=== PATIENT | male | born 1935 | race Caucasian/White ===

== ENCOUNTER → 2016-09-24 | Outpatient (CLI) | payer BC ==
[~2016-09-24] MED LIST: ALFU10TA30 PO; CALCTAB5 PO; CARBSOL4 OPB; CHOL100010 PO; CIPR1TAB10 PO; CLC100X PO; CPRDOTS OTL; DABI150C PO; DIGO0.122 PO; FINA5TAB PO; IMDSR30 PO; METO25TA3 PO; MULT-618 PO; ONDA8TAB12 PO; PANT40TA PO; POLY1POW80 PO; PROC5TAB PO; ZVRUNK PO; [UNRECOGNIZED DRUG - CODE] PO; [UNRECOGNIZED DRUG - CODE] SQ
--- NOTE | 2016-09-24 12:32 | DIAGNOSTIC IMAGING REPORT ---
CHEST 2 VIEWS ROUTINE CLINICAL HISTORY: Acute cough on chemotherapy. Multiple myeloma. COMPARISON STUDY: Chest radiograph April 13, 2015. FINDINGS: A right internal jugular Bvjaoa-h-Cbqz, dual lead left subclavian pacemaker and one level vertebral augmentation as well as lumbar spine hardware is noted. There is no pneumothorax or pleural effusion. Mild cardiomegaly is unchanged. There is no evidence of pulmonary edema. Heterogeneity of skeletal structures is again noted. IMPRESSION: 1. No areas of consolidation to suggest pneumonia. 2. Linear bibasilar opacities which favor atelectasis. 3. Stable cardiomegaly without evidence of pulmonary edema. Electronically signed by: Kody Ayala M.D. 09/24/2016 12:30 PM
== END | disposition home or self-care (01) ==
LOC: C.RAD1850 11:32
PROVIDERS: ATTEND Family Medicine
DX: J01.00 Acute maxillary sinusitis, unspecified (principal); R05 Cough; T88.7XXA Unspecified adverse effect of drug or medicament, initial encounter; I51.7 Cardiomegaly

== ENCOUNTER → 2016-12-26 | Outpatient (CLI) | payer BC ==
[~2016-12-26] MED LIST changes: +ALFU10TA2 PO; -ALFU10TA30 PO; +CYAN100020 PO; +METO100T44 PO
== END | disposition home or self-care (01) ==
LOC: C.LAB 09:53
PROVIDERS: ATTEND Internal Medicine Cardiovascular Disease
DX: I48.92 Unspecified atrial flutter (principal)

== ENCOUNTER → 2017-03-19 | Outpatient (CLI) | payer BC ==
--- NOTE | 2017-03-19 16:36 | DIAGNOSTIC IMAGING REPORT ---
LEFT HIP UNILATERAL 2 VIEWS CLINICAL HISTORY: BUTTOCK PAIN pain COMPARISON: None. DISCUSSION: Moderate generalized degenerative change. Mild peripheral osteophytic reaction. Soft tissue vascular calcifications. No evidence for acetabular protrusion. There is no evidence for soft tissue swelling. IMPRESSION: Moderate degenerative change. No acute bony antibody. Electronically signed by: Cali Cary M.D. 03/19/2017 4:35 PM Dictated Date/Time: 03/19/2017 4:34 PM
== END | disposition home or self-care (01) ==
LOC: C.RADBC 16:17
PROVIDERS: ATTEND Family Medicine
DX: M79.1 Myalgia (principal)

== ENCOUNTER → 2017-04-11 | Outpatient (CLI) | payer BC ==
[~2017-04-11] MED LIST changes: -ALFU10TA2 PO; +ALFU10TA30 PO; -CYAN100020 PO; -METO100T44 PO
--- NOTE | 2017-04-11 14:45 | DIAGNOSTIC IMAGING REPORT ---
L-SPINE MIN 4 VIEWS ROUTINE CLINICAL HISTORY: HX OF MYELOMA, W/ LOW BACK PAIN COMPARISON STUDY: 01/07/2006, skeletal survey dated 07/10/2016 FINDINGS: There is no pathologic bowel dilatation. The bones are osteopenic. There are pedicle screws present at the L4, L5, and S1 levels. The L4 pedicle screw extends into the L3-4 disc. There is a superior endplate L1 compression fracture status post vertebral plasty. There are mild superior endplate deformities at the L2, L3, and L4 levels. There is a spinal curvature convex to the left IMPRESSION: 1. Osteopenia 2. L1 compression fracture status post vertebroplasty 3. Mild superior endplate deformities at the L2, L3, and L4 levels 4. Pedicle screws at the L4, L5, and S1 levels. There is suspected loosening at the L5 level. The L4 pedicle screws extend into the L3-4 disc 5. The above-mentioned findings remain essentially unchanged from the prior study dated 07/10/2016 Electronically signed by: Real Hernández M.D. 04/11/2017 2:44 PM Dictated Date/Time: 04/11/2017 2:40 PM
== END | disposition home or self-care (01) ==
LOC: C.RAD 13:48
PROVIDERS: ATTEND Internal Medicine Hematology & Oncology
DX: C90.00 Multiple myeloma not having achieved remission (principal); M85.80 Other specified disorders of bone density and structure, unspecified site

== ENCOUNTER → 2017-05-10 | Outpatient (CLI) | payer BC ==
--- NOTE | 2017-05-10 19:14 | Myocardial Perfusion Study ---
Myocardial Perfusion Study Rpt Myocardial Perfusion Study Rpt Date of Service 05/10/17 Myocardial Perfusion Study Rpt Procedure: 1. Myocardial perfusion study performed in multiple views/images 2. Exercise treadmill stress ECG Indications: 1. Chest pain Consent: Informed written consent was obtained prior to the procedure. Ordering physician: Dr. Abreu Procedural details: For the stress portion of the study 32.7 mCi of technetium 99m Cardiolite, injected at 11:45 a.m. on 05/10/2017. 30 minutes following the injection, imaging of the heart was performed in multiple projections. For the rest portion of the study, 9.7 mCi technetium 99m Cardiolite was injected intravenously at 10:00 on 05/10/2017. 1 hour following the injection, imaging of the heart was performed in the same projections. Exercise treadmill stress ECG: Patient exercised according to a modified [employer] protocol. He exercised for 3 minutes, achieving 2.3 Mets. Exercise was terminated due to back pain. No chest pain reported. Resting ECG demonstrated: Ventricular paced at 121 bpm Maximum heart rate: 129 bpm Resting blood pressure: 116/78 mmHg Maximum blood pressure: 120/74 mmHg Maximal, age-predicted heart rate: 92 % Significant ST changes: None Arrhythmia: Brief episode of atrial fibrillation without ventricular pacing in recovery (permanent atrial fibrillation according to pacer records) Symptoms: Back pain Findings: Rotating raw imaging demonstrated no significant lung uptake. There is no significant motion artifact. Heart size appeared dilated. Myocardial perfusion demonstrated a very large area of abnormal uptake. The distal anterior wall had severely reduced uptake and was fixed in post stress and rest imaging. The apex had severely reduced uptake and was fixed in post stress and rest imaging. The base to apical septum had moderately reduced uptake and was fixed with minimal reversibility. The base to apical infero septum had severely reduced uptake and was mildly reversible and rest imaging. The base to apical inferior wall had severely reduced uptake and was fixed in post stress and rest imaging. The base to apical inferolateral wall had severely reduced uptake in was fixed with minimal reversibility. There was significant bowel uptake, and the rest imaging greater than the stress imaging. Ejection fraction: 17 % Wall motion: Akinesis involving the distal inferior septum, apex, inferior wall , base to mid inferolateral wall. Otherwise, global hypokinesis. Could not assess for transient ischemic dilation. Impression: 1. 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 2. Severely reduced LV systolic function. EF 17%. 3. Akinesis involving the distal inferior septum, apex, inferior wall, base to mid inferolateral wall. Otherwise, global hypokinesis. 4. No chest pain reported. 5. Indeterminate exercise ECG due to paced rhythm. 6. Very poor exercise tolerance. 7. Dilated left ventricle.
== END | disposition home or self-care (01) ==
LOC: C.NUCL 09:03
PROVIDERS: ATTEND Internal Medicine Cardiovascular Disease
DX: R07.89 Other chest pain (principal); R94.39 Abnormal result of other cardiovascular function study

== ENCOUNTER → 2017-08-28 | Outpatient (CLI) | payer BC ==
[~2017-08-28] MED LIST changes: +ALFU10TA2 PO; -ALFU10TA30 PO; -CIPR1TAB10 PO; -CLC100X PO; -CPRDOTS OTL; +CYAN100020 PO; +METO100T44 PO; -METO25TA3 PO; -MULT-618 PO; -POLY1POW80 PO; -PROC5TAB PO; -[UNRECOGNIZED DRUG - CODE] PO; -[UNRECOGNIZED DRUG - CODE] SQ
--- NOTE | 2017-08-28 12:12 | DIAGNOSTIC IMAGING REPORT ---
CHEST 2 VIEWS ROUTINE CLINICAL HISTORY: COUGH COMPARISON STUDY: September 24, 2016 FINDINGS: The heart is mildly enlarged. There is a left subclavian dual-chamber central venous pacemaker present. There is a right-sided A-Port catheter with its tip projected in the superior vena cava. There is mild pulmonary venous hypertension. There is no focal pulmonary consolidation. There are no selective pleural effusions.[ IMPRESSION: Cardiomegaly and suspected mild pulmonary venous hypertension. No evidence of focal pulmonary consolidation. Electronically signed by: Real Hernández M.D. 08/28/2017 12:10 PM Dictated Date/Time: 08/28/2017 12:09 PM
== END | disposition home or self-care (01) ==
LOC: C.RAD1850 12:01
PROVIDERS: ATTEND Family Medicine
DX: R05 Cough (principal); D89.9 Disorder involving the immune mechanism, unspecified; C90.00 Multiple myeloma not having achieved remission; R09.89 Other specified symptoms and signs involving the circulatory and respiratory systems; I51.7 Cardiomegaly

== ENCOUNTER 2017-10-13 08:00 | Inpatient (IN) | payer BC, OTHER ==
[~2017-10-13] VITALS: Ht 167.6 cm; Wt 67.9 kg
--- NOTE | 2017-10-13 08:23 | EMERGENCY ROOM VISIT NOTE ---
History Report prepared by Shannon: Amie Henson Under the Supervision of: Dr. Rodrigo Cano M.D. First contact with patient: 08:13 Chief Complaint: FLU LIKE SX Stated Complaint: ILLNESS History of Present Illness The patient is a 81 year old male who presents to the Emergency Room with complaints of flu-like symptoms beginning 5 days ago. Per family, the patient has had a cough, congestion, shortness of breath, and nausea. His family reports that the patient is not on Oxygen at home. The patient denies having abdominal pain. He reports that he did not get the flu shot this year. The patient states that he is on blood thinners, but that he did not take them today. Per family, the patient has multiple myeloma and had infusion immunotherapy 9 days ago. The patient also reports that he has a pacemaker. Source of History: patient, family Onset: 5 days ago Position: other (global) Quality: other (flu-like symptoms ) Associated Symptoms: + cough, + SOB, + nausea, No abdominal pain Review of Systems See HPI for pertinent positives & negatives. A total of 10 systems reviewed and were otherwise negative. Past Medical & Surgical Medical Problems: (1) Atrial fibrillation (2) Back surgery (3) Inner Ear Surgery (4) Multiple myeloma (5) Neck pain (6) Osteoporosis (7) Pancytopenia due to antineoplastic chemotherapy (8) Sinus surgery (9) Tonsillectomy Family History Omitted due to advanced age Social History Smoking Status: Never Smoker Alcohol Use: none Drug Use: none Marital Status: Housing Status: lives with significant other Occupation Status: retired Current/Historical Medications Scheduled Acyclovir (Zovirax Unkown Dose), 400 MG PO BID Alfuzosin Hcl (Uroxatral), 10 MG PO HS Calcium (Caltrate), 600 MG PO DAILY Carboxymethylcellulose Sodium (Theratears), 1 DROP OPB AMHS Cholecalciferol (Vitamin D), 5,000 INTER.UNIT PO DAILY Ciprofloxacin (Ciprofloxacin HCl), 500 MG PO BID Cyanocobalamin (Vitamin B12), 5,000 MCG PO DAILY Dabigatran Etexilate Mesylate (Pradaxa), 150 MG PO BID Digoxin (Lanoxin), 0.125 MG PO DAILY Finasteride (Proscar), 5 MG PO DAILY Isosorbide Mononitrate Ext Rel (Imdur Ext Rel), 60 MG PO DAILY Metoprolol Succinate (Metoprolol Succinate ER), 100 MG PO DAILY Pantoprazole (Protonix), 40 MG PO DAILY Scheduled PRN Ondansetron Hcl (Zofran), 8 MG PO TID PRN for Nausea or Vomiting Allergies Coded Allergies: Immune Globulin (Verified Allergy, Severe, ANAPHYLAXIS, 10/13/17) Penicillins (Verified Allergy, Mild, DIZZINESS, 10/13/17) Statins (Verified Allergy, Unknown, unknown, 10/13/17) Sulfa Antibiotics (Verified Allergy, Unknown, Unknown rxn, 10/13/17) Omeprazole (Verified Adverse Reaction, Intermediate, dizziness, 10/13/17) Physical Exam Vital Signs Date Time Temp Pulse Resp B/P (MAP) Pulse Ox O2 Delivery O2 Flow Rate FiO2 10/13/17 10:38 116 20 100/71 99 35 10/13/17 09:51 117 20 119/83 99 BiPAP 35 10/13/17 08:30 104 98 10/13/17 08:30 104 18 97 Nasal Cannula 4.0 10/13/17 08:08 37.7 95 20 181/94 83 Room Air 10/13/17 08:07 83 Room Air 10/13/17 08:07 94 Nasal Cannula 4.0 10/13/17 08:07 108 Physical Exam GENERAL: Patient is an acutely uncomfortable, well-nourished male HEAD: Normocephalic atraumatic EYES: Ocular movements intact pupils equal and react to light OROPHARYNX mucous membranes are moist no exudates present no erythema or edema present NECK: Supple no nuchal rigidity CHEST: Good equal expansion LUNGS: Wheezing throughout all lung davis CARDIAC: Normal S1 and S2 ABDOMEN: Soft nontender no guarding BACK: No CVA tenderness EXTREMITIES: No pain upon palpation normal muscle strength in all groups no clubbing cyanosis or edema NEURO: Patient is following commands and answering questions appropriately. Alert and oriented x3 Cranial Nerves 2-12 grossly intact Medical Decision & Procedures ER Provider Diagnostic Interpretation: Radiology results as stated below per my review and radiologist interpretation: CHEST ONE VIEW PORTABLE HISTORY: 81 years-old Male Pt c/o SOB acute shortness of breath COMPARISON: Chest radiographs 08/28/2017 TECHNIQUE: Portable AP view of the chest FINDINGS: Cardiac silhouette is moderately enlarged. Atherosclerosis of the aorta. Right pectoral Mwiqfu-j-Sgtm catheter is unchanged as is the left subclavian pacer with leads overlying the right atrium and right ventricle. No pneumothorax. Small left pleural effusion is noted in conjunction with patchy left greater then right bibasilar and left lateral midlung opacities. Mild ethmoid vascular congestion without overt pulmonary edema. Bones of the chest appear grossly intact. Chondrocalcinosis about the shoulders with degenerative shoulder and spine changes seen. Kyphoplasty of the upper lumbar region. IMPRESSION: 1. Cardiomegaly and mild pulmonary vascular congestion without overt pulmonary edema. 2. Small left pleural effusion with patchy left greater than right bibasilar and lateral left midlung opacities suspicious for multifocal pneumonia. Follow-up recommended. The above report was generated using voice recognition software. It may contain grammatical, syntax or spelling errors. Electronically signed by: Catrachito Dhaliwal M.D. 10/13/2017 8:44 AM Dictated Date/Time: 10/13/2017 8:41 AM (CHEST FOR PE) ANGIO WITH CT DOSE: 470.73 mGy.cm HISTORY: 81 years-old Male presents with acute shortness of breath TECHNIQUE: Multiple CTA images of the chest were obtained after the intravenous administration of 94 ml Optiray 320. Coronal and sagittal MIPS were obtained from the axial data set and were submitted for review. A dose lowering technique was utilized adhering to the principles of ALARA. COMPARISON: Chest radiograph 10/13/2017, CTA chest 08/13/2013. FINDINGS: CTA: Moderate multichamber cardiac enlargement. Left subclavian pacer is noted with leads overlying the right atrium and right ventricle. Coronary arterial disease. The thoracic aorta is normal in both course and caliber without aneurysm or dissection. The imaged great vessels appear to be patent. The pulmonary arterial tree is opacified to level of the proximal lobar branches. The segmental and subsegmental branches are not well-seen secondary to respiratory motion. No focal filling defects identified to suggest pulmonary thromboembolic disease. The main pulmonary artery is dilated measuring 3.2 cm suggesting pulmonary arterial hypertension. CT CHEST: No focal thyroid nodule identified. Calcified mediastinal and hilar lymph nodes are compatible with prior granulomatous disease. Small bilateral pleural effusions. No pneumothorax. Patchy multifocal consolidative and nodular opacities are present within the left upper lobe, lingula, right upper lobe and bilateral lower lobes, left greater than right predominantly within a bronchovascular distribution with areas of mild bronchial wall thickening. The central airways appear to be patent. No acute abnormality identified within the imaged upper abdomen. Calcified granulomas of the spleen are noted. There is suggestion of trace perihepatic fluid. Chondrocalcinosis with severe degenerative changes of the shoulders. The bones appear at least mildly demineralized. Prior kyphoplasty with remote compression deformity at the upper lumbar spine. IMPRESSION: 1. Limited evaluation of the pulmonary arterial tree secondary to patient motion and contrast bolus timing. No central pulmonary embolus identified. No acute aortic pathology. 2. Multifocal consolidative, groundglass and nodular opacities are seen within a multilobar distribution bilaterally, greatest within the lingula and lower lobes. These findings suggest multifocal pneumonia. Follow-up imaging to document resolution is recommended. 3. Cardiomegaly. 4. Small bilateral pleural effusions. 5. Prior granulomatous disease. The above report was generated using voice recognition software. It may contain grammatical, syntax or spelling errors. Electronically signed by: Catrachito Dhaliwal M.D. 10/13/2017 10:05 AM Dictated Date/Time: 10/13/2017 9:56 AM Laboratory Results Test 10/13/17 08:12 10/13/17 08:50 10/13/17 08:51 10/13/17 08:57 Influenza Type A Antigen Neg for Influ A (NEG) Influenza Type B Antigen Neg for Influ B (NEG) Immature Granulocyte % (Auto) 0.7 % White Blood Count 3.04 K/uL (4.8-10.8) Red Blood Count 3.40 M/uL (4.7-6.1) Hemoglobin 10.3 g/dL (14.0-18.0) Hematocrit 30.1 % (42-52) Mean Corpuscular Volume 88.5 fL (80-100) Mean Corpuscular Hemoglobin 30.3 pg (25-34) Mean Corpuscular Hemoglobin Concent 34.2 g/dl (32-36) Platelet Count 57 K/uL (130-400) Neutrophils (%) (Auto) 79.5 % Lymphocytes (%) (Auto) 12.2 % Monocytes (%) (Auto) 7.6 % Eosinophils (%) (Auto) 0.0 % Basophils (%) (Auto) 0.0 % Neutrophils # (Auto) 2.42 K/uL (1.4-6.5) Lymphocytes # (Auto) 0.37 K/uL (1.2-3.4) Monocytes # (Auto) 0.23 K/uL (0.11-0.59) Eosinophils # (Auto) 0.00 K/uL (0-0.5) Basophils # (Auto) 0.00 K/uL (0-0.2) Immature Granulocyte # (Auto) 0.02 K/uL (0.00-0.02) Poikilocytosis PRESENT Anisocytosis PRESENT Prothrombin Time 12.7 SECONDS (9.0-12.0) Prothromb Time International Ratio 1.2 (0.9-1.1) Activated Partial Thromboplast Time 38.5 SECONDS (21.0-31.0) Partial Thromboplastin Ratio 1.5 Total Bilirubin 0.7 mg/dl (0.2-1) Aspartate Amino Transf (AST/SGOT) 18 U/L (15-37) Alanine Aminotransferase (ALT/SGPT) 28 U/L (12-78) Alkaline Phosphatase 82 U/L (45-117) Total Protein 6.8 gm/dl (6.4-8.2) Albumin 3.1 gm/dl (3.4-5.0) Globulin 3.7 gm/dl (2.5-4.0) Albumin/Globulin Ratio 0.8 (0.9-2) Arterial Blood pH 7.44 (7.35-7.45) Arterial Blood Partial Pressure CO2 33 mmHg (35-46) Arterial Blood Partial Pressure O2 184 mm/Hg (80-95) Arterial Blood HCO3 22 mmol/L (19-24) Arterial Blood Oxygen Saturation 99.0 % (90-95) Arterial Blood Base Excess -1.9 mEq/L (-9-1.8) Arterial Blood Gas Delivery 4L Keo Test POS (POS) Bedside Lactic Acid Venous 0.82 mmol/L (0.90-1.70) Test 10/13/17 09:00 10/13/17 09:55 Bedside Hemoglobin 10.2 g/dl (14.0-18.0) Bedside Hematocrit 30 % (42-52) Bedside Sodium 128 mEq/L (135-144) Bedside Potassium 4.1 mEq/L (3.3-5.0) Bedside Chloride 95 mEq/L (101-112) Bedside Total CO2 23 mEq/l (24-31) Bedside Blood Urea Nitrogen 18 mg/dl (7-18) Bedside Creatinine 0.8 mg/dl (0.6-1.3) Bedside Glucose (other) 135 mg/dl (70-99) Bedside Ionized Calcium (Jennifer) 1.29 mmol/l (1.12-1.32) Urine Color YELLOW Urine Appearance CLEAR (CLEAR) Urine pH 6.5 (4.5-7.5) Urine Specific [place] 1.017 (1.000-1.030) Urine Protein NEG (NEG) Urine Glucose (UA) NEG (NEG) Urine Ketones NEG (NEG) Urine Occult Blood NEG (NEG) Urine Nitrite NEG (NEG) Urine Bilirubin NEG (NEG) Urine Urobilinogen NEG (NEG) Urine Leukocyte Esterase NEG (NEG) Urine WBC (Auto) 0 /hpf (0-5) Urine RBC (Auto) 0-4 /hpf (0-4) Urine Hyaline Casts (Auto) 0 /lpf (0-5) Urine Epithelial Cells (Auto) 0-5 /lpf (0-5) Urine Bacteria (Auto) NEG (NEG) Labs reviewed by ED physician. Medications Administered Medications (Trade) Dose Ordered Sig/Fred Route Start Time Stop Time Status Last Admin Dose Admin Albuterol/ Ipratropium (Duoneb) 12 ml ONE ONCE INH 10/13/17 08:30 10/13/17 08:31 DC 10/13/17 08:30 12 ML Furosemide (Lasix Inj) 40 mg NOW STAT IV 10/13/17 08:24 10/13/17 08:25 DC 10/13/17 09:10 40 MG Ondansetron HCl (Zofran Inj) 4 mg NOW STAT IV 10/13/17 08:24 10/13/17 08:25 DC 10/13/17 09:10 4 MG Dabigatran (Pradaxa Cap) 150 mg NOW STAT PO 10/13/17 08:27 10/13/17 08:28 DC 10/13/17 09:10 150 MG Cefepime HCl 2000 mg/Dextrose 122 ml @ 200 mls/hr NOW STAT IV 10/13/17 08:28 10/13/17 09:04 DC 10/13/17 09:11 200 MLS/HR Levofloxacin (Levaquin / D5W) 750 mg NOW STAT IV 10/13/17 08:28 10/13/17 08:30 DC 10/13/17 09:10 750 MG Vancomycin HCl (Vancomycin 1gm/ 270ml Nss) 1 gm NOW STAT IV 10/13/17 08:51 10/13/17 08:52 DC 10/13/17 09:11 1 GM Sodium Chloride 1,000 ml @ 999 mls/hr Q1H1M STAT IV 10/13/17 09:47 10/13/17 10:47 DC 10/13/17 10:36 999 MLS/HR ECG Indication: SOB/dyspnea Rate (beats per minute): 95 Rhythm: atrial fibrillation Findings: PVC, no acute ischemic change, other (old anterior infarct ) Change: no significant change Change: Patient's Electrocardiogram interpreted by me. ED Course 0815: Past medical records reviewed. The patient was evaluated in room B7. A complete history and physical examination was performed. 0824: Ordered Zofran Inj 4 mg IV, Lasix Inj 40 mg IV. 0827: Ordered Dabigatran 150 mg PO. 0828: Ordered Levofloxacin 750 mg IV, Cefepime HCl 122 ml @ 200 mls/hr IV. 0830: Ordered Duoneb 12 ml INH. 0845: The patient is feeling better with a breathing treatment. 0851: Ordered Vancomycin HCl 1 mg IV. 0947: Ordered Sodium Chloride 1,000 ml @ 999 mls/hr IV. 0949: Upon reexamination the patient is resting. I discussed results and treatment plan with the patient. He verbalizes agreement and understanding. I spoke with Dr. Mcclure from the [facility] Hospitalist Service. The patient will be evaluated for further management. 0950: Ordered Sodium Chloride 1,000 ml @ 999 mls/hr IV. 0951: Ordered Sodium Chloride 1,000 ml @ 999 mls/hr IV. Medical Decision Differential diagnosis: Etiologies such as infections, reactive airway disease, pneumonia, pneumothorax , COPD, CHF, cardiac ischemia, pulmonary embolism, musculoskeletal, gastrointestinal, as well as others were entertained. This is an 81-year-old male who presents emergency department complaining of hypoxia. The patient was given multiple breathing treatments in the emergency department. In addition the patient was also pancultured up and started on antibiotics. I did discuss the case with the hospitalist service who agreed to see the patient. The patient was placed on BiPAP and improved. He was started on antibiotics. Medication Reconcilliation Current Medication List: was personally reviewed by me Blood Pressure Screening Patient's blood pressure: Elevated blood pressure will be monitored by the hospitalist Consults Time Called: 0850 Consulting Physician: Dr. Mcclure- CaRobert Wausa Returned Call: [phone] I discussed the patient's case with Dr. Mcclure, She has agreed to evaluate the patient for further management and care. Impression Primary Impression: Hypoxia Additional Impression: Pneumonia Critical Care I have personally spent greater than 30 minutes of critical care time in the direct management of this patient. This includes bedside care, interpretation of diagnostic studies, and testing, discussion with consultants, patient, and family members, and other required patient management activities. This 30 minutes is in excess of all separately billable procedures. Scribe Attestation The scribe's documentation has been prepared under my direction and personally reviewed by me in its entirety. I confirm that the note above accurately reflects all work, treatment, procedures, and medical decision making performed by me. Departure Information Dispostion Being Evaluated By Hospitalist Referrals Aldo Javed D.ORobert (PCP) Patient Instructions My [facility] Health Problem Qualifiers Additional Impression: Pneumonia Pneumonia type: due to unspecified organism Laterality: unspecified laterality Lung location: unspecified part of lung Qualified Codes: J18.9 - Pneumonia, unspecified organism
[2017-10-13] MEDS ORDERED: FUROSEMIDE 40 MG/4 ML VIAL IV STA (08:24)
[2017-10-13] MEDS ORDERED: ONDANSETRON INJ 2 MG/ML 2 ML VIAL IV STA (08:24)
[2017-10-13] MEDS ORDERED: ISOS60TA25 PO (08:25)
[2017-10-13] MEDS ORDERED: CPR/500 PO (08:25)
[2017-10-13] MEDS ORDERED: TPRSR/25 PO (08:25)
[2017-10-13] MEDS ORDERED: DABIGATRAN ELEXILATE 75 MG CAP PO STA (08:27)
[2017-10-13] MEDS ORDERED: CEFEPIME IV 2,000 MG in DEXTROSE 5% 100ML 100 ML IV STA (08:28)
[2017-10-13] MEDS ORDERED: LEVAQUIN 750MG / 150ML D5W IV STA (08:28)
[2017-10-13 08:30] VITALS: PULSE 104; O2SAT 97; O2SAT 98
[2017-10-13] MEDS ORDERED: ALBUT/IPRATROP 3MG/0.5MG NEB 3 ML VIAL INH ONE (08:30)
--- NOTE | 2017-10-13 08:45 | DIAGNOSTIC IMAGING REPORT ---
CHEST ONE VIEW PORTABLE HISTORY: 81 years-old Male Pt c/o SOB acute shortness of breath COMPARISON: Chest radiographs 08/28/2017 TECHNIQUE: Portable AP view of the chest FINDINGS: Cardiac silhouette is moderately enlarged. Atherosclerosis of the aorta. Right pectoral Hqmjpm-g-Yowx catheter is unchanged as is the left subclavian pacer with leads overlying the right atrium and right ventricle. No pneumothorax. Small left pleural effusion is noted in conjunction with patchy left greater then right bibasilar and left lateral midlung opacities. Mild ethmoid vascular congestion without overt pulmonary edema. Bones of the chest appear grossly intact. Chondrocalcinosis about the shoulders with degenerative shoulder and spine changes seen. Kyphoplasty of the upper lumbar region. IMPRESSION: 1. Cardiomegaly and mild pulmonary vascular congestion without overt pulmonary edema. 2. Small left pleural effusion with patchy left greater than right bibasilar and lateral left midlung opacities suspicious for multifocal pneumonia. Follow-up recommended. The above report was generated using voice recognition software. It may contain grammatical, syntax or spelling errors. Electronically signed by: Catrachito Dhaliwal M.D. 10/13/2017 8:44 AM Dictated Date/Time: 10/13/2017 8:41 AM
[2017-10-13] MEDS ORDERED: VANCOMYCIN 1GM/270ML NSS IV STA (08:51)
[2017-10-13 08:53] LABS: INFLUENZA B ANTIGEN Neg for Influ B (NEG)
[2017-10-13 09:10] LABS: MEAN CORPUSCULAR HGB CONC 34.2 g/dl (32-36)
[2017-10-13 09:14] LABS: ISTAT CREATININE 0.8 mg/dl (0.6-1.3); ISTAT IONIZED CALCIUM 1.29 mmol/l (1.12-1.32); ISTAT POTASSIUM 4.1 mEq/L (3.3-5.0)
[2017-10-13] MEDS ORDERED: OPTIRAY 320 IV PRN (09:15)
[2017-10-13 09:16] LABS: HEMATOCRIT 30.1 % (42-52); HEMOGLOBIN 10.3 g/dL (14.0-18.0); MEAN CELL VOLUME 88.5 fL (80-100); MEAN CORPUSCULAR HEMOGLOBIN 30.3 pg (25-34); RED CELL DISTRIBUTION WIDTH CV 19.9 % (11.5-14.5); RED CELL DISTRIBUTION WIDTH SD 65.1 fL (36.4-46.3); WHITE BLOOD COUNT 3.04 K/uL (4.8-10.8)
[2017-10-13 09:22] LABS: INR 1.2 (0.9-1.1); PTT PATIENT 38.5 SECONDS (21.0-31.0)
[2017-10-13 09:26] LABS: ALBUMIN 3.1 gm/dl (3.4-5.0); CALCIUM 9.4 mg/dl (8.5-10.1); CREATININE 0.73 mg/dl (0.60-1.40); POTASSIUM 3.9 mmol/L (3.5-5.1)
[2017-10-13 09:33] LABS: IG# 0.02 K/uL (0.00-0.02); LYMPH % 12.2 %; LYMPH ABS # 0.37 K/uL (1.2-3.4); MONO % 7.6 %; MONO ABS # 0.23 K/uL (0.11-0.59); NEUT % 79.5 %; NEUT ABS # 2.42 K/uL (1.4-6.5); PLATELET COUNT 57 K/uL (130-400)
[2017-10-13 09:39] LABS: CKMB 0.9 ng/ml (0.5-3.6); TOTAL PROTEIN 6.8 gm/dl (6.4-8.2)
[2017-10-13] MEDS ORDERED: SODIUM CHLORIDE 0.9% 1000ML 1,000 ML IV STA ×3 (09:47→09:51)
--- NOTE | 2017-10-13 10:06 | DIAGNOSTIC IMAGING REPORT ---
(CHEST FOR PE) ANGIO WITH CT DOSE: 470.73 mGy.cm HISTORY: 81 years-old Male presents with acute shortness of breath TECHNIQUE: Multiple CTA images of the chest were obtained after the intravenous administration of 94 ml Optiray 320. Coronal and sagittal MIPS were obtained from the axial data set and were submitted for review. A dose lowering technique was utilized adhering to the principles of ALARA. COMPARISON: Chest radiograph 10/13/2017, CTA chest 08/13/2013. FINDINGS: CTA: Moderate multichamber cardiac enlargement. Left subclavian pacer is noted with leads overlying the right atrium and right ventricle. Coronary arterial disease. The thoracic aorta is normal in both course and caliber without aneurysm or dissection. The imaged great vessels appear to be patent. The pulmonary arterial tree is opacified to level of the proximal lobar branches. The segmental and subsegmental branches are not well-seen secondary to respiratory motion. No focal filling defects identified to suggest pulmonary thromboembolic disease. The main pulmonary artery is dilated measuring 3.2 cm suggesting pulmonary arterial hypertension. CT CHEST: No focal thyroid nodule identified. Calcified mediastinal and hilar lymph nodes are compatible with prior granulomatous disease. Small bilateral pleural effusions. No pneumothorax. Patchy multifocal consolidative and nodular opacities are present within the left upper lobe, lingula, right upper lobe and bilateral lower lobes, left greater than right predominantly within a bronchovascular distribution with areas of mild bronchial wall thickening. The central airways appear to be patent. No acute abnormality identified within the imaged upper abdomen. Calcified granulomas of the spleen are noted. There is suggestion of trace perihepatic fluid. Chondrocalcinosis with severe degenerative changes of the shoulders. The bones appear at least mildly demineralized. Prior kyphoplasty with remote compression deformity at the upper lumbar spine. IMPRESSION: 1. Limited evaluation of the pulmonary arterial tree secondary to patient motion and contrast bolus timing. No central pulmonary embolus identified. No acute aortic pathology. 2. Multifocal consolidative, groundglass and nodular opacities are seen within a multilobar distribution bilaterally, greatest within the lingula and lower lobes. These findings suggest multifocal pneumonia. Follow-up imaging to document resolution is recommended. 3. Cardiomegaly. 4. Small bilateral pleural effusions. 5. Prior granulomatous disease. The above report was generated using voice recognition software. It may contain grammatical, syntax or spelling errors. Electronically signed by: Catrachito Dhaliwal M.D. 10/13/2017 10:05 AM Dictated Date/Time: 10/13/2017 9:56 AM
[2017-10-13] MEDS ORDERED: CEFEPIME IV 2,000 MG in DEXTROSE 5% 100ML 100 ML IV SCH (11:15)
[2017-10-13] MEDS ORDERED: MAGNESIUM HYDROXIDE SUSP 30 ML UDC PO PRN (11:15)
[2017-10-13] MEDS ORDERED: POLYETHYLENE (MIRALAX) 17 GM PACK PO PRN (11:15)
[2017-10-13] MEDS ORDERED: VANCOMYCIN CONSULT ACTIVE PRN (11:15)
[2017-10-13] MEDS ORDERED: ONDANSETRON INJ 2 MG/ML 2 ML VIAL IV PRN (11:15)
[2017-10-13] MEDS ORDERED: ALUMINUM/MAGNESIUM/SIMETH (MAALOX MAX) 30 ML UDC PO PRN (11:15)
[2017-10-13] MEDS ORDERED: ACETAMINOPHEN 325 MG TAB PO PRN (11:15)
[2017-10-13] MEDS ORDERED: TPRSR/100 PO (11:26)
--- NOTE | 2017-10-13 11:49 | History and Physical ---
History & Physical Date & Time of Service: Oct 13, 2017 at 11:28 Chief Complaint: Illness Primary Care Physician: Aldo Javed D.O. History of Present Illness Source: patient, family ( and daughters at bedside), clinic records, hospital records This is a 81 y/o male with a history of a-fib on chronic anticoagulation, cardiomyopathy, CAD, s/p pacemaker, TIA, anemia, BPH, and multiple myeloma who presented to the ED on 10/13 with shortness of breath, productive cough and wheezing. The patient states that he first started developing symptoms a few days ago. He was placed on Cipro by his PCP as an outpatient without any relief. He states his shortness of breath became much worse this morning, prompting him to come to the ED. He complains of a productive cough with yellow sputum and wheezing. He denies any fevers. He does complain of a 3/10 central chest pressure that is worse with deep breaths and coughing. He also complains of nausea and decreased appetite but denies abdominal pain or vomiting. The patient denies fevers, chills, sweats, palpitations, claudication , vomiting, abdominal pain, dysuria, hematuria, urinary retention, paralysis, weakness, numbness and tingling. Past Medical/Surgical History Medical Problems: (1) Atrial fibrillation Status: Chronic (2) Back surgery Status: Resolved (3) Inner Ear Surgery Status: Resolved (4) Multiple myeloma Status: Chronic (5) Neck pain Status: Chronic (6) Osteoporosis Status: Chronic (7) Pancytopenia due to antineoplastic chemotherapy Status: Chronic (8) Sinus surgery Status: Resolved (9) Tonsillectomy Status: Resolved Cardiomyopathy CAD TIA Anemia BPH Family History Cancer (esophagus, lung, bladder, prostate, testicular) Myocardial infarction Stroke Social History Smoking Status: Never Smoker Smokeless Tobacco Use: No Alcohol Use: none Drug Use: none Marital Status: Housing status: lives with significant other Occupational Status: retired Immunizations History of Influenza Vaccine: No History of Tetanus Vaccine?: Unknown History of Pneumococcal: No History of Hepatitis B Vaccine: No Multi-Drug Resistant Organisms History of MDRO: No Allergies Coded Allergies: Immune Globulin (Verified Allergy, Severe, ANAPHYLAXIS, 10/13/17) Penicillins (Verified Allergy, Mild, DIZZINESS, 10/13/17) Statins (Verified Allergy, Unknown, unknown, 10/13/17) Sulfa Antibiotics (Verified Allergy, Unknown, Unknown rxn, 10/13/17) Omeprazole (Verified Adverse Reaction, Intermediate, dizziness, 10/13/17) Home Medications Scheduled Acyclovir (Zovirax Unkown Dose), 400 MG PO BID Alfuzosin Hcl (Uroxatral), 10 MG PO HS Calcium (Caltrate), 600 MG PO DAILY Carboxymethylcellulose Sodium (Theratears), 1 DROP OPB AMHS Cholecalciferol (Vitamin D), 5,000 INTER.UNIT PO DAILY Ciprofloxacin (Ciprofloxacin HCl), 500 MG PO BID Cyanocobalamin (Vitamin B12), 5,000 MCG PO DAILY Dabigatran Etexilate Mesylate (Pradaxa), 150 MG PO BID Digoxin (Lanoxin), 0.125 MG PO DAILY Finasteride (Proscar), 5 MG PO DAILY Isosorbide Mononitrate Ext Rel (Imdur Ext Rel), 60 MG PO DAILY Metoprolol Succinate (Metoprolol Succinate ER), 100 MG PO DAILY Pantoprazole (Protonix), 40 MG PO DAILY Scheduled PRN Ondansetron Hcl (Zofran), 8 MG PO TID PRN for Nausea or Vomiting Review of Systems Constitutional: No fever, No chills, No sweats Eyes: No worsening of vision, No eye pain, No diplopia ENT: No hearing loss, No nasal symptoms, No trouble swallowing Respiratory: +Cough, wheezing, SOB, OH. Cardiovascular: +Chest pressure. No claudication, No palpitations Abdomen: +Nausea. No pain, No vomiting Musculoskeletal: No joint pain, No muscle pain, No swelling Genitourinary - Male: +Urinary incontinence. No dysuria, No urinary retention , No hematuria Neurologic: No paralysis, No weakness, No numbness/tingling Integumentary: No rash, No itch, No color change Physical Exam Vital Signs Date Time Temp Pulse Resp B/P (MAP) Pulse Ox O2 Delivery O2 Flow Rate FiO2 10/13/17 10:38 116 20 100/71 99 35 10/13/17 09:51 117 20 119/83 99 BiPAP 35 10/13/17 08:30 104 98 10/13/17 08:30 104 18 97 Nasal Cannula 4.0 10/13/17 08:08 37.7 95 20 181/94 83 Room Air 10/13/17 08:07 83 Room Air 10/13/17 08:07 94 Nasal Cannula 4.0 10/13/17 08:07 108 General appearance: Well-developed, well-nourished, no apparent distress Head: Normocephalic, atraumatic Eyes: Normal inspection, PERRL, EOMI ENT: Normal ENT inspection, hearing grossly normal, pharynx normal Neck: Supple, no JVD, trachea midline Respiratory/Chest: +On BiPAP. Decreased breath sounds throughout. Wheezing heard anteriorly. No respiratory distress Cardiovascular: +Tachycardic. Irregularly irregular. No gallop, no murmur Abdomen/GI: Normal bowel sounds, non-tender, soft Extremities/Musculoskeletal: Normal inspection, no calf tenderness, no pedal edema Neurological/Psych: Alert, normal mood/affect, oriented x 3 Skin: Normal color, warm/dry, no rash Diagnostics Laboratory Results Results Past 24 Hours Test 10/13/17 08:12 10/13/17 08:50 10/13/17 08:51 10/13/17 08:57 Range/Units Influenza Type A Antigen Neg for Influ A NEG Influenza Type B Antigen Neg for Influ B NEG White Blood Count 3.04 4.8-10.8 K/uL Red Blood Count 3.40 4.7-6.1 M/uL Hemoglobin 10.3 14.0-18.0 g/dL Hematocrit 30.1 42-52 % Mean Corpuscular Volume 88.5 80-100 fL Mean Corpuscular Hemoglobin 30.3 25-34 pg Mean Corpuscular Hemoglobin Concent 34.2 32-36 g/dl Platelet Count 57 130-400 K/uL Neutrophils (%) (Auto) 79.5 % Lymphocytes (%) (Auto) 12.2 % Monocytes (%) (Auto) 7.6 % Eosinophils (%) (Auto) 0.0 % Basophils (%) (Auto) 0.0 % Neutrophils # (Auto) 2.42 1.4-6.5 K/uL Lymphocytes # (Auto) 0.37 1.2-3.4 K/uL Monocytes # (Auto) 0.23 0.11-0.59 K/uL Eosinophils # (Auto) 0.00 0-0.5 K/uL Basophils # (Auto) 0.00 0-0.2 K/uL RDW Standard Deviation 65.1 36.4-46.3 fL RDW Coefficient of Variation 19.9 11.5-14.5 % Immature Granulocyte % (Auto) 0.7 % Immature Granulocyte # (Auto) 0.02 0.00-0.02 K/uL Platelet Estimate DECREASED Poikilocytosis PRESENT Anisocytosis PRESENT Prothrombin Time 12.7 9.0-12.0 SECONDS Prothromb Time International Ratio 1.2 0.9-1.1 Activated Partial Thromboplast Time 38.5 21.0-31.0 SECONDS Partial Thromboplastin Ratio 1.5 Sodium Level 128 136-145 mmol/L Potassium Level 3.9 3.5-5.1 mmol/L Chloride Level 96 98-107 mmol/L Carbon Dioxide Level 21 21-32 mmol/L Anion Gap 11.0 3-11 mmol/L Blood Urea Nitrogen 17 7-18 mg/dl Creatinine 0.73 0.60-1.40 mg/dl Est Creatinine Clear Calc Drug Dose 72.8 ml/min Estimated GFR () 101.5 Estimated GFR (Non- 87.6 BUN/Creatinine Ratio 23.2 10-20 Random Glucose 131 70-99 mg/dl Calcium Level 9.4 8.5-10.1 mg/dl Total Bilirubin 0.7 0.2-1 mg/dl Aspartate Amino Transf (AST/SGOT) 18 15-37 U/L Alanine Aminotransferase (ALT/SGPT) 28 12-78 U/L Alkaline Phosphatase 82 45-117 U/L Total Creatine Kinase 44 39-308 U/L Creatine Kinase MB 0.9 0.5-3.6 ng/ml Creatine Kinase MB Ratio 2.0 0-3.0 Troponin I 0.070 0-0.045 ng/ml Total Protein 6.8 6.4-8.2 gm/dl Albumin 3.1 3.4-5.0 gm/dl Globulin 3.7 2.5-4.0 gm/dl Albumin/Globulin Ratio 0.8 0.9-2 Arterial Blood pH 7.44 7.35-7.45 Arterial Blood Partial Pressure CO2 33 35-46 mmHg Arterial Blood Partial Pressure O2 184 80-95 mm/Hg Arterial Blood HCO3 22 19-24 mmol/L Arterial Blood Oxygen Saturation 99.0 90-95 % Arterial Blood Base Excess -1.9 -9-1.8 mEq/L Arterial Blood Gas Delivery 4L Keo Test POS POS Bedside Lactic Acid Venous 0.82 0.90-1.70 mmol/L Test 10/13/17 09:00 10/13/17 09:55 Range/Units Bedside Hemoglobin 10.2 14.0-18.0 g/dl Bedside Hematocrit 30 42-52 % Bedside Sodium 128 135-144 mEq/L Bedside Potassium 4.1 3.3-5.0 mEq/L Bedside Chloride 95 101-112 mEq/L Bedside Total CO2 23 24-31 mEq/l Anion Gap 16.0 16-25 mmol/L Bedside Blood Urea Nitrogen 18 7-18 mg/dl Bedside Creatinine 0.8 0.6-1.3 mg/dl Bedside Glucose (other) 135 70-99 mg/dl Bedside Ionized Calcium (Jennifer) 1.29 1.12-1.32 mmol/l Urine Color YELLOW Urine Appearance CLEAR CLEAR Urine pH 6.5 4.5-7.5 Urine Specific [place] 1.017 1.000-1.030 Urine Protein NEG NEG Urine Glucose (UA) NEG NEG Urine Ketones NEG NEG Urine Occult Blood NEG NEG Urine Nitrite NEG NEG Urine Bilirubin NEG NEG Urine Urobilinogen NEG NEG Urine Leukocyte Esterase NEG NEG Urine WBC (Auto) 0 0-5 /hpf Urine RBC (Auto) 0-4 0-4 /hpf Urine Hyaline Casts (Auto) 0 0-5 /lpf Urine Epithelial Cells (Auto) 0-5 0-5 /lpf Urine Bacteria (Auto) NEG NEG Microbiology Results 10/13/17 Blood Culture, Received Pending 10/13/17 Blood Culture, Received Pending Diagnostic Radiology Reviewed the following studies and agree with interpretation as follows: CHEST ONE VIEW PORTABLE HISTORY: 81 years-old Male Pt c/o SOB acute shortness of breath COMPARISON: Chest radiographs 08/28/2017 TECHNIQUE: Portable AP view of the chest FINDINGS: Cardiac silhouette is moderately enlarged. Atherosclerosis of the aorta. Right pectoral [id number] catheter is unchanged as is the left subclavian pacer with leads overlying the right atrium and right ventricle. No pneumothorax. Small left pleural effusion is noted in conjunction with patchy left greater then right bibasilar and left lateral midlung opacities. Mild ethmoid vascular congestion without overt pulmonary edema. Bones of the chest appear grossly intact. Chondrocalcinosis about the shoulders with degenerative shoulder and spine changes seen. Kyphoplasty of the upper lumbar region. IMPRESSION: 1. Cardiomegaly and mild pulmonary vascular congestion without overt pulmonary edema. 2. Small left pleural effusion with patchy left greater than right bibasilar and lateral left midlung opacities suspicious for multifocal pneumonia. Follow-up recommended. (CHEST FOR PE) ANGIO WITH CT DOSE: 470.73 mGy.cm HISTORY: 81 years-old Male presents with acute shortness of breath TECHNIQUE: Multiple CTA images of the chest were obtained after the intravenous administration of 94 ml Optiray 320. Coronal and sagittal MIPS were obtained from the axial data set and were submitted for review. A dose lowering technique was utilized adhering to the principles of ALARA. COMPARISON: Chest radiograph 10/13/2017, CTA chest 08/13/2013. FINDINGS: CTA: Moderate multichamber cardiac enlargement. Left subclavian pacer is noted with leads overlying the right atrium and right ventricle. Coronary arterial disease. The thoracic aorta is normal in both course and caliber without aneurysm or dissection. The imaged great vessels appear to be patent. The pulmonary arterial tree is opacified to level of the proximal lobar branches. The segmental and subsegmental branches are not well-seen secondary to respiratory motion. No focal filling defects identified to suggest pulmonary thromboembolic disease. The main pulmonary artery is dilated measuring 3.2 cm suggesting pulmonary arterial hypertension. CT CHEST: No focal thyroid nodule identified. Calcified mediastinal and hilar lymph nodes are compatible with prior granulomatous disease. Small bilateral pleural effusions. No pneumothorax. Patchy multifocal consolidative and nodular opacities are present within the left upper lobe, lingula, right upper lobe and bilateral lower lobes, left greater than right predominantly within a bronchovascular distribution with areas of mild bronchial wall thickening. The central airways appear to be patent. No acute abnormality identified within the imaged upper abdomen. Calcified granulomas of the spleen are noted. There is suggestion of trace perihepatic fluid. Chondrocalcinosis with severe degenerative changes of the shoulders. The bones appear at least mildly demineralized. Prior kyphoplasty with remote compression deformity at the upper lumbar spine. IMPRESSION: 1. Limited evaluation of the pulmonary arterial tree secondary to patient motion and contrast bolus timing. No central pulmonary embolus identified. No acute aortic pathology. 2. Multifocal consolidative, groundglass and nodular opacities are seen within a multilobar distribution bilaterally, greatest within the lingula and lower lobes. These findings suggest multifocal pneumonia. Follow-up imaging to document resolution is recommended. 3. Cardiomegaly. 4. Small bilateral pleural effusions. 5. Prior granulomatous disease. EKG Reviewed EKG and agree with interpretation as follows: 95 bpm, a-fib with ventricular paced complexes Impression Assessment and Plan 81 y/o male with a history of a-fib on chronic anticoagulation, cardiomyopathy, CAD, s/p pacemaker, TIA, anemia, BPH, and multiple myeloma who presented to the ED on 10/13 with shortness of breath, productive cough and wheezing. Pt with low grade fever, Tmax 37.7. Tachycardic, BP stable. 83% on room air, now breathing comfortably on BiPAP. CXR shows multifocal pneumonia. CTA chest negative for PE and confirms multifocal PNA. EKG no ischemic changes. WBC around baseline at 3.04 given immunotherapy. Sodium 128. Troponin elevated at 0.07. Multifocal pneumonia -Admit to telemetry -Continue BiPAP for now -Continue IV vancomycin, Levaquin 750 mg IV qd, and cefepime 2 gm IV q8h given immunosuppression -Blood cultures pending -Sputum culture if able to obtain -Xopenex/Atrovent nebs QIDR and q2h prn SOB/wheezing -NSS at 100 cc/hr Chest pain, elevated troponin--likely secondary to demand ischemia rather than ACS -Trend cardiac enzymes q8h x 3. First trop 0.07, last troponin in 2014 also mildly elevated -EKG q am and prn chest pain A-fib on anticoagulation, cardiomyopathy, s/p pacemaker, CAD, h/o TIA--stable, slightly tachycardic -Continue digoxin 125 mcg PO qd, Toprol XL 100 mg PO qd, Imdur 60 mg PO qd, and Pradaxa 150 mg PO BID Anemia, multiple myeloma--anemia likely secondary to IV immunotherapy. Stable -Weekly infusions but missed last week due to illness -Continue acyclovir 400 mg PO BID for suppressive therapy BPH -Continue alfuzosin 10 mg PO hs and Proscar 5 mg PO qd DVT prophylaxis -Pradaxa -SARINA evans and GEOVANNIs Code Status -Level I, FULL RESUSCITATION STATUS Level of Care Telemetry Resuscitation Status FULL RESUSCITATION VTE Prophylaxis VTE Risk Assessment Done? Y/N: Yes Risk Level: Moderate Given or contraindicated: Other Anticoagulation (Pradaxa), T.E.D. Stockings, SCD's
[2017-10-13 12:48] VITALS: BP 117/79; PULSE 98; TEMP 36.7; O2SAT 97; BMI 24.7
[2017-10-13] MEDS: SODIUM CHLORIDE 0.9% 1000ML 1,000 ML IV SCH ×2 (12:57→23:06)
--- NOTE | 2017-10-13 13:43 | Pharmacy Progress Note ---
Pharmacy Antibiotic Consult Date of Service: Oct 13, 2017. Pharmacy Dosing Scope Pharmacy is consulted to initiate VANCO IV dosing therapy, order appropriate labs and adjust drug dose/frequency. Subjective The patient is a 81 year old male admitted on Oct 13, 2017 at 11:24. Objective Height (Feet): 5 Height (Inches): 6.00 Weight (Kilograms): 69.500 Lab Results (24hrs): Test 10/13/17 08:12 10/13/17 08:50 10/13/17 08:51 10/13/17 08:57 Influenza Type A Antigen Neg for Influ A (NEG) Influenza Type B Antigen Neg for Influ B (NEG) White Blood Count 3.04 K/uL (4.8-10.8) Red Blood Count 3.40 M/uL (4.7-6.1) Hemoglobin 10.3 g/dL (14.0-18.0) Hematocrit 30.1 % (42-52) Mean Corpuscular Volume 88.5 fL (80-100) Mean Corpuscular Hemoglobin 30.3 pg (25-34) Mean Corpuscular Hemoglobin Concent 34.2 g/dl (32-36) Platelet Count 57 K/uL (130-400) Neutrophils (%) (Auto) 79.5 % Lymphocytes (%) (Auto) 12.2 % Monocytes (%) (Auto) 7.6 % Eosinophils (%) (Auto) 0.0 % Basophils (%) (Auto) 0.0 % Neutrophils # (Auto) 2.42 K/uL (1.4-6.5) Lymphocytes # (Auto) 0.37 K/uL (1.2-3.4) Monocytes # (Auto) 0.23 K/uL (0.11-0.59) Eosinophils # (Auto) 0.00 K/uL (0-0.5) Basophils # (Auto) 0.00 K/uL (0-0.2) RDW Standard Deviation 65.1 fL (36.4-46.3) RDW Coefficient of Variation 19.9 % (11.5-14.5) Immature Granulocyte % (Auto) 0.7 % Immature Granulocyte # (Auto) 0.02 K/uL (0.00-0.02) Platelet Estimate DECREASED Poikilocytosis PRESENT Anisocytosis PRESENT Prothrombin Time 12.7 SECONDS (9.0-12.0) Prothromb Time International Ratio 1.2 (0.9-1.1) Activated Partial Thromboplast Time 38.5 SECONDS (21.0-31.0) Partial Thromboplastin Ratio 1.5 Sodium Level 128 mmol/L (136-145) Potassium Level 3.9 mmol/L (3.5-5.1) Chloride Level 96 mmol/L (98-107) Carbon Dioxide Level 21 mmol/L (21-32) Anion Gap 11.0 mmol/L (3-11) Blood Urea Nitrogen 17 mg/dl (7-18) Creatinine 0.73 mg/dl (0.60-1.40) Est Creatinine Clear Calc Drug Dose 72.8 ml/min Estimated GFR () 101.5 Estimated GFR (Non- 87.6 BUN/Creatinine Ratio 23.2 (10-20) Random Glucose 131 mg/dl (70-99) Calcium Level 9.4 mg/dl (8.5-10.1) Total Bilirubin 0.7 mg/dl (0.2-1) Aspartate Amino Transf (AST/SGOT) 18 U/L (15-37) Alanine Aminotransferase (ALT/SGPT) 28 U/L (12-78) Alkaline Phosphatase 82 U/L (45-117) Total Creatine Kinase 44 U/L (39-308) Creatine Kinase MB 0.9 ng/ml (0.5-3.6) Creatine Kinase MB Ratio 2.0 (0-3.0) Troponin I 0.070 ng/ml (0-0.045) Total Protein 6.8 gm/dl (6.4-8.2) Albumin 3.1 gm/dl (3.4-5.0) Globulin 3.7 gm/dl (2.5-4.0) Albumin/Globulin Ratio 0.8 (0.9-2) Arterial Blood pH 7.44 (7.35-7.45) Arterial Blood Partial Pressure CO2 33 mmHg (35-46) Arterial Blood Partial Pressure O2 184 mm/Hg (80-95) Arterial Blood HCO3 22 mmol/L (19-24) Arterial Blood Oxygen Saturation 99.0 % (90-95) Arterial Blood Base Excess -1.9 mEq/L (-9-1.8) Arterial Blood Gas Delivery 4L Keo Test POS (POS) Bedside Lactic Acid Venous 0.82 mmol/L (0.90-1.70) Test 10/13/17 09:00 10/13/17 09:55 Bedside Hemoglobin 10.2 g/dl (14.0-18.0) Bedside Hematocrit 30 % (42-52) Bedside Sodium 128 mEq/L (135-144) Bedside Potassium 4.1 mEq/L (3.3-5.0) Bedside Chloride 95 mEq/L (101-112) Bedside Total CO2 23 mEq/l (24-31) Anion Gap 16.0 mmol/L (16-25) Bedside Blood Urea Nitrogen 18 mg/dl (7-18) Bedside Creatinine 0.8 mg/dl (0.6-1.3) Bedside Glucose (other) 135 mg/dl (70-99) Bedside Ionized Calcium (Jennifer) 1.29 mmol/l (1.12-1.32) Urine Color YELLOW Urine Appearance CLEAR (CLEAR) Urine pH 6.5 (4.5-7.5) Urine Specific [place] 1.017 (1.000-1.030) Urine Protein NEG (NEG) Urine Glucose (UA) NEG (NEG) Urine Ketones NEG (NEG) Urine Occult Blood NEG (NEG) Urine Nitrite NEG (NEG) Urine Bilirubin NEG (NEG) Urine Urobilinogen NEG (NEG) Urine Leukocyte Esterase NEG (NEG) Urine WBC (Auto) 0 /hpf (0-5) Urine RBC (Auto) 0-4 /hpf (0-4) Urine Hyaline Casts (Auto) 0 /lpf (0-5) Urine Epithelial Cells (Auto) 0-5 /lpf (0-5) Urine Bacteria (Auto) NEG (NEG) Recent Pertinent Medications also on cefepime and levofloxacin Assessment & Plan Loading dose: 1000 mg IV X 1 dose in ED then: 1000 mg IV every 14 hours (will start early to make up for lack of load) Goal trough level estimate: between 15 - 20 mcg/mL. Peak and trough or random level has been ordered for: as clinically indicated Pharmacy will continue to follow and will adjust dose/frequency as necessary. Thank you
[2017-10-13 14:53] VITALS: PULSE 93; O2SAT 96
[2017-10-13] MEDS: IPRATROPIUM BROMIDE NEB SOLN 0.02% 2.5 ML VIAL INH SCH ×2 (14:53→18:57)
[2017-10-13] MEDS: LEVALBUTEROL 1.25MG/0.5ML NEB INH SCH ×2 (14:53→18:57)
[2017-10-13] MEDS ORDERED: LEVALBUTEROL/IPRATROPIUM NEB INH SCH (15:00)
[2017-10-13 15:18] VITALS: BP 115/71; PULSE 92; TEMP 37.4; O2SAT 95
[2017-10-13] MEDS: DIGOXIN 0.125 MG TAB PO SCH (15:44)
[2017-10-13] MEDS: CEFEPIME IV 2,000 MG in SYRINGE 7.5 ML IV SCH (17:36)
[2017-10-13 17:42] LABS: CKMB 3.2 ng/ml (0.5-3.6)
--- NOTE | 2017-10-13 18:37 | Oncology Consultation ---
Oncology/Heme Consultation Date of Consultation: Oct 13, 2017. Attending Physician: Daniel Sanchez MD, PhD Reason for Consultation: Patient with a history of IgA kappa multiple myeloma History of Present Illness Dr. Norris has IgA kappa multiple myeloma. This therapy dates back to 2010. Most recently he has been on daratumumab with his last dose being approximately 2 weeks ago. He states that his confirms that he became extremely fatigued the past day or 2. He states that he has been coughing up purulent- looking sputum. He had a low-grade temperature earlier today. The type of chest pain that he describes is not pleuritic but is more retrosternal. He does have a significant background of coronary artery disease with a very low recorded LVEF. Chest x-ray done today shows changes consistent with pneumonia confirmed by CT scan. Currently is hospitalized then for antibiotics. Past Medical/Surgical History Medical Problems: (1) Hypoxia Status: Acute (2) Pneumonia Status: Acute Family History Cancer (esophagus, lung, bladder, prostate, testicular) Myocardial infarction Stroke Social History Smoking Status: Never Smoker Smokeless Tobacco Use: No Alcohol Use: none Drug Use: none Marital Status: Housing Status: lives with significant other Occupation Status: retired Allergies Coded Allergies: Immune Globulin (Verified Allergy, Severe, ANAPHYLAXIS, 10/13/17) Penicillins (Verified Allergy, Mild, DIZZINESS, 10/13/17) Statins (Verified Allergy, Unknown, unknown, 10/13/17) Sulfa Antibiotics (Verified Allergy, Unknown, Unknown rxn, 10/13/17) Omeprazole (Verified Adverse Reaction, Intermediate, dizziness, 10/13/17) Home Medications Scheduled Acyclovir (Zovirax Unkown Dose), 400 MG PO BID Alfuzosin Hcl (Uroxatral), 10 MG PO HS Calcium (Caltrate), 600 MG PO DAILY Carboxymethylcellulose Sodium (Theratears), 1 DROP OPB AMHS Cholecalciferol (Vitamin D), 5,000 INTER.UNIT PO DAILY Ciprofloxacin (Ciprofloxacin HCl), 500 MG PO BID Cyanocobalamin (Vitamin B12), 5,000 MCG PO DAILY Dabigatran Etexilate Mesylate (Pradaxa), 150 MG PO BID Digoxin (Lanoxin), 0.125 MG PO DAILY Finasteride (Proscar), 5 MG PO DAILY Isosorbide Mononitrate Ext Rel (Imdur Ext Rel), 60 MG PO DAILY Metoprolol Succinate (Metoprolol Succinate ER), 100 MG PO DAILY Pantoprazole (Protonix), 40 MG PO DAILY Scheduled PRN Ondansetron Hcl (Zofran), 8 MG PO TID PRN for Nausea or Vomiting Current Inpatient Medications Current Inpatient Medications Medications (Trade) Dose Ordered Sig/Fred Route Start Time Stop Time Status Last Admin Dose Admin Ioversol (Optiray 320) 100 ml UD PRN IV 10/13/17 09:15 10/17/17 09:14 Sodium Chloride 1,000 ml @ 100 mls/hr Q10H IV 10/13/17 13:00 11/12/17 12:59 10/13/17 12:57 100 MLS/HR Acetaminophen (Tylenol Tab) 650 mg Q4H PRN PO 10/13/17 11:15 11/12/17 11:14 Al Hydrox/Mg Hydrox/Simethicone (Maalox Max Susp) 15 ml Q4H PRN PO 10/13/17 11:15 11/12/17 11:14 Magnesium Hydroxide (Milk Of Magnesia Susp) 30 ml Q12H PRN PO 10/13/17 11:15 11/12/17 11:14 Ondansetron HCl (Zofran Inj) 4 mg Q6H PRN IV 10/13/17 11:15 11/12/17 11:14 Polyethylene (Miralax Powder Packet) 17 gm DAILY PRN PO 10/13/17 11:15 11/12/17 11:14 Miscellaneous Information (Consult) 1 ea UD PRN N/A 10/13/17 11:15 11/12/17 11:14 Levofloxacin 750 mg/Prmx 150 ml @ 100 mls/hr DAILY@1000 IV 10/14/17 10:00 10/20/17 09:59 Acyclovir (Zovirax Tab) 400 mg BID PO 10/13/17 21:00 11/12/17 20:59 Alfuzosin HCl (Uroxatral Tab) 10 mg HS PO 10/13/17 21:00 11/12/17 20:59 Cholecalciferol (Vitamin D Tab) 5,000 inter.unit DAILY PO 10/14/17 09:00 11/13/17 08:59 Dabigatran (Pradaxa Cap) 150 mg BID PO 10/13/17 21:00 11/12/17 20:59 Digoxin (Lanoxin Tab) 0.125 mg DAILY@1600 PO 10/13/17 16:00 11/12/17 15:59 10/13/17 15:44 0.125 MG Finasteride (Proscar Tab) 5 mg DAILY PO 10/14/17 09:00 11/13/17 08:59 Isosorbide Mononitrate (Imdur Ext Rel Tab) 60 mg DAILY PO 10/14/17 09:00 11/13/17 08:59 Pantoprazole Sodium (Protonix Tab) 40 mg DAILY PO 10/14/17 09:00 11/13/17 08:59 Metoprolol Succinate (Toprol Xl Tab) 100 mg QAM PO 10/14/17 09:00 11/13/17 08:59 Ipratropium [place] (Atrovent 0.02% 0.5MG/2.5ML Neb) 0.5 mg Q6R INH 10/13/17 15:00 11/12/17 14:59 10/13/17 14:53 0.5 MG Levalbuterol (Xopenex 1.25MG/ 0.5ML Neb) 1.25 mg Q6R INH 10/13/17 15:00 11/12/17 14:59 10/13/17 14:53 1.25 MG Cefepime HCl 2000 mg/Syringe 20 ml @ 5 mls/min Q8H IV 10/13/17 18:00 10/20/17 17:59 10/13/17 17:36 5 MLS/MIN Vancomycin HCl 1000 mg/Sodium Chloride 270 ml @ 125 mls/hr Q14H IV 10/13/17 20:00 10/20/17 19:59 Review of Systems Constitutional: Positive for about 10 pound weight loss over the past 1-2 months. Eyes: Negative for event change of vision ENT: Negative for epistaxis, nasal discharge, sore throat, or deafness Cardiovascular: Positive for retrosternal chest pain. Respiratory: Positive for cough producing purulent sputum Gastrointestinal: Negative for diarrhea, hematemesis, melena, nausea, vomiting , or dyspepsia Integumentary (skin): Negative for rash or jaundice discoloration Genitourinary: Negative for urinary frequency, hematuria, or dysuria Neurological: Negative for weakness, seizure activity, headache, or dizziness Lymphatic/Hematologic: Negative for petechiae, bleeding or new adenopathy Musculoskeletal: Negative for new joint or back pain Allergic/Immunologic: Negative for unusual rash or pruritis. Physical Exam Date Time Temp Pulse Resp B/P (MAP) Pulse Ox O2 Delivery O2 Flow Rate FiO2 10/13/17 16:00 Nasal Cannula 3.0 10/13/17 15:44 92 10/13/17 15:18 37.4 92 22 115/71 (86) 95 Nasal Cannula 4.0 10/13/17 14:53 93 18 96 Nasal Cannula 3.0 10/13/17 12:48 36.7 98 21 117/79 97 Nasal Cannula 4.0 10/13/17 12:30 102 18 113/74 99 Room Air 10/13/17 10:38 116 20 100/71 99 35 10/13/17 09:51 117 20 119/83 99 BiPAP 35 10/13/17 08:30 104 98 10/13/17 08:30 104 18 97 Nasal Cannula 4.0 10/13/17 08:08 37.7 95 20 181/94 83 Room Air 10/13/17 08:07 83 Room Air 10/13/17 08:07 94 Nasal Cannula 4.0 10/13/17 08:07 108 Constitutional: vitals are stable. Eyes: Eyes are RIKY EOMI without conjuctival erythema or icterus. ENT: External examination was negative for masses. Neck: Negative for masses or palpable thyromegaly Respiratory: Lung sounds were generally clear but decreased bilaterally Cardiovascular: Heart was IRRR with a soft systolic ejection murmur Gastrointestinal: No palpable hepatic or splenomegaly. The abdomen was soft with normal bowel sounds. Lymphatic system: there was no palpable peripheral lymphadenopathy Musculoskeletal System: The musculoskeletal system seemed concordant with age. Skin: The skin was negative for jaundice. Neurologic exam: The exam was negative for any focal findings. Deep tendon reflexes were equal and symmetrical. Psychiatric exam: Was essentially negative with normal mood and effect. Laboratory Results Last 24 Hours Test 10/13/17 08:12 10/13/17 08:50 10/13/17 08:51 10/13/17 08:57 Influenza Type A Antigen Neg for Influ A Influenza Type B Antigen Neg for Influ B White Blood Count 3.04 K/uL Red Blood Count 3.40 M/uL Hemoglobin 10.3 g/dL Hematocrit 30.1 % Mean Corpuscular Volume 88.5 fL Mean Corpuscular Hemoglobin 30.3 pg Mean Corpuscular Hemoglobin Concent 34.2 g/dl Platelet Count 57 K/uL Neutrophils (%) (Auto) 79.5 % Lymphocytes (%) (Auto) 12.2 % Monocytes (%) (Auto) 7.6 % Eosinophils (%) (Auto) 0.0 % Basophils (%) (Auto) 0.0 % Neutrophils # (Auto) 2.42 K/uL Lymphocytes # (Auto) 0.37 K/uL Monocytes # (Auto) 0.23 K/uL Eosinophils # (Auto) 0.00 K/uL Basophils # (Auto) 0.00 K/uL RDW Standard Deviation 65.1 fL RDW Coefficient of Variation 19.9 % Immature Granulocyte % (Auto) 0.7 % Immature Granulocyte # (Auto) 0.02 K/uL Platelet Estimate DECREASED Poikilocytosis PRESENT Anisocytosis PRESENT Prothrombin Time 12.7 SECONDS Prothromb Time International Ratio 1.2 Activated Partial Thromboplast Time 38.5 SECONDS Partial Thromboplastin Ratio 1.5 Sodium Level 128 mmol/L Potassium Level 3.9 mmol/L Chloride Level 96 mmol/L Carbon Dioxide Level 21 mmol/L Anion Gap 11.0 mmol/L Blood Urea Nitrogen 17 mg/dl Creatinine 0.73 mg/dl Est Creatinine Clear Calc Drug Dose 72.8 ml/min Estimated GFR () 101.5 Estimated GFR (Non- 87.6 BUN/Creatinine Ratio 23.2 Random Glucose 131 mg/dl Calcium Level 9.4 mg/dl Total Bilirubin 0.7 mg/dl Aspartate Amino Transf (AST/SGOT) 18 U/L Alanine Aminotransferase (ALT/SGPT) 28 U/L Alkaline Phosphatase 82 U/L Total Creatine Kinase 44 U/L Creatine Kinase MB 0.9 ng/ml Creatine Kinase MB Ratio 2.0 Troponin I 0.070 ng/ml Total Protein 6.8 gm/dl Albumin 3.1 gm/dl Globulin 3.7 gm/dl Albumin/Globulin Ratio 0.8 Arterial Blood pH 7.44 Arterial Blood Partial Pressure CO2 33 mmHg Arterial Blood Partial Pressure O2 184 mm/Hg Arterial Blood HCO3 22 mmol/L Arterial Blood Oxygen Saturation 99.0 % Arterial Blood Base Excess -1.9 mEq/L Arterial Blood Gas Delivery 4L Keo Test POS Bedside Lactic Acid Venous 0.82 mmol/L Test 10/13/17 09:00 10/13/17 09:55 10/13/17 16:59 Bedside Hemoglobin 10.2 g/dl Bedside Hematocrit 30 % Bedside Sodium 128 mEq/L Bedside Potassium 4.1 mEq/L Bedside Chloride 95 mEq/L Bedside Total CO2 23 mEq/l Anion Gap 16.0 mmol/L Bedside Blood Urea Nitrogen 18 mg/dl Bedside Creatinine 0.8 mg/dl Bedside Glucose (other) 135 mg/dl Bedside Ionized Calcium (Jennifer) 1.29 mmol/l Urine Color YELLOW Urine Appearance CLEAR Urine pH 6.5 Urine Specific [place] 1.017 Urine Protein NEG Urine Glucose (UA) NEG Urine Ketones NEG Urine Occult Blood NEG Urine Nitrite NEG Urine Bilirubin NEG Urine Urobilinogen NEG Urine Leukocyte Esterase NEG Urine WBC (Auto) 0 /hpf Urine RBC (Auto) 0-4 /hpf Urine Hyaline Casts (Auto) 0 /lpf Urine Epithelial Cells (Auto) 0-5 /lpf Urine Bacteria (Auto) NEG Total Creatine Kinase 55 U/L Creatine Kinase MB 3.2 ng/ml Creatine Kinase MB Ratio 5.8 Troponin I 1.920 ng/ml Assessment & Plan IgA kappa multiple myeloma that recently worsened and has been placed on salvage therapy with dardtumumab. He also has significant comorbid issues that are cardiac oriented. He is admitted now with signs and symptoms of a pneumonia. He had been treated recently with ciprofloxacin when he first notified our clinic of the purulent sputum. He was given ciprofloxacin but his condition continued to deteriorate. The Thrombocytopenia tends to be his usual. We will update protein studies. His therapy this week will need to be delayed of course and will be held until he makes progress recovering from this pneumonia.
[2017-10-13 18:57] VITALS: PULSE 91; O2SAT 98
[2017-10-13 19:40] VITALS: BP 120/70; PULSE 94; TEMP 36.7; O2SAT 96
[2017-10-13] MEDS: VANCOMYCIN INJ 1,000 MG in SODIUM CHLORIDE 0.9% 250ML 250 ML IV SCH (20:20)
[2017-10-13] MEDS: ALFUZosin TAB 10 MG TAB PO SCH (20:26)
[2017-10-13] MEDS: ACYCLOVIR 400 MG TAB PO SCH (20:26)
[2017-10-13] MEDS: DABIGATRAN ELEXILATE 75 MG CAP PO SCH (20:27)
[2017-10-13] MEDS ORDERED: VANCOMYCIN INJ 1,000 MG in SODIUM CHLORIDE 0.9% 250ML 250 ML IV SCH (21:00)
[2017-10-14] VITALS (10 sets, daily range): BP systolic 90–141; BP diastolic 57–84; PULSE 79–94; TEMP 36.7–37.5; O2SAT 94–98; Ht 167.6 cm; Wt 67.9 kg
[2017-10-14 01:10] LABS: CKMB 1.9 ng/ml (0.5-3.6)
[2017-10-14] MEDS: CEFEPIME IV 2,000 MG in SYRINGE 7.5 ML IV SCH ×3 (01:40→17:54)
[2017-10-14] MEDS: IPRATROPIUM BROMIDE NEB SOLN 0.02% 2.5 ML VIAL INH SCH ×4 (01:55→19:16)
[2017-10-14] MEDS: LEVALBUTEROL 1.25MG/0.5ML NEB INH SCH ×4 (01:55→19:16)
[2017-10-14 06:12] LABS: MEAN CORPUSCULAR HGB CONC 33.7 g/dl (32-36)
[2017-10-14 06:35] LABS: HEMOGLOBIN 9.1 g/dL (14.0-18.0); MEAN CELL VOLUME 89.4 fL (80-100); MEAN CORPUSCULAR HEMOGLOBIN 30.1 pg (25-34); RED CELL DISTRIBUTION WIDTH CV 20.2 % (11.5-14.5); WHITE BLOOD COUNT 2.27 K/uL (4.8-10.8)
[2017-10-14 06:38] LABS: PLATELET COUNT 54 K/uL (130-400)
[2017-10-14 06:55] LABS: CALCIUM 8.8 mg/dl (8.5-10.1); CREATININE 0.76 mg/dl (0.60-1.40); POTASSIUM 3.3 mmol/L (3.5-5.1)
[2017-10-14] MEDS: DABIGATRAN ELEXILATE 75 MG CAP PO SCH ×2 (08:36→21:08)
[2017-10-14] MEDS: PANTOprazole SOD 40 MG TAB PO SCH (08:36)
[2017-10-14] MEDS: ISOSORBIDE MONONITRATE 60 MG TABCR PO SCH (08:36)
[2017-10-14] MEDS: CHOLECALCIFEROL 1000 INTER.UNIT TAB PO SCH (08:36)
[2017-10-14] MEDS: METOPROLOL SUCC 50MG EXT REL TAB PO SCH (08:37)
[2017-10-14] MEDS: FINASTERIDE 5 MG TAB PO SCH (08:37)
[2017-10-14] MEDS: ACYCLOVIR 400 MG TAB PO SCH ×2 (08:37→21:07)
--- NOTE | 2017-10-14 10:05 | Hematology/Oncology Prog Note ---
Hematology/Onc Progress Note Date of Service Oct 14, 2017. Diagnoses Multiple myeloma Pneumonia Coronary artery disease Medications Medications Administered Medications (Trade) Dose Ordered Sig/Fred Route Start Time Stop Time Status Last Admin Dose Admin Albuterol/ Ipratropium (Duoneb) 12 ml ONE ONCE INH 10/13/17 08:30 10/13/17 08:31 DC 10/13/17 08:30 12 ML Furosemide (Lasix Inj) 40 mg NOW STAT IV 10/13/17 08:24 10/13/17 08:25 DC 10/13/17 09:10 40 MG Ondansetron HCl (Zofran Inj) 4 mg NOW STAT IV 10/13/17 08:24 10/13/17 08:25 DC 10/13/17 09:10 4 MG Dabigatran (Pradaxa Cap) 150 mg NOW STAT PO 10/13/17 08:27 10/13/17 08:28 DC 10/13/17 09:10 150 MG Cefepime HCl 2000 mg/Dextrose 122 ml @ 200 mls/hr NOW STAT IV 10/13/17 08:28 10/13/17 09:04 DC 10/13/17 09:11 200 MLS/HR Levofloxacin (Levaquin / D5W) 750 mg NOW STAT IV 10/13/17 08:28 10/13/17 08:30 DC 10/13/17 09:10 750 MG Vancomycin HCl (Vancomycin 1gm/ 270ml Nss) 1 gm NOW STAT IV 10/13/17 08:51 10/13/17 08:52 DC 10/13/17 09:11 1 GM Sodium Chloride 1,000 ml @ 999 mls/hr Q1H1M STAT IV 10/13/17 09:47 10/13/17 10:47 DC 10/13/17 10:36 999 MLS/HR Sodium Chloride 1,000 ml @ 100 mls/hr Q10H IV 10/13/17 13:00 11/12/17 12:59 10/13/17 23:06 100 MLS/HR Acyclovir (Zovirax Tab) 400 mg BID PO 10/13/17 21:00 11/12/17 20:59 10/14/17 08:37 400 MG Alfuzosin HCl (Uroxatral Tab) 10 mg HS PO 10/13/17 21:00 2/20/18 20:59 10/13/17 20:26 10 MG Cholecalciferol (Vitamin D Tab) 5,000 inter.unit DAILY PO 10/14/17 09:00 11/13/17 08:59 10/14/17 08:36 5,000 INTER.UNIT Dabigatran (Pradaxa Cap) 150 mg BID PO 10/13/17 21:00 11/12/17 20:59 10/14/17 08:36 150 MG Digoxin (Lanoxin Tab) 0.125 mg DAILY@1600 PO 10/13/17 16:00 11/12/17 15:59 10/13/17 15:44 0.125 MG Finasteride (Proscar Tab) 5 mg DAILY PO 10/14/17 09:00 11/13/17 08:59 10/14/17 08:37 5 MG Isosorbide Mononitrate (Imdur Ext Rel Tab) 60 mg DAILY PO 10/14/17 09:00 11/13/17 08:59 10/14/17 08:36 60 MG Pantoprazole Sodium (Protonix Tab) 40 mg DAILY PO 10/14/17 09:00 11/13/17 08:59 10/14/17 08:36 40 MG Metoprolol Succinate (Toprol Xl Tab) 100 mg QAM PO 10/14/17 09:00 11/13/17 08:59 10/14/17 08:37 100 MG Ipratropium [place] (Atrovent 0.02% 0.5MG/2.5ML Neb) 0.5 mg Q6R INH 10/13/17 15:00 11/12/17 14:59 10/14/17 07:13 0.5 MG Levalbuterol (Xopenex 1.25MG/ 0.5ML Neb) 1.25 mg Q6R INH 10/13/17 15:00 11/12/17 14:59 10/14/17 07:13 1.25 MG Cefepime HCl 2000 mg/Syringe 20 ml @ 5 mls/min Q8H IV 10/13/17 18:00 10/20/17 17:59 10/14/17 01:40 5 MLS/MIN Vancomycin HCl 1000 mg/Sodium Chloride 270 ml @ 125 mls/hr Q14H IV 10/13/17 20:00 10/20/17 19:59 10/13/17 20:20 125 MLS/HR Subjective Afebrile. He denies new shortness of breath. Continues to have a cough. He also continues to have intermittent retrosternal chest pain (nonpluritic) Review of Systems: Constitutional: Negative for night sweats, or fever Eyes: Negative for event change of vision ENT: Negative for epistaxis, nasal discharge, sore throat, or deafness Cardiovascular: Positive for retrosternal chest pain. He denies palpitations diaphoresis or dizziness Respiratory: Negative for new shortness of breath,hemoptysis, continues to have a cough occasionally productive of purulent appearing sputum Gastrointestinal: Negative for diarrhea, hematemesis, melena, nausea, vomiting , or dyspepsia Integumentary (skin): Negative for rash or jaundice discoloration Neurological: Negative for weakness, seizure activity, headache, or dizziness Lymphatic/Hematologic: Negative for petechiae, bleeding or new adenopathy Musculoskeletal: Negative for new joint or back pain Allergic/Immunologic: Negative for unusual rash or pruritis. Vital Signs Vital Signs Past 12 Hours Date Time Temp Pulse Resp B/P (MAP) Pulse Ox O2 Delivery O2 Flow Rate FiO2 10/14/17 08:30 37.5 93 16 141/84 (103) 94 Room Air 10/14/17 07:14 91 16 98 Nasal Cannula 4.0 10/14/17 04:00 Nasal Cannula 4.0 10/14/17 01:55 94 16 97 Nasal Cannula 4.0 10/14/17 00:06 36.8 82 17 116/73 (87) 97 Nasal Cannula 4.0 10/14/17 00:00 Nasal Cannula 4.0 Physical Exam Constitutional: vitals are stable. Eyes: Eyes are RIKY EOMI without conjuctival erythema or icterus. ENT: External examination was negative for masses. Neck: Negative for masses or palpable thyromegaly Respiratory: Lung sounds were generally clear bilaterally Cardiovascular: Heart was IRRR without gallops or rubs Gastrointestinal: No palpable hepatic or splenomegaly. The abdomen was soft with normal bowel sounds. Lymphatic system: there was no palpable peripheral lymphadenopathy Musculoskeletal System: The musculoskeletal system seemed concordant with age. Skin: The skin was negative for jaundice. Neurologic exam: The exam was negative for any focal findings. Deep tendon reflexes were equal and symmetrical. Psychiatric exam: Was essentially negative with normal mood and effect. Extremities: Negative for edema Laboratory Last 24 Hours Test 10/13/17 16:59 10/13/17 19:00 10/14/17 00:26 10/14/17 05:59 Total Creatine Kinase 55 U/L 47 U/L Creatine Kinase MB 3.2 ng/ml 1.9 ng/ml Creatine Kinase MB Ratio 5.8 4.0 Troponin I 1.920 ng/ml 1.170 ng/ml Lactate Dehydrogenase 197 U/L Immunoglobulin G 180.0 mg/dL Immunoglobulin A 764.0 mg/dL Immunoglobulin M < 5.3 mg/dL White Blood Count 2.27 K/uL Red Blood Count 3.02 M/uL Hemoglobin 9.1 g/dL Hematocrit 27.0 % Mean Corpuscular Volume 89.4 fL Mean Corpuscular Hemoglobin 30.1 pg Mean Corpuscular Hemoglobin Concent 33.7 g/dl RDW Standard Deviation 66.0 fL RDW Coefficient of Variation 20.2 % Platelet Count 54 K/uL Platelet Estimate DECREASED Sodium Level 135 mmol/L Potassium Level 3.3 mmol/L Chloride Level 102 mmol/L Carbon Dioxide Level 24 mmol/L Anion Gap 9.0 mmol/L Blood Urea Nitrogen 11 mg/dl Creatinine 0.76 mg/dl Est Creatinine Clear Calc Drug Dose 69.9 ml/min Estimated GFR () 99.9 Estimated GFR (Non- 86.2 BUN/Creatinine Ratio 14.0 Random Glucose 94 mg/dl Calcium Level 8.8 mg/dl Assessment & Plan IgA kappa multiple myeloma. The thrombocytopenia remains about the same at 54, 000. His immunoglobulin levels continue to show a decrease in the IgA. IgG is very low. I did bring up the possibility of giving immunoglobulin to Dr. martins today. 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 With that then no immunoglobulin will be planned. Hopefully the antibiotics and time will address the pneumonia. His troponin levels remain elevated. He continues to have retrosternal type chest pain. I would suspect with his extensive cardiac history that a cardiology consult would be warranted if not already planned.
[2017-10-14] MEDS: LEVOFLOXACIN / D5W 750 MG in PREMIXED IN D5W 150 ML IV SCH (10:35)
[2017-10-14] MEDS: VANCOMYCIN INJ 1,000 MG in SODIUM CHLORIDE 0.9% 250ML 250 ML IV SCH (12:42)
[2017-10-14] MEDS: SODIUM CHLORIDE 0.9% 1000ML 1,000 ML IV SCH (12:48)
--- NOTE | 2017-10-14 13:22 | Clinical Documentation Query ---
CLINICAL DOCUMENTATION QUERY An 81 y/o male with a history of a-fib on chronic anticoagulation, cardiomyopathy, CAD, s/p pacemaker, TIA, anemia, BPH, and multiple myeloma who presented to the ED on 10/13 with shortness of breath, productive cough and wheezing. In your clinical opinion is this patient being managed for: (x ) Type 2 WA due to demand ischemia ( ) Not Agree ( ) Other explanation of clinical findings (Please Explain) ( ) Unable to determine (Please Define) ( ) Need to Discuss The medical record reflects the following clinical findings, treatment, and risk factors. Clinical Indicators: Hypoxia (83%), troponins 0.070 trending up to 1.920, EKG = Afib with possible inferior infarct/ST & T wave abnormality/consider anterolateral ischemia Treatment: O2, telemetry, serial troponins, cardiology consult, serial EKG Risk Factors: Age, cardiomyopathy, CAD, afib, HTN Please clarify and document your clinical opinion in the progress notes and discharge summary. Terms such as "probable", "suspected", "likely", "questionable", "possible", or "still to be ruled out" are acceptable. IF IN AGREEMENT, YOU MUST DOCUMENT ABOVE DIAGNOSTIC STATEMENT IN DAILY PROGRESS NOTES AND DISCHARGE SUMMARY. This document is not part of the patient's record. Thank You, Shakira Chopra RN [phone]
[2017-10-14] MEDS ORDERED: POTASSIUM CHLORIDE 20 MEQ TABCR PO ONE (14:00)
[2017-10-14] MEDS: DIGOXIN 0.125 MG TAB PO SCH (15:16)
--- NOTE | 2017-10-14 17:50 | Progress Note ---
Subjective Date of Service: Oct 14, 2017. Subjective Pt evaluation today including: conversation w/ patient, conversation w/ family , physical exam, lab review, review of inpatient medication list Pain: occasional epigastric pain PO Intake: improving appetite Voiding: no voiding problems patient feeling better in the past 24 hours with fluids and antibiotics no further chest pain, admits to some chest pain/pressure prior to admission reviewed labs, troponin peaked at 1.9, trending back down leukopenia at 2 but stable, Cr stable at 0.7 Problem List Medical Problems: (1) Hypoxia Status: Acute (2) Pneumonia Status: Acute Review of Systems Constitutional: + weakness, + fatigue Respiratory: + cough, + shortness of breath, + dyspnea on exertion Cardiac: + chest pain (prior to admission) Neurologic: + weakness All Other Systems: Reviewed and Negative Medications Current Inpatient Medications Medications (Trade) Dose Ordered Sig/Fred Route Start Time Stop Time Status Last Admin Dose Admin Ioversol (Optiray 320) 100 ml UD PRN IV 10/13/17 09:15 10/17/17 09:14 Sodium Chloride 1,000 ml @ 100 mls/hr Q10H IV 10/13/17 13:00 11/12/17 12:59 10/14/17 12:48 100 MLS/HR Acetaminophen (Tylenol Tab) 650 mg Q4H PRN PO 10/13/17 11:15 11/12/17 11:14 Al Hydrox/Mg Hydrox/Simethicone (Maalox Max Susp) 15 ml Q4H PRN PO 10/13/17 11:15 11/12/17 11:14 Magnesium Hydroxide (Milk Of Magnesia Susp) 30 ml Q12H PRN PO 10/13/17 11:15 11/12/17 11:14 Ondansetron HCl (Zofran Inj) 4 mg Q6H PRN IV 10/13/17 11:15 11/12/17 11:14 Polyethylene (Miralax Powder Packet) 17 gm DAILY PRN PO 10/13/17 11:15 11/12/17 11:14 Miscellaneous Information (Consult) 1 ea UD PRN N/A 10/13/17 11:15 11/12/17 11:14 Levofloxacin 750 mg/Prmx 150 ml @ 100 mls/hr DAILY@1000 IV 10/14/17 10:00 10/20/17 09:59 10/14/17 10:35 100 MLS/HR Acyclovir (Zovirax Tab) 400 mg BID PO 10/13/17 21:00 11/12/17 20:59 10/14/17 08:37 400 MG Alfuzosin HCl (Uroxatral Tab) 10 mg HS PO 10/13/17 21:00 11/12/17 20:59 10/13/17 20:26 10 MG Cholecalciferol (Vitamin D Tab) 5,000 inter.unit DAILY PO 10/14/17 09:00 11/13/17 08:59 10/14/17 08:36 5,000 INTER.UNIT Dabigatran (Pradaxa Cap) 150 mg BID PO 10/13/17 21:00 11/12/17 20:59 10/14/17 08:36 150 MG Digoxin (Lanoxin Tab) 0.125 mg DAILY@1600 PO 10/13/17 16:00 11/12/17 15:59 10/14/17 15:16 0.125 MG Finasteride (Proscar Tab) 5 mg DAILY PO 10/14/17 09:00 11/13/17 08:59 10/14/17 08:37 5 MG Isosorbide Mononitrate (Imdur Ext Rel Tab) 60 mg DAILY PO 10/14/17 09:00 11/13/17 08:59 10/14/17 08:36 60 MG Pantoprazole Sodium (Protonix Tab) 40 mg DAILY PO 10/14/17 09:00 11/13/17 08:59 10/14/17 08:36 40 MG Metoprolol Succinate (Toprol Xl Tab) 100 mg QAM PO 10/14/17 09:00 11/13/17 08:59 10/14/17 08:37 100 MG Ipratropium [place] (Atrovent 0.02% 0.5MG/2.5ML Neb) 0.5 mg Q6R INH 10/13/17 15:00 11/12/17 14:59 10/14/17 14:15 0.5 MG Levalbuterol (Xopenex 1.25MG/ 0.5ML Neb) 1.25 mg Q6R INH 10/13/17 15:00 11/12/17 14:59 10/14/17 14:15 1.25 MG Cefepime HCl 2000 mg/Syringe 20 ml @ 5 mls/min Q8H IV 10/13/17 18:00 10/20/17 17:59 10/14/17 12:42 5 MLS/MIN Vancomycin HCl 1000 mg/Sodium Chloride 270 ml @ 125 mls/hr Q14H IV 10/13/17 20:00 10/20/17 19:59 10/14/17 12:42 125 MLS/HR Heparin Sodium (Porcine) (Heparin 100 Unit/ml 5ml Flush) 5 ml PRN PRN IV 10/14/17 02:30 11/13/17 02:29 Potassium Chloride (Klor-Con Tab) 20 meq QAM PO 10/15/17 09:00 11/14/17 08:59 Objective Vital Signs Date Time Temp Pulse Resp B/P (MAP) Pulse Ox O2 Delivery O2 Flow Rate FiO2 10/14/17 16:05 36.9 84 18 120/72 (88) 96 Nasal Cannula 2.0 10/14/17 16:00 Nasal Cannula 4.0 10/14/17 15:16 86 10/14/17 14:15 86 16 96 Nasal Cannula 2.0 10/14/17 12:18 37.1 79 16 90/57 (68) 96 Nasal Cannula 2.0 10/14/17 12:00 Nasal Cannula 4.0 10/14/17 08:30 37.5 93 16 141/84 (103) 94 Room Air 10/14/17 08:00 Nasal Cannula 4.0 10/14/17 07:14 91 16 98 Nasal Cannula 4.0 10/14/17 04:00 Nasal Cannula 4.0 10/14/17 01:55 94 16 97 Nasal Cannula 4.0 10/14/17 00:06 36.8 82 17 116/73 (87) 97 Nasal Cannula 4.0 10/14/17 00:00 Nasal Cannula 4.0 10/13/17 20:00 Nasal Cannula 4.0 10/13/17 19:40 36.7 94 17 120/70 (87) 96 Nasal Cannula 4.0 10/13/17 18:57 91 16 98 Nasal Cannula 4.0 Physical Exam General Appearance: WD/WN, no apparent distress ENT: normal ENT inspection, hearing grossly normal, pharynx normal Neck: supple, no adenopathy, no JVD, trachea midline Respiratory/Chest: chest non-tender, no respiratory distress, no accessory muscle use, + decreased breath sounds, + rhonchi (bilaterally) Cardiovascular: regular rate, rhythm, no edema, no gallop, no JVD, no murmur Abdomen: normal bowel sounds, non tender, soft, no organomegaly Extremities: normal range of motion, non-tender, normal inspection, no pedal edema, no calf tenderness, pelvis stable Neurologic/Psychiatric: care worker II-XII nml as tested, no motor/sensory deficits, alert, normal mood/affect, oriented x 3 Skin: normal color, warm/dry, no rash Laboratory Results Last 24 Hours Test 10/13/17 19:00 10/14/17 00:26 10/14/17 05:59 Lactate Dehydrogenase 197 U/L Immunoglobulin G 180.0 mg/dL Immunoglobulin A 764.0 mg/dL Immunoglobulin M < 5.3 mg/dL Total Creatine Kinase 47 U/L Creatine Kinase MB 1.9 ng/ml Creatine Kinase MB Ratio 4.0 Troponin I 1.170 ng/ml White Blood Count 2.27 K/uL Red Blood Count 3.02 M/uL Hemoglobin 9.1 g/dL Hematocrit 27.0 % Mean Corpuscular Volume 89.4 fL Mean Corpuscular Hemoglobin 30.1 pg Mean Corpuscular Hemoglobin Concent 33.7 g/dl RDW Standard Deviation 66.0 fL RDW Coefficient of Variation 20.2 % Platelet Count 54 K/uL Platelet Estimate DECREASED Sodium Level 135 mmol/L Potassium Level 3.3 mmol/L Chloride Level 102 mmol/L Carbon Dioxide Level 24 mmol/L Anion Gap 9.0 mmol/L Blood Urea Nitrogen 11 mg/dl Creatinine 0.76 mg/dl Est Creatinine Clear Calc Drug Dose 69.9 ml/min Estimated GFR () 99.9 Estimated GFR (Non- 86.2 BUN/Creatinine Ratio 14.0 Random Glucose 94 mg/dl Calcium Level 8.8 mg/dl Assessment and Plan 81 y/o male with a history of a-fib on chronic anticoagulation, cardiomyopathy, CAD, s/p pacemaker, TIA, anemia, BPH, and multiple myeloma who presented to the ED on 10/13 with shortness of breath, productive cough and wheezing. Pt with low grade fever, Tmax 37.7. Tachycardic, BP stable. 83% on room air, now breathing comfortably on BiPAP. CXR shows multifocal pneumonia. CTA chest negative for PE and confirms multifocal PNA. EKG no ischemic changes. WBC around baseline at 3.04 given immunotherapy. Sodium 128. Troponin elevated at 0.07. Multifocal pneumonia with acute hypoxic respiratory failure afebrile, vitals stable, mild leukopenia from MM but stable titrated off of BiPAP, breathing well on NC Continue IV vancomycin, Levaquin 750 mg IV qd, and cefepime 2 gm IV q8h for now, possible de-escalation tomorrow Blood cultures and sputum culture negative Xopenex/Atrovent nebs QIDR and q2h prn SOB/wheezing continue NSS at 100 cc/hr today, stop tomorrow Chest pain prior to admission, elevated troponin--likely secondary to demand ischemia rather than ACS troponin up to 1.9, then down to 1.7 no further chest pain or pressure continue Toprol consult cardiology Hypokalemia: PO replacement, recheck tomorrow A-fib on anticoagulation, cardiomyopathy, s/p pacemaker, CAD, h/o TIA--stable -Continue digoxin 125 mcg PO qd, Toprol XL 100 mg PO qd, Imdur 60 mg PO qd, and Pradaxa 150 mg PO BID Anemia, multiple myeloma--anemia likely secondary to IV immunotherapy. Stable -Weekly infusions but missed last week due to illness -Continue acyclovir 400 mg PO BID for suppressive therapy - appreciate hematology consultation BPH -Continue alfuzosin 10 mg PO hs and Proscar 5 mg PO qd DVT prophylaxis -Pradaxa -SARINA evans and SCDs Code Status -Level I, FULL RESUSCITATION STATUS
--- NOTE | 2017-10-14 18:16 | CARDIOLOGY CONSULTATION ---
DATE OF CONSULTATION: 10/14/2017 TIME: 17:24 p.m. CONSULTING PHYSICIAN: Dr. Christiansen. REASON FOR CONSULTATION: Elevated troponin and chest pain. HISTORY OF PRESENT ILLNESS: Mr. Blanchard is a very pleasant 81-year-old gentleman with a history significant for multiple myeloma, presumed ischemic cardiomyopathy, prior angina, atrial fibrillation/flutter, TIA, vasovagal syncope status post pacemaker placement. He was admitted to [facility] on 10/13/2017 with bilateral pneumonia. He states for the past 1.5 to 2 weeks, he has been experiencing increasing shortness of breath especially over the last few days, but overall having no energy to the point where he was unable to get out of bed, prompting him asking his to call 911. He states that his symptoms were preceded by his having an upper respiratory infection. He then developed cough with yellow and green sputum. He had mildly elevated temperatures yesterday, but no actual fever at home. He states that his temperature was just below 100 degrees Fahrenheit. He has not been eating well and states that he has lost 13 pounds over the past 4 weeks. He feels as though his food is "getting stuck" when swallowing. He has been experiencing some epigastric discomfort as well. He had been experiencing angina as an outpatient in the latter part of 2016 and he underwent a myocardial perfusion study which was abnormal suggesting both infarct and ischemia. His LV systolic function has declined overtime with his most recent EF on echo being 40-45% in April of 2017. He then started noticing dyspnea with exertion and angina. He declined invasive measures such as cardiac catheterization and preferred medical therapy. For this, metoprolol succinate had been increased over time as was isosorbide mononitrate. His symptoms improved significantly. He states that he has not had any angina since his last titration of medications. He denies any recent chest discomfort, stating only the epigastric discomfort. Despite his lack of angina, troponin levels were elevated during this hospitalization. It peaked at 1.92 and have since trended downward. He states that his shortness of breath has been present at all times but better lying down. He denies actual orthopnea. He denies syncope, near syncope, vomiting, melena, hematochezia, hematuria, or edema. He has had some nausea. Although, he denied chest discomfort to me, admitting records do note that he complained of chest discomfort in the central chest that was pleuritic in nature and worse with coughing. REVIEW OF SYSTEMS: As above and review of systems otherwise negative/unremarkable. PAST MEDICAL HISTORY: 1. Cardiomyopathy, presumed ischemic in nature. 2. Presumed CAD based on cardiomyopathy and abnormal myocardial perfusion study. 3. Angina - controlled on medications. 4. Atrial fibrillation/flutter. Atrial fibrillation thought to be permanent on pacemaker interrogation. 5. Vasovagal syncope status post pacemaker, followed by electrophysiology. 6. Multiple myeloma. 7. Pancytopenia. 8. TIA. 9. BPH. 10. Status post back surgery. HOME MEDICATIONS: Include digoxin 125 mcg daily, Lasix 20 mg as needed, isosorbide mononitrate 60 mg daily, metoprolol succinate 125 mg daily, Protonix 40 mg daily, and Pradaxa 150 mg twice daily. INPATIENT MEDICATIONS: Include cefepime 2 grams IV q. 8 hours, Pradaxa 150 mg p.o. b.i.d., digoxin 125 mcg daily, isosorbide mononitrate 60 mg daily, Levofloxacin 750 mg IV daily, metoprolol succinate 100 mg daily, Protonix 40 mg daily, potassium chloride 20 mEq daily, normal saline 100 mL per hour, and vancomycin 1 gram IV q. 14 hours. ALLERGIES: INCLUDE IMMUNOGLOBULINS, OMEPRAZOLE, PENICILLIN, STATINS AND SULFA DRUGS. SOCIAL HISTORY: Denies tobacco, alcohol or drug abuse. and lives at home with his . 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 He has been an avid fisherman. He has children and grandchildren. FAMILY HISTORY: Mother of [place] in her 50s. PHYSICAL EXAMINATION: VITAL SIGNS: Temperature 36.9 degrees, heart rate 84 beats per minute, respiration rate 18, blood pressure 120/72 mmHg, oxygen saturation 96% on 2 liters per nasal cannula. I's and O's negative 1.6 liters yesterday and weight 66.3 kg. GENERAL: In no acute distress. He is alert and oriented. HEENT: Anicteric sclerae. NECK: No appreciable JVD. No bruits. Normal carotid upstrokes bilaterally. CARDIAC: PMI was nonpalpable. There was no ventricular heave, irregularly irregular, normal S1, S2. There were no audible murmurs, rubs or gallops. LUNGS: Rhonchi throughout bilateral lung davis. ABDOMEN: Soft, nontender, nondistended, normoactive bowel sounds, no bruits noted. EXTREMITIES: No cyanosis or edema. No palpable cords. 2+ radial pulses bilaterally. 2+ dorsalis pedis pulses bilaterally. PSYCHIATRIC: Affect appears appropriate. IMAGING AND LABORATORY DATA: ECG personally reviewed. ECG 10/13/2017 ____ a.m. atrial fibrillation at 95 beats per minute with occasional ventricular paced complex, anterolateral ST-T wave abnormality. Repeat ECG 10/14/2017 at 7:18 a.m. - atrial fibrillation with occasional ventricular paced complexes and anterolateral ST/T wave abnormality. LABORATORY DATA: Sodium 135, potassium 3.3, BUN 11, and creatinine 0.76. Peak troponin 1.92. Albumin 3.1, AST 18, ALT 28. WBC 2.27, hemoglobin 9.1, platelets 54. INR is 1.2. Influenza A and B are negative. CT scan of the chest 10/13/2017 reported no central pulmonary embolus identified. No acute aortic pathology. Multifocal consolidative ground glass and nodular opacities seen within multilobar distribution bilaterally, greatest within the lingula and lower lobes suggesting multifocal pneumonia per radiology. Small bilateral pleural effusions. Most recent echo - 04/30/2017: Normal LV size with mildly to moderately reduced systolic function. EF 40-45%. Akinesis of the inferior base, inferolateral wall, distal inferior, distal septal and distal lateral wall segments including the apex. Hypokinesis of the base to mid septum, mid inferior wall, distal anterior and mid lateral wall segments. Mild RV dilation with normal systolic function. Moderate biatrial dilation. Mild AI. Mild MR. RVSP 34. Nuclear stress 05/10/2017: Suggested multivessel infarct of the LAD, RCA and possibly circumflex territories with salbador-infarct ischemia of the septum, inferolateral wall, and mild ischemia of the ____ EF 17%. Exercised 2.3 mets. ASSESSMENT AND PLAN: 1. Non-ST elevation myocardial infarction: He denies angina but has had angina in the past. Although he denied chest pain during my visit, he did reportedly mentioned chest pain upon presentation that was pleuritic in nature and with coughing. He is certain that he has not had any recurrent angina. It would not be surprising; however, if he did have angina as he does have presumed underlying coronary disease and is currently experiencing bilateral multifocal pneumonia. Myocardial infarction likely secondary to demand ischemia. This was discussed with him. Consider aspirin 81 mg daily if safe from a hematologic standpoint. He does have thrombocytopenia and is already on anticoagulation therapy. He has declined cardiac catheterization in the past. Will treat medically. Continue beta luther. He is intolerant to statins. Echocardiogram will be ordered to evaluate for any change in left ventricular systolic function or wall motion. 2. Coronary artery disease: He has presumed coronary artery disease based on myocardial perfusion study, echocardiograms, and the fact that he has experienced angina in the past that has responded to typical antianginal such as beta luther and nitrates. He has declined invasive measures and has wished for medical therapy only. Continue medical therapy. Consider aspirin if safe; however, there is concern with his thrombocytopenia, and he is already on Pradaxa. 3. Ischemic cardiomyopathy: He likely has ischemic cardiomyopathy given a high likelihood of underlying coronary artery disease. Continue beta luther. He has had issues in the past with syncope, near syncope and therefore, YENNI inhibitor has not been initiated. He appears euvolemic. 4. Atrial fibrillation: He has thought to have permanent atrial fibrillation on pacemaker interrogations. Continue anticoagulation for stroke risk reduction if no contraindication. 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 5. Disposition: Cardiology will continue to follow. Pneumonia treatment as per primary service. He is on broad spectrum antibiotics. ____ complex medical issues. Thank you for allowing me to participate in care of Mr. Blanchard.
[2017-10-14] MEDS: ALFUZosin TAB 10 MG TAB PO SCH (21:08)
[2017-10-15] VITALS (12 sets, daily range): BP systolic 104–132; BP diastolic 65–79; PULSE 79–94; TEMP 36.5–37.4; O2SAT 93–99
[2017-10-15] MEDS: SODIUM CHLORIDE 0.9% 1000ML 1,000 ML IV SCH ×2 (00:24→08:26)
[2017-10-15] MEDS: LEVALBUTEROL 1.25MG/0.5ML NEB INH SCH ×4 (02:10→19:42)
[2017-10-15] MEDS: IPRATROPIUM BROMIDE NEB SOLN 0.02% 2.5 ML VIAL INH SCH ×4 (02:10→19:42)
[2017-10-15] MEDS: VANCOMYCIN INJ 1,000 MG in SODIUM CHLORIDE 0.9% 250ML 250 ML IV SCH (02:40)
[2017-10-15] MEDS: CEFEPIME IV 2,000 MG in SYRINGE 7.5 ML IV SCH ×3 (02:40→22:50)
[2017-10-15 05:58] LABS: MEAN CORPUSCULAR HGB CONC 32.9 g/dl (32-36); NUCLEATED RED BLOOD CELL ABS 0.02 K/uL (0-0)
[2017-10-15 06:02] LABS: HEMATOCRIT 25.5 % (42-52); HEMOGLOBIN 8.4 g/dL (14.0-18.0); MEAN CELL VOLUME 88.5 fL (80-100); MEAN CORPUSCULAR HEMOGLOBIN 29.2 pg (25-34); RED CELL DISTRIBUTION WIDTH CV 19.9 % (11.5-14.5); RED CELL DISTRIBUTION WIDTH SD 64.6 fL (36.4-46.3); WHITE BLOOD COUNT 2.41 K/uL (4.8-10.8)
[2017-10-15 06:37] LABS: CALCIUM 8.4 mg/dl (8.5-10.1); CREATININE 0.73 mg/dl (0.60-1.40); POTASSIUM 3.5 mmol/L (3.5-5.1)
[2017-10-15 06:42] LABS: PLATELET COUNT 47 K/uL (130-400)
[2017-10-15] MEDS: FINASTERIDE 5 MG TAB PO SCH (08:23)
[2017-10-15] MEDS: DABIGATRAN ELEXILATE 75 MG CAP PO SCH ×2 (08:23→20:21)
[2017-10-15] MEDS: ACYCLOVIR 400 MG TAB PO SCH ×2 (08:24→20:21)
[2017-10-15] MEDS: POTASSIUM CHLORIDE 20 MEQ TABCR PO SCH (08:24)
[2017-10-15] MEDS: CHOLECALCIFEROL 1000 INTER.UNIT TAB PO SCH (08:25)
[2017-10-15] MEDS: LEVOFLOXACIN / D5W 750 MG in PREMIXED IN D5W 150 ML IV SCH (08:26)
[2017-10-15] MEDS: PANTOprazole SOD 40 MG TAB PO SCH (08:26)
[2017-10-15] MEDS: ISOSORBIDE MONONITRATE 60 MG TABCR PO SCH (08:26)
[2017-10-15] MEDS: METOPROLOL SUCC 50MG EXT REL TAB PO SCH (08:26)
[2017-10-15] MEDS ORDERED: VANCOMYCIN TROUGH ONE (15:30)
[2017-10-15] MEDS: DIGOXIN 0.125 MG TAB PO SCH (15:48)
--- NOTE | 2017-10-15 15:57 | Progress Note ---
Subjective Date of Service: Oct 15, 2017. Subjective Pt evaluation today including: conversation w/ patient, conversation w/ family , physical exam, lab review, conversation w/ analytics consultant, review of inpatient medication list Pain: no pain PO Intake: adequate Voiding: wilks catheter in place patient doing much better, breathing well, minimal cough, off oxygen discussed pulling wilks, he agreed answered questions from patient and at the bedside reviewed labs, Cr stable, WBC low but stable Problem List Medical Problems: (1) Hypoxia Status: Acute (2) Pneumonia Status: Acute Review of Systems Constitutional: + weakness, + fatigue Respiratory: + cough, + sputum, + dyspnea on exertion All Other Systems: Reviewed and Negative Medications Current Inpatient Medications Medications (Trade) Dose Ordered Sig/Fred Route Start Time Stop Time Status Last Admin Dose Admin Ioversol (Optiray 320) 100 ml UD PRN IV 10/13/17 09:15 10/17/17 09:14 Acetaminophen (Tylenol Tab) 650 mg Q4H PRN PO 10/13/17 11:15 11/12/17 11:14 Al Hydrox/Mg Hydrox/Simethicone (Maalox Max Susp) 15 ml Q4H PRN PO 10/13/17 11:15 11/12/17 11:14 Magnesium Hydroxide (Milk Of Magnesia Susp) 30 ml Q12H PRN PO 10/13/17 11:15 11/12/17 11:14 Ondansetron HCl (Zofran Inj) 4 mg Q6H PRN IV 10/13/17 11:15 11/12/17 11:14 Polyethylene (Miralax Powder Packet) 17 gm DAILY PRN PO 10/13/17 11:15 11/12/17 11:14 Levofloxacin 750 mg/Prmx 150 ml @ 100 mls/hr DAILY@1000 IV 10/14/17 10:00 10/20/17 09:59 10/15/17 08:26 100 MLS/HR Acyclovir (Zovirax Tab) 400 mg BID PO 10/13/17 21:00 11/12/17 20:59 10/15/17 08:24 400 MG Alfuzosin HCl (Uroxatral Tab) 10 mg HS PO 10/13/17 21:00 11/12/17 20:59 10/14/17 21:08 10 MG Cholecalciferol (Vitamin D Tab) 5,000 inter.unit DAILY PO 10/14/17 09:00 11/13/17 08:59 10/15/17 08:25 5,000 INTER.UNIT Dabigatran (Pradaxa Cap) 150 mg BID PO 10/13/17 21:00 11/12/17 20:59 10/15/17 08:23 150 MG Digoxin (Lanoxin Tab) 0.125 mg DAILY@1600 PO 10/13/17 16:00 11/12/17 15:59 10/15/17 15:48 0.125 MG Finasteride (Proscar Tab) 5 mg DAILY PO 10/14/17 09:00 11/13/17 08:59 10/15/17 08:23 5 MG Isosorbide Mononitrate (Imdur Ext Rel Tab) 60 mg DAILY PO 10/14/17 09:00 11/13/17 08:59 10/15/17 08:26 60 MG Pantoprazole Sodium (Protonix Tab) 40 mg DAILY PO 10/14/17 09:00 11/13/17 08:59 10/15/17 08:26 40 MG Metoprolol Succinate (Toprol Xl Tab) 100 mg QAM PO 10/14/17 09:00 11/13/17 08:59 10/15/17 08:26 100 MG Ipratropium [place] (Atrovent 0.02% 0.5MG/2.5ML Neb) 0.5 mg Q6R INH 10/13/17 15:00 11/12/17 14:59 10/15/17 14:27 0.5 MG Levalbuterol (Xopenex 1.25MG/ 0.5ML Neb) 1.25 mg Q6R INH 10/13/17 15:00 11/12/17 14:59 10/15/17 14:27 1.25 MG Cefepime HCl 2000 mg/Syringe 20 ml @ 5 mls/min Q8H IV 10/13/17 18:00 10/20/17 17:59 10/15/17 10:36 5 MLS/MIN Heparin Sodium (Porcine) (Heparin 100 Unit/ml 5ml Flush) 5 ml PRN PRN IV 10/14/17 02:30 11/13/17 02:29 Potassium Chloride (Klor-Con Tab) 20 meq QAM PO 10/15/17 09:00 11/14/17 08:59 10/15/17 08:24 20 MEQ Objective Vital Signs Date Time Temp Pulse Resp B/P (MAP) Pulse Ox O2 Delivery O2 Flow Rate FiO2 10/15/17 15:48 80 10/15/17 14:27 79 16 96 Room Air 10/15/17 13:25 Room Air 10/15/17 12:26 37.3 80 18 104/65 (78) 98 10/15/17 12:00 Room Air 10/15/17 08:00 Room Air 10/15/17 07:36 37.0 87 20 118/71 (87) 99 10/15/17 07:15 87 16 96 Room Air 10/15/17 04:00 Nasal Cannula 4.0 10/15/17 03:59 37.0 85 19 131/79 (96) 97 Nasal Cannula 4.0 10/15/17 02:24 86 16 95 Room Air 10/14/17 23:59 Nasal Cannula 4.0 10/14/17 23:42 37.0 86 19 136/83 (100) 98 Nasal Cannula 4.0 10/14/17 20:00 Nasal Cannula 4.0 10/14/17 19:36 36.7 84 23 119/73 (88) 97 Nasal Cannula 2.0 10/14/17 19:17 88 16 94 Room Air 10/14/17 16:05 36.9 84 18 120/72 (88) 96 Nasal Cannula 2.0 10/14/17 16:00 Nasal Cannula 4.0 Physical Exam General Appearance: WD/WN, no apparent distress Eyes: normal inspection, EOMI, sclerae normal Neck: supple, no adenopathy, no JVD, trachea midline Respiratory/Chest: chest non-tender, no respiratory distress, no accessory muscle use, + decreased breath sounds, + rhonchi Cardiovascular: regular rate, rhythm, no edema, no gallop, no JVD, no murmur Abdomen: normal bowel sounds, non tender, soft, no organomegaly Extremities: normal range of motion, non-tender, normal inspection, no pedal edema, no calf tenderness, pelvis stable Neurologic/Psychiatric: gambling monitor II-XII nml as tested, no motor/sensory deficits, alert, normal mood/affect, oriented x 3 Skin: normal color, warm/dry, no rash Laboratory Results Last 24 Hours Test 1/23/18 05:39 White Blood Count 2.41 K/uL Red Blood Count 2.88 M/uL Hemoglobin 8.4 g/dL Hematocrit 25.5 % Mean Corpuscular Volume 88.5 fL Mean Corpuscular Hemoglobin 29.2 pg Mean Corpuscular Hemoglobin Concent 32.9 g/dl RDW Standard Deviation 64.6 fL RDW Coefficient of Variation 19.9 % Platelet Count 47 K/uL Nucleated RBC Absolute Count (auto) 0.02 K/uL Nucleated Red Blood Cells % 0.7 % Platelet Estimate DECREASED Sodium Level 135 mmol/L Potassium Level 3.5 mmol/L Chloride Level 105 mmol/L Carbon Dioxide Level 22 mmol/L Anion Gap 8.0 mmol/L Blood Urea Nitrogen 12 mg/dl Creatinine 0.73 mg/dl Est Creatinine Clear Calc Drug Dose 72.8 ml/min Estimated GFR () 101.5 Estimated GFR (Non- 87.6 BUN/Creatinine Ratio 16.7 Random Glucose 87 mg/dl Calcium Level 8.4 mg/dl Troponin I 0.366 ng/ml Assessment and Plan 81 y/o male with a history of a-fib on chronic anticoagulation, cardiomyopathy, CAD, s/p pacemaker, TIA, anemia, BPH, and multiple myeloma who presented to the ED on 10/13 with shortness of breath, productive cough and wheezing. Pt with low grade fever, Tmax 37.7. Tachycardic, BP stable. 83% on room air, now breathing comfortably on BiPAP. CXR shows multifocal pneumonia. CTA chest negative for PE and confirms multifocal PNA. EKG no ischemic changes. WBC around baseline at 3.04 given immunotherapy. Sodium 128. Troponin elevated at 0.07. Multifocal pneumonia with acute hypoxic respiratory failure hypoxia resolved today, titrated to room air, no distress afebrile, vitals stable, mild leukopenia from MM but stable discontinue vancomycin, continue Levaquin 750 mg IV qd, and cefepime 2 gm IV q8h for now, taper to just Levaquin tomorrow Blood cultures and sputum culture negative Xopenex/Atrovent nebs QIDR and q2h prn SOB/wheezing stop fluids Chest pain prior to admission, elevated troponin--NSTEMI troponin up to 1.9, then down to 1.1, this AM down to 0.399 no further chest pain or pressure continue Toprol appreciate cardiology recommendations for aspirin but caution with thrombocytopenia patient on Pradaxa already so no role for heparin Hypokalemia: PO replacement, resolved today A-fib on anticoagulation, cardiomyopathy, s/p pacemaker, CAD, h/o TIA--stable -Continue digoxin 125 mcg PO qd, Toprol XL 100 mg PO qd, Imdur 60 mg PO qd, and Pradaxa 150 mg PO BID Anemia, multiple myeloma--anemia likely secondary to IV immunotherapy. Stable -Weekly infusions but missed last week due to illness -Continue acyclovir 400 mg PO BID for suppressive therapy - appreciate hematology consultation - Hb is 8.4 today, follow tomorrow BPH -Continue alfuzosin 10 mg PO hs and Proscar 5 mg PO qd DVT prophylaxis -Pradaxa -SARINA evans and GEOVANNIs Code Status -Level I, FULL RESUSCITATION STATUS d/c lashaun today, PT/OT consults keep on tele today, likely to medical floor tomorrow
--- NOTE | 2017-10-15 17:21 | ECHOCARDIOGRAM REPORT ---
*NOTICE TO RECEIVING REPUBLICAN AGENCY This information is strictly Confidential and protected under [place] law. [place] law prohibits you from making any further disclosure of this information unless further disclosure is expressly permitted by the written consent of the person to whom it pertains or is authorized by law. A general authorization for the release of medical or other information is not sufficient for this purpose. Hospital accepts no responsibility if the information is made available to any other person, INCLUDING THE PATIENT. Interpretation Summary * Name: ESDRAS PORRAS Study Date: 10/15/2017 12:27 PM BP: 104/65 mmHg * Patient Location: C.2E\S\E206\S\1 HR: 81 * : 1935 (M/d/yyyy) Gender: Male Height: 65 in * Age: 81 yrs Ethnicity: CA Weight: 145 lb * Ordering Physician: Lalo Christiansen * Referring Physician: Self, Referred * Performed By: Lesli Kiran RDCS * * Reason For Study: Acute Myocardial Infarction * BSA: 1.7 m2 * -- Conclusions -- * Left ventricular systolic function is mildly reduced. * There are regional wall motion abnormalities as specified. * Mild aortic regurgitation. * There is mild to moderate mitral regurgitation. * Right ventricular systolic pressure is normal. * Compared to study from 04/14/2015, there may be a slight reduction in overall LV function. Procedure Details * A complete two-dimensional transthoracic echocardiogram was performed (2D, M-mode, Doppler and color flow Doppler). Left Ventricle * The left ventricle is normal in size. * There is normal left ventricular wall thickness. * The basal septum is thickened and angulated consistent with sigmoid septum. * Ejection Fraction = 45-50%. * Left ventricular systolic function is mildly reduced. * There are regional wall motion abnormalities as specified. * There is apical inferior akinesis. Lateral wall appears mildly hypokinetic. Right Ventricle * The right ventricle is normal in size and function. * The right ventricular systolic function is normal as assessed by tricuspid annular plane systolic excursion (TAPSE) (normal >1.5 cm). Atria * The left atrium is mildly dilated. * Borderline right atrial enlargement. Mitral Valve * The mitral valve anatomy is normal. * There is mild to moderate mitral regurgitation. Tricuspid Valve * The tricuspid valve is not well visualized, but is grossly normal. * There is mild tricuspid regurgitation. * Right ventricular systolic pressure is normal. Aortic Valve * The aortic valve is not well visualized. * Aortic stenosis is absent. * Mild aortic regurgitation. Great Vessels * The aortic root is normal size. Pericardium/Pleural * There is no pericardial effusion. Great Vessels * Normal inferior vena cava diameter and respiratory variation suggests normal central venous pressure. MMode 2D Measurements and Calculations IVSd 1.1 cm IVSs 1.3 cm LVIDd 4.7 cm LVIDs 3.5 cm LVPWd 1.1 cm LVPWs 1.4 cm IVS/LVPW 0.94 FS 26.1 % EDV(Teich) 104.0 ml ESV(Teich) 50.7 ml EF(Teich) 51.2 % EDV(cubed) 106.0 ml ESV(cubed) 42.7 ml EF(cubed) 59.7 % % IVS thick 24.3 % % LVPW thick 20.2 % LV mass(C)d 190.0 grams LV mass(C)dI 110.1 grams/m\S\2 LV mass(C)s 162.2 grams LV mass(C)sI 94.0 grams/m\S\2 SV(Teich) 53.3 ml SI(Teich) 30.9 ml/m\S\2 SV(cubed) 63.3 ml SI(cubed) 36.7 ml/m\S\2 Ao root diam 3.1 cm Ao root area 7.5 cm\S\2 ACS 2.0 cm LA dimension 4.4 cm LA/Ao 1.4 LVAd ap4 34.5 cm\S\2 LVLd ap4 9.4 cm EDV(MOD-sp4) 102.3 ml EDV(sp4-el) 107.7 ml LVAs ap4 22.5 cm\S\2 LVLs ap4 8.8 cm ESV(MOD-sp4) 51.4 ml ESV(sp4-el) 48.6 ml EF(MOD-sp4) 49.8 % EF(sp4-el) 54.9 % LVAd ap2 32.6 cm\S\2 LVLd ap2 9.7 cm EDV(MOD-sp2) 95.6 ml EDV(sp2-el) 92.5 ml LVAs ap2 21.3 cm\S\2 LVLs ap2 8.8 cm ESV(MOD-sp2) 45.1 ml ESV(sp2-el) 43.4 ml EF(MOD-sp2) 52.8 % EF(sp2-el) 53.1 % LVLd %diff 3.8 % EDV(MOD-bp) 97.5 ml LVLs %diff 0.30 % ESV(MOD-bp) 48.1 ml EF(MOD-bp) 50.7 % SV(MOD-sp4) 50.9 ml SI(MOD-sp4) 29.5 ml/m\S\2 SV(MOD-sp2) 50.5 ml SI(MOD-sp2) 29.3 ml/m\S\2 SV(MOD-bp) 49.5 ml SI(MOD-bp) 28.7 ml/m\S\2 SV(sp4-el) 59.1 ml SI(sp4-el) 34.2 ml/m\S\2 SV(sp2-el) 49.1 ml SI(sp2-el) 28.5 ml/m\S\2 Doppler Measurements and Calculations MV E max chilo 95.4 cm/sec MV A max chilo 30.2 cm/sec MV E/A 3.2 MV dec time 0.21 sec Ao V2 max 134.8 cm/sec Ao max PG 7.3 mmHg Ao max PG (full) 1.4 mmHg AI max chilo 347.1 cm/sec AI max PG 48.2 mmHg AI dec slope 268.5 cm/sec\S\2 AI P1/2t 378.6 msec LV V1 max PG 5.8 mmHg LV V1 max 120.7 cm/sec PA V2 max 113.9 cm/sec PA max PG 5.2 mmHg TR max chilo 249.3 cm/sec
--- NOTE | 2017-10-15 17:27 | CARDIOLOGY PROGRESS NOTE ---
DATE: 10/15/2017 TIME: 1642 p.m. SUBJECTIVE: He feels better today but not yet back to baseline. He denies shortness of breath, chest pain, syncope, near syncope. He denies angina. He is currently sitting out of bed in a chair. OBJECTIVE: VITAL SIGNS: Temperature 37.2 degrees, heart rate 83 beats per minute, respiration rate 20, blood pressure 125/79 mmHg, oxygen saturation 96% on room air. I's and O's - positive 1.6 liters yesterday, weight is 66 kilograms. GENERAL: No acute distress, alert and oriented. NECK: No JVD. CARDIAC EXAM: No ventricular heave, irregularly irregular, normal S1, S2. There were no audible murmurs, rubs or gallops. LUNGS: Occasional rhonchi in bilateral lung davis, but improved from yesterday. ABDOMEN: Soft, nontender, nondistended. Normoactive bowel sounds. EXTREMITIES: No cyanosis or edema. PSYCHIATRIC: Affect appears appropriate. MEDICATIONS: Include cefepime 2 grams IV q. 8 hours, digoxin 0.125 mg daily, Pradaxa 150 mg p.o. b.i.d., isosorbide mononitrate 60 mg daily, Levofloxacin 750 mg IV daily, metoprolol succinate 100 mg daily, Protonix 40 mg daily, potassium chloride 20 mEq daily. IMAGING DATA: Telemetry personally reviewed. Atrial fibrillation occasionally with rapid ventricular response but overall relatively controlled. LABORATORY DATA: White blood cell count is 2.41, hemoglobin 8.4, platelets 47. Sodium 135, potassium 3.5, BUN 12, and creatinine 0.73. ECG personally reviewed. Probable atrial fibrillation with occasional ventricularly paced complexes. ASSESSMENT AND PLAN: 1. Non-ST elevation myocardial infarction: No angina. Likely secondary to his multifocal pneumonia. Continue medical therapy. He has declined coronary angiography in the past and prefers medical therapy. Echocardiogram pending. 2. Coronary artery disease: He is not on antiplatelet therapy secondary to thrombocytopenia and the fact that he is on Pradaxa for stroke risk reduction. No angina. Continue medical therapy. 3. Ischemic cardiomyopathy: Continue beta-luther. He has had issues with syncope, near syncope in the past. Therefore, YENNI inhibitor has not been initiated. He appears euvolemic. Continue beta luther at current dose for now. If he becomes more tachycardic, could consider increasing. 4. Atrial fibrillation: Continue beta-luther for rate control. Continue anticoagulation for stroke risk reduction if no contraindications. Monitor platelet level closely. 5. Disposition: Cardiology will continue to follow.
[2017-10-15] MEDS: ALFUZosin TAB 10 MG TAB PO SCH (20:21)
[2017-10-16] MEDS: LEVALBUTEROL 1.25MG/0.5ML NEB INH SCH ×2 (01:45→07:05)
[2017-10-16] MEDS: IPRATROPIUM BROMIDE NEB SOLN 0.02% 2.5 ML VIAL INH SCH ×2 (01:45→07:05)
[2017-10-16] MEDS: CEFEPIME IV 2,000 MG in SYRINGE 7.5 ML IV SCH ×2 (02:55→10:08)
[2017-10-16 03:27] VITALS: BP 133/87; PULSE 86; TEMP 36.8; O2SAT 95
[2017-10-16 06:39] LABS: CALCIUM 9.4 mg/dl (8.5-10.1); CREATININE 0.76 mg/dl (0.60-1.40); POTASSIUM 3.7 mmol/L (3.5-5.1)
[2017-10-16 06:50] LABS: HEMATOCRIT 27.2 % (42-52); HEMOGLOBIN 9.3 g/dL (14.0-18.0); MEAN CORPUSCULAR HEMOGLOBIN 30.1 pg (25-34); MEAN CORPUSCULAR HGB CONC 34.2 g/dl (32-36); PLATELET COUNT 64 K/uL (130-400); RED CELL DISTRIBUTION WIDTH CV 19.8 % (11.5-14.5); RED CELL DISTRIBUTION WIDTH SD 63.9 fL (36.4-46.3); WHITE BLOOD COUNT 2.29 K/uL (4.8-10.8)
[2017-10-16 07:05] VITALS: PULSE 81; O2SAT 92
[2017-10-16 07:53] VITALS: BP 148/80; PULSE 85; TEMP 36.8; O2SAT 95
[2017-10-16] MEDS: ACYCLOVIR 400 MG TAB PO SCH (08:10)
[2017-10-16] MEDS: CHOLECALCIFEROL 1000 INTER.UNIT TAB PO SCH (08:10)
[2017-10-16] MEDS: PANTOprazole SOD 40 MG TAB PO SCH (08:11)
[2017-10-16] MEDS: POTASSIUM CHLORIDE 20 MEQ TABCR PO SCH (08:11)
[2017-10-16] MEDS: ISOSORBIDE MONONITRATE 60 MG TABCR PO SCH (08:11)
[2017-10-16] MEDS: DABIGATRAN ELEXILATE 75 MG CAP PO SCH (08:12)
[2017-10-16] MEDS: FINASTERIDE 5 MG TAB PO SCH (08:12)
[2017-10-16] MEDS: METOPROLOL SUCC 50MG EXT REL TAB PO SCH (08:12)
--- NOTE | 2017-10-16 09:56 | CARDIOLOGY PROGRESS NOTE ---
DATE: 10/16/2017 TIME: 9:36 a.m. SUBJECTIVE: He feels much better compared to even yesterday. He denies shortness of breath, chest pain, syncope, near syncope, palpitations or edema. His abdomen feels better. He is hoping to go home soon. OBJECTIVE: VITAL SIGNS: Temperature 36.8 degrees, heart rate 85 beats per minute, respiration rate 17, blood pressure 148/80 mmHg. His blood pressure has mostly been normotensive. Oxygen saturation is 95% on room air. I's and O's positive 847 mL. Weight is 67.9 kg. GENERAL: No acute distress. He is alert. NECK: No JVD. CARDIAC EXAM: No ventricular heave, irregularly irregular, normal S1, S2. There were no audible murmurs, rubs or gallops. LUNGS: Improved rhonchi. ABDOMEN: Soft, nontender, nondistended. Normoactive bowel sounds. EXTREMITIES: No cyanosis or edema. PSYCHIATRIC: Affect appears appropriate. MEDICATIONS: Include acyclovir 400 mg p.o. b.i.d., cefepime 2 grams IV q. 8 hours, Pradaxa 150 mg p.o. b.i.d., digoxin 0.125 mg daily, isosorbide mononitrate 60 mg daily, levofloxacin 750 mg IV daily, metoprolol succinate 100 mg daily, Protonix 40 mg daily, potassium chloride 20 mEq daily. Telemetry personally reviewed. Atrial fibrillation with occasional ventricularly paced complexes. LABORATORY DATA: White blood cell count is 2.29, hemoglobin 9.3, platelets 64. Sodium 135, potassium 3.7, BUN 12, creatinine 0.76. Echocardiogram report reviewed from 10/15/2017: Mildly reduced LV systolic function. EF 45-50%. Apical inferior akinesis. Lateral wall appears mildly hypokinetic. Mild AI. Mild to moderate MR. Normal RVSP. ASSESSMENT AND PLAN: 1. Non-ST elevation myocardial infarction: He did not present with acute coronary syndrome but his myocardial infarction is likely secondary to demand ischemia with his multifocal pneumonia. He likely has underlying coronary artery disease. He has declined invasive measures in the past and has preferred medical therapy. Continue current medications. 2. Ischemic cardiomyopathy: He continues to have only mildly reduced LV systolic function. Continue metoprolol succinate at current dose. YENNI inhibitor has not been initiated in the past secondary to history of syncope and near syncope that was related to vasovagal issues which have been common with him as they were triggered by nausea and vomiting with his chemotherapy. Continue current regimen. 3. Coronary artery disease: He is not on antiplatelet therapy secondary to thrombocytopenia and the fact that he is on Pradaxa for stroke risk reduction. Continue other medical therapy. No angina. He appears euvolemic. He is intolerant to statin therapy. 4. Atrial fibrillation: He is reasonably rate controlled. Continue beta luther at current dose. He is on anticoagulation for stroke risk reduction. 5. Pneumonia: As per primary service. 6. Disposition: Please call for any other questions or concerns. Cardiology will sign off at this time.
[2017-10-16] MEDS: LEVOFLOXACIN / D5W 750 MG in PREMIXED IN D5W 150 ML IV SCH (10:07)
[2017-10-16 11:57] VITALS: BP 127/60; PULSE 62; TEMP 37.2; O2SAT 92
[2017-10-16] MEDS ORDERED: LEVO1TAB35 PO (13:30)
--- NOTE | 2017-10-16 13:35 | Discharge Instructions ---
Discharge Instructions Date of Service Oct 16, 2017. Admission Reason for Admission: Hypoxia, Pneumonia Discharge Discharge Diagnosis / Problem: Community acquired pneumonia, demand ischemia Discharge Goals Goal(s): Improve function, Increase independence, Improve disease control Activity Recommendations Activity Limitations: resume your previous activity . Instructions / Follow-Up Instructions / Follow-Up Medications: - LEVAQUIN: take once a day starting tomorrow, complete 3 more days total Pneumonia: responding well to antibiotics, no fever, breathing well received 4 days of broad spectrum antibiotics, will d/c on Levaquin please stay well hydrated, get plenty of rest next few days follow up with Dr. Javed in one week, call for appointment Multiple myeloma: blood counts all low but stable call for follow up with Dr. Velasquez Demand ischemia: mild elevation in heart enzymes and some chest pain on admission evaluated by Dr. La, echocardiogram normal no further work up Current Hospital Diet Patient's current hospital diet: AHA Diet (Heart Healthy), Gluten Free Diet Discharge Diet Recommended Diet: AHA Diet (Heart Healthy), Gluten Free Diet Pending Studies Studies pending at discharge: no Medical Emergencies . Who to Call and When: Medical Emergencies: If at any time you feel your situation is an emergency, please call 911 immediately. . Non-Emergent Contact Non-Emergency issues call your: Primary Care Provider Call Non-Emergent contact if: you have a fever, you have any medication questions . . "Provider Documentation" section prepared by Lalo Christiansen. . VTE Core Measure Inpt VTE Proph given/why not?: Other Anticoagulation (Pradaxa), [place], SCD's [place] Drug Monitoring Program Search Results: no issues identified
[2017-10-16 13:46] VITALS: BP 148/80; PULSE 85; TEMP 36.8; O2SAT 95
--- NOTE | 2017-10-16 16:32 | Medical Student: [facility] ---
Med Student Progress Note Date of Service Oct 16, 2017. Subjective Pain: None PO Intake: Improved, adequate Voiding: no voiding problems Mr. Blanchard is a 81-year-old man with a history of multiple myeloma, AF, CAD, cardiomyopathy, and TIA who is admitted for pneumonia. Upon admission he says he was in "bad shape" but feels great today. He would like to go home and be permitted to ambulate more frequently. He still has some productive cough that is "white and mucous-y" in appearance and post nasal drip. He denies chest pain , pleurisy, dysuria, SOB, palpitations, calf pain. He reports that his stomach "feels off" but is eating well. He also mentions he has chronic dysphagia for tough foods like meat - "feels like they get stuck before my stomach." Review of Systems Notes: see hpi Objective Vital Signs Date Time Temp Pulse Resp B/P (MAP) Pulse Ox O2 Delivery O2 Flow Rate FiO2 10/16/17 13:46 36.8 85 17 95 Room Air Nasal Cannula 10/16/17 12:00 Room Air 10/16/17 09:52 Room Air 10/16/17 08:00 Room Air 10/16/17 07:53 36.8 85 17 148/80 (102) 95 Room Air 10/16/17 07:05 81 18 92 Room Air 10/16/17 04:00 Room Air 10/16/17 03:27 36.8 86 18 133/87 (102) 95 Room Air 10/16/17 00:01 Room Air 10/15/17 23:46 37.4 84 19 132/74 (93) 93 Room Air 10/15/17 20:00 Room Air 10/15/17 19:42 94 16 98 Room Air 10/15/17 18:55 36.8 88 18 124/77 (93) 96 Room Air 10/15/17 16:27 96 Room Air Physical Exam General Appearance: WD/WN, no apparent distress ENT: hearing grossly normal, TMs normal Respiratory/Chest: normal breath sounds, no respiratory distress, + crackles ( mild crackles bilaterally) Cardiovascular: regular rate, rhythm, no edema Laboratory Results Last 24 Hours Test 10/16/17 05:44 White Blood Count 2.29 K/uL Red Blood Count 3.09 M/uL Hemoglobin 9.3 g/dL Hematocrit 27.2 % Mean Corpuscular Volume 88.0 fL Mean Corpuscular Hemoglobin 30.1 pg Mean Corpuscular Hemoglobin Concent 34.2 g/dl RDW Standard Deviation 63.9 fL RDW Coefficient of Variation 19.8 % Platelet Count 64 K/uL Platelet Estimate DECREASED Sodium Level 135 mmol/L Potassium Level 3.7 mmol/L Chloride Level 102 mmol/L Carbon Dioxide Level 24 mmol/L Anion Gap 9.0 mmol/L Blood Urea Nitrogen 12 mg/dl Creatinine 0.76 mg/dl Est Creatinine Clear Calc Drug Dose 69.9 ml/min Estimated GFR () 99.9 Estimated GFR (Non- 86.2 BUN/Creatinine Ratio 15.6 Random Glucose 98 mg/dl Calcium Level 9.4 mg/dl Assessment and Plan Assessment and Plan: Mr. Blanchard is a 81-year-old man with a history of multiple myeloma, AF, CAD, cardiomyopathy, and TIA who is admitted for pneumonia. PNEUMONIA Clinically improved and would like to go home. Continue levaquin for 3 more days. CHEST PAIN No pain today. Pain on admission likely demand ischemia. AFIB / CAD / CARDIOMYOPATHY / TIA Continue digoxin, metoprolol, nitrate, and dabigatran. Denies palpitations. MULTIPLE MYELOMA Follow up with heme/onc as outpatient. BPH Continue afluzosin and finasteride. GERD Continue pantoprazole DYSPHAGIA In setting of chronic GERD, would recommend following up with primary care to evaluate for stricture or neoplasia in esophagus. DVT PPX Denies calf pain. Continue to ambulate as tolerated.
--- NOTE | 2017-10-17 08:45 | Discharge Summary ---
Discharge Summary Date of Service Oct 16, 2017. Discharge Summary Admission Date: Oct 13, 2017 at 11:24 Discharge Date: Oct 16, 2017 Discharge Disposition: Home Principal Diagnosis: Multifocal pneumonia, community acquired Problems/Secondary Diagnoses: NSTEMI Multiple myeloma with pancytopenia Immunizations: Have You Had Influenza Vaccine: No History of Tetanus Vaccine?: Unknown History of Pneumococcal: No History of Hepatitis B Vaccine: No Procedures: none Consultations: Cardiology Medication Reconciliation New Medications: Levofloxacin (Levaquin) 750 Mg Tab 750 MG PO DAILY for 3 Days, #3 TAB Continued Medications: Acyclovir (Zovirax Unkown Dose) Cap 400 MG PO BID Alfuzosin Hcl (Uroxatral) 10 Mg Tab 10 MG PO HS, 0 Refills Calcium (Caltrate) 600 Mg Tab 600 MG PO DAILY, TAB Carboxymethylcellulose Sodium (Theratears) 0.25 % Marcie 1 DROP OPB AMHS Cholecalciferol (Vitamin D) 1,000 Inter.unit Tab 5000 INTER.UNIT PO DAILY, TAB Cyanocobalamin (Vitamin B12) 1,000 Mcg Tab 5000 MCG PO DAILY Dabigatran Etexilate Mesylate (Pradaxa) 150 Mg Cap 150 MG PO BID, CAP Digoxin (Lanoxin) 0.125 Mg Tab 0.125 MG PO DAILY, 0 Refills Finasteride (Proscar) 5 Mg Tab 5 MG PO DAILY, 0 Refills Isosorbide Mononitrate Ext Rel (Imdur Ext Rel) 60 Mg Ertab 60 MG PO DAILY Metoprolol Succinate (Metoprolol Succinate ER) 100 Mg Tabcr 100 MG PO DAILY Ondansetron Hcl (Zofran) 8 Mg Tab 8 MG PO TID PRN for Nausea or Vomiting, TAB Pantoprazole (Protonix) 40 Mg Tab 40 MG PO DAILY, 0 Refills Discontinued Medications: Ciprofloxacin (Ciprofloxacin HCl) 500 Mg Tab 500 MG PO BID Discharge Exam Patient doing really well, ambulating around the RN unit, displays independence with transfers and ambulation. Breathing well, minimal cough. Vitals stable, no fever. No chest pain. Eating well. Discussed plan for discharge with patient and his , all questions answered. Review of Systems: Constitutional: No fever, No chills, No sweats, No weight loss, No weakness , No fatigue, No problem reported Eyes: No worsening of vision, No eye pain, No redness, No discharge, No diplopia, No problem reported ENT: No hearing loss, No unusual epistaxis, No nasal symptoms, No sore throat, No tinnitus, No dental problems, No trouble swallowing, No problem reported Respiratory: No cough, No sputum, No wheezing, No shortness of breath, No dyspnea on exertion, No dyspnea at rest, No hemoptysis, No problem reported Cardiovascular: No chest pain, No orthopnea, No PND, No edema, No claudication, No palpitations, No problem reported Abdomen: No pain, No nausea, No vomiting, No diarrhea, No constipation, No GI bleeding, No problem reported Musculoskeletal: No joint pain, No muscle pain, No swelling, No calf pain, No problem reported Genitourinary - Male: No hematuria, No dysuria, No urinary frequency, No urinary urgency Neurologic: No memory loss, No paralysis, No weakness, No numbness/tingling , No vertigo, No balance problems, No problem reported Psychiatric: No depression symptoms, No anhedonism, No anxiety, No insomnia , No substance abuse, No problem reported Endocrine: No fatigue, No excessive thirst, No excessive urination, No problem reported Hematologic / Lymphatic: No abnormal bleeding/bruising, No clotting problems , No swollen lymph nodes, No night sweats, No problem reported Integumentary: No rash, No itch, No new/changing skin lesions, No color change, No bleeding, No problem reported Physical Exam: General Appearance: WD/WN, no apparent distress Eyes: normal inspection, EOMI, sclerae normal ENT: normal ENT inspection, hearing grossly normal, pharynx normal Neck: supple, no adenopathy, no JVD, trachea midline Respiratory/Chest: chest non-tender, lungs clear, normal breath sounds, no respiratory distress, no accessory muscle use Cardiovascular: regular rate, rhythm, no edema, no gallop, no JVD, no murmur , normal peripheral pulses Abdomen / GI: normal bowel sounds, non tender, soft, no organomegaly Extremities: normal inspection, no calf tenderness, normal capillary refill , no pedal edema, normal range of motion, pelvis stable Neurologic/Psychiatric: security professionals II-XII nml as tested, no motor/sensory deficits , alert, normal mood/affect, normal reflexes, oriented x 3 Skin: normal color, warm/dry, no rash Lymphatic: no adenopathy Hospital Course 81 y/o male with a history of a-fib on chronic anticoagulation, cardiomyopathy, CAD, s/p pacemaker, TIA, anemia, BPH, and multiple myeloma who presented to the ED on 10/13 with shortness of breath, productive cough and wheezing. Pt with low grade fever, Tmax 37.7. Tachycardic, BP stable. 83% on room air, now breathing comfortably on BiPAP. CXR shows multifocal pneumonia. CTA chest negative for PE and confirms multifocal PNA. EKG no ischemic changes. WBC around baseline at 3.04 given immunotherapy. Sodium 128. Troponin elevated at 0.07. Multifocal pneumonia with acute hypoxic respiratory failure hypoxia resolved quickly, titrated to room air, no distress afebrile, vitals stable, mild leukopenia from MM but stable discontinued vancomycin on 10/15, continued Levaquin 750 mg IV qd, and cefepime 2 gm IV q8h for additional 24 hours will d/c on 3 more days of Levaquin 750mg PO daily to complete 7 days total Blood cultures and sputum culture negative Xopenex/Atrovent nebs QIDR and q2h prn SOB/wheezing stop fluids Chest pain prior to admission, elevated troponin--NSTEMI troponin up to 1.9, then down to 1.1 and then 0.399 no further chest pain or pressure continue Toprol appreciate cardiology recommendations for aspirin but caution with thrombocytopenia patient on Pradaxa already so no role for heparin Hypokalemia: PO replacement, resolved 10/15 A-fib on anticoagulation, cardiomyopathy, s/p pacemaker, CAD, h/o TIA--stable -Continue digoxin 125 mcg PO qd, Toprol XL 100 mg PO qd, Imdur 60 mg PO qd, and Pradaxa 150 mg PO BID Anemia, multiple myeloma--anemia likely secondary to IV immunotherapy. Stable -Weekly infusions but missed last week due to illness -Continue acyclovir 400 mg PO BID for suppressive therapy - appreciate hematology consultation - Hb is 9.3 on the day of discharge BPH -Continue alfuzosin 10 mg PO hs and Proscar 5 mg PO qd - urinating without difficulty after wilks d/c on 10/15 DVT prophylaxis -Pradaxa -SARINA evans and SCDs Code Status -Level I, FULL RESUSCITATION STATUS d/c to home after he was cleared by therapy, follow up with PCP Total Time Spent: Greater than 30 minutes This includes examination of the patient, discharge planning, medication reconciliation, and communication with other providers. Discharge Instructions Please refer to the electronic Patient Visit Report (Discharge Instructions) for additional information. Follow-Up Dr. Javed in one week Dr. Velasquez in 2 weeks Additional Copies To Bhavin Velasquez D.O.; Aldo Javed D.O.
== END 2017-10-16 14:43 | disposition home or self-care (01) | DRG 193 ==
LOC: EDBD 08:00 → C.EDB 08:02 → C.2E 11:24 → EDBEDREQ 11:32 → ENRESERV 11:41
PROVIDERS: ADMIT Hospitalist; ATTEND Internal Medicine
DX: J18.9 Pneumonia, unspecified organism (principal); J96.01 Acute respiratory failure with hypoxia; I21.A1 Myocardial infarction type 2; C90.00 Multiple myeloma not having achieved remission; I48.2 Chronic atrial fibrillation; I25.5 Ischemic cardiomyopathy; I25.10 Atherosclerotic heart disease of native coronary artery without angina pectoris; D64.81 Anemia due to antineoplastic chemotherapy; N40.0 Benign prostatic hyperplasia without lower urinary tract symptoms; Z95.0 Presence of cardiac pacemaker; Z86.73 Personal history of transient ischemic attack (TIA), and cerebral infarction without residual deficits; Z79.01 Long term (current) use of anticoagulants; Z79.899 Other long term (current) drug therapy; Z88.8 Allergy status to other drugs, medicaments and biological substances; Z82.49 Family history of ischemic heart disease and other diseases of the circulatory system; Z82.3 Family history of stroke; Z80.0 Family history of malignant neoplasm of digestive organs; Z80.1 Family history of malignant neoplasm of trachea, bronchus and lung; Z80.42 Family history of malignant neoplasm of prostate; Z80.43 Family history of malignant neoplasm of testis; Z80.52 Family history of malignant neoplasm of bladder

== ENCOUNTER → 2018-01-07 | Outpatient (CLI) | payer BC ==
[~2018-01-07] MED LIST changes: -IMDSR30 PO; +ISOS60TA25 PO; -METO100T44 PO; +TPRSR/100 PO
--- NOTE | 2018-01-07 11:41 | DIAGNOSTIC IMAGING REPORT ---
CHEST 2 VIEWS ROUTINE CLINICAL HISTORY: R05 cough COMPARISON STUDY: 10/13/2017 FINDINGS: Mild stable cardia megaly. Lungs are considered clear. Mild emphysematous change. Slight chronic blunting of the lateral costophrenic angles bilaterally. IMPRESSION: Mild emphysematous change. Mild stable cardia megaly. No acute infiltrate. The above report was generated using voice recognition software. It may contain grammatical, syntax or spelling errors. Electronically signed by: Cali Cary M.D. 01/07/2018 11:40 AM Dictated Date/Time: 01/07/2018 11:38 AM
== END | disposition home or self-care (01) ==
LOC: C.RAD1850 11:30
PROVIDERS: ATTEND Family Medicine
DX: R05 Cough (principal)

== ENCOUNTER → 2018-01-22 | Outpatient (CLI) | payer BC ==
[~2018-01-22] MED LIST changes: +CEFD1CAP14 PO; +CIPRO EAR DROPS OTL; +FLONASE NASAL SPRAY NAE
--- NOTE | 2018-01-22 13:06 | DIAGNOSTIC IMAGING REPORT ---
RIBS BILATERAL WITH PA CHEST HISTORY: 82 years-old Male BILATERAL RIB PAIN WITH MYELOMA acute bilateral rib pain with history of multiple myeloma COMPARISON: Chest radiograph 01/07/2018, chest CTA 10/13/2017 TECHNIQUE: PA view of the chest with views of the bilateral ribs for a total of 9 images FINDINGS: Cardiac silhouette is again mildly enlarged. Atherosclerosis of the aorta. Right internal jugular [id number]-u-[id number] catheter appears unchanged. Left subclavian pacer appears stable. No pneumothorax, large pleural effusion, or airspace consolidation or overt pulmonary edema. Chronic blunting of the left costophrenic angle. Subsegmental bibasilar opacities favor atelectasis. The bones appear mildly demineralized. Degenerative changes are seen within the shoulders and spine. There is levoscoliosis of the lumbar spine with vertebroplasty changes again noted at L1. Pedicle screws the lower lumbar spine are noted at L4-L5. No acute displaced rib fracture identified. IMPRESSION: 1. Cardiomegaly without acute process. 2. Demineralized appearance of the bones with degenerative changes of the shoulders and spine. No acute displaced rib fracture identified. The above report was generated using voice recognition software. It may contain grammatical, syntax or spelling errors. Electronically signed by: Catrachito Dhaliwal M.D. 01/22/2018 1:05 PM Dictated Date/Time: 01/22/2018 1:01 PM
== END | disposition home or self-care (01) ==
LOC: C.RAD1850 12:36
PROVIDERS: ATTEND Family Medicine
DX: R07.81 Pleurodynia (principal)

== ENCOUNTER → 2018-02-05 | Outpatient (CLI) | payer BC ==
[2018-02-05 11:12] LABS: MEAN CORPUSCULAR HGB CONC 33.6 g/dl (32-36)
[2018-02-05 11:23] LABS: HEMATOCRIT 32.7 % (42-52); MEAN CELL VOLUME 94.2 fL (80-100); MEAN CORPUSCULAR HEMOGLOBIN 31.7 pg (25-34); RED CELL DISTRIBUTION WIDTH CV 18.6 % (11.5-14.5); RED CELL DISTRIBUTION WIDTH SD 63.5 fL (36.4-46.3); WHITE BLOOD COUNT 3.19 K/uL (4.8-10.8)
[2018-02-05 11:34] LABS: ALBUMIN 3.7 gm/dl (3.4-5.0); ALT/SGPT 47 U/L (12-78); AST/SGOT 20 U/L (15-37); BLOOD UREA NITROGEN 23 mg/dl (7-18); CALCIUM 10.7 mg/dl (8.5-10.1); CARBON DIOXIDE 24 mmol/L (21-32); CREATININE 1.11 mg/dl (0.60-1.40); GLUCOSE 86 mg/dl (70-99); POTASSIUM 4.4 mmol/L (3.5-5.1); SODIUM 138 mmol/L (136-145)
[2018-02-05 11:35] LABS: PLATELET COUNT 57 K/uL (130-400)
[2018-02-05 11:36] LABS: BASO % 0.3 %; BASO ABS # 0.01 K/uL (0-0.2); EOS % 0.6 %; EOS ABS # 0.02 K/uL (0-0.5); IG# 0.01 K/uL (0.00-0.02); LYMPH % 45.8 %; LYMPH ABS # 1.46 K/uL (1.2-3.4); MONO % 10.7 %; MONO ABS # 0.34 K/uL (0.11-0.59); NEUT % 42.3 %; NEUT ABS # 1.35 K/uL (1.4-6.5)
[2018-02-05 12:39] LABS: ALKALINE PHOSPHATASE 113 U/L (45-117)
== END | disposition home or self-care (01) ==
LOC: C.LABCP 10:26
PROVIDERS: ATTEND Nurse Practitioner Family
DX: C90.02 Multiple myeloma in relapse (principal)

== ENCOUNTER 2018-10-30 10:17 | Inpatient (IN) ==
[2018-10-30] MEDS ORDERED: ACETAMINOPHEN 500 MG TAB PO STA (11:01)
[2018-10-30] MEDS ORDERED: cefTRIAXone SODIUM 1,000 MG/50 ML BAG IV STA (11:22)
[2018-10-30] MEDS ORDERED: metroNIDAZOLE 500 MG/100 ML BAG IV STA (11:22)
--- NOTE | 2018-10-30 11:27 | XRay Report ---
XR chest 1V portable CLINICAL HISTORY: 82 years-old Male presenting with cough, fever. TECHNIQUE: Portable upright AP view of the chest was obtained. COMPARISON: 04/02/2018. FINDINGS: Right sided Mediport terminates in the mid SVC. This may either be subclavian or internal jugular in origin. Left subclavian pacer with leads to the right atrium and right ventricular apex. Several exte rnal leads noted. Atherosclerosis of the aortic arch. Cardiac silhouette moderately enlarged. Pulmona ry vascular prominence. Overall heterogeneity of lung markings with relative hyperinflation. Interval development of a right perihilar opacity. Lesser degree of patchy nodular opacities in the lung base s. No large effusion or pneumothorax. Osteopenia suspected. Multilevel degenerative changes of the sp ine with post procedural changes of kyphoplasty at the thoracolumbar junction. IMPRESSION: 1. Right perihilar infiltrate consistent with pneumonia. 2. Cardiomegaly with volume overload/congestive change. Developing superimposed ulnar edema is diffi cult to exclude. Continued radiographic follow-up recommended. Electronically signed by: Sathish Barber M.D. 10/30/2018 11:25 AM
[2018-10-30 11:59] LABS: Mean Corpuscular Hgb Conc 32.9 g/dL (32-36); Nucleated RBC # (auto) 0.05 K/uL (0-0); Nucleated RBC % (auto) 1.7 %
[2018-10-30] MEDS ORDERED: ONDANSETRON INJ 2 MG/ML 2 ML VIAL IV STA (12:02)
[2018-10-30 12:08] LABS: Albumin Level 3.7 gm/dl (3.4-5.0); BUN Creatinine Ratio 26.8 (10-20); Calcium 9.2 mg/dl (8.5-10.1); Creatinine Clr Calc Pharmacy 70.3 ml/min; Est GFR (African American) 95.2; Est GFR (Non-African American) 82.1; Potassium 3.6 mmol/L (3.5-5.1)
[2018-10-30 12:14] LABS: Albumin Globulin Ratio 1.2 (0.9-2); Bilirubin,Total 0.7 mg/dl (0.2-1); Globulin 3.2 gm/dl (2.5-4.0); Total Protein 6.9 gm/dl (6.4-8.2); Troponin I 0.047 ng/ml (0-0.045)
[2018-10-30 12:15] LABS: Hematocrit (blood only) 24.3 % (42-52); Hemoglobin 7.8 g/dL (14.0-18.0); RDW Coefficient of Variation 19.6 % (11.5-14.5); RDW Standard Deviation 70.3 fL (36.4-46.3); Red Blood Count 2.48 M/uL (4.7-6.1); White Blood Count 2.92 K/uL (4.8-10.8)
[2018-10-30 12:23] LABS: Appearance Urine Clear (Clear); Bacteria Urine Automated Negative (Negative); Bilirubin Urine Negative (Negative); Blood Urine Trace (Negative); Color Urine Yellow; Epithelial Cell Urine Auto 20-30 /lpf (0-5); Glucose Urine UA 1+ (Negative); Ketones Urine Negative (Negative); Leukocyte Esterase Urine Negative (Negative); Nitrite Urine Negative (Negative); Protein Urine 1+ (Negative); RBC Urine Automated 0-4 /hpf (0-4); Specific Gravity Urine 1.026 (1.000-1.030); Urobilinogen Urine Negative (Negative); WBC Urine Automated 0 /hpf (0-5); pH Urine 6.5 (4.5-7.5)
[2018-10-30] MEDS ORDERED: OSELTAMIVIR PHOSPHATE 75 MG CAP PO STA (12:43)
[2018-10-30 12:56] LABS: Basophils # (auto) 0.01 K/uL (0-0.2); Basophils % (auto) 0.3 %; Immature Granulocytes # (auto) 0.01 K/uL (0.00-0.02); Immature Granulocytes % (auto) 0.3 %; Lymphocytes # (auto) 0.52 K/uL (1.2-3.4); Lymphocytes % (auto) 17.8 %; Monocytes # (auto) 0.25 K/uL (0.11-0.59); Monocytes % (auto) 8.6 %; Neutrophils # (auto) 2.13 K/uL (1.4-6.5); Ovalocytes 1+; Platelet Count 44 K/uL (130-400); Platelet Estimate Decreased (Normal); Schistocytes 1+; Tear Drop Cells 1+
[2018-10-30] MEDS ORDERED: SODIUM CHLORIDE 0.9% 250 ML IV PRN (13:08)
[2018-10-30] MEDS ORDERED: FUROSEMIDE 40 MG/4 ML VIAL IV STA (13:10)
--- NOTE | 2018-10-30 13:40 | History & Physical Report ---
Date of Service October 30, 2018 Assessment & Plan (1) Anemia: Hb 9.2 recently, now 7.8 Hemoccult pending Holding praxada Repeat tonight (2) Elevated troponin: Elevated to 0.05 in ED Serials pending EKG neg for new events States hx of ?? "small" AL Tele monitor ECHO pending Likely demand mismatch given other acute health issues (3) Flu: Flu A + Tamiflu given sx onset inside of 48hr window (4) CHF (congestive heart failure): Family states hx of similar issue last fall No current diuretic use ECHO pending Lasix 40mg IV in the ED, monitor and reassess for further need in AM (5) PNA (pneumonia): Noted on CXR Ceftriaxone/flagyl in the ED, will continue with flagyl Upper lobe infiltrate is less suspicious for aspiration PNA Gentle IVF given decreased PO intake, caution in setting of CHF however pt is clinically quite dry (6) Swallowing difficulty: Speech eval pending (7) History of multiple myeloma: Ongoing immunotherapy 1 tx/mo Takes prednisone on Saturday only and pre-tx Proph acyclovir (8) BPH (benign prostatic hyperplasia): continue home meds BP is stable (9) Atrial fibrillation: continue home meds with the exception of pradaxa given Hb (10) 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 Pt has been very tired for quite some time now. He and his relate this to ongoing tx for multiple myeloma. Pt had been feeling fine over the weekend. With the warmer temps, he and his had gone outside for several short walks even. Starting yesterday, pt began to feel unwell with increased fatigue and SOB. states that last night she noted pt had raspy breathing and chest rattling. Pt was able to eat dinner without issue. This AM, pt had a fever of 100.3. He was nauseated but no emesis. He has had mild diarrhea. Pt denies chest pain, LE pain or swelling. Pt states he feels tired at present. Family states that pt had some sort of CHF issue in the fall, but no swelling since and no ongoing diuretic use. Pt has issues with feelings of something stuck in his throat. No overt choking but coughs with this. Allergies Allergy/AdvReac Type Severity Reaction Status Date / Time immune globulin,gamma (IgG) Allergy Severe ANAPHYLAXIS Verified 04/28/18 11:11 human Penicillins Allergy Severe Unknown Verified 10/30/18 11:04 Vpgmbxj-Tar-Urb Reductase Allergy Unknown unknown Verified 04/28/18 11:11 Inhibitor Sulfa (Sulfonamide Allergy Unknown Unknown rxn Verified 04/28/18 11:11 Antibiotics) omeprazole AdvReac Intermediate dizziness Verified 04/28/18 11:11 Home Medications Home Medications Medication Instructions Recorded Confirmed Type ONDANSETRON HCL (ZOFRAN) 8 mg PO TID PRN #0 tab 10/22/12 History CARBOXYMETHYLCELLULOSE SODIUM 1 drp OPB AMHS #0 08/13/13 History (THERATEARS) Isosorbide Mononitrate Ext Rel 60 mg PO DAILY #0 10/13/17 History (Imdur Ext Rel) Metoprolol Succinate (Metoprolol 100 mg PO DAILY #0 10/13/17 History Succinate ER) Acyclovir 400 mg PO BID #0 04/02/18 History Alfuzosin HCl (Alfuzosin HCl ER) 10 mg PO HS #0 04/02/18 History CHOLECALCIFEROL (VITAMIN D3) 5,000 inter.unit PO DAILY #0 04/02/18 History Cyanocobalamin (B-12) 5,000 mcg PO DAILY #0 04/02/18 History Dabigatran Elexilate (Pradaxa) 150 mg PO BID #0 04/02/18 History Digoxin (Digitek) 0.125 mg PO DAILY #0 04/02/18 History Finasteride 5 mg PO DAILY #0 04/02/18 History Fluticasone Propionate 2 spry VIKTORIA DAILY PRN #0 04/02/18 History Pantoprazole (Pantoprazole Sodium) 40 mg PO BID #0 04/02/18 History Prednisone 20 mg PO UD #0 04/02/18 History Past Med/Surg History Medical History Afib (Chronic) Multiple myeloma (Chronic) Surgical History S/P placement of cardiac pacemaker (Resolved) Family History Father Bladder cancer Mother , "Fell over in the street" No formal dx given. No problems noted. Social History Feels Safe at Home: Yes Smoking Status: Never smoker Hx Alcohol Use: No Hx Substance Use: No Preferred Language: Nepali Review of Systems Pertinent positives and negatives reviewed in HPI--all others negative Physical Exam 2 Vital Signs (Past 24 Hours): Last Vital Signs Temp 38.0 C H 10/30/18 10:24 Pulse 94 H 10/30/18 13:12 Resp 21 10/30/18 13:12 BP 157/105 H 10/30/18 13:12 Pulse Ox 93 10/30/18 13:12 Constitutional: WD/WN, vitals as above + ill appearing and + frail appearing Eyes: normal visual davis by confrontation and + anicteric sclerae Neck: normal visual inspection and trachea midline Respiratory: able to speak in complete sentences; no respiratory distress Auscultation: + crackles; no wheezes upper airway congestion Cardiovascular: Rate/Rhythm: regular rate; + abnormal rhythm (afib) Gastrointestinal (Abdomen): Inspection/Auscultation: abdomen not distended Percussion/Palpation: abdomen soft; abdomen nontender Musculoskeletal: Head/Neck/Chest: normocephalic and head atraumatic negative for edema, peripheral pulses intact Skin: no rashes, warm and dry Neurologic: awake; not confused Speech / Cognition: normal speech Psychiatric: A+Ox3, euthymic affect Results & Data Diagnostic Findings R perihilar PNA ECG Rhythm: atrial fibrillation Code Status & VTE Plan Code Status Pt and family are uncertain about chest compressions at this time. Pt is clear that he is DNI. Advised pt and family that he will be FOR compressions until they are more certain that they would not want this action taken. VTE Prophylaxis Plan VTE Prophylaxis will be ordered: Yes
--- NOTE | 2018-10-30 15:33 | Emergency Department Note ---
Entered by Amie Henson acting as a scribe for Sultana Burroughs MD History of Present Illness General Chief complaint: Respiratory Problems Stated complaint: fever/confused Source: family History of Present Illness Provider complaint: respiratory problems Onset (ago): day(s) (since last night) Location: chest Maximum Pain Intensity: 0 Quality: + other (respiratory problems) Associated symptoms: + cough, + fever/chills (fever) and + weakness (fatigue) The patient is an 82 year old male who presents to the Emergency Room with complaints of respiratory problems since last night. Per family, the patient was febrile last night at 100.8. His family states that the patient has also been fatigued. The patient denies having problems eating. His family states that the patient has had a cough. Per family, the patient has a history of heart problems and multiple myeloma and is actively being treated for it. Per family, the patient does not smoke. His family states that the patient is unable to get a flu shot. His family states that the patient does not wear oxygen at home. His family states that last year the patient was placed on CPAP after having pneumonia but states that the patient does not have a history of CHF. The patient states that he is on a blood thinner. Home Medications Home Medications Medication Instructions Recorded Confirmed Type Ivig 0 mg PO MONTHLY 10/30/18 10/30/18 History Steriod 0 mg PO UD 10/30/18 10/30/18 History acyclovir 400 mg PO BID 10/30/18 10/30/18 History alfuzosin 10 mg PO HS 10/30/18 10/30/18 History carboxymethylcellulose sodium 1 drp OPHTHALMIC (EYE) BID 10/30/18 10/30/18 History [TheraTears] cholecalciferol (vitamin D3) 5,000 unit PO DAILY 10/30/18 10/30/18 History [Vitamin D3] cyanocobalamin (vitamin B-12) 5,000 mcg SUBLINGUAL DAILY 10/30/18 10/30/18 History [Vitamin B-12] dabigatran etexilate [Pradaxa] 150 mg PO BID 10/30/18 10/30/18 History dexamethasone 20 mg PO WK 10/30/18 10/30/18 History digoxin [Digitek] 125 mcg PO DAILY 10/30/18 10/30/18 History finasteride 5 mg PO QAM 10/30/18 10/30/18 History isosorbide mononitrate 60 mg PO DAILY 10/30/18 10/30/18 History metoprolol succinate 100 mg PO DAILY 10/30/18 10/30/18 History pantoprazole 40 mg PO BID 10/30/18 10/30/18 History Allergies Allergy/AdvReac Type Severity Reaction Status Date / Time immune globulin,gamma (IgG) Allergy Severe ANAPHYLAXIS Verified 10/30/18 14:09 human Penicillins Allergy Severe Unknown Verified 10/30/18 14:09 [id number] Reductase Allergy Unknown unknown Verified 10/30/18 14:09 Inhibitor Sulfa (Sulfonamide Allergy Unknown Unknown rxn Verified 10/30/18 14:09 Antibiotics) omeprazole AdvReac Intermediate dizziness Verified 10/30/18 14:09 Past Med/Surg History Medical History Afib (Chronic) Multiple myeloma (Chronic) Surgical History S/P placement of cardiac pacemaker (Resolved) Social History marital status: Current Living Situation: Spouse Other Information That Helps Us Care for You: No Feels Safe at Home: Yes Smoking Status: Never smoker Do You Dip or Chew Tobacco: No Second Hand Exposure: No Tobacco Cessation Education Requested by Patient: No Hx Alcohol Use: No Hx Substance Use: No Beliefs That Will Affect Care: None Communication Ability: Effective Review of Systems See HPI for pertinent positives & negatives. and A total of 10 systems reviewed and were otherwise negative Physical Exam Vital Signs Vital Signs - 24 hr 11/01/18 08:31 11/01/18 08:50 11/01/18 09:05 Temperature 36.7 C 37.2 C 37.2 C Temperature Source Oral Oral Oral Pulse Rate 111 H 95 H 95 H Pulse Rate [Finger] Pulse Rhythm Regular Regular Pulse Strength Normal Normal Respiratory Rate 20 18 20 Respiratory Effort / Characteristics Blood Pressure 114/70 114/66 110/67 Blood Pressure [Left Arm] Blood Pressure Mean 84 82 81 Blood Pressure Mean [Left Arm] Blood Pressure Position Lying Lying Lying Blood Pressure Position [Left Arm] Pulse Oximetry 96 98 96 Oxygen Delivery Method Oxygen Flow Rate 2.5 4 2 11/01/18 09:23 11/01/18 09:35 11/01/18 10:34 Temperature 37.1 C Temperature Source Oral Pulse Rate 88 89 Pulse Rate [Finger] Pulse Rhythm Regular Pulse Strength Normal Respiratory Rate 18 Respiratory Effort / Characteristics Spontaneous Blood Pressure 102/48 L Blood Pressure [Left Arm] Blood Pressure Mean 66 Blood Pressure Mean [Left Arm] Blood Pressure Position Lying Blood Pressure Position [Left Arm] Pulse Oximetry 96 Oxygen Delivery Method Nasal Cannula Oxygen Flow Rate 4 2 11/01/18 11:05 11/01/18 11:52 11/01/18 12:03 Temperature 36.7 C 37.2 C 37.2 C Temperature Source Oral Oral Oral Pulse Rate 88 89 Pulse Rate [Finger] 89 Pulse Rhythm Regular Pulse Strength Normal Respiratory Rate 20 20 16 Respiratory Effort / Characteristics Blood Pressure 115/73 106/67 Blood Pressure [Left Arm] 106/67 Blood Pressure Mean 87 80 Blood Pressure Mean [Left Arm] 80 Blood Pressure Position Lying Lying Blood Pressure Position [Left Arm] Lying Pulse Oximetry 97 97 97 Oxygen Delivery Method Nasal Cannula Oxygen Flow Rate 2 2 2.5 11/01/18 12:05 11/01/18 12:20 11/01/18 12:50 Temperature 37.2 C 36.9 C 37.3 C Temperature Source Oral Oral Oral Pulse Rate 84 92 H 92 H Pulse Rate [Finger] Pulse Rhythm Regular Regular Regular Pulse Strength Normal Normal Normal Respiratory Rate 20 20 20 Respiratory Effort / Characteristics Blood Pressure 112/68 124/60 101/66 Blood Pressure [Left Arm] Blood Pressure Mean 82 81 77 Blood Pressure Mean [Left Arm] Blood Pressure Position Lying Lying Lying Blood Pressure Position [Left Arm] Pulse Oximetry 96 95 96 Oxygen Delivery Method Oxygen Flow Rate 2 2 11/01/18 13:20 11/01/18 14:20 11/01/18 15:23 Temperature 37.2 C 37.2 C Temperature Source Oral Oral Pulse Rate 92 H 90 85 Pulse Rate [Finger] Pulse Rhythm Regular Regular Pulse Strength Normal Normal Respiratory Rate 18 20 Respiratory Effort / Characteristics Blood Pressure 104/71 124/77 Blood Pressure [Left Arm] Blood Pressure Mean 82 92 Blood Pressure Mean [Left Arm] Blood Pressure Position Lying Lying Blood Pressure Position [Left Arm] Pulse Oximetry 92 95 Oxygen Delivery Method Oxygen Flow Rate 2 2 11/01/18 15:33 11/01/18 15:39 11/01/18 19:28 Temperature 36.9 C Temperature Source Oral Pulse Rate 90 Pulse Rate [Finger] 84 84 Pulse Rhythm Pulse Strength Respiratory Rate 20 18 Respiratory Effort / Characteristics Non-Labored Blood Pressure Blood Pressure [Left Arm] 130/78 Blood Pressure Mean Blood Pressure Mean [Left Arm] 95 Blood Pressure Position Blood Pressure Position [Left Arm] Lying Pulse Oximetry 95 95 Oxygen Delivery Method Nasal Cannula Nasal Cannula Oxygen Flow Rate 2 2 11/01/18 20:01 11/01/18 23:23 11/02/18 00:16 Temperature 37.1 C 36.9 C Temperature Source Oral Oral Pulse Rate 93 H Pulse Rate [Finger] 93 H 88 Pulse Rhythm Pulse Strength Respiratory Rate 16 Respiratory Effort / Characteristics Blood Pressure Blood Pressure [Left Arm] 118/76 124/78 Blood Pressure Mean Blood Pressure Mean [Left Arm] 90 93 Blood Pressure Position Blood Pressure Position [Left Arm] Lying Lying Pulse Oximetry 96 95 Oxygen Delivery Method Nasal Cannula Room Air Oxygen Flow Rate 2.5 11/02/18 02:41 11/02/18 07:22 11/02/18 07:26 Temperature 36.7 C 37.3 C Temperature Source Oral Oral Pulse Rate Pulse Rate [Finger] 88 86 94 H Pulse Rhythm Pulse Strength Respiratory Rate 18 16 16 Respiratory Effort / Characteristics Non-Labored Spontaneous Blood Pressure Blood Pressure [Left Arm] 136/74 142/82 H Blood Pressure Mean Blood Pressure Mean [Left Arm] 94 102 Blood Pressure Position Blood Pressure Position [Left Arm] Lying Lying Pulse Oximetry 96 96 96 Oxygen Delivery Method Nasal Cannula Nasal Cannula Nasal Cannula Oxygen Flow Rate 3 3 3 11/02/18 07:35 Temperature Temperature Source Pulse Rate 81 Pulse Rate [Finger] Pulse Rhythm Pulse Strength Respiratory Rate Respiratory Effort / Characteristics Blood Pressure Blood Pressure [Left Arm] Blood Pressure Mean Blood Pressure Mean [Left Arm] Blood Pressure Position Blood Pressure Position [Left Arm] Pulse Oximetry Oxygen Delivery Method Oxygen Flow Rate Vital signs reviewed. Noted to be febrile. General: Chronically ill-appearing male, in no significant distress. HEENT: No scleral icterus, PERRLA, neck supple. Atraumatic. Cardiovascular: Regular rate and rhythm, systolic ejection murmur. Pulmonary: On nasal cannula. Crackles at the bases bilaterally. Abdomen: Soft, nontender, nondistended, positive bowel sounds. Musculoskeletal: Atraumatic, no peripheral edema. Neurologic: Patient awake but somnolent, responds to verbal stimuli. Minimally verbal on O2. Skin: Warm, dry, no rash Course 1057: Past medical records reviewed. The patient was evaluated in room B7, and a complete history and physical examination were performed. 1330: I discussed the patient's case with Dr. Rodney Louis who will evaluate the patient for further management. 1340: I updated the patient and his family who verbalized agreement and understanding of the treatment plan. Consultations Consultation #1: Dr. Rodney Louis Time: 13:30 Administered Medications Acetaminophen (Tylenol) 650 mg PO Q4H PRN PRN Reason: Pain or Fever Stop: 11/29/18 16:00 Last Admin: 10/30/18 19:59 Dose: 650 mg Acyclovir (Zovirax) 400 mg PO BID NOE Stop: 11/29/18 20:59 Last Admin: 11/01/18 20:51 Dose: 400 mg Admin: 11/01/18 07:59 Dose: 400 mg Admin: 10/31/18 21:42 Dose: 400 mg Admin: 10/31/18 08:01 Dose: 400 mg Admin: 10/30/18 21:22 Dose: 400 mg Alfuzosin HCl (Uroxatral) 10 mg PO HS NEO Stop: 11/29/18 20:59 Last Admin: 11/01/18 20:50 Dose: 10 mg Admin: 10/31/18 21:41 Dose: 10 mg Admin: 10/30/18 21:22 Dose: 10 mg Cyanocobalamin (Vitamin B-12) 5,000 mcg SL DAILY NOE Stop: 11/30/18 08:59 Last Admin: 11/01/18 08:02 Dose: 5,000 mcg Admin: 10/31/18 08:02 Dose: 5,000 mcg Digoxin (Lanoxin) 0.125 mg PO Q24H NOE Stop: 11/30/18 15:59 Last Admin: 11/01/18 15:33 Dose: 0.125 mg Admin: 10/31/18 15:58 Dose: 0.125 mg Finasteride (Proscar) 5 mg PO DAILY NOE Stop: 11/30/18 08:59 Last Admin: 11/01/18 07:59 Dose: 5 mg Admin: 10/31/18 08:01 Dose: 5 mg Heparin Sodium (Porcine) (Heparin Sod 100 Unit/Ml Flush) 5 ml FLUSH PRN PRN PRN Reason: Flush Stop: 11/29/18 23:40 Last Admin: 11/02/18 05:55 Dose: 5 ml Admin: 11/01/18 06:05 Dose: 5 ml Cefepime HCl 2,000 mg/ Syringe 20 mls @ 5.5 mls/min IV Q8H NOE; Protocol Stop: 11/07/18 13:59 Last Admin: 11/02/18 05:27 Dose: 5.5 mls/min Admin: 11/01/18 21:02 Dose: 5.5 mls/min Admin: 11/01/18 15:32 Dose: 5.5 mls/min Admin: 11/01/18 06:03 Dose: 5.5 mls/min Admin: 10/31/18 21:41 Dose: 5.5 mls/min Admin: 10/31/18 14:23 Dose: 5.5 mls/min Levofloxacin/Dextrose (Levaquin/D5w) 750 mg in 150 mls @ 100 mls/hr IV Q24H NOE Stop: 11/07/18 13:59 Last Infusion: 11/01/18 17:08 Dose: 0 mls/hr Admin: 11/01/18 15:32 Dose: 100 mls/hr Infusion: 10/31/18 16:10 Dose: 0 mls/hr Admin: 10/31/18 14:23 Dose: 100 mls/hr Ipratropium Merritt (Atrovent 0.02% 0.5mg/2.5ml) 0.5 mg INH Q6R NOE Stop: 11/30/18 19:59 Last Admin: 11/02/18 07:26 Dose: 0.5 mg Admin: 11/02/18 01:40 Dose: Not Given Admin: 11/01/18 19:24 Dose: 0.5 mg Admin: 11/01/18 15:04 Dose: Not Given Admin: 11/01/18 07:07 Dose: 0.5 mg Admin: 11/01/18 02:30 Dose: Not Given Admin: 10/31/18 19:06 Dose: 0.5 mg Isosorbide Mononitrate (Imdur Extended Rel) 60 mg PO DAILY NOE Stop: 11/30/18 08:59 Last Admin: 11/01/18 07:58 Dose: 60 mg Admin: 10/31/18 08:00 Dose: 60 mg Levalbuterol HCl (Xopenex 1.25mg/0.5ml Neb) 1.25 mg INH Q6R [facility] Stop: 11/30/18 19:59 Last Admin: 11/02/18 07:26 Dose: 1.25 mg Admin: 11/02/18 01:40 Dose: Not Given Admin: 11/01/18 19:24 Dose: 1.25 mg Admin: 11/01/18 15:04 Dose: Not Given Admin: 11/01/18 07:07 Dose: 1.25 mg Admin: 11/01/18 02:30 Dose: Not Given Admin: 10/31/18 19:05 Dose: 1.25 mg Metoprolol Succinate (Toprol Xl) 100 mg PO DAILY [facility] Stop: 11/30/18 08:59 Last Admin: 11/01/18 07:59 Dose: 100 mg Admin: 10/31/18 08:00 Dose: 100 mg Miscellaneous (Order Awaiting Action) 1 ea N/A QS [facility] Stop: 11/30/18 00:00 Last Admin: 11/02/18 00:23 Dose: Not Given Admin: 11/01/18 15:34 Dose: Not Given Admin: 11/01/18 08:00 Dose: Not Given Admin: 11/01/18 01:01 Dose: Not Given Admin: 10/31/18 16:00 Dose: Not Given Admin: 10/31/18 07:26 Dose: Not Given Admin: 10/30/18 23:59 Dose: Not Given Ondansetron HCl (Zofran) 8 mg PO TID PRN PRN Reason: Nausea Stop: 11/29/18 16:09 Last Admin: 11/01/18 18:04 Dose: 8 mg Admin: 10/31/18 09:29 Dose: 8 mg Ondansetron HCl (Zofran) 4 mg IV Q6H PRN PRN Reason: Nausea Stop: 11/29/18 16:00 Last Admin: 11/01/18 12:46 Dose: 4 mg Admin: 10/31/18 15:33 Dose: 4 mg Oseltamivir Phosphate (Tamiflu) 75 mg PO BID [facility]; Protocol Stop: 11/04/18 08:59 Last Admin: 11/01/18 20:50 Dose: 75 mg Admin: 11/01/18 08:00 Dose: 75 mg Admin: 10/31/18 21:42 Dose: 75 mg Admin: 10/31/18 08:02 Dose: 75 mg Admin: 10/30/18 21:22 Dose: 75 mg Pantoprazole Sodium (Protonix) 40 mg PO BID NOE Stop: 11/29/18 20:59 Last Admin: 11/01/18 20:51 Dose: 40 mg Admin: 11/01/18 08:00 Dose: 40 mg Admin: 10/31/18 21:42 Dose: 40 mg Admin: 10/31/18 08:01 Dose: 40 mg Admin: 10/30/18 21:21 Dose: 40 mg Vitamin D (Vitamin D3) 5,000 units PO QAM NOE Stop: 11/30/18 08:59 Last Admin: 11/01/18 07:59 Dose: 5,000 units Admin: 10/31/18 08:01 Dose: 5,000 units Discontinued Medications Acetaminophen (Tylenol) 1,000 mg PO NOW STA Stop: 10/30/18 11:02 Last Admin: 10/30/18 11:55 Dose: 1,000 mg Furosemide (Lasix) 40 mg IV NOW STA Stop: 10/30/18 13:11 Last Admin: 10/30/18 13:36 Dose: 40 mg Heparin Sodium (Porcine) (Heparin Sod 100 Unit/Ml Flush) 5 ml FLUSH PRN NOE Stop: 11/29/18 23:14 Last Admin: 10/31/18 07:19 Dose: Not Given Metronidazole (Flagyl) 500 mg in 100 mls @ 100 mls/hr IV NOW STA Stop: 10/30/18 12:21 Last Infusion: 10/30/18 13:31 Dose: 0 mls/hr Admin: 10/30/18 12:14 Dose: 100 mls/hr Ceftriaxone Sodium (Rocephin) 1,000 mg in 50 mls @ 100 mls/hr IV NOW STA Stop: 10/30/18 11:51 Last Infusion: 10/30/18 12:30 Dose: 0 mls/hr Admin: 10/30/18 11:56 Dose: 100 mls/hr Sodium Chloride (Nss 250ml) 250 mls @ 15 mls/hr IV .[id number] PRN PRN Reason: For Transfusion Stop: 11/29/18 13:07 Last Infusion: 10/30/18 17:33 Dose: 0 mls/hr Admin: 10/30/18 13:36 Dose: 15 mls/hr Potassium Chloride/Sodium Chloride (Normal Saline W/20 Meq Kcl) 20 meq in 1, 000 mls @ 50 mls/hr IV .Q20H NOE Stop: 11/29/18 16:00 Last Infusion: 10/31/18 12:58 Dose: 0 mls/hr Admin: 10/31/18 11:52 Dose: 50 mls/hr Infusion: 10/31/18 11:52 Dose: 50 mls/hr Admin: 10/30/18 16:39 Dose: 50 mls/hr Ceftriaxone Sodium 2,000 mg/ (Dextrose) 70 mls @ 100 mls/hr IV Q24H NOE; Protocol Stop: 11/06/18 21:59 Last Infusion: 10/30/18 22:46 Dose: 0 mls/hr Admin: 10/30/18 21:30 Dose: 100 mls/hr Furosemide 20 mg/ Syringe 2 mls @ 4 mls/min IV TODAY@1400 ONE Stop: 10/31/18 14:01 Last Admin: 10/31/18 14:23 Dose: 4 mls/min Furosemide 20 mg/ Syringe 2 mls @ 4 mls/min IV TODAY@1200 NOE Stop: 11/01/18 20:00 Last Admin: 11/01/18 12:05 Dose: 4 mls/min Ibuprofen (Advil) 400 mg PO Q6H PRN PRN Reason: Pain or Fever Stop: 11/29/18 21:36 Last Admin: 10/30/18 22:04 Dose: 400 mg Ondansetron HCl (Zofran) 4 mg IV NOW STA Stop: 10/30/18 12:03 Last Admin: 10/30/18 12:11 Dose: 4 mg Oseltamivir Phosphate (Tamiflu) 75 mg PO NOW STA Stop: 10/30/18 12:44 Last Admin: 10/30/18 12:53 Dose: 75 mg Potassium Chloride (Klor-Con M10) 20 meq PO NOW STA Stop: 10/31/18 08:10 Last Admin: 10/31/18 08:54 Dose: 20 meq Potassium Chloride (Klor-Con M10) 40 meq PO NOW STA Stop: 10/31/18 13:38 Last Admin: 10/31/18 14:23 Dose: 40 meq Medical Decision Making Differential Diagnosis Differential diagnosis: Etiologies such as viral syndrome, otitis, pharyngitis, pneumonia, influenza, meningitis, urinary tract infection, septic arthritis, soft tissue infectious process, intra-abdominal process, sepsis, bacteremia, as well as others were entertained. Medical Records Attestation: I reviewed the patient's medical records. Home Medications Current Medication List: was personally reviewed by me Laboratory Data Attestation: I reviewed the patient's lab results. Result diagrams: 11/02/18 05:55 11/02/18 05:55 Lab Results 10/30/18 10/30/18 10/30/18 Range/Units 11:25 11:25 11:25 WBC 2.92 L (4.8-10.8) K/uL RBC 2.48 L (4.7-6.1) M/uL Hgb 7.8 L (14.0-18.0) g/dL Hct 24.3 L (42-52) % MCV 98.0 (80-100) fL MCH 31.5 (25-34) pg MCHC 32.9 (32-36) g/dL RDW Std Deviation 70.3 H (36.4-46.3) fL RDW Coeff of Rigo 19.6 H (11.5-14.5) % Plt Count 44 L (130-400) K/uL Immature Gran % (Auto) 0.3 % Neut % (Auto) 73.0 % Lymph % (Auto) 17.8 % Wayne % (Auto) 8.6 % Eos % (Auto) 0.0 % Baso % (Auto) 0.3 % Immature Gran # (Auto) 0.01 (0.00-0.02) K/uL Neut # (Auto) 2.13 (1.4-6.5) K/uL Lymph # (Auto) 0.52 L (1.2-3.4) K/uL Wayne # (Auto) 0.25 (0.11-0.59) K/uL Eos # (Auto) 0.00 (0-0.5) K/uL Baso # (Auto) 0.01 (0-0.2) K/uL Absolute Nucleated RBC 0.05 H (0-0) K/uL Nucleated RBC % (auto) 1.7 % Toxic Granulation Toxic Vacuolation Dohle Bodies Platelet Estimate Decreased (Normal) Giant Platelets Anisocytosis Tear Drop Cells 1+ Ovalocytes 1+ Schistocytes 1+ Sodium 136 (136-145) mmol/L Potassium 3.6 (3.5-5.1) mmol/L Chloride 108 H (98-107) mmol/L Carbon Dioxide 24 (21-32) mmol/L Anion Gap 4.0 (3-11) BUN 23 H (7-18) mg/dl Creatinine 0.84 (0.6-1.4) mg/dl Est Cr Clr Drug Dosing 70.3 ml/min Est GFR ( Amer) 95.2 Est GFR (Non-Af Amer) 82.1 BUN/Creatinine Ratio 26.8 H (10-20) Glucose 117 H (70-99) mg/dl Lactate 1.5 (0.4-2.0) mmol/L Calcium 9.2 (8.5-10.1) mg/dl Phosphorus (2.5-4.9) mg/dl Magnesium (1.8-2.4) mg/dl Total Bilirubin 0.7 (0.2-1) mg/dl AST 20 (15-37) U/L ALT 69 (12-78) U/L Alkaline Phosphatase 94 (45-117) U/L Troponin I 0.047 H* (0-0.045) ng/ml Total Protein 6.9 (6.4-8.2) gm/dl Albumin 3.7 (3.4-5.0) gm/dl Globulin 3.2 (2.5-4.0) gm/dl Albumin/Globulin Ratio 1.2 (0.9-2) Urine Color Urine Appearance (Clear) Urine pH (4.5-7.5) Ur Specific [place] (1.000-1.030) Urine Protein (Negative) Urine Glucose (UA) (Negative) Urine Ketones (Negative) Urine Blood (Negative) Urine Nitrite (Negative) Urine Bilirubin (Negative) Urine Urobilinogen (Negative) Ur Leukocyte Esterase (Negative) Urine WBC (Auto) (0-5) /hpf Urine RBC (Auto) (0-4) /hpf U Hyaline Cast (Auto) (0-5) /lpf U Epithel Cells (Auto) (0-5) /lpf Urine Bacteria (Auto) (Negative) Ur Renal Epithelial Cell Nasal Screen MRSA (PCR) (Negative) Digoxin (0.8-2.0) ng/ml Influenza Type A Ag (Neg) Influenza Type B Ag (Neg) Blood Type Antibody Screen Antibody Identification Antibody ID Referred Crossmatch 10/30/18 10/30/18 10/30/18 Range/Units 11:30 11:44 13:12 WBC (4.8-10.8) K/uL RBC (4.7-6.1) M/uL Hgb (14.0-18.0) g/dL Hct (42-52) % MCV (80-100) fL MCH (25-34) pg MCHC (32-36) g/dL RDW Std Deviation (36.4-46.3) fL RDW Coeff of Rigo (11.5-14.5) % Plt Count (130-400) K/uL Immature Gran % (Auto) % Neut % (Auto) % Lymph % (Auto) % Wayne % (Auto) % Eos % (Auto) % Baso % (Auto) % Immature Gran # (Auto) (0.00-0.02) K/uL Neut # (Auto) (1.4-6.5) K/uL Lymph # (Auto) (1.2-3.4) K/uL Wayne # (Auto) (0.11-0.59) K/uL Eos # (Auto) (0-0.5) K/uL Baso # (Auto) (0-0.2) K/uL Absolute Nucleated RBC (0-0) K/uL Nucleated RBC % (auto) % Toxic Granulation Toxic Vacuolation Dohle Bodies Platelet Estimate (Normal) Giant Platelets Anisocytosis Tear Drop Cells Ovalocytes Schistocytes Sodium (136-145) mmol/L Potassium (3.5-5.1) mmol/L Chloride (98-107) mmol/L Carbon Dioxide (21-32) mmol/L Anion Gap (3-11) BUN (7-18) mg/dl Creatinine (0.6-1.4) mg/dl Est Cr Clr Drug Dosing ml/min Est GFR ( Amer) Est GFR (Non-Af Amer) BUN/Creatinine Ratio (10-20) Glucose (70-99) mg/dl Lactate (0.4-2.0) mmol/L Calcium (8.5-10.1) mg/dl Phosphorus (2.5-4.9) mg/dl Magnesium (1.8-2.4) mg/dl Total Bilirubin (0.2-1) mg/dl AST (15-37) U/L ALT (12-78) U/L Alkaline Phosphatase (45-117) U/L Troponin I (0-0.045) ng/ml Total Protein (6.4-8.2) gm/dl Albumin (3.4-5.0) gm/dl Globulin (2.5-4.0) gm/dl Albumin/Globulin Ratio (0.9-2) Urine Color Yellow Urine Appearance Clear (Clear) Urine pH 6.5 (4.5-7.5) Ur Specific [place] 1.026 (1.000-1.030) Urine Protein 1+ H (Negative) Urine Glucose (UA) 1+ H (Negative) Urine Ketones Negative (Negative) Urine Blood Trace H (Negative) Urine Nitrite Negative (Negative) Urine Bilirubin Negative (Negative) Urine Urobilinogen Negative (Negative) Ur Leukocyte Esterase Negative (Negative) Urine WBC (Auto) 0 (0-5) /hpf Urine RBC (Auto) 0-4 (0-4) /hpf U Hyaline Cast (Auto) 1-5 (0-5) /lpf U Epithel Cells (Auto) 20-30 H (0-5) /lpf Urine Bacteria (Auto) Negative (Negative) Ur Renal Epithelial Cell Not Reportable Nasal Screen MRSA (PCR) (Negative) Digoxin (0.8-2.0) ng/ml Influenza Type A Ag Pos for Influ A A* (Neg) Influenza Type B Ag Neg for Influ B (Neg) Blood Type O Positive Antibody Screen POSITIVE A Antibody Identification Panagglutinin due to Darzalex Antibody ID Referred Crossmatch See Detail 10/30/18 10/30/18 10/30/18 Range/Units 15:05 16:23 21:46 WBC (4.8-10.8) K/uL RBC (4.7-6.1) M/uL Hgb 8.6 L (14.0-18.0) g/dL Hct 26.6 L (42-52) % MCV (80-100) fL MCH (25-34) pg MCHC (32-36) g/dL RDW Std Deviation (36.4-46.3) fL RDW Coeff of Rigo (11.5-14.5) % Plt Count (130-400) K/uL Immature Gran % (Auto) % Neut % (Auto) % Lymph % (Auto) % Wayne % (Auto) % Eos % (Auto) % Baso % (Auto) % Immature Gran # (Auto) (0.00-0.02) K/uL Neut # (Auto) (1.4-6.5) K/uL Lymph # (Auto) (1.2-3.4) K/uL Wayne # (Auto) (0.11-0.59) K/uL Eos # (Auto) (0-0.5) K/uL Baso # (Auto) (0-0.2) K/uL Absolute Nucleated RBC (0-0) K/uL Nucleated RBC % (auto) % Toxic Granulation Toxic Vacuolation Dohle Bodies Platelet Estimate (Normal) Giant Platelets Anisocytosis Tear Drop Cells Ovalocytes Schistocytes Sodium (136-145) mmol/L Potassium (3.5-5.1) mmol/L Chloride (98-107) mmol/L Carbon Dioxide (21-32) mmol/L Anion Gap (3-11) BUN (7-18) mg/dl Creatinine (0.6-1.4) mg/dl Est Cr Clr Drug Dosing ml/min Est GFR ( Amer) Est GFR (Non-Af Amer) BUN/Creatinine Ratio (10-20) Glucose (70-99) mg/dl Lactate (0.4-2.0) mmol/L Calcium (8.5-10.1) mg/dl Phosphorus (2.5-4.9) mg/dl Magnesium (1.8-2.4) mg/dl Total Bilirubin (0.2-1) mg/dl AST (15-37) U/L ALT (12-78) U/L Alkaline Phosphatase (45-117) U/L Troponin I 0.261 H* (0-0.045) ng/ml Total Protein (6.4-8.2) gm/dl Albumin (3.4-5.0) gm/dl Globulin (2.5-4.0) gm/dl Albumin/Globulin Ratio (0.9-2) Urine Color Urine Appearance (Clear) Urine pH (4.5-7.5) Ur Specific [place] (1.000-1.030) Urine Protein (Negative) Urine Glucose (UA) (Negative) Urine Ketones (Negative) Urine Blood (Negative) Urine Nitrite (Negative) Urine Bilirubin (Negative) Urine Urobilinogen (Negative) Ur Leukocyte Esterase (Negative) Urine WBC (Auto) (0-5) /hpf Urine RBC (Auto) (0-4) /hpf U Hyaline Cast (Auto) (0-5) /lpf U Epithel Cells (Auto) (0-5) /lpf Urine Bacteria (Auto) (Negative) Ur Renal Epithelial Cell Nasal Screen MRSA (PCR) (Negative) Digoxin (0.8-2.0) ng/ml Influenza Type A Ag (Neg) Influenza Type B Ag (Neg) Blood Type Antibody Screen Antibody Identification Antibody ID Referred Cancelled Crossmatch 10/30/18 10/31/18 10/31/18 Range/Units 21:46 06:00 06:00 WBC 1.58 L (4.8-10.8) K/uL RBC 2.55 L (4.7-6.1) M/uL Hgb 8.1 L (14.0-18.0) g/dL Hct 24.9 L (42-52) % MCV 97.6 (80-100) fL MCH 31.8 (25-34) pg MCHC 32.5 (32-36) g/dL RDW Std Deviation 68.2 H (36.4-46.3) fL RDW Coeff of Rigo 19.3 H (11.5-14.5) % Plt Count 38 L (130-400) K/uL Immature Gran % (Auto) 0.6 % Neut % (Auto) 75.3 % Lymph % (Auto) 16.5 % Wayne % (Auto) 7.6 % Eos % (Auto) 0.0 % Baso % (Auto) 0.0 % Immature Gran # (Auto) 0.01 (0.00-0.02) K/uL Neut # (Auto) 1.19 L (1.4-6.5) K/uL Lymph # (Auto) 0.26 L (1.2-3.4) K/uL Wayne # (Auto) 0.12 (0.11-0.59) K/uL Eos # (Auto) 0.00 (0-0.5) K/uL Baso # (Auto) 0.00 (0-0.2) K/uL Absolute Nucleated RBC 0.02 H (0-0) K/uL Nucleated RBC % (auto) 1.1 % Toxic Granulation 1+ Toxic Vacuolation Dohle Bodies 1+ Platelet Estimate Decreased (Normal) Giant Platelets Anisocytosis Present Tear Drop Cells 2+ Ovalocytes 1+ Schistocytes 1+ Sodium 139 (136-145) mmol/L Potassium 3.4 L (3.5-5.1) mmol/L Chloride 107 (98-107) mmol/L Carbon Dioxide 24 (21-32) mmol/L Anion Gap 8.0 (3-11) BUN 21 H (7-18) mg/dl Creatinine 0.91 (0.6-1.4) mg/dl Est Cr Clr Drug Dosing 60.2 ml/min Est GFR ( Amer) 91.3 Est GFR (Non-Af Amer) 78.8 BUN/Creatinine Ratio 23.4 H (10-20) Glucose 124 H (70-99) mg/dl Lactate (0.4-2.0) mmol/L Calcium 8.8 (8.5-10.1) mg/dl Phosphorus 2.1 L (2.5-4.9) mg/dl Magnesium 1.9 (1.8-2.4) mg/dl Total Bilirubin (0.2-1) mg/dl AST (15-37) U/L ALT (12-78) U/L Alkaline Phosphatase (45-117) U/L Troponin I 0.517 H* (0-0.045) ng/ml Total Protein (6.4-8.2) gm/dl Albumin (3.4-5.0) gm/dl Globulin (2.5-4.0) gm/dl Albumin/Globulin Ratio (0.9-2) Urine Color Urine Appearance (Clear) Urine pH (4.5-7.5) Ur Specific [place] (1.000-1.030) Urine Protein (Negative) Urine Glucose (UA) (Negative) Urine Ketones (Negative) Urine Blood (Negative) Urine Nitrite (Negative) Urine Bilirubin (Negative) Urine Urobilinogen (Negative) Ur Leukocyte Esterase (Negative) Urine WBC (Auto) (0-5) /hpf Urine RBC (Auto) (0-4) /hpf U Hyaline Cast (Auto) (0-5) /lpf U Epithel Cells (Auto) (0-5) /lpf Urine Bacteria (Auto) (Negative) Ur Renal Epithelial Cell Nasal Screen MRSA (PCR) (Negative) Digoxin (0.8-2.0) ng/ml Influenza Type A Ag (Neg) Influenza Type B Ag (Neg) Blood Type Antibody Screen Antibody Identification Antibody ID Referred Crossmatch 10/31/18 10/31/18 11/01/18 Range/Units 17:38 17:40 06:04 WBC (4.8-10.8) K/uL RBC (4.7-6.1) M/uL Hgb (14.0-18.0) g/dL Hct (42-52) % MCV (80-100) fL MCH (25-34) pg MCHC (32-36) g/dL RDW Std Deviation (36.4-46.3) fL RDW Coeff of Rigo (11.5-14.5) % Plt Count (130-400) K/uL Immature Gran % (Auto) % Neut % (Auto) % Lymph % (Auto) % Wayne % (Auto) % Eos % (Auto) % Baso % (Auto) % Immature Gran # (Auto) (0.00-0.02) K/uL Neut # (Auto) (1.4-6.5) K/uL Lymph # (Auto) (1.2-3.4) K/uL Wayne # (Auto) (0.11-0.59) K/uL Eos # (Auto) (0-0.5) K/uL Baso # (Auto) (0-0.2) K/uL Absolute Nucleated RBC (0-0) K/uL Nucleated RBC % (auto) % Toxic Granulation Toxic Vacuolation Dohle Bodies Platelet Estimate (Normal) Giant Platelets Anisocytosis Tear Drop Cells Ovalocytes Schistocytes Sodium (136-145) mmol/L Potassium 3.9 (3.5-5.1) mmol/L Chloride (98-107) mmol/L Carbon Dioxide (21-32) mmol/L Anion Gap (3-11) BUN (7-18) mg/dl Creatinine (0.6-1.4) mg/dl Est Cr Clr Drug Dosing ml/min Est GFR ( Amer) Est GFR (Non-Af Amer) BUN/Creatinine Ratio (10-20) Glucose (70-99) mg/dl Lactate (0.4-2.0) mmol/L Calcium (8.5-10.1) mg/dl Phosphorus (2.5-4.9) mg/dl Magnesium (1.8-2.4) mg/dl Total Bilirubin (0.2-1) mg/dl AST (15-37) U/L ALT (12-78) U/L Alkaline Phosphatase (45-117) U/L Troponin I 0.539 H* (0-0.045) ng/ml Total Protein (6.4-8.2) gm/dl Albumin (3.4-5.0) gm/dl Globulin (2.5-4.0) gm/dl Albumin/Globulin Ratio (0.9-2) Urine Color Urine Appearance (Clear) Urine pH (4.5-7.5) Ur Specific [place] (1.000-1.030) Urine Protein (Negative) Urine Glucose (UA) (Negative) Urine Ketones (Negative) Urine Blood (Negative) Urine Nitrite (Negative) Urine Bilirubin (Negative) Urine Urobilinogen (Negative) Ur Leukocyte Esterase (Negative) Urine WBC (Auto) (0-5) /hpf Urine RBC (Auto) (0-4) /hpf U Hyaline Cast (Auto) (0-5) /lpf U Epithel Cells (Auto) (0-5) /lpf Urine Bacteria (Auto) (Negative) Ur Renal Epithelial Cell Nasal Screen MRSA (PCR) Negative (Negative) Digoxin 0.6 L (0.8-2.0) ng/ml Influenza Type A Ag (Neg) Influenza Type B Ag (Neg) Blood Type Antibody Screen Antibody Identification Antibody ID Referred Crossmatch 11/01/18 11/01/18 11/02/18 Range/Units 06:04 06:04 05:55 WBC 1.65 L 1.59 L (4.8-10.8) K/uL RBC 2.21 L 3.06 L (4.7-6.1) M/uL Hgb 7.0 L 9.7 L (14.0-18.0) g/dL Hct 21.8 L 28.8 L (42-52) % MCV 98.6 94.1 (80-100) fL MCH 31.7 31.7 (25-34) pg MCHC 32.1 33.7 (32-36) g/dL RDW Std Deviation 69.5 H 70.2 H (36.4-46.3) fL RDW Coeff of Rigo 19.3 H 20.2 H (11.5-14.5) % Plt Count 35 L 37 L (130-400) K/uL Immature Gran % (Auto) 0.6 0.0 % Neut % (Auto) 75.7 63.5 % Lymph % (Auto) 18.2 29.6 % Wayne % (Auto) 5.5 6.9 % Eos % (Auto) 0.0 0.0 % Baso % (Auto) 0.0 0.0 % Immature Gran # (Auto) 0.01 0.00 (0.00-0.02) K/uL Neut # (Auto) 1.25 L 1.01 L (1.4-6.5) K/uL Lymph # (Auto) 0.30 L 0.47 L (1.2-3.4) K/uL Wayne # (Auto) 0.09 L 0.11 (0.11-0.59) K/uL Eos # (Auto) 0.00 0.00 (0-0.5) K/uL Baso # (Auto) 0.00 0.00 (0-0.2) K/uL Absolute Nucleated RBC 0.02 H (0-0) K/uL Nucleated RBC % (auto) 1.0 % Toxic Granulation Toxic Vacuolation 1+ Dohle Bodies Platelet Estimate SIGNIFIC DECREASED Decreased (Normal) Giant Platelets 1+ Anisocytosis Present Tear Drop Cells 2+ 3+ Ovalocytes 1+ 1+ Schistocytes Sodium 137 (136-145) mmol/L Potassium 3.9 (3.5-5.1) mmol/L Chloride 108 H (98-107) mmol/L Carbon Dioxide 25 (21-32) mmol/L Anion Gap 4.0 (3-11) BUN 29 H (7-18) mg/dl Creatinine 1.02 (0.6-1.4) mg/dl Est Cr Clr Drug Dosing 53.6 ml/min Est GFR ( Amer) 79.5 Est GFR (Non-Af Amer) 68.6 BUN/Creatinine Ratio 28.4 H (10-20) Glucose 97 (70-99) mg/dl Lactate (0.4-2.0) mmol/L Calcium 8.7 (8.5-10.1) mg/dl Phosphorus (2.5-4.9) mg/dl Magnesium 2.1 (1.8-2.4) mg/dl Total Bilirubin (0.2-1) mg/dl AST (15-37) U/L ALT (12-78) U/L Alkaline Phosphatase (45-117) U/L Troponin I 0.488 H* (0-0.045) ng/ml Total Protein (6.4-8.2) gm/dl Albumin (3.4-5.0) gm/dl Globulin (2.5-4.0) gm/dl Albumin/Globulin Ratio (0.9-2) Urine Color Urine Appearance (Clear) Urine pH (4.5-7.5) Ur Specific [place] (1.000-1.030) Urine Protein (Negative) Urine Glucose (UA) (Negative) Urine Ketones (Negative) Urine Blood (Negative) Urine Nitrite (Negative) Urine Bilirubin (Negative) Urine Urobilinogen (Negative) Ur Leukocyte Esterase (Negative) Urine WBC (Auto) (0-5) /hpf Urine RBC (Auto) (0-4) /hpf U Hyaline Cast (Auto) (0-5) /lpf U Epithel Cells (Auto) (0-5) /lpf Urine Bacteria (Auto) (Negative) Ur Renal Epithelial Cell Nasal Screen MRSA (PCR) (Negative) Digoxin (0.8-2.0) ng/ml Influenza Type A Ag (Neg) Influenza Type B Ag (Neg) Blood Type Antibody Screen Antibody Identification Antibody ID Referred Crossmatch 11/02/18 Range/Units 05:55 WBC (4.8-10.8) K/uL RBC (4.7-6.1) M/uL Hgb (14.0-18.0) g/dL Hct (42-52) % MCV (80-100) fL MCH (25-34) pg MCHC (32-36) g/dL RDW Std Deviation (36.4-46.3) fL RDW Coeff of Rigo (11.5-14.5) % Plt Count (130-400) K/uL Immature Gran % (Auto) % Neut % (Auto) % Lymph % (Auto) % Wayne % (Auto) % Eos % (Auto) % Baso % (Auto) % Immature Gran # (Auto) (0.00-0.02) K/uL Neut # (Auto) (1.4-6.5) K/uL Lymph # (Auto) (1.2-3.4) K/uL Wayne # (Auto) (0.11-0.59) K/uL Eos # (Auto) (0-0.5) K/uL Baso # (Auto) (0-0.2) K/uL Absolute Nucleated RBC (0-0) K/uL Nucleated RBC % (auto) % Toxic Granulation Toxic Vacuolation Dohle Bodies Platelet Estimate (Normal) Giant Platelets Anisocytosis Tear Drop Cells Ovalocytes Schistocytes Sodium 136 (136-145) mmol/L Potassium 3.9 (3.5-5.1) mmol/L Chloride 105 (98-107) mmol/L Carbon Dioxide 25 (21-32) mmol/L Anion Gap 6.0 (3-11) BUN 28 H (7-18) mg/dl Creatinine 1.09 (0.6-1.4) mg/dl Est Cr Clr Drug Dosing 50.9 ml/min Est GFR ( Amer) 73.4 Est GFR (Non-Af Amer) 63.3 BUN/Creatinine Ratio 25.2 H (10-20) Glucose 89 (70-99) mg/dl Lactate (0.4-2.0) mmol/L Calcium 8.6 (8.5-10.1) mg/dl Phosphorus 1.9 L (2.5-4.9) mg/dl Magnesium 2.2 (1.8-2.4) mg/dl Total Bilirubin (0.2-1) mg/dl AST (15-37) U/L ALT (12-78) U/L Alkaline Phosphatase (45-117) U/L Troponin I (0-0.045) ng/ml Total Protein (6.4-8.2) gm/dl Albumin (3.4-5.0) gm/dl Globulin (2.5-4.0) gm/dl Albumin/Globulin Ratio (0.9-2) Urine Color Urine Appearance (Clear) Urine pH (4.5-7.5) Ur Specific [place] (1.000-1.030) Urine Protein (Negative) Urine Glucose (UA) (Negative) Urine Ketones (Negative) Urine Blood (Negative) Urine Nitrite (Negative) Urine Bilirubin (Negative) Urine Urobilinogen (Negative) Ur Leukocyte Esterase (Negative) Urine WBC (Auto) (0-5) /hpf Urine RBC (Auto) (0-4) /hpf U Hyaline Cast (Auto) (0-5) /lpf U Epithel Cells (Auto) (0-5) /lpf Urine Bacteria (Auto) (Negative) Ur Renal Epithelial Cell Nasal Screen MRSA (PCR) (Negative) Digoxin (0.8-2.0) ng/ml Influenza Type A Ag (Neg) Influenza Type B Ag (Neg) Blood Type Antibody Screen Antibody Identification Antibody ID Referred Crossmatch Imaging Data Radiologist's Impression: Radiology results as stated below per my review and the radiologist's interpretation: XR chest 1V portable CLINICAL HISTORY: 82 years-old Male presenting with cough, fever. TECHNIQUE: Portable upright AP view of the chest was obtained. COMPARISON: 04/02/2018. FINDINGS: Right sided Mediport terminates in the mid SVC. This may either be subclavian or internal jugular in origin. Left subclavian pacer with leads to the right atrium and right ventricular apex. Several external leads noted. Atherosclerosis of the aortic arch. Cardiac silhouette moderately enlarged. Pulmonary vascular prominence. Overall heterogeneity of lung markings with relative hyperinflation. Interval development of a right perihilar opacity. Lesser degree of patchy nodular opacities in the lung bases. No large effusion or pneumothorax. Osteopenia suspected. Multilevel degenerative changes of the spine with post procedural changes of kyphoplasty at the thoracolumbar junction. IMPRESSION: 1. Right perihilar infiltrate consistent with pneumonia. 2. Cardiomegaly with volume overload/congestive change. Developing superimposed ulnar edema is difficult to exclude. Continued radiographic follow- up recommended. Electronically signed by: Sathish Barber M.D. 10/30/2018 11:25 AM ECG Data Attestation: I personally reviewed and interpreted this ECG as follows: Indication: SOB/dyspnea Rate (beats per minute): 91 Rhythm: atrial fibrillation Findings: + other (poor quality baseline for interpretation, previous inferior infarct, repolarization abnormality in inferior and lateral leads, QTC 435) Blood Pressure Blood Pressure Findings: Elevated blood pressure Blood Pressure Disposition: further management by hospitalist MDM Narrative This pt was evaluated and appeared to be acutely ill. He has a long PMH including multiple myeloma. Pt is now O2 requiring, CXR confirms R infiltrate with pulm congestion. Blood cx were obtained, pt given IV ceftriaxone and flagyl d/t PCN allergy and ?aspiration per 's history. Pt was given IV lasix given normal lactate and pulm edema, O2 requirement. Trop is noted to be slightly elevated, pt is anemic. Pt has tested influenza A positive. EKG reveals a rate controlled atrial fib. Pt was d/w the hospitalist service for further management. Impression & Plan Influenza, PNA (pneumonia), Anemia, Hypoxia Discharge Plan Visit Data *Final* Discharge Date/Time: 10/30/18 14:48 Chief Complaint: Respiratory Problems Stated Complaint: fever/confused ED Provider: Sultana Burroughs Discharge Problem: Influenza, PNA (pneumonia), Anemia, Hypoxia Patient Disposition: Admitted As Inpatient Discharge Instructions Interventions: ED Discharge Assessment Last Done: 10/30/18 14:48 The scribe's documentation has been prepared under my direction and personally reviewed by me in its entirety. I confirm that the note above accurately reflects all work, treatment, procedures, and medical decision making performed by me.
[2018-10-30] MEDS ORDERED: MAGNESIUM HYDROXIDE SUSP 30 ML UDC PO PRN (16:01)
[2018-10-30] MEDS ORDERED: FLUTICASONE PROPIONATE NA SPR 16 GM BTL PRN (16:30)
[2018-10-30] MEDS: NSS + 20MEQ KCL 20 MEQ/1,000 ML BAG IV SCH (16:39)
[2018-10-30] MEDS: ACETAMINOPHEN 325 MG TAB PO PRN (19:59)
[2018-10-30] MEDS: PANTOprazole 40 MG TAB PO SCH (21:21)
[2018-10-30] MEDS: ACYCLOVIR 400 MG TAB PO SCH (21:22)
[2018-10-30] MEDS: ALFUZOSIN HCL 10 MG TAB PO SCH (21:22)
[2018-10-30] MEDS: OSELTAMIVIR PHOSPHATE 75 MG CAP PO SCH (21:22)
[2018-10-30] MEDS ORDERED: IBUPROFEN 200 MG TAB PO PRN (21:37)
[2018-10-30] MEDS ORDERED: cefTRIAXone SODIUM 2,000 MG in DEXTROSE 5% 50 ML IV SCH (22:00)
[2018-10-30 22:22] LABS: Hematocrit (blood only) 26.6 % (42-52); Hemoglobin 8.6 g/dL (14.0-18.0)
[2018-10-30] MEDS ORDERED: HEPARIN 100 UNIT/ML 5ML FLUSH FLUSH SCH (23:15)
[2018-10-31 06:16] LABS: Mean Corpuscular Hgb Conc 32.5 g/dL (32-36); Nucleated RBC # (auto) 0.02 K/uL (0-0); Nucleated RBC % (auto) 1.1 %
[2018-10-31 06:30] LABS: Hematocrit (blood only) 24.9 % (42-52); Hemoglobin 8.1 g/dL (14.0-18.0); Mean Corpuscular Volume 97.6 fL (80-100); RDW Coefficient of Variation 19.3 % (11.5-14.5); RDW Standard Deviation 68.2 fL (36.4-46.3); Red Blood Count 2.55 M/uL (4.7-6.1); White Blood Count 1.58 K/uL (4.8-10.8)
[2018-10-31 06:43] LABS: BUN Creatinine Ratio 23.4 (10-20); Calcium 8.8 mg/dl (8.5-10.1); Creatinine Clr Calc Pharmacy 60.2 ml/min; Est GFR (African American) 91.3; Est GFR (Non-African American) 78.8; Magnesium 1.9 mg/dl (1.8-2.4); Phosphorus 2.1 mg/dl (2.5-4.9); Potassium 3.4 mmol/L (3.5-5.1)
[2018-10-31 06:48] LABS: Platelet Count 38 K/uL (130-400)
[2018-10-31 06:49] LABS: Anisocytosis Present; Dohle Bodies 1+; Immature Granulocytes # (auto) 0.01 K/uL (0.00-0.02); Immature Granulocytes % (auto) 0.6 %; Lymphocytes # (auto) 0.26 K/uL (1.2-3.4); Lymphocytes % (auto) 16.5 %; Monocytes # (auto) 0.12 K/uL (0.11-0.59); Monocytes % (auto) 7.6 %; Neutrophils # (auto) 1.19 K/uL (1.4-6.5); Neutrophils % (auto) 75.3 %; Ovalocytes 1+; Platelet Estimate Decreased (Normal); Schistocytes 1+; Tear Drop Cells 2+; Toxic Granulation 1+
[2018-10-31] MEDS: METOPROLOL SUCC 50MG EXT REL TAB PO SCH (08:00)
[2018-10-31] MEDS: ISOSORBIDE MONO EXTENDED REL 60 MG TABCR PO SCH (08:00)
[2018-10-31] MEDS: CHOLECALCIFEROL 1,000 UNITS TAB PO SCH (08:01)
[2018-10-31] MEDS: FINASTERIDE 5 MG TAB PO SCH (08:01)
[2018-10-31] MEDS: PANTOprazole 40 MG TAB PO SCH ×2 (08:01→21:42)
[2018-10-31] MEDS: ACYCLOVIR 400 MG TAB PO SCH ×2 (08:01→21:42)
[2018-10-31] MEDS: OSELTAMIVIR PHOSPHATE 75 MG CAP PO SCH ×2 (08:02→21:42)
[2018-10-31] MEDS: CYANOCOBALAMIN (VITAMIN B-12) 2,500 MCG TAB.SUBL SL SCH (08:02)
[2018-10-31] MEDS ORDERED: POTASSIUM CHLORIDE 10 MEQ TABCR PO STA ×2 (08:09→13:37)
[2018-10-31] MEDS: ONDANSETRON 8 MG TABLET PO PRN (09:29)
[2018-10-31] MEDS: NSS + 20MEQ KCL 20 MEQ/1,000 ML BAG IV SCH (11:52)
--- NOTE | 2018-10-31 13:23 | XRay Report ---
XR chest 1V portable CLINICAL HISTORY: b/l wheezes, RML pneumonia, edema? Dyspnea COMPARISON STUDY: 10/30/2017 FINDINGS: Improved prominence of pulmonary vasculature. Somewhat diminished cardiac size. Persistent fullness right hilum. IMPRESSION: Improved exam with improving components of congestive failure. Unchanging right hilar pr ominence. The above report was generated using voice recognition software. It may contain grammatical, syntax or spelling errors. Electronically signed by: Cali Cary M.D. 10/31/2018 1:22 PM
[2018-10-31] MEDS ORDERED: FUROSEMIDE 20 MG in SYRINGE 0 ML IV ONE (14:00)
[2018-10-31] MEDS: CEFEPIME 2,000 MG in SYRINGE 7.5 ML IV SCH ×2 (14:23→21:41)
[2018-10-31] MEDS: LEVOFLOXACIN/D5W 750 MG/150 ML BAG IV SCH (14:23)
[2018-10-31] MEDS: ONDANSETRON INJ 2 MG/ML 2 ML VIAL IV PRN (15:33)
[2018-10-31] MEDS: DIGOXIN 0.125 MG TAB PO SCH (15:58)
[2018-10-31] MEDS ORDERED: XOPENEX/ATROVENT 1.25mg/0.5MG NEB COMBO NEB SCH (17:15)
--- NOTE | 2018-10-31 17:58 | XRay Report ---
KUB HISTORY: abd distension; eval ileus, fecal load, etc COMPARISON: Abdomen and pelvis CT 03/14/2018. FINDINGS: A few prominent gas-filled loops of large and small bowel seen throughout the abdomen. Ther e is also mildly distended gas-filled stomach. Findings favor a mild ileus. No evidence for bowel obs truction. Pacemaker wires are noted. Vertebroplasty within the upper lumbar spine and posterior fusio n hardware within the lower lumbar spine. No renal calculi. No ureteral calculi. No pneumoperitoneum or pneumatosis. IMPRESSION: Above findings suggest a mild ileus. No evidence for bowel obstruction. Electronically signed by: Hudson Avila M.D. 10/31/2018 5:57 PM
[2018-10-31 18:04] LABS: Potassium 3.9 mmol/L (3.5-5.1)
[2018-10-31 18:16] LABS: Troponin I 0.539 ng/ml (0-0.045)
[2018-10-31] MEDS: LEVALBUTEROL 1.25MG/0.5ML NEB INH SCH (19:05)
[2018-10-31] MEDS: IPRATROPIUM BROMIDE NEB SOLN 0.02% 2.5 ML VIAL INH SCH (19:06)
--- NOTE | 2018-10-31 19:07 | Hospitalist Progress Note ---
Date of Service October 31, 2018 Assessment & Plan (1) Influenza: Type A infection. Tamiflu x 5 days; day #2 of such today. Supportive care. Treat other issues as below. Cont droplet precautions. Present on Admission?: Yes (2) Acute respiratory failure with hypoxia: 2nd to flu A, probable right-sided pneumonia, and acute/chronic systolic CHF. Treat all components; supportive care. Present on Admission?: Yes (3) Acute on chronic systolic heart failure: Clinically and radiographically appears volume overloaded. Stop IVF. Lasix 20mg IV x 1 now. Follow response; reassess need for additional diuretic this am. EF on echo this admission with EF 35-40%; EF on echo 12/2017 was 40-45%. Presumed to be ischemic in nature. Office records indicate he has refused cardiac cath, etc due to complex medical issues (multiple myeloma, etc). Continue BB. Office records also suggest he has not tolerated YENNI/ARB therapy. (4) PNA (pneumonia): probable, right-sided hilar region. In light of significant immunocompromised state will broaden his abx to cefepime with levaquin. MRSA negative; will defer on vanco coverage for now. Supportive care. Follow cultures. I spoke with Dr. Branch from heme/onc today; will only give neupogen if patient is not improving or worsening. Follow CBC w/ diff. Present on Admission?: Yes (5) Pancytopenia: 2nd to multiple myeloma. Dr. Branch reports that his chemo for the myeloma does not impact the counts very much. Follow daily CBC w/ diff. Neutropenic precautions. Present on Admission?: Yes (6) Neutropenia: mild-moderate. daily CBC. neutropenic precautions. see discussion above re: ?to use neupogen this admission. baseline total WBC count is about 3 or so. neutropenia is likely from additional bone marrow suppression from his infections. cont acyclovir prophylaxis. (7) Elevated troponin: likely myocardial demand ischemia in setting of fluA and pneumonia. likely has underlying CAD but he has not had any ischemic symptoms. would not heparinize at this time. continue his beta luther. recheck the troponin in AM. (8) Nausea: probably multifactorial including ileus, infection (flu, etc), side effects of meds, etc. clear liquids for now. zofran prn. keep lytes normal. (9) Ileus: as seen on exam and on x-rays. likely due to low K and infectious processes. supportive care, restrict diet to clears, serial exams, keep K and mag normal, etc. (10) Atrial fibrillation: rates controlled. cont BB. cont digoxin - check dig level in AM tomorrow. not on anticoagulation due to chronic thrombocytopenia. (11) History of multiple myeloma: present x [address] Branch. daily CBC. currently on biological chemo agent outside of the hospital. neutropenic precautions. does not tolerate IVIG (anaphylaxis by report). droplet precautions. low threshold for formal heme/onc consult with any worsening. see discussion above re: neupogen. no need for blood/platelets at this time but may need PRBCs soon in light of cardiopulmonary issues. would Tx if Hb <7.5. (12) Pacemaker: (13) BPH (benign prostatic hyperplasia): cont alpha luther. (14) Hypokalemia: replaced, now normal, continue daily BMP with mag. (15) DVT prophylaxis: chemical means contraindicated due to severe thrombocytopenia. SCDs for now. PT, OT evals. total time today over 3 visits, speaking with spouse/daughters, reviewing records, speaking with consultants, ordering and interpreting tests - 80 minutes Subjective patient feels very poorly; multiple complaints. cough, congestion, dyspnea, weakness/fatigue, very poor appetite, abdominal bloating despite bowel movement today. also with intermittent nausea. at bedside along with 2 daughters intermittently throughout the day. tele with a. fib with most rates <100. multiple visits (3) to the patient's bedside today. Physical Exam 2 Vital Signs (Past 24 Hours): Last Vital Signs Temp 36.7 C 10/31/18 13:37 Pulse 86 10/31/18 15:58 Resp 18 10/31/18 13:37 BP 124/77 10/31/18 13:37 Pulse Ox 97 10/31/18 13:37 Constitutional: + ill appearing and average body habitus; no acute distress ENMT: tongue dry; no thrush Respiratory: normal respiratory effort; no respiratory distress Auscultation: + rales (b/l bases) and + wheezes (diffuse - all segments of both lungs) Cardiovascular: Rate/Rhythm: regular rate; + abnormal rhythm (irregular) Heart Sounds: normal S1 and normal S2; no murmur Vessels: + JVD, posterior tibial pulses present and dorsalis pedis pulses present Gastrointestinal (Abdomen): Inspection/Auscultation: + abdomen distended and normal bowel sounds Percussion/Palpation: abdomen nontender, no guarding and no hepatosplenomegaly Skin: pallor Psychiatric: Orientation: alert slightly confused during the visit Results & Data Laboratory Results Laboratory Results - last 24 hr 10/30/18 10/30/18 10/30/18 13:12 21:46 21:46 WBC RBC Hgb 8.6 L Hct 26.6 L MCV MCH MCHC RDW Std Deviation RDW Coeff of Rigo Plt Count Immature Gran % (Auto) Neut % (Auto) Lymph % (Auto) [place] % (Auto) Eos % (Auto) Baso % (Auto) Immature Gran # (Auto) Neut # (Auto) Lymph # (Auto) [place] # (Auto) Eos # (Auto) Baso # (Auto) Absolute Nucleated RBC Nucleated RBC % (auto) Toxic Granulation Dohle Bodies Platelet Estimate Anisocytosis Tear Drop Cells Ovalocytes Schistocytes Sodium Potassium Chloride Carbon Dioxide Anion Gap BUN Creatinine Est Cr Clr Drug Dosing Est GFR ( Amer) Est GFR (Non-Af Amer) BUN/Creatinine Ratio Glucose Calcium Phosphorus Magnesium Troponin I 0.517 H* Blood Type O Positive Antibody Screen POSITIVE A Antibody Identification Panagglutinin due to Darzalex Crossmatch See Detail 10/31/18 10/31/18 10/31/18 06:00 06:00 17:38 WBC 1.58 L RBC 2.55 L Hgb 8.1 L Hct 24.9 L MCV 97.6 MCH 31.8 MCHC 32.5 RDW Std Deviation 68.2 H RDW Coeff of Rigo 19.3 H Plt Count 38 L Immature Gran % (Auto) 0.6 Neut % (Auto) 75.3 Lymph % (Auto) 16.5 [place] % (Auto) 7.6 Eos % (Auto) 0.0 Baso % (Auto) 0.0 Immature Gran # (Auto) 0.01 Neut # (Auto) 1.19 L Lymph # (Auto) 0.26 L [place] # (Auto) 0.12 Eos # (Auto) 0.00 Baso # (Auto) 0.00 Absolute Nucleated RBC 0.02 H Nucleated RBC % (auto) 1.1 Toxic Granulation 1+ Dohle Bodies 1+ Platelet Estimate Decreased Anisocytosis Present Tear Drop Cells 2+ Ovalocytes 1+ Schistocytes 1+ Sodium 139 Potassium 3.4 L 3.9 Chloride 107 Carbon Dioxide 24 Anion Gap 8.0 BUN 21 H Creatinine 0.91 Est Cr Clr Drug Dosing 60.2 Est GFR ( Amer) 91.3 Est GFR (Non-Af Amer) 78.8 BUN/Creatinine Ratio 23.4 H Glucose 124 H Calcium 8.8 Phosphorus 2.1 L Magnesium 1.9 Troponin I 0.539 H* Blood Type Antibody Screen Antibody Identification Crossmatch Diagnostic Findings cxr - right hilar infiltrate; pulmonary edema. abd x-ray - mild ileus, scattered stool (my reading). _ (1) PNA (pneumonia) Laterality: right Lung location: middle lobe of lung Pneumonia type: due to unspecified organism Qualified Code(s): J18.1 - Lobar pneumonia, unspecified organism (2) Atrial fibrillation Atrial fibrillation type: chronic Qualified Code(s): I48.2 - Chronic atrial fibrillation (3) BPH (benign prostatic hyperplasia) Lower urinary tract symptom presence: symptoms absent Qualified Code(s): N40.0 - Benign prostatic hyperplasia without lower urinary tract symptoms (4) Neutropenia Neutropenia type: unspecified Qualified Code(s): D70.9 - Neutropenia, unspecified
[2018-10-31] MEDS: ALFUZOSIN HCL 10 MG TAB PO SCH (21:41)
[2018-11-01] MEDS: IPRATROPIUM BROMIDE NEB SOLN 0.02% 2.5 ML VIAL INH SCH ×4 (02:30→19:24)
[2018-11-01] MEDS: LEVALBUTEROL 1.25MG/0.5ML NEB INH SCH ×4 (02:30→19:24)
[2018-11-01] MEDS: CEFEPIME 2,000 MG in SYRINGE 7.5 ML IV SCH ×3 (06:03→21:02)
[2018-11-01] MEDS: HEPARIN 100 UNIT/ML 5ML FLUSH FLUSH PRN (06:05)
[2018-11-01 06:23] LABS: Mean Corpuscular Hgb Conc 32.1 g/dL (32-36)
[2018-11-01 06:51] LABS: Hematocrit (blood only) 21.8 % (42-52); Mean Corpuscular Volume 98.6 fL (80-100); RDW Coefficient of Variation 19.3 % (11.5-14.5); RDW Standard Deviation 69.5 fL (36.4-46.3); Red Blood Count 2.21 M/uL (4.7-6.1); White Blood Count 1.65 K/uL (4.8-10.8)
[2018-11-01 06:53] LABS: BUN Creatinine Ratio 28.4 (10-20); Calcium 8.7 mg/dl (8.5-10.1); Creatinine Clr Calc Pharmacy 53.6 ml/min; Est GFR (African American) 79.5; Est GFR (Non-African American) 68.6; Magnesium 2.1 mg/dl (1.8-2.4); Platelet Count 35 K/uL (130-400); Potassium 3.9 mmol/L (3.5-5.1)
[2018-11-01 06:54] LABS: Anisocytosis Present; Giant Platelets 1+; Immature Granulocytes # (auto) 0.01 K/uL (0.00-0.02); Immature Granulocytes % (auto) 0.6 %; Lymphocytes % (auto) 18.2 %; Monocytes # (auto) 0.09 K/uL (0.11-0.59); Monocytes % (auto) 5.5 %; Neutrophils # (auto) 1.25 K/uL (1.4-6.5); Neutrophils % (auto) 75.7 %; Ovalocytes 1+; Platelet Estimate SIGNIFIC DECREASED (Normal); Tear Drop Cells 2+
[2018-11-01 07:03] LABS: Troponin I 0.488 ng/ml (0-0.045)
[2018-11-01] MEDS ORDERED: SODIUM CHLORIDE 0.9% 250 ML IV PRN (07:50)
[2018-11-01] MEDS: ISOSORBIDE MONO EXTENDED REL 60 MG TABCR PO SCH (07:58)
[2018-11-01] MEDS: FINASTERIDE 5 MG TAB PO SCH (07:59)
[2018-11-01] MEDS: METOPROLOL SUCC 50MG EXT REL TAB PO SCH (07:59)
[2018-11-01] MEDS: ACYCLOVIR 400 MG TAB PO SCH ×2 (07:59→20:51)
[2018-11-01] MEDS: CHOLECALCIFEROL 1,000 UNITS TAB PO SCH (07:59)
[2018-11-01] MEDS: PANTOprazole 40 MG TAB PO SCH ×2 (08:00→20:51)
[2018-11-01] MEDS: OSELTAMIVIR PHOSPHATE 75 MG CAP PO SCH ×2 (08:00→20:50)
[2018-11-01] MEDS: CYANOCOBALAMIN (VITAMIN B-12) 2,500 MCG TAB.SUBL SL SCH (08:02)
[2018-11-01] MEDS ORDERED: FUROSEMIDE 20 MG in SYRINGE 0 ML IV SCH (12:00)
[2018-11-01] MEDS: ONDANSETRON INJ 2 MG/ML 2 ML VIAL IV PRN (12:46)
--- NOTE | 2018-11-01 14:35 | Hospitalist Progress Note ---
Date of Service November 01, 2018 Assessment & Plan (1) Influenza: Type A infection. Tamiflu x 5 days; day #23of such today. Continues with profound fatigue which may be in part due to his severe anemia as below, afebrile times 48 hours now Poor appetite persists -Continue supportive care. -Continue to treat other issues as below. -Cont droplet precautions. (2) Acute respiratory failure with hypoxia: Secondary to flu A, probable right-sided pneumonia, and acute on chronic systolic CHF. Treat all components; supportive care. -Continue supplemental O2 to keep pulse ox greater than 90% (3) Acute on chronic systolic heart failure: Clinically and radiographically appeared volume overloaded. Previously received IV fluids on admission which have since been stopped He was given 1 dose of Lasix 20mg IV on 10/31 EF on echo this admission with EF 35-40%; EF on echo 12/2017 was 40-45%. Presumed to be ischemic in nature. Office records indicate he has refused cardiac cath, etc due to complex medical issues (multiple myeloma, etc). -We will give another dose of Lasix 20 mill grams IV between units of PRBCs today -Continue daily weights, strict I's and O's, low-sodium diet -Continue Toprol-XL 100 mg daily -Office records also suggest he has not tolerated ACEi/ARB therapy. (4) PNA (pneumonia): Probable, right-sided hilar region. In light of significant immunocompromised state his antibiotics were broadened -continue cefepime and Levaquin-day #2 -MRSA negative; will defer on vanco coverage -Heme/onc recommends only give neupogen if patient is not improving or worsening. -Follow CBC w/ diff. -Follow cultures-blood culture no growth to date -Add incentive spirometry (5) Pancytopenia: Secondary to multiple myeloma. Dr. Branch reports that his chemo for the myeloma does not impact the counts very much. Hemoglobin dropped today to 7.0, no obvious bleeding Platelets stable but low today at 35 -Transfused 2 units PRBCs with Lasix in between -Follow daily CBC w/ diff. -Continue neutropenic precautions. Likely some viral suppression as well on the white count and platelets from influenza -Transfuse platelets if less than 15,000 or if has evidence of bleeding (6) Neutropenia: mild-moderate. daily CBC. neutropenic precautions. see discussion above re: ?to use neupogen this admission. baseline total WBC count is about 3 or so. neutropenia is likely from additional bone marrow suppression from his infections. cont acyclovir prophylaxis. (7) Elevated troponin: Likely myocardial demand ischemia in setting of fluA and pneumonia. Troponins very mildly elevated and stable x4 with a peak at 0.539. ECG with A. fib but no ischemic changes likely has underlying CAD but he has not had any ischemic symptoms. would not heparinize at this time. continue his beta luther. (8) Nausea: This is multifactorial including ileus, infection (flu, etc), side effects of meds, etc. No abdominal pain Now tolerating soft diet but low appetite -Continue Zofran prn. -Follow BMP-keep lytes normal. (9) Ileus: as seen on exam and on x-rays. likely due to low K and infectious processes. -Follow lytes as above (10) Atrial fibrillation: Persistent atrial fibrillation Rates controlled -Continue Toprol-XL 100 mg daily -Cont digoxin -digoxin level normal at 0.6 -Is on Pradaxa at home-on hold here for thrombocytopenia -Keep on telemetry (11) History of multiple myeloma: Present x [address] Branch. Currently on biological chemo agent outside of the hospital. Does not tolerate IVIG (anaphylaxis by report). -Continue neutropenic precautions. -Low threshold for formal heme/onc consult with any worsening. -see discussion above re: neupogen. 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 (15) DVT prophylaxis: chemical means contraindicated due to severe thrombocytopenia. SCDs PT, OT evals. Disposition-remain admitted on telemetry unit Subjective Pt feeling very fatigued, low appetite but thinks he ate a little more today than yesterday. Cough has decreased today. Patient denies chest pain or shortness of breath. Telemetry with paced rhythm and atrial fibrillation with rates in the 90s-100s. Review of Systems All systems reviewed & are unremarkable except as noted in HPI & below (Denies epistaxis, hemoptysis, hematemesis, hematochezia, hematuria) Physical Exam 2 Vital Signs (Past 24 Hours): Last Vital Signs Temp 37.2 C 02/09/19 12:05 Pulse 84 11/01/18 12:05 Resp 20 11/01/18 12:05 BP 112/68 11/01/18 12:05 Pulse Ox 96 11/01/18 12:05 Constitutional: + ill appearing and + thin Eyes: PERRL, conjunctivae normal, anicteric sclerae ENMT: Ears: no hearing impairment Neck: trachea midline, no thyromegaly Respiratory: normal respiratory effort Auscultation: + crackles (At the right lower lung field), + rhonchi (Bilateral lower lung davis) and + wheezes ( Occasional expiratory) Cardiovascular: Rate/Rhythm: regular rate; + abnormal rhythm (Irregularly irregular) Heart Sounds: no murmur Extremities: no edema Gastrointestinal (Abdomen): normal bowel sounds, soft, nontender, no hepatosplenomegaly Musculoskeletal: Extremities: extremities normal to inspection; no cyanosis and no clubbing Skin: no rashes, warm and dry Neurologic: moves all extremities and awake; no focal motor deficits Psychiatric: A+Ox3, euthymic affect Results & Data Laboratory Results 11/01/18 11/01/18 11/01/18 Range/Units 06:04 06:04 06:04 WBC 1.65 L (4.8-10.8) K/uL RBC 2.21 L (4.7-6.1) M/uL Hgb 7.0 L (14.0-18.0) g/dL Hct 21.8 L (42-52) % MCV 98.6 (80-100) fL MCH 31.7 (25-34) pg MCHC 32.1 (32-36) g/dL RDW Std Deviation 69.5 H (36.4-46.3) fL RDW Coeff of Rigo 19.3 H (11.5-14.5) % Plt Count 35 L (130-400) K/uL Immature Gran % (Auto) 0.6 % Neut % (Auto) 75.7 % Lymph % (Auto) 18.2 % Aurora % (Auto) 5.5 % Eos % (Auto) 0.0 % Baso % (Auto) 0.0 % Immature Gran # (Auto) 0.01 (0.00-0.02) K/uL Neut # (Auto) 1.25 L (1.4-6.5) K/uL Lymph # (Auto) 0.30 L (1.2-3.4) K/uL Aurora # (Auto) 0.09 L (0.11-0.59) K/uL Eos # (Auto) 0.00 (0-0.5) K/uL Baso # (Auto) 0.00 (0-0.2) K/uL Platelet Estimate SIGNIFIC DECREASED (Normal) Giant Platelets 1+ Anisocytosis Present Tear Drop Cells 2+ Ovalocytes 1+ Sodium 137 (136-145) mmol/L Potassium 3.9 (3.5-5.1) mmol/L Chloride 108 H (98-107) mmol/L Carbon Dioxide 25 (21-32) mmol/L Anion Gap 4.0 (3-11) BUN 29 H (7-18) mg/dl Creatinine 1.02 (0.6-1.4) mg/dl Est Cr Clr Drug Dosing 53.6 ml/min Est GFR ( Amer) 79.5 Est GFR (Non-Af Amer) 68.6 BUN/Creatinine Ratio 28.4 H (10-20) Glucose 97 (70-99) mg/dl Calcium 8.7 (8.5-10.1) mg/dl Magnesium 2.1 (1.8-2.4) mg/dl Troponin I 0.488 H* (0-0.045) ng/ml Nasal Screen MRSA (PCR) (Negative) Digoxin 0.6 L (0.8-2.0) ng/ml Blood Type Antibody Screen Antibody Identification Antibody ID Referred Crossmatch 10/31/18 10/31/18 10/30/18 Range/Units 17:40 17:38 15:05 WBC (4.8-10.8) K/uL RBC (4.7-6.1) M/uL Hgb (14.0-18.0) g/dL Hct (42-52) % MCV (80-100) fL MCH (25-34) pg MCHC (32-36) g/dL RDW Std Deviation (36.4-46.3) fL RDW Coeff of Rigo (11.5-14.5) % Plt Count (130-400) K/uL Immature Gran % (Auto) % Neut % (Auto) % Lymph % (Auto) % Aurora % (Auto) % Eos % (Auto) % Baso % (Auto) % Immature Gran # (Auto) (0.00-0.02) K/uL Neut # (Auto) (1.4-6.5) K/uL Lymph # (Auto) (1.2-3.4) K/uL Aurora # (Auto) (0.11-0.59) K/uL Eos # (Auto) (0-0.5) K/uL Baso # (Auto) (0-0.2) K/uL Platelet Estimate (Normal) Giant Platelets Anisocytosis Tear Drop Cells Ovalocytes Sodium (136-145) mmol/L Potassium 3.9 (3.5-5.1) mmol/L Chloride (98-107) mmol/L Carbon Dioxide (21-32) mmol/L Anion Gap (3-11) BUN (7-18) mg/dl Creatinine (0.6-1.4) mg/dl Est Cr Clr Drug Dosing ml/min Est GFR ( Amer) Est GFR (Non-Af Amer) BUN/Creatinine Ratio (10-20) Glucose (70-99) mg/dl Calcium (8.5-10.1) mg/dl Magnesium (1.8-2.4) mg/dl Troponin I 0.539 H* (0-0.045) ng/ml Nasal Screen MRSA (PCR) Negative (Negative) Digoxin (0.8-2.0) ng/ml Blood Type Antibody Screen Antibody Identification Antibody ID Referred Pending Crossmatch 10/30/18 10/30/18 Range/Units 15:05 13:12 WBC (4.8-10.8) K/uL RBC (4.7-6.1) M/uL Hgb (14.0-18.0) g/dL Hct (42-52) % MCV (80-100) fL MCH (25-34) pg MCHC (32-36) g/dL RDW Std Deviation (36.4-46.3) fL RDW Coeff of Rigo (11.5-14.5) % Plt Count (130-400) K/uL Immature Gran % (Auto) % Neut % (Auto) % Lymph % (Auto) % Aurora % (Auto) % Eos % (Auto) % Baso % (Auto) % Immature Gran # (Auto) (0.00-0.02) K/uL Neut # (Auto) (1.4-6.5) K/uL Lymph # (Auto) (1.2-3.4) K/uL Aurora # (Auto) (0.11-0.59) K/uL Eos # (Auto) (0-0.5) K/uL Baso # (Auto) (0-0.2) K/uL Platelet Estimate (Normal) Giant Platelets Anisocytosis Tear Drop Cells Ovalocytes Sodium (136-145) mmol/L Potassium (3.5-5.1) mmol/L Chloride (98-107) mmol/L Carbon Dioxide (21-32) mmol/L Anion Gap (3-11) BUN (7-18) mg/dl Creatinine (0.6-1.4) mg/dl Est Cr Clr Drug Dosing ml/min Est GFR ( Amer) Est GFR (Non-Af Amer) BUN/Creatinine Ratio (10-20) Glucose (70-99) mg/dl Calcium (8.5-10.1) mg/dl Magnesium (1.8-2.4) mg/dl Troponin I (0-0.045) ng/ml Nasal Screen MRSA (PCR) (Negative) Digoxin (0.8-2.0) ng/ml Blood Type O Positive Antibody Screen POSITIVE A Antibody Identification Panagglutinin due to Darzalex Antibody ID Referred Cancelled Crossmatch See Detail _ (1) BPH (benign prostatic hyperplasia) Lower urinary tract symptom detail: Lower urinary tract symptom presence: symptoms absent Qualified Code(s): N40.0 - Benign prostatic hyperplasia without lower urinary tract symptoms (2) Atrial fibrillation Atrial fibrillation type: chronic Qualified Code(s): I48.2 - Chronic atrial fibrillation (3) Neutropenia Neutropenia type: unspecified Qualified Code(s): D70.9 - Neutropenia, unspecified (4) PNA (pneumonia) Aspiration pneumonia type: Laterality: right Lung location: middle lobe of lung Pneumonia type: due to unspecified organism Qualified Code(s): J18.1 - Lobar pneumonia, unspecified organism
[2018-11-01] MEDS: LEVOFLOXACIN/D5W 750 MG/150 ML BAG IV SCH (15:32)
[2018-11-01] MEDS: DIGOXIN 0.125 MG TAB PO SCH (15:33)
[2018-11-01] MEDS: ONDANSETRON 8 MG TABLET PO PRN (18:04)
[2018-11-01] MEDS: ALFUZOSIN HCL 10 MG TAB PO SCH (20:50)
[2018-11-02] MEDS: IPRATROPIUM BROMIDE NEB SOLN 0.02% 2.5 ML VIAL INH SCH ×4 (01:40→19:14)
[2018-11-02] MEDS: LEVALBUTEROL 1.25MG/0.5ML NEB INH SCH ×4 (01:40→19:14)
[2018-11-02] MEDS: CEFEPIME 2,000 MG in SYRINGE 7.5 ML IV SCH ×3 (05:27→21:00)
[2018-11-02] MEDS: HEPARIN 100 UNIT/ML 5ML FLUSH FLUSH PRN (05:55)
[2018-11-02 06:16] LABS: Nucleated RBC # (auto) 0.02 K/uL (0-0)
[2018-11-02 06:43] LABS: BUN Creatinine Ratio 25.2 (10-20); Calcium 8.6 mg/dl (8.5-10.1); Creatinine Clr Calc Pharmacy 50.9 ml/min; Est GFR (African American) 73.4; Est GFR (Non-African American) 63.3; Magnesium 2.2 mg/dl (1.8-2.4); Phosphorus 1.9 mg/dl (2.5-4.9); Potassium 3.9 mmol/L (3.5-5.1)
[2018-11-02 06:47] LABS: Hematocrit (blood only) 28.8 % (42-52); Hemoglobin 9.7 g/dL (14.0-18.0); Mean Corpuscular Hgb Conc 33.7 g/dL (32-36); Mean Corpuscular Volume 94.1 fL (80-100); RDW Coefficient of Variation 20.2 % (11.5-14.5); RDW Standard Deviation 70.2 fL (36.4-46.3); Red Blood Count 3.06 M/uL (4.7-6.1); White Blood Count 1.59 K/uL (4.8-10.8)
[2018-11-02 06:49] LABS: Platelet Count 37 K/uL (130-400)
[2018-11-02 07:19] LABS: Lymphocytes # (auto) 0.47 K/uL (1.2-3.4); Lymphocytes % (auto) 29.6 %; Monocytes # (auto) 0.11 K/uL (0.11-0.59); Monocytes % (auto) 6.9 %; Neutrophils # (auto) 1.01 K/uL (1.4-6.5); Neutrophils % (auto) 63.5 %; Ovalocytes 1+; Platelet Estimate Decreased (Normal); Tear Drop Cells 3+; Toxic Vacuolation 1+
[2018-11-02] MEDS ORDERED: POTASSIUM PHOS 3 MMOL/1 ML INFUSION IV STA (07:22)
[2018-11-02] MEDS ORDERED: FUROSEMIDE 20 MG in SYRINGE 0 ML IV STA (07:33)
[2018-11-02] MEDS ORDERED: POTASSIUM PHOSPHATE 15 MMOL in SODIUM CHLORIDE 0.9% 250 ML IV ONE (07:45)
[2018-11-02] MEDS: PANTOprazole 40 MG TAB PO SCH ×2 (08:51→20:58)
[2018-11-02] MEDS: METOPROLOL SUCC 50MG EXT REL TAB PO SCH (08:51)
[2018-11-02] MEDS: ISOSORBIDE MONO EXTENDED REL 60 MG TABCR PO SCH (08:52)
[2018-11-02] MEDS: OSELTAMIVIR PHOSPHATE 75 MG CAP PO SCH ×2 (08:52→20:56)
[2018-11-02] MEDS: FINASTERIDE 5 MG TAB PO SCH (08:52)
[2018-11-02] MEDS: CYANOCOBALAMIN (VITAMIN B-12) 2,500 MCG TAB.SUBL SL SCH (08:52)
[2018-11-02] MEDS: CHOLECALCIFEROL 1,000 UNITS TAB PO SCH (08:52)
[2018-11-02] MEDS: ACYCLOVIR 400 MG TAB PO SCH ×2 (08:59→20:57)
--- NOTE | 2018-11-02 10:56 | Hospitalist Progress Note ---
Date of Service November 02, 2018 Assessment & Plan (1) Influenza: Type A infection. Tamiflu x 5 days; day #4 of such today. Continues with fatigue, poor appetite, malaise, which may have also been in part due to his severe anemia as below, afebrile times 72 hours now. But overall improved today -Continue supportive care. -Continue to treat other issues as below. -Cont droplet precautions. (2) Acute respiratory failure with hypoxia: Secondary to flu A, probable right-sided pneumonia, and acute on chronic systolic CHF. Treating all components; supportive care. -Continue supplemental O2 to keep pulse ox greater than 90%-discussed with RN about trying to wean down today (3) Acute on chronic systolic heart failure: Clinically and radiographically appeared volume overloaded on admission. Previously received IV fluids on admission which have since been stopped He was given 1 dose of Lasix 20mg IV on 10/31, another on 11/01 between PRBCs EF on echo this admission with EF 35-40%; EF on echo 12/2017 was 40-45%. Presumed to be ischemic in nature. Office records indicate he has refused cardiac cath, etc due to complex medical issues (multiple myeloma, etc). Remains with crackles, hypoxia, weight up 1 kg from yesterday, overall net positive 2.7L fluid balance -give another dose of Lasix 20 mill grams IV x 1 today and reassess in AM -Continue daily weights, strict I's and O's, low-sodium diet -Continue Toprol-XL 100 mg daily -Office records also suggest he has not tolerated ACEi/ARB therapy. (4) PNA (pneumonia): Probable, right-sided hilar region. In light of significant immunocompromised state his antibiotics were broadened -continue cefepime and Levaquin-day #3 -MRSA negative; will defer on vanco coverage -Heme/onc recommends only give neupogen if patient is not improving or worsening. -Follow CBC w/ diff. -Follow cultures-blood culture no growth to date -continue incentive spirometry-did not yet receive the device today, d/w RN -repeat CXR today (5) Pancytopenia: Secondary to multiple myeloma. Dr. Branch reports that his chemo for the myeloma does not impact the counts very much. Hemoglobin dropped to 7.0, no obvious bleeding, was transfused 2 units PRBCs on 11/01 Hgb now up to 9.7 Platelets low but slightly improved today at 37k -Follow daily CBC w/ diff. -Continue neutropenic precautions. Likely some viral suppression as well on the white count and platelets from influenza -Transfuse platelets if less than 15,000 or if has evidence of bleeding (6) Neutropenia: mild-moderate. ANC today 1000 daily CBC. neutropenic precautions. see discussion above re: ?to use neupogen this admission. baseline total WBC count is about 3 or so. neutropenia is likely from additional bone marrow suppression from his infections. cont acyclovir prophylaxis. (7) Elevated troponin: Likely myocardial demand ischemia in setting of fluA and pneumonia. Troponins very mildly elevated and stable x4 with a peak at 0.539. ECG with A. fib and inferior infarct, with lateral TWIs--> review of previous ECGs shows he has this same pattern intermittently throughout the last several years No chest pain likely has underlying CAD but he has not had any ischemic symptoms. ECHO with low EF and hypokinesesis of apex and akinesis of distal anteroseptum would not heparinize at this time. continue his beta luther. (8) Nausea: This is multifactorial including ileus, infection (flu, etc), side effects of meds, etc. No abdominal pain Now tolerating soft diet but remains with low appetite -Continue Zofran prn. -Follow BMP-keep lytes normal. (9) Ileus: as seen on exam and on x-rays. likely due to low K and infectious processes. had a BM on 10/31 -Follow lytes as above -replace Phos today (10) Atrial fibrillation: Persistent atrial fibrillation Rates controlled -Continue Toprol-XL 100 mg daily -Cont digoxin -digoxin level normal at 0.6 -Is on Pradaxa at home-on hold here for thrombocytopenia -Keep on telemetry (11) History of multiple myeloma: Present x [address] Branch. Currently on biological chemo agent outside of the hospital. Does not tolerate IVIG (anaphylaxis by report). -Continue neutropenic precautions. -Low threshold for formal heme/onc consult with any worsening. -see discussion above re: neupogen. 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 (15) DVT prophylaxis: chemical means contraindicated due to severe thrombocytopenia. SCDs PT, OT evals. Disposition-remain admitted on telemetry unit Subjective Pt feeling slightly improved today. Took a walk around the [place] with the RN and POx was 90% on RA when he returned to the room. Is not coughing much but is audibly rattling in his chest while talking. Says he is bringing up sputum but hasn't looked at it. Remains with low appetite but is forcing himself to eat. Feeling nauseated and asking for Zofran. Denies chest pain or SOB. No BM in 2 days, declines stool softener Tele with Afib, paced rhythm, rates 80s-90s Review of Systems All systems reviewed & are unremarkable except as noted in HPI & below Physical Exam 2 Vital Signs (Past 24 Hours): Last Vital Signs Temp 37.3 C 11/02/18 07:22 Pulse 81 11/02/18 07:35 Resp 16 11/02/18 07:26 BP 142/82 H 11/02/18 07:22 Pulse Ox 96 11/02/18 07:26 Constitutional: + thin; no acute distress Eyes: PERRL, conjunctivae normal, anicteric sclerae ENMT: Ears: no hearing impairment Neck: trachea midline, no thyromegaly Respiratory: normal respiratory effort Auscultation: + crackles (At the right lower lung field), + rhonchi (Bilateral lower lung davis) and + wheezes ( audible wheezing/rattling in upper airway, partially clears with cough) Cardiovascular: Rate/Rhythm: regular rate; + abnormal rhythm (Irregularly irregular) Heart Sounds: no murmur Extremities: no edema Gastrointestinal (Abdomen): normal bowel sounds, soft, nontender, no hepatosplenomegaly Musculoskeletal: Extremities: extremities normal to inspection; no cyanosis and no clubbing Skin: no rashes, warm and dry Neurologic: moves all extremities and awake; no focal motor deficits Psychiatric: A+Ox3, euthymic affect Results & Data Laboratory Results 11/02/18 11/02/18 10/30/18 Range/Units 05:55 05:55 13:12 WBC 1.59 L (4.8-10.8) K/uL RBC 3.06 L (4.7-6.1) M/uL Hgb 9.7 L (14.0-18.0) g/dL Hct 28.8 L (42-52) % MCV 94.1 (80-100) fL MCH 31.7 (25-34) pg MCHC 33.7 (32-36) g/dL RDW Std Deviation 70.2 H (36.4-46.3) fL RDW Coeff of Rigo 20.2 H (11.5-14.5) % Plt Count 37 L (130-400) K/uL Immature Gran % (Auto) 0.0 % Neut % (Auto) 63.5 % Lymph % (Auto) 29.6 % Bond % (Auto) 6.9 % Eos % (Auto) 0.0 % Baso % (Auto) 0.0 % Immature Gran # (Auto) 0.00 (0.00-0.02) K/uL Neut # (Auto) 1.01 L (1.4-6.5) K/uL Lymph # (Auto) 0.47 L (1.2-3.4) K/uL Bond # (Auto) 0.11 (0.11-0.59) K/uL Eos # (Auto) 0.00 (0-0.5) K/uL Baso # (Auto) 0.00 (0-0.2) K/uL Absolute Nucleated RBC 0.02 H (0-0) K/uL Nucleated RBC % (auto) 1.0 % Toxic Vacuolation 1+ Platelet Estimate Decreased (Normal) Tear Drop Cells 3+ Ovalocytes 1+ Sodium 136 (136-145) mmol/L Potassium 3.9 (3.5-5.1) mmol/L Chloride 105 (98-107) mmol/L Carbon Dioxide 25 (21-32) mmol/L Anion Gap 6.0 (3-11) BUN 28 H (7-18) mg/dl Creatinine 1.09 (0.6-1.4) mg/dl Est Cr Clr Drug Dosing 50.9 ml/min Est GFR ( Amer) 73.4 Est GFR (Non-Af Amer) 63.3 BUN/Creatinine Ratio 25.2 H (10-20) Glucose 89 (70-99) mg/dl Calcium 8.6 (8.5-10.1) mg/dl Phosphorus 1.9 L (2.5-4.9) mg/dl Magnesium 2.2 (1.8-2.4) mg/dl Blood Type O Positive Antibody Screen POSITIVE A Antibody Identification Panagglutinin due to Darzalex Crossmatch See Detail _ (1) PNA (pneumonia) Aspiration pneumonia type: Laterality: right Lung location: middle lobe of lung Pneumonia type: due to unspecified organism Qualified Code(s): J18.1 - Lobar pneumonia, unspecified organism (2) Neutropenia Neutropenia type: unspecified Qualified Code(s): D70.9 - Neutropenia, unspecified (3) Atrial fibrillation Atrial fibrillation type: chronic Qualified Code(s): I48.2 - Chronic atrial fibrillation (4) BPH (benign prostatic hyperplasia) Lower urinary tract symptom presence: symptoms absent Lower urinary tract symptom detail: Qualified Code(s): N40.0 - Benign prostatic hyperplasia without lower urinary tract symptoms
[2018-11-02] MEDS: ONDANSETRON INJ 2 MG/ML 2 ML VIAL IV PRN (11:01)
--- NOTE | 2018-11-02 12:57 | XRay Report ---
XR chest 1V portable HISTORY: Follow-up pneumonia. COMPARISON: Chest 10/31/2018. FINDINGS: No pneumothorax. Small bilateral pleural effusions and bibasilar densities persist. Improve ment in the right hilar prominence. The heart remains enlarged. There is mild central pulmonary vascu lar congestion without overt edema. Left-sided pacemaker and right orbital catheter again noted. IMPRESSION: 1. Improvement in the right hilar prominence. 2. Mild pulmonary vascular congestion has improved. Small bilateral pleural effusions and cardiomegal y persist. Electronically signed by: Hudson Avila M.D. 11/02/2018 12:55 PM
[2018-11-02] MEDS: LEVOFLOXACIN/D5W 750 MG/150 ML BAG IV SCH (14:23)
[2018-11-02] MEDS: ACETAMINOPHEN 325 MG TAB PO PRN (15:35)
[2018-11-02] MEDS: DIGOXIN 0.125 MG TAB PO SCH (15:37)
[2018-11-02] MEDS: ALFUZOSIN HCL 10 MG TAB PO SCH (20:57)
[2018-11-03] MEDS: IPRATROPIUM BROMIDE NEB SOLN 0.02% 2.5 ML VIAL INH SCH ×4 (01:25→19:20)
[2018-11-03] MEDS: LEVALBUTEROL 1.25MG/0.5ML NEB INH SCH ×4 (01:26→19:20)
[2018-11-03] MEDS: CEFEPIME 2,000 MG in SYRINGE 7.5 ML IV SCH ×3 (05:23→21:27)
[2018-11-03] MEDS: PANTOprazole 40 MG TAB PO SCH ×2 (08:13→20:02)
[2018-11-03] MEDS: ISOSORBIDE MONO EXTENDED REL 60 MG TABCR PO SCH (08:13)
[2018-11-03] MEDS: FINASTERIDE 5 MG TAB PO SCH (08:13)
[2018-11-03] MEDS: CHOLECALCIFEROL 1,000 UNITS TAB PO SCH (08:16)
[2018-11-03] MEDS: METOPROLOL SUCC 50MG EXT REL TAB PO SCH (08:16)
[2018-11-03] MEDS: ACYCLOVIR 400 MG TAB PO SCH ×2 (08:17→20:03)
[2018-11-03] MEDS: OSELTAMIVIR PHOSPHATE 75 MG CAP PO SCH ×2 (08:26→20:03)
[2018-11-03] MEDS: CYANOCOBALAMIN (VITAMIN B-12) 2,500 MCG TAB.SUBL SL SCH (08:26)
[2018-11-03] MEDS: HEPARIN 100 UNIT/ML 5ML FLUSH FLUSH PRN ×4 (08:43→21:27)
[2018-11-03 09:21] LABS: Hematocrit (blood only) 34.3 % (42-52); Hemoglobin 11.2 g/dL (14.0-18.0); Mean Corpuscular Hgb Conc 32.7 g/dL (32-36); Mean Corpuscular Volume 94.2 fL (80-100); Platelet Count 38 K/uL (130-400); RDW Coefficient of Variation 19.7 % (11.5-14.5); RDW Standard Deviation 68.6 fL (36.4-46.3); Red Blood Count 3.64 M/uL (4.7-6.1); White Blood Count 1.19 K/uL (4.8-10.8)
[2018-11-03 09:22] LABS: Platelet Estimate Decreased (Normal)
[2018-11-03 09:24] LABS: Albumin Level 2.7 gm/dl (3.4-5.0); BUN Creatinine Ratio 20.2 (10-20); Calcium 8.4 mg/dl (8.5-10.1); Creatinine Clr Calc Pharmacy 44.1 ml/min; Est GFR (African American) 63.4; Est GFR (Non-African American) 54.7; Magnesium 2.1 mg/dl (1.8-2.4); Potassium 3.6 mmol/L (3.5-5.1)
[2018-11-03 09:27] LABS: Albumin Globulin Ratio 0.7 (0.9-2); Bilirubin,Total 0.5 mg/dl (0.2-1); Globulin 3.9 gm/dl (2.5-4.0); Phosphorus 1.7 mg/dl (2.5-4.9); Total Protein 6.6 gm/dl (6.4-8.2)
[2018-11-03] MEDS ORDERED: FUROSEMIDE 20 MG in SYRINGE 0 ML IV STA (10:55)
[2018-11-03] MEDS ORDERED: SODIUM PHOSPHATE 3 MMOL/1 ML INFUSION IV STA (12:10)
[2018-11-03] MEDS ORDERED: SODIUM PHOSPHATE 15 MMOL in SODIUM CHLORIDE 0.9% 250 ML IV ONE (12:15)
--- NOTE | 2018-11-03 12:16 | Hospitalist Progress Note ---
Date of Service November 03, 2018 Assessment & Plan (1) Influenza: - Positive for Influenza A at admission. - Receiving Tamiflu 75 mg BID, day 5 of 5 today. - Has ongoing fatigue, poor appetite and malaise. - Supportive care with Xopenex q6hr and Atrovent q6hr scheduled. - Droplet precautions ordered. (2) Acute respiratory failure with hypoxia: - Secondary to flu A, probable pneumonia, and acute on chronic systolic CHF. - Continues to require 2L via NC. - Will need walking 2 step test with RT prior to admission if oxygen requirement is not improved. (3) Acute on chronic systolic heart failure: - Echo showed EF 35-40%; previous TTE in December 2017 showed EF 40-45%. - CHF likely ischemic in nature; pt. has refused cardiac cath in past. - Monitor strict I/O's, low sodium diet and daily weights; weight is decreased by ~6 kg. - Lasix IV prn -- will give additional Lasix 20 mg IV this morning. - Continue Toprol XL 100 mg daily; has not tolerated YENNI/ARB in past. - Was provided script by cardiology for Lasix prn weight gain at home; pt. has not taken medication. (4) PNA (pneumonia): - Probable on right side hilar region. - Continue Cefepime and Levaquin (Day 4) - MRSA swab negative; no Vanco indicated. - Incentive spirometry q1hr WA. - Repeat CXR on 11/02 showed improvement in PNA and pulmonary vascular congestion. (5) Pancytopenia: - Secondary to multiple myeloma with acute suppression of counts from viral illness. - Currently chemotherapy does not impact blood counts significantly per Dr. Maura Conde. - Received 2 units on 11/01 for Hgb 7.0; Hgb now stable. - Transfuse for hgb <7 or plt <15K (or active bleeding) - Follow CBC with diff daily. (6) Neutropenia: - ANC was 1,000 on 11/02, did not order diff today. - Continue neutropenic precautions. - Monitor CBC daily; baseline WBC is ~3.0. - ID ppx: Acyclovir - Consider starting Neupogen if no improvement in counts/symptoms; discussed with Dr. Branch. (7) Elevated troponin: - Likely related to myocardial demand ischemia in setting of acute illness. - Trop peaked at 0.539 then trended down. - EKG showed A. fib, inferior infarct and lateral TWIs -- has same pattern on previous EKGs. - Echo with low EF and hypokinesis of apex and akinesis of distal anteroseptum. - Denies cardiac symptoms; continue cardiac meds as prescribed. (8) Nausea: - Was likely related to ileus, now improved after BM. - Zofran prn. (9) Ileus: - On XR of abdomen. - Had a BM over last 24 hours, feels improved overall. (10) Atrial fibrillation: - Persistent A. fib on monitor, rated controlled. - Continue Toprol XL 100 mg daily. - Continue Digoxin as prescribed - level was 0.6. - On Pradaxa at home -- holding in setting of thrombocytopenia. (11) History of multiple myeloma: - Present x 7 years; follows with Dr. Branch. - On chemo agent outside of hospital. - Low threshold for heme/onc consult. 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 (14) Electrolyte abnormality: - Phos level 1.7 -- ordered NaPhos 15 mmol IV. - Monitor electrolytes qAM. (15) DVT prophylaxis: - Hold pharmacologic ppx due to thrombocytopenia; SCDs. Dispo: Inpt for IV diuresis; discharge pending improvement in fatigue/malaise, SOB and oxygen requirements. Pt. needs barium swallow and video swallow study - - can be done as outpatient as he will need to stand for 3-5 minutes for study. Supervising Physician Co-Signing Physician Notes Attending Attestation - Chart reviewed in detail, and care plan d/w SUMMER Garcia. I agree w/ the horta components of her documentation. Sickly 82yo male with long-standing multiple myeloma, severe pancytopenia, flu A infection, right-sided pneumonia, acute/chronic systolic CHF, failure to thrive, ileus. Treating all issues as noted in my note. Finishing tamiflu course. Remains on broad-spectrum IV antibiotics for pneumonia. Lasix IV again today. Cont PT, OT. Slow recovery from multiple comorbid conditions. Jordin Guillaume MD Subjective Pt. is slightly improved today, has mild fatigue. His is present at bedside and expressed her concerns regarding his weakness/return to home. PT evaluated him on 10/31, recommended return to home. He had a BM over last 24 hours , abd pain and nausea now significantly improved. Has an ongoing productive cough; denies chest pain, SOB, myalgias, nasal congestion. Will continue diuresis for another 24 hours with possible discharge to home on 11/04/18. Review of Systems All systems reviewed & are unremarkable except as noted in HPI & below Constitutional: + fatigue, + malaise and + weakness; no fever, no chills and no body aches Respiratory: + cough; no chest congestion, no change in sputum and no dyspnea Cardiovascular: no chest pain, no palpitations and no edema Gastrointestinal: no abdominal pain, no nausea and no constipation Genitourinary (Male): no difficulty urinating Musculoskeletal: no myalgia Integumentary: no rash Physical Exam 2 Vital Signs (Past 24 Hours): Last Vital Signs Temp 37.0 C 11/03/18 12:03 Pulse 87 11/03/18 12:03 Resp 16 11/03/18 12:03 BP 118/69 11/03/18 12:03 Pulse Ox 92 11/03/18 12:03 Physical Exam: General: Resting comfortably in no apparent distress HEENT: NC/AT; PERRLA with EOMI; Benicia conjunctiva, MMM. Neck: Supple and nontender Cardiac: RRR Lungs: on 2L via NC; crackles and rhonchi noted in bilat lower lung davis. Abdomen: Bowel normoactive X 4; Nontender to palpation Extremities: Warm. No edema present Neuro: No focal weakness Skin: No rash Results & Data Laboratory Results 11/03/18 11/03/18 10/30/18 Range/Units 08:43 08:43 15:05 WBC 1.19 L (4.8-10.8) K/uL RBC 3.64 L (4.7-6.1) M/uL Hgb 11.2 L (14.0-18.0) g/dL Hct 34.3 L (42-52) % MCV 94.2 (80-100) fL MCH 30.8 (25-34) pg MCHC 32.7 (32-36) g/dL RDW Std Deviation 68.6 H (36.4-46.3) fL RDW Coeff of Rigo 19.7 H (11.5-14.5) % Plt Count 38 L (130-400) K/uL Platelet Estimate Decreased (Normal) Sodium 135 L (136-145) mmol/L Potassium 3.6 (3.5-5.1) mmol/L Chloride 104 (98-107) mmol/L Carbon Dioxide 22 (21-32) mmol/L Anion Gap 9.0 (3-11) BUN 25 H (7-18) mg/dl Creatinine 1.23 (0.6-1.4) mg/dl Est Cr Clr Drug Dosing 44.1 ml/min Est GFR ( Amer) 63.4 Est GFR (Non-Af Amer) 54.7 BUN/Creatinine Ratio 20.2 H (10-20) Glucose 154 H (70-99) mg/dl Calcium 8.4 L (8.5-10.1) mg/dl Phosphorus 1.7 L (2.5-4.9) mg/dl Magnesium 2.1 (1.8-2.4) mg/dl Total Bilirubin 0.5 (0.2-1) mg/dl AST 21 (15-37) U/L ALT 42 (12-78) U/L Alkaline Phosphatase 72 (45-117) U/L Total Protein 6.6 (6.4-8.2) gm/dl Albumin 2.7 L (3.4-5.0) gm/dl Globulin 3.9 (2.5-4.0) gm/dl Albumin/Globulin Ratio 0.7 L (0.9-2) Antibody ID Referred _ (1) BPH (benign prostatic hyperplasia) Lower urinary tract symptom detail: Lower urinary tract symptom presence: symptoms absent Qualified Code(s): N40.0 - Benign prostatic hyperplasia without lower urinary tract symptoms (2) Atrial fibrillation Atrial fibrillation type: chronic Qualified Code(s): I48.2 - Chronic atrial fibrillation (3) Neutropenia Neutropenia type: unspecified Qualified Code(s): D70.9 - Neutropenia, unspecified (4) PNA (pneumonia) Aspiration pneumonia type: Laterality: right Lung location: middle lobe of lung Pneumonia type: due to unspecified organism Qualified Code(s): J18.1 - Lobar pneumonia, unspecified organism
[2018-11-03] MEDS: LEVOFLOXACIN/D5W 750 MG/150 ML BAG IV SCH (15:00)
[2018-11-03] MEDS: DIGOXIN 0.125 MG TAB PO SCH (15:37)
[2018-11-03] MEDS: ONDANSETRON INJ 2 MG/ML 2 ML VIAL IV PRN (17:01)
[2018-11-03] MEDS: ALFUZOSIN HCL 10 MG TAB PO SCH (20:03)
[2018-11-04] MEDS: IPRATROPIUM BROMIDE NEB SOLN 0.02% 2.5 ML VIAL INH SCH ×4 (02:15→19:21)
[2018-11-04] MEDS: LEVALBUTEROL 1.25MG/0.5ML NEB INH SCH ×4 (02:15→19:20)
[2018-11-04] MEDS: CEFEPIME 2,000 MG in SYRINGE 7.5 ML IV SCH ×3 (05:35→21:45)
[2018-11-04] MEDS: HEPARIN 100 UNIT/ML 5ML FLUSH FLUSH PRN ×6 (05:35→21:45)
[2018-11-04 06:38] LABS: Hematocrit (blood only) 29.7 % (42-52); Hemoglobin 9.8 g/dL (14.0-18.0); Mean Corpuscular Volume 93.7 fL (80-100); Nucleated RBC # (auto) 0.02 K/uL (0-0); Platelet Count 31 K/uL (130-400); RDW Coefficient of Variation 19.2 % (11.5-14.5); RDW Standard Deviation 65.8 fL (36.4-46.3); Red Blood Count 3.17 M/uL (4.7-6.1); White Blood Count 1.13 K/uL (4.8-10.8)
[2018-11-04 06:48] LABS: BUN Creatinine Ratio 21.6 (10-20); Calcium 8.3 mg/dl (8.5-10.1); Creatinine Clr Calc Pharmacy 54.8 ml/min; Est GFR (African American) 82.4; Est GFR (Non-African American) 71.1; Magnesium 2.1 mg/dl (1.8-2.4); Potassium 3.6 mmol/L (3.5-5.1)
[2018-11-04 07:11] LABS: Anisocytosis Present; Immature Granulocytes # (auto) 0.01 K/uL (0.00-0.02); Immature Granulocytes % (auto) 0.9 %; Lymphocytes # (auto) 0.52 K/uL (1.2-3.4); Monocytes # (auto) 0.08 K/uL (0.11-0.59); Monocytes % (auto) 7.1 %; Poikilocytosis Present; Toxic Granulation 2+
[2018-11-04 07:12] LABS: Giant Platelets 1+
[2018-11-04 07:13] LABS: Neutrophils # (auto) 0.52 K/uL (1.4-6.5)
[2018-11-04] MEDS ORDERED: SODIUM PHOSPHATE 3 MMOL/1 ML INFUSION IV STA (07:52)
[2018-11-04] MEDS ORDERED: FUROSEMIDE 40 MG in SYRINGE 0 ML IV ONE (07:54)
[2018-11-04] MEDS ORDERED: SODIUM PHOSPHATE 15 MMOL in SODIUM CHLORIDE 0.9% 250 ML IV ONE (08:00)
[2018-11-04] MEDS: CHOLECALCIFEROL 1,000 UNITS TAB PO SCH (08:27)
[2018-11-04] MEDS: ACYCLOVIR 400 MG TAB PO SCH ×2 (08:27→21:45)
[2018-11-04] MEDS: FINASTERIDE 5 MG TAB PO SCH (08:27)
[2018-11-04] MEDS: METOPROLOL SUCC 50MG EXT REL TAB PO SCH (08:29)
[2018-11-04] MEDS: ISOSORBIDE MONO EXTENDED REL 60 MG TABCR PO SCH (08:29)
[2018-11-04] MEDS: CYANOCOBALAMIN (VITAMIN B-12) 2,500 MCG TAB.SUBL SL SCH (08:29)
[2018-11-04] MEDS: PANTOprazole 40 MG TAB PO SCH ×2 (08:30→21:45)
[2018-11-04] MEDS: ONDANSETRON INJ 2 MG/ML 2 ML VIAL IV PRN ×2 (10:02→18:46)
--- NOTE | 2018-11-04 11:51 | Hospitalist Progress Note ---
Date of Service November 04, 2018 Assessment & Plan (1) Influenza: - Positive for Influenza A at admission. - Completed 5 day course of Tamiflu. - Has ongoing fatigue, poor appetite and malaise - slightly improved today. - Supportive care with Xopenex q6hr and Atrovent q6hr scheduled. - Droplet precautions ordered. (2) Acute respiratory failure with hypoxia: - Secondary to flu A, probable pneumonia, and acute on chronic systolic CHF. - Continues to require 2L via NC, cannot wean oxygen. - Will need walking 2 step test with RT prior to admission if oxygen requirement is not improved. (3) Acute on chronic systolic heart failure: - Echo showed EF 35-40%; previous TTE in December 2017 showed EF 40-45%. - CHF likely ischemic in nature; pt. has refused cardiac cath in past. - Monitor strict I/O's, low sodium diet and daily weights; weight decreased ~6 kg. - Lasix IV prn -- will give Lasix 40 mg IV this morning. - Continue Toprol XL 100 mg daily; has not tolerated YENNI/ARB in past. - Was provided script by cardiology for Lasix prn weight gain at home; pt. has not taken medication. (4) PNA (pneumonia): - Probable on right side hilar region. - Continue Cefepime and Levaquin (Day 5) - MRSA swab negative; no Vanco indicated. - Incentive spirometry q1hr WA. - Repeat CXR on 11/02 showed improvement in PNA and pulmonary vascular congestion. (5) Pancytopenia: - Secondary to multiple myeloma with acute suppression of counts from viral illness. - Current chemotherapy does not impact blood counts significantly per Dr. Maura Conde. - Received 2 units on 11/01 for Hgb 7.0; Hgb now stable. - Transfuse for hgb <7 or plt <15K (or active bleeding) - Follow CBC daily. (6) Neutropenia: - ANC decreased to 520 today. - Continue neutropenic precautions. - Monitor CBC daily; baseline WBC is ~3.0. - ID ppx: Acyclovir - Will start Neupogen 300 mcg daily due to decreasing counts -- discussed indication for Neupogen with Dr. Branch last week. (7) Elevated troponin: - Likely related to myocardial demand ischemia in setting of acute illness. - Trop peaked at 0.539 then trended down. - EKG showed A. fib, inferior infarct and lateral TWIs -- has same pattern on previous EKGs. - Echo with low EF and hypokinesis of apex and akinesis of distal anteroseptum. - Denies cardiac symptoms; continue cardiac meds as prescribed. (8) Nausea: - Was likely related to ileus as symptoms resolved. - Developed recurrent nausea today -- may be related to GERD vs. other. - PPI PO BID; added Maalox q6hr prn. - Zofran and Compazine prn. - Consider repeat cardiac work up to rule out cardiac etiology; previous work up as noted above. (9) Ileus: - On XR of abdomen. - Is having regular BMs, pt. complained of diarrhea this morning. (10) Atrial fibrillation: - Persistent A. fib on monitor, rated controlled. - Continue Toprol XL 100 mg daily. - Continue Digoxin as prescribed - level was 0.6. - On Pradaxa at home -- holding in setting of thrombocytopenia. (11) History of multiple myeloma: - Present x 7 years; follows with Dr. Branch. - On chemo agent outside of hospital. - Low threshold for heme/onc consult. 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 (14) Electrolyte abnormality: - Phos level 2.0 -- ordered NaPhos 15 mmol IV. - Monitor electrolytes qAM. (15) DVT prophylaxis: - Hold pharmacologic ppx due to thrombocytopenia; SCDs. Dispo: Downgrade to med/surg; Discharge pending improvement in oxygen requirements & neutropenia following Neupogen administration. -- Pt. needs barium swallow and video swallow study but will need to stand for 3 -5 minutes for procedure -- can be done as outpatient. -- PT/OT recommending home with 24 hour assistance. Can be provided by his . Supervising Physician Co-Signing Physician Notes Attending Attestation & Progress Note: Pt seen/examined, chart reviewed, care plan d/w SUMMER Garcia. I agree w/ the horta components of her documentation. During my visit the patient stated several times "I just don't feel well." When I asked him to be more specific he mentioned multiple things including nausea, lack of appetite, and vague abdominal discomfort. A log of intake from the day shows he ate nearly all of his breakfast but very little lunch/dinner. He was lying very still in the bed (flat/supine) and was not in acute distress. He seemed mildly confused. Had formed bowel movement earlier in the day. VSS, no fever, o2 sats on NC O2 stable gen - sickly appearing, mildly confused mouth - no thrush or lesions neck - no JVD heart - RRR, s1, s2 lungs - mild exp wheeze b/l, faint basilar rales, no distress abd - soft, NT, ND, BS+ ext - no edema A/P: 1. influenza A infection 2. right-sided pneumonia 3. severe pancytopenia in setting of chronic multiple myeloma and likely additional bone marrow suppression from infectious process 4. severe neutropenia 5. acute/chronic systolic CHF 6. ileus 7. presumed CAD with mild troponin elevation at admission - likely myocardial demand ischemia 8. failure to thrive with nausea discussed w/ Ms. Garcia - late in the evening on 11/04 we repeated cxr/abd x- rays, EKG, troponin, lactate, VBG, lipase, LFTs cxr was stable abd x-ray with mild ileus only EKG unchanged troponin lower than prior LFTs, lipase, VBG all acceptable multiple issues as noted above likely contributing to his constellation of symptoms today severe neutropenia likely playing a role in his overall weakness/lassitude as well agree w/ daily neupogen low threshold for advanced imaging of abdomen if GI complaints persist to exclude other pathology I called and updated pt's on the evening of 11/04/18 Jordin Guillaume MD Subjective Pt. is improved overall but still has some fatigue/weakness. He complains of diarrhea this morning -- nurse reported that stools were formed. Prior to yesterday, he was not having BMs. Denies nausea/vomiting. Is on 2L via NC -- nurse has attempted to wean oxygen but O2 saturations drop with removal of O2. Will continue to monitor. Plan to start Neupogen today due to decreasing WBC. Review of Systems All systems reviewed & are unremarkable except as noted in HPI & below Constitutional: + fatigue and + weakness; no fever and no chills Respiratory: no cough Cardiovascular: no chest pain, no palpitations and no edema Gastrointestinal: + diarrhea/loose stools; no abdominal pain, no nausea, no vomiting and no constipation Genitourinary (Male): no difficulty urinating Musculoskeletal: no joint pain Allergy / Immunological: no rash Physical Exam 2 Vital Signs (Past 24 Hours): Last Vital Signs Temp 36.8 C 11/04/18 11:35 Pulse 94 H 11/04/18 11:35 Resp 18 11/04/18 11:35 BP 108/67 11/04/18 11:35 Pulse Ox 95 11/04/18 11:35 Physical Exam: General: Resting comfortably in no apparent distress HEENT: NC/AT; PERRLA with EOMI; Cerulean conjunctiva, MMM. Neck: Supple and nontender Cardiac: RRR Lungs: on 2L via NC; diminished throughout Abdomen: Bowel normoactive X 4; Nontender to palpation Extremities: Warm. No edema present Neuro: No focal weakness Skin: No rash Results & Data Laboratory Results 11/04/18 11/04/18 11/04/18 Range/Units 10:59 06:02 06:02 WBC 1.13 L (4.8-10.8) K/uL RBC 3.17 L (4.7-6.1) M/uL Hgb 9.8 L (14.0-18.0) g/dL Hct 29.7 L (42-52) % MCV 93.7 (80-100) fL MCH 30.9 (25-34) pg MCHC 33.0 (32-36) g/dL RDW Std Deviation 65.8 H (36.4-46.3) fL RDW Coeff of Rigo 19.2 H (11.5-14.5) % Plt Count 31 L (130-400) K/uL Immature Gran % (Auto) 0.9 % Neut % (Auto) 46.0 % Lymph % (Auto) 46.0 % [place] % (Auto) 7.1 % Eos % (Auto) 0.0 % Baso % (Auto) 0.0 % Immature Gran # (Auto) 0.01 (0.00-0.02) K/uL Neut # (Auto) 0.52 L* (1.4-6.5) K/uL Lymph # (Auto) 0.52 L (1.2-3.4) K/uL [place] # (Auto) 0.08 L (0.11-0.59) K/uL Eos # (Auto) 0.00 (0-0.5) K/uL Baso # (Auto) 0.00 (0-0.2) K/uL Absolute Nucleated RBC 0.02 H (0-0) K/uL Nucleated RBC % (auto) 2.0 % Toxic Granulation 2+ Giant Platelets 1+ Poikilocytosis Present Anisocytosis Present Sodium 136 (136-145) mmol/L Potassium 3.6 (3.5-5.1) mmol/L Chloride 106 (98-107) mmol/L Carbon Dioxide 24 (21-32) mmol/L Anion Gap 6.0 (3-11) BUN 21 H (7-18) mg/dl Creatinine 0.99 (0.6-1.4) mg/dl Est Cr Clr Drug Dosing 54.8 ml/min Est GFR ( Amer) 82.4 Est GFR (Non-Af Amer) 71.1 BUN/Creatinine Ratio 21.6 H (10-20) Glucose 95 (70-99) mg/dl POC Glucose 118 H (70-99) Calcium 8.3 L (8.5-10.1) mg/dl Phosphorus 2.0 L (2.5-4.9) mg/dl Magnesium 2.1 (1.8-2.4) mg/dl _ (1) BPH (benign prostatic hyperplasia) Lower urinary tract symptom detail: Lower urinary tract symptom presence: symptoms absent Qualified Code(s): N40.0 - Benign prostatic hyperplasia without lower urinary tract symptoms (2) Atrial fibrillation Atrial fibrillation type: chronic Qualified Code(s): I48.2 - Chronic atrial fibrillation (3) Neutropenia Neutropenia type: unspecified Qualified Code(s): D70.9 - Neutropenia, unspecified (4) PNA (pneumonia) Aspiration pneumonia type: Laterality: right Lung location: middle lobe of lung Pneumonia type: due to unspecified organism Qualified Code(s): J18.1 - Lobar pneumonia, unspecified organism
[2018-11-04] MEDS: levoFLOXacin 750 MG TAB PO SCH (12:45)
[2018-11-04] MEDS: FILGRASTIM 300 MCG/ML VIAL SQ SCH (12:45)
[2018-11-04] MEDS ORDERED: ALUMINUM/MAGNESIUM SUSP 30 ML UDC PO PRN (14:43)
[2018-11-04] MEDS: DIGOXIN 0.125 MG TAB PO SCH (16:07)
[2018-11-04] MEDS: PROCHLORPERAZINE 10 MG in SYRINGE 8 ML IV PRN (18:29)
[2018-11-04 19:32] LABS: Base Excess VBG 0.9 mEq/L; Oxygen Saturation VBG 64.1 %; pH VBG 7.47 (7.36-7.41)
[2018-11-04 19:52] LABS: Albumin Level 2.5 gm/dl (3.4-5.0); Bilirubin Direct 0.1 mg/dl (0-0.2); Bilirubin,Total 0.5 mg/dl (0.2-1); Total Protein 6.1 gm/dl (6.4-8.2); Troponin I 0.167 ng/ml (0-0.045)
--- NOTE | 2018-11-04 20:02 | XRay Report ---
XR abdomen 2V w PA chest CLINICAL HISTORY: nausea, resp failure, recent ileus pain COMPARISON STUDY: 11/02/2017 FINDINGS: Mild stable cardiomegaly. Improving atelectasis left base. Moderate emphysematous change. Nonobstructive mild ileus. Postoperative changes to the thoracolumbar spine. IMPRESSION: Chronic change abdomen and chest. No acute process. Improved aeration left lung base. The above report was generated using voice recognition software. It may contain grammatical, syntax or spelling errors. Electronically signed by: Cali Cary M.D. 11/04/2018 8:00 PM
[2018-11-04] MEDS: ALFUZOSIN HCL 10 MG TAB PO SCH (21:45)
[2018-11-05] MEDS: LEVALBUTEROL 1.25MG/0.5ML NEB INH SCH ×4 (01:58→19:23)
[2018-11-05] MEDS: IPRATROPIUM BROMIDE NEB SOLN 0.02% 2.5 ML VIAL INH SCH ×4 (01:58→19:23)
[2018-11-05] MEDS: HEPARIN 100 UNIT/ML 5ML FLUSH FLUSH PRN (03:52)
[2018-11-05 04:16] LABS: Mean Corpuscular Hgb Conc 32.9 g/dL (32-36)
[2018-11-05 04:30] LABS: Hematocrit (blood only) 30.1 % (42-52); Hemoglobin 9.9 g/dL (14.0-18.0); Mean Corpuscular Volume 94.1 fL (80-100); RDW Coefficient of Variation 18.9 % (11.5-14.5); RDW Standard Deviation 65.5 fL (36.4-46.3); White Blood Count 3.74 K/uL (4.8-10.8)
[2018-11-05 04:33] LABS: BUN Creatinine Ratio 22.9 (10-20); Calcium 8.8 mg/dl (8.5-10.1); Creatinine Clr Calc Pharmacy 51.7 ml/min; Est GFR (African American) 76.8; Est GFR (Non-African American) 66.3; Magnesium 2.1 mg/dl (1.8-2.4); Potassium 3.4 mmol/L (3.5-5.1)
[2018-11-05 04:42] LABS: Platelet Count 32 K/uL (130-400)
[2018-11-05 04:44] LABS: Phosphorus 2.2 mg/dl (2.5-4.9); Troponin I 0.139 ng/ml (0-0.045)
[2018-11-05 04:48] LABS: ALC (manual) 0.43 K/uL (1.2-3.4); Dohle Bodies Occasional; Giant Platelets 2+; Lymphocytes # (manual) 0.43 K/uL (1.2-3.4); Lymphocytes % (manual) 11.4 %; Monocytes % (manual) 2.6 %; Ovalocytes 2+; Platelet Estimate SIGNIFIC DECREASED (Normal); Schistocytes Occasional; Tear Drop Cells Occasional; Toxic Granulation 2+
[2018-11-05] MEDS: CEFEPIME 2,000 MG in SYRINGE 7.5 ML IV SCH ×3 (06:29→21:06)
[2018-11-05] MEDS ORDERED: POTASSIUM PHOS 3 MMOL/1 ML INFUSION IV STA (07:50)
[2018-11-05] MEDS ORDERED: POTASSIUM CHLORIDE 20 MEQ TABCR PO STA (07:59)
[2018-11-05] MEDS ORDERED: POTASSIUM PHOSPHATE 15 MMOL in SODIUM CHLORIDE 0.9% 250 ML IV ONE (08:15)
[2018-11-05] MEDS: ISOSORBIDE MONO EXTENDED REL 60 MG TABCR PO SCH (08:28)
[2018-11-05] MEDS: METOPROLOL SUCC 50MG EXT REL TAB PO SCH (08:28)
[2018-11-05] MEDS: PANTOprazole 40 MG TAB PO SCH ×2 (08:28→21:05)
[2018-11-05] MEDS: CHOLECALCIFEROL 1,000 UNITS TAB PO SCH (08:28)
[2018-11-05] MEDS: FINASTERIDE 5 MG TAB PO SCH (08:29)
[2018-11-05] MEDS: ACYCLOVIR 400 MG TAB PO SCH ×2 (08:29→21:05)
[2018-11-05] MEDS: CYANOCOBALAMIN (VITAMIN B-12) 2,500 MCG TAB.SUBL SL SCH (08:30)
[2018-11-05] MEDS: FILGRASTIM 300 MCG/ML VIAL SQ SCH (08:51)
[2018-11-05] MEDS: ONDANSETRON INJ 2 MG/ML 2 ML VIAL IV PRN (09:00)
[2018-11-05] MEDS: levoFLOXacin 750 MG TAB PO SCH (11:07)
[2018-11-05] MEDS: ACETAMINOPHEN 325 MG TAB PO PRN ×2 (11:50→23:38)
[2018-11-05] MEDS: ONDANSETRON INJ 2 MG/ML 2 ML VIAL IV SCH ×3 (11:59→23:38)
[2018-11-05] MEDS ORDERED: OPTIRAY 320 125ml IV PRN (12:54)
--- NOTE | 2018-11-05 13:16 | CT Scan Report ---
CT ANGIOGRAM OF THE CHEST CLINICAL HISTORY: Atypical chest pain. COMPARISON STUDY: Chest x-ray dated 11/04/2018. Chest CT scans dated 10/13/2017 and 08/13/2013. TECHNIQUE: Following the IV administration of 120 cc of Optiray 320, CT angiogram of the chest was pe rformed from the upper abdomen to the thoracic inlet utilizing the pulmonary embolus protocol. Images are reviewed in the axial, sagittal, and coronal planes. 3-D MIPS images are created and assessed. I V contrast was administered without complication. A dose lowering technique was utilized adhering to the principles of ALARA. The examination is significantly compromised by motion artifact. FINDINGS: Thyroid: Imaged portions of the thyroid gland are normal in size and attenuation. Thoracic aorta: There is atherosclerotic calcification of the thoracic aorta, which is normal in farnaz danny and demonstrates standard 3-vessel arch anatomy. No dissection is seen, noting suboptimal opacifi cation of the thoracic aorta. Pulmonary vasculature: The pulmonary trunk is normal in caliber. There are no filling defects identif ied in main, lobar, or proximal segmental pulmonary branches to suggest pulmonary embolus. Evaluation of the peripheral branches is degraded by motion artifact. Heart: A 2-lead cardiac pacemaker is present in the left chest wall. The heart is enlarged and withou t pericardial effusion. The coronary arteries are densely calcified. A right internal jugular central venous infusion port is in place. Lungs and pleural spaces: Evaluation of the lung parenchyma is degraded by motion artifact. There is nodular consolidative change identified in the right lower lobe. Patchy groundglass consolidation is seen throughout both lungs, most confluence in the upper lobes and at the left lung base. A calcified granuloma is seen at the right lung base. Small pleural effusions are identified with associated ate lectasis. The trachea and central airways are clear. Mediastinum: There is no mediastinal lymphadenopathy. There is a calcified subcarinal node. Li: Clear. Axillae: There is no axillary lymphadenopathy. Upper abdomen: An 11 mm cyst is again seen in the left hepatic lobe. Partially visualized upper abdom inal viscera is otherwise grossly unremarkable. Skeletal structures: The skeletal structures are osteopenic. No lytic or blastic bony lesions are see n. The skeletal structures are osteopenic. Degenerative change and hyperkyphosis are noted throughout the thoracic spine. A compression deformity with evidence of previous vertebroplasty is partially vi sualized involving L1. Mild compression deformities are noted in the upper to midthoracic region. Adv anced arthritic change is present in both shoulders, with numerous joint bodies identified bilaterall y. IMPRESSION: 1. Motion compromised examination. 2. There is no evidence of central pulmonary embolus in the main, lobar, or proximal segmental pulmon perez arteries. 3. Cardiomegaly and small pleural effusions. 4. There is multifocal consolidative change seen throughout both lungs. This likely represents multif ocal pneumonia. Pulmonary edema could have a similar appearance and clinical correlation will be requ ired. Follow-up chest CT in 3-4 months time is recommended to document complete resolution. 5. Additional findings as above. Electronically signed by: Don Quiroga M.D. 11/05/2018 1:14 PM
--- NOTE | 2018-11-05 13:19 | CT Scan Report ---
CT abd pelvis oral and IV con CT DOSE: 492.16 mGy.cm HISTORY: Pain. Nausea. Nausea, epigastric abd pain IV AND ORAL PER ORDERING MD TECHNIQUE: Multiaxial CT images of the abdomen and pelvis were performed following the use of intrave nous and oral contrast. A dose lowering technique was utilized adhering to the principles of ALARA. COMPARISON STUDY: 03/14/2018 FINDINGS: Interval development of bibasilar parenchymal infiltrates. Trace basilar pleural effusions. Configuration of liver pancreas and spleen are unremarkable. The kidneys are considered negative for hydronephrosis. There are mild extrarenal pelves bilaterally. No significant gallbladder distention. Abdominal bowel pattern is nonobstructive. Evaluation of pelvis history of free fluid within the pelvic cul-de-sac. Bladder is midline. Stable postoperative changes involving the lumbar spine. This is superimposed upon considerable stabl e degenerative changes throughout. IMPRESSION: 1. No acute process in the abdomen or pelvis. 2. Bibasilar parenchymal infiltrates with small bilateral pleural effusions. 3. Trace free fluid within the pelvic cul-de-sac possibly reactive. The above report was generated using voice recognition software. It may contain grammatical, syntax or spelling errors. Electronically signed by: Cali Cary M.D. 11/05/2018 1:18 PM
--- NOTE | 2018-11-05 14:32 | Hospitalist Progress Note ---
Date of Service November 05, 2018 Assessment & Plan (1) Influenza: - Positive for Influenza A at admission. - Completed 5 day course of Tamiflu. - Has ongoing fatigue, poor appetite and malaise - very minimal improvement. - Supportive care with Xopenex q6hr and Atrovent q6hr scheduled. - Droplet precautions ordered. (2) PNA (pneumonia): - Probable on right side hilar region. - Continue Cefepime (Day 6 of 7); will d/c Levaquin due to nausea. - MRSA swab negative; no Vanco indicated. - Incentive spirometry q1hr [place]. - CXR 11/02 showed improvement in PNA and pulmonary vascular congestion. - Chest CT today was negative for PE, showed multifocal consolidative changes in both lungs c/w multifocal PNA, will need f/u imaging in 3-4 months. (3) Acute on chronic systolic heart failure: - Echo showed EF 35-40%; previous TTE in December 2017 showed EF 40-45%. - CHF likely ischemic in nature; pt. has refused cardiac cath in past. - Monitor strict I/O's, low sodium diet and daily weights; weight trending down. - Lasix IV prn -- last dose on 11/04/18, did not give further diuresis today. - Continue Toprol XL 100 mg daily; has not tolerated YENNI/ARB in past. - Was provided script by cardiology for Lasix prn weight gain at home; pt. has not taken medication. (4) Acute respiratory failure with hypoxia: - Secondary to flu A, multifocal pneumonia, and acute on chronic systolic CHF. - Continues to require 2L via NC. - CT PE was negative, showed known multifocal PNA. - Will need walking 2 step test with RT prior to discharge to determine O2 requirements. (5) Nausea: - Developed recurrent nausea over last 24-48 hours; may be related to ileus vs. medication induced (Levaquin?) vs. GERD vs other. - Will d/c Levaquin as pt. has completed 5 day course, may be contributing to nausea. - Continue PPI BID; Maalox q6hr prn. - Zofran 4 mg q6hr scheduled with Compazine prn nausea. - Abd XR showed mild ileus, was otherwise negative. - CT A/P negative for acute abnormalities. - Cardiac work up, including repeat EKG and Trop x 3, all negative. (6) Ileus: - Mild ileus noted on repeat XR of abdomen. - Having nausea as noted above; multiple BMs on 11/04/18. (7) Pancytopenia: - Secondary to multiple myeloma with acute suppression of counts from viral illness. - Current chemotherapy does not impact blood counts significantly per Dr. Maura Conde. - Received 2 units on 11/01 for Hgb 7.0. - Transfuse for hgb <7 or plt <15K (or active bleeding) - Follow CBC daily. (8) Neutropenia: - ANC improved to 3.22 this morning following initiation of Neupogen. - Continue neutropenic precautions. - Monitor CBC daily; baseline WBC is ~3.0. - ID ppx: Acyclovir - Received Neupogen 300 mcg daily on 11/04 and 11/05; will discontinue injection as WBC trending up. (9) Elevated troponin: - Likely related to myocardial demand ischemia in setting of acute illness. - Trop peaked at 0.539 then trended down. Repeat troponin all trending down. - No significant changes on EKG compared to prior studies. - Echo with low EF and hypokinesis of apex and akinesis of distal anteroseptum. - Continue cardiac meds as prescribed. (10) Atrial fibrillation: - In A. fib, rate controlled. - Continue Toprol XL 100 mg daily. - Continue Digoxin as prescribed - level was 0.6. - On Pradaxa at home -- holding in setting of thrombocytopenia. (11) History of multiple myeloma: - Present x 7 years; follows with Dr. Branch. - On chemo agent outside of hospital. - Consider heme/onc consult. 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 (14) Electrolyte abnormality: - Phos level 2.2, K level 3.4 - ordered KPhos 15 mmol IV and K 20 mEq PO. - Monitor levels daily. (15) DVT prophylaxis: - Hold pharmacologic ppx due to thrombocytopenia; SCDs. Dispo: Discharge pending improvement in O2 requirements, neutropenia, and nausea /abdominal pain. -- Pt. needs barium swallow and video swallow study but will need to stand for 3 -5 minutes for procedure -- can be done as outpatient. -- PT/OT recommending home with 24 hour assistance. Can be provided by his . Supervising Physician Co-Signing Physician Notes PA Supervision Note: I did not personally see or examine the patient today, but I verified all horta points of SUMMER Grimaldo's assessment and plan with the following exceptions/ additions: None Subjective Pt. is stable overall. He remains on 2L via NC; has mild SOB at rest and with exertion. Feels "slow" this morning but is alert and oriented x 3. Has ongoing fatigue/malaise, very little improvement. Complains of nausea and epigastric pain. Abd XR last evening showed mild ileus, otherwise negative. Lab work was all WNL. Has had poor appetite in setting of nausea. CT of A/P today was negative for acute abnormality within the abdominal cavity. Nausea may be related to medications vs. ongoing effect from recent influenza in immunocompromised state. He worked with physical therapy today, did well with ambulation. Will likely be discharged to home with 24 hour support. His and son were contacted today and medical plan was discussed with them. Review of Systems All systems reviewed & are unremarkable except as noted in HPI & below Constitutional: + fatigue, + weakness and + anorexia; no fever and no chills Respiratory: + dyspnea and + dyspnea on exertion; no cough Cardiovascular: no chest pain, no palpitations, no syncope and no edema Gastrointestinal: + abdominal pain and + nausea; no vomiting and no constipation Genitourinary (Male): no difficulty urinating Musculoskeletal: no joint pain Allergy / Immunological: no rash Physical Exam 2 Vital Signs (Past 24 Hours): Last Vital Signs Temp 36.8 C 11/05/18 07:05 Pulse 89 11/05/18 07:26 Resp 22 11/05/18 07:26 BP 129/74 11/05/18 07:05 Pulse Ox 93 11/05/18 07:05 Physical Exam: General: Resting comfortably in no apparent distress HEENT: NC/AT; PERRLA with EOMI; [place] conjunctiva, MMM. Neck: Supple and nontender Cardiac: irregular Lungs: on 2L via NC; wheezing/rhonchi noted in bilat lower lung [place]. Abdomen: Bowel normoactive X 4; Tenderness to light palpation over epigastric region. Extremities: Warm. No edema present Neuro: No focal weakness Skin: No rash Results & Data Laboratory Results 11/05/18 11/05/1811/05/19 Range/Units 09:40 03:51 03:51 WBC 3.74 L (4.8-10.8) K/uL RBC 3.20 L (4.7-6.1) M/uL Hgb 9.9 L (14.0-18.0) g/dL Hct 30.1 L (42-52) % MCV 94.1 (80-100) fL MCH 30.9 (25-34) pg MCHC 32.9 (32-36) g/dL RDW Std Deviation 65.5 H (36.4-46.3) fL RDW Coeff of Rigo 18.9 H (11.5-14.5) % Plt Count 32 L (130-400) K/uL Neutrophils % (Manual) 86.0 % Lymphocytes % (Manual) 11.4 % Monocytes % (Manual) 2.6 % Neutrophils # (Manual) 3.22 (1.4-6.5) K/uL Total Absolute Neuts 3.22 (1.4-6.5) K/uL Lymphocytes # (Manual) 0.43 L (1.2-3.4) K/uL Total Abs Lymphocytes 0.43 L (1.2-3.4) K/uL Monocytes # (Manual) 0.10 L (0.11-0.59) K/uL Hyposegmented Neuts 1+ Toxic Granulation 2+ Dohle Bodies Occasional Platelet Estimate SIGNIFIC DECREASED (Normal) Giant Platelets 2+ Tear Drop Cells Occasional Ovalocytes 2+ Schistocytes Occasional VBG pH (7.36-7.41) VBG pCO2 (38-50) mmHg VBG pO2 mmHg VBG HCO3 mmol/L VBG O2 Saturation % VBG Base Excess mEq/L Barometric Pressure mm/Hg Sodium 136 (136-145) mmol/L Potassium 3.4 L (3.5-5.1) mmol/L Chloride 106 (98-107) mmol/L Carbon Dioxide 25 (21-32) mmol/L Anion Gap 5.0 (3-11) BUN 24 H (7-18) mg/dl Creatinine 1.05 (0.6-1.4) mg/dl Est Cr Clr Drug Dosing 51.7 ml/min Est GFR ( Amer) 76.8 Est GFR (Non-Af Amer) 66.3 BUN/Creatinine Ratio 22.9 H (10-20) Glucose 102 H (70-99) mg/dl Lactate (0.4-2.0) mmol/L Calcium 8.8 (8.5-10.1) mg/dl Phosphorus 2.2 L (2.5-4.9) mg/dl Magnesium 2.1 (1.8-2.4) mg/dl Total Bilirubin (0.2-1) mg/dl Direct Bilirubin (0-0.2) mg/dl AST (15-37) U/L ALT (12-78) U/L Alkaline Phosphatase (45-117) U/L Troponin I 0.106 H* 0.139 H* (0-0.045) ng/ml Total Protein (6.4-8.2) gm/dl Albumin (3.4-5.0) gm/dl Lipase (73-393) U/L 11/04/18 11/04/18 11/04/18 Range/Units 19:11 19:11 19:11 WBC (4.8-10.8) K/uL RBC (4.7-6.1) M/uL Hgb (14.0-18.0) g/dL Hct (42-52) % MCV (80-100) fL MCH (25-34) pg MCHC (32-36) g/dL RDW Std Deviation (36.4-46.3) fL RDW Coeff of Rigo (11.5-14.5) % Plt Count (130-400) K/uL Neutrophils % (Manual) % Lymphocytes % (Manual) % Monocytes % (Manual) % Neutrophils # (Manual) (1.4-6.5) K/uL Total Absolute Neuts (1.4-6.5) K/uL Lymphocytes # (Manual) (1.2-3.4) K/uL Total Abs Lymphocytes (1.2-3.4) K/uL Monocytes # (Manual) (0.11-0.59) K/uL Hyposegmented Neuts Toxic Granulation Dohle Bodies Platelet Estimate (Normal) Giant Platelets Tear Drop Cells Ovalocytes Schistocytes VBG pH 7.47 H (7.36-7.41) VBG pCO2 34 L (38-50) mmHg VBG pO2 32 mmHg VBG HCO3 24 mmol/L VBG O2 Saturation 64.1 % VBG Base Excess 0.9 mEq/L Barometric Pressure 724.6 mm/Hg Sodium (136-145) mmol/L Potassium (3.5-5.1) mmol/L Chloride (98-107) mmol/L Carbon Dioxide (21-32) mmol/L Anion Gap (3-11) BUN (7-18) mg/dl Creatinine (0.6-1.4) mg/dl Est Cr Clr Drug Dosing ml/min Est GFR ( Amer) Est GFR (Non-Af Amer) BUN/Creatinine Ratio (10-20) Glucose (70-99) mg/dl Lactate 1.3 (0.4-2.0) mmol/L Calcium (8.5-10.1) mg/dl Phosphorus (2.5-4.9) mg/dl Magnesium (1.8-2.4) mg/dl Total Bilirubin 0.5 (0.2-1) mg/dl Direct Bilirubin 0.1 (0-0.2) mg/dl AST 25 (15-37) U/L ALT 38 (12-78) U/L Alkaline Phosphatase 65 (45-117) U/L Troponin I 0.167 H* (0-0.045) ng/ml Total Protein 6.1 L (6.4-8.2) gm/dl Albumin 2.5 L (3.4-5.0) gm/dl Lipase 120 (73-393) U/L _ (1) BPH (benign prostatic hyperplasia) Lower urinary tract symptom detail: Lower urinary tract symptom presence: symptoms absent Qualified Code(s): N40.0 - Benign prostatic hyperplasia without lower urinary tract symptoms (2) Atrial fibrillation Atrial fibrillation type: chronic Qualified Code(s): I48.2 - Chronic atrial fibrillation (3) Neutropenia Neutropenia type: unspecified Qualified Code(s): D70.9 - Neutropenia, unspecified (4) PNA (pneumonia) Aspiration pneumonia type: Laterality: right Lung location: middle lobe of lung Pneumonia type: due to unspecified organism Qualified Code(s): J18.1 - Lobar pneumonia, unspecified organism
[2018-11-05] MEDS: DIGOXIN 0.125 MG TAB PO SCH (16:38)
[2018-11-05] MEDS: ALFUZOSIN HCL 10 MG TAB PO SCH (21:05)
[2018-11-06] MEDS: LEVALBUTEROL 1.25MG/0.5ML NEB INH SCH ×4 (01:54→19:00)
[2018-11-06] MEDS: IPRATROPIUM BROMIDE NEB SOLN 0.02% 2.5 ML VIAL INH SCH ×4 (01:54→19:00)
[2018-11-06 06:10] LABS: Hematocrit (blood only) 29.8 % (42-52); Hemoglobin 9.9 g/dL (14.0-18.0); Mean Corpuscular Hgb Conc 33.2 g/dL (32-36); Mean Corpuscular Volume 93.7 fL (80-100); RDW Coefficient of Variation 18.9 % (11.5-14.5); RDW Standard Deviation 64.7 fL (36.4-46.3); Red Blood Count 3.18 M/uL (4.7-6.1); White Blood Count 5.51 K/uL (4.8-10.8)
[2018-11-06] MEDS: ONDANSETRON INJ 2 MG/ML 2 ML VIAL IV SCH (06:10)
[2018-11-06] MEDS: CEFEPIME 2,000 MG in SYRINGE 7.5 ML IV SCH ×3 (06:13→21:04)
[2018-11-06 06:29] LABS: BUN Creatinine Ratio 24.6 (10-20); Calcium 9.7 mg/dl (8.5-10.1); Creatinine Clr Calc Pharmacy 55.3 ml/min; Est GFR (African American) 82.4; Est GFR (Non-African American) 71.1; Magnesium 2.1 mg/dl (1.8-2.4); Phosphorus 2.2 mg/dl (2.5-4.9); Potassium 3.8 mmol/L (3.5-5.1)
[2018-11-06 06:30] LABS: Dohle Bodies 1+; Eosinophils # (auto) 0.01 K/uL (0-0.5); Eosinophils % (auto) 0.2 %; Giant Platelets 2+; Immature Granulocytes # (auto) 0.07 K/uL (0.00-0.02); Immature Granulocytes % (auto) 1.3 %; Lymphocytes # (auto) 0.66 K/uL (1.2-3.4); Monocytes # (auto) 0.11 K/uL (0.11-0.59); Neutrophils # (auto) 4.66 K/uL (1.4-6.5); Neutrophils % (auto) 84.5 %; Ovalocytes 2+; Platelet Count 31 K/uL (130-400); Platelet Estimate SIGNIFIC DECREASED (Normal); Schistocytes Occasional; Tear Drop Cells 1+; Toxic Granulation 2+
[2018-11-06] MEDS ORDERED: SODIUM PHOSPHATE 3 MMOL/1 ML INFUSION IV STA (08:40)
[2018-11-06] MEDS: PROCHLORPERAZINE 10 MG in SYRINGE 8 ML IV PRN (09:00)
[2018-11-06] MEDS ORDERED: SODIUM PHOSPHATE 21 MMOL in SODIUM CHLORIDE 0.9% 500 ML IV ONE (09:00)
[2018-11-06] MEDS: THERATEARS OP SCH ×2 (09:00→21:01)
[2018-11-06] MEDS: FINASTERIDE 5 MG TAB PO SCH (09:04)
[2018-11-06] MEDS: PANTOprazole 40 MG TAB PO SCH ×2 (09:05→21:01)
[2018-11-06] MEDS: ACYCLOVIR 400 MG TAB PO SCH ×2 (09:05→21:00)
[2018-11-06] MEDS: METOPROLOL SUCC 50MG EXT REL TAB PO SCH (09:05)
[2018-11-06] MEDS: CHOLECALCIFEROL 1,000 UNITS TAB PO SCH (09:05)
[2018-11-06] MEDS: ISOSORBIDE MONO EXTENDED REL 60 MG TABCR PO SCH (09:06)
[2018-11-06] MEDS: CYANOCOBALAMIN (VITAMIN B-12) 2,500 MCG TAB.SUBL SL SCH (09:12)
[2018-11-06] MEDS ORDERED: ONDANSETRON INJ 2 MG/ML 2 ML VIAL IV PRN (09:20)
[2018-11-06] MEDS: METOCLOPRAMIDE HCL INJ 5 MG/ML 2 ML VIAL IV SCH ×3 (10:17→21:05)
[2018-11-06] MEDS: DIGOXIN 0.125 MG TAB PO SCH (15:51)
--- NOTE | 2018-11-06 18:34 | Hospitalist Progress Note ---
Date of Service November 06, 2018 Assessment & Plan (1) Influenza: - Positive for Influenza A at admission. - Completed 5 day course of Tamiflu. - Has ongoing fatigue, poor appetite and malaise - very minimal improvement. - Supportive care with Xopenex q6hr and Atrovent q6hr scheduled. - Droplet precautions ordered. (2) PNA (pneumonia): - Probable on right side hilar region. - Continue Cefepime (Day 7 of 7); d/c'ed Levaquin on 11/05 due to nausea. - MRSA swab negative; no Vanco indicated. - Incentive spirometry q1hr [place]. - CXR 11/02 showed improvement in PNA and pulmonary vascular congestion. - Chest CT 11/05 negative for PE, showed multifocal consolidative changes in both lungs c/w multifocal PNA, will need f/u imaging in 3-4 months. (3) Acute on chronic systolic heart failure: - Echo showed EF 35-40%; previous TTE in December 2017 showed EF 40-45%. - CHF likely ischemic in nature; pt. has refused cardiac cath in past. - Monitor strict I/O's, low sodium diet and daily weights; weight stable. - Lasix IV prn -- last dose on 11/04/18. - Continue Toprol XL 100 mg daily; has not tolerated YENNI/ARB in past. - Was provided script by cardiology for Lasix prn weight gain at home; pt. has not taken medication. (4) Acute respiratory failure with hypoxia: - Secondary to flu A, multifocal pneumonia, and acute on chronic systolic CHF. - Continues to require 2L via NC. - CT PE was negative, showed known multifocal PNA. - Will need walking 2 step test with RT prior to discharge to determine O2 requirements. (5) Nausea: - Developed recurrent nausea over last 48 hours; may be related to ileus vs. medication induced (Levaquin?) vs. GERD vs other. - D/c'ed Levaquin as pt. has completed 5 day course, may be contributing to nausea. - Continue PPI BID; Maalox q6hr prn. - Reglan 10 mg IV q6hr scheduled with Zofran prn; monitor EKG daily for QTc prolongation. - Abd XR showed mild ileus, was otherwise negative. - CT A/P negative for acute abnormalities. - Cardiac work up, including repeat EKG and Trop x 3, all negative. (6) Ileus: - Mild ileus noted on repeat XR of abdomen. - Having nausea as noted above. (7) Pancytopenia: - Secondary to multiple myeloma with acute suppression of counts from viral illness. - Current chemotherapy does not impact blood counts significantly per Dr. Maura Conde. - Received 2 units on 11/01 for Hgb 7.0. - Transfuse for hgb <7 or plt <15K (or active bleeding) - Follow CBC daily. (8) Neutropenia: - ANC now stable after Neupogen x 2 doses. - Continue neutropenic precautions. - Monitor CBC daily; baseline WBC is ~3.0. - ID ppx: Acyclovir - Received Neupogen 300 mcg daily on 11/04 and 11/05. (9) Elevated troponin: - Likely related to myocardial demand ischemia in setting of acute illness. - Trop peaked at 0.539 then trended down. Repeat troponins all trending down. - No significant changes on EKG compared to prior studies. - Echo with low EF and hypokinesis of apex and akinesis of distal anteroseptum. - Continue cardiac meds as prescribed. (10) Atrial fibrillation: - In A. fib, rate controlled. - Continue Toprol XL 100 mg daily. - Continue Digoxin as prescribed - level was 0.6. - On Pradaxa at home -- holding in setting of thrombocytopenia. (11) History of multiple myeloma: - Present x 7 years; follows with Dr. Branch. - On chemo agent outside of hospital. - Consider heme/onc consult. 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 (14) Electrolyte abnormality: - Phos level 2.2 - ordered NaPhos 21 mmol IV. - Monitor levels daily. (15) DVT prophylaxis: - Hold pharmacologic ppx due to thrombocytopenia; SCDs. Dispo: Discharge pending improvement in O2 requirements and nausea/abdominal pain. His son Mo has been updated frequently (Cell#: [phone], Home #: [phone]) -- Pt. needs barium swallow and video swallow study but will need to stand for 3 -5 minutes for procedure -- can be done as outpatient. -- PT/OT recommending home with 24 hour assistance. Can be provided by his . Supervising Physician Co-Signing Physician Notes PA Supervision Note: I did not personally see or examine the patient today, but I verified all horta points of SUMMER Grimaldo's assessment and plan with the following exceptions/ additions: None Subjective Pt. remains very fatigued with generalized malaise and loss of appetite. He has ongoing nausea, denies vomiting. A lengthy discussion was held with both the and his son Mo regarding recovery followoing Influenza A/PNA/CHF exacerbation. They expressed their concern regarding his poor appetite and have been pressuring patient to increase oral intake. Explained that in the setting of multiple acute illnesses and an immunocompromised state, he will have a longer recovery process. Review of Systems All systems reviewed & are unremarkable except as noted in HPI & below Constitutional: + fatigue, + malaise, + weakness and + anorexia; no fever and no chills Respiratory: no cough and no dyspnea Cardiovascular: no chest pain, no palpitations and no edema Gastrointestinal: no abdominal pain, no nausea and no constipation Genitourinary (Male): no difficulty urinating Musculoskeletal: no myalgia Allergy / Immunological: no rash Physical Exam 2 Vital Signs (Past 24 Hours): Last Vital Signs Temp 37.1 C 11/06/18 15:24 Pulse 78 11/06/18 15:51 Resp 22 11/06/18 15:24 BP 148/73 H 11/06/18 15:24 Pulse Ox 91 11/06/18 15:24 Physical Exam: General: Resting comfortably in no apparent distress HEENT: NC/AT; PERRLA with EOMI; [place] conjunctiva, MMM. Neck: Supple and nontender Cardiac: irregular Lungs: on 2L via NC; clear to auscultation throughout Abdomen: Bowel normoactive X 4; nontender to light palpation. Extremities: Warm. No edema present Neuro: No focal weakness Skin: No rash Results & Data Laboratory Results 11/06/18 11/06/18 Range/Units 05:25 05:25 WBC 5.51 (4.8-10.8) K/uL RBC 3.18 L (4.7-6.1) M/uL Hgb 9.9 L (14.0-18.0) g/dL Hct 29.8 L (42-52) % MCV 93.7 (80-100) fL MCH 31.1 (25-34) pg MCHC 33.2 (32-36) g/dL RDW Std Deviation 64.7 H (36.4-46.3) fL RDW Coeff of Rigo 18.9 H (11.5-14.5) % Plt Count 31 L (130-400) K/uL Immature Gran % (Auto) 1.3 % Neut % (Auto) 84.5 % Lymph % (Auto) 12.0 % [place] % (Auto) 2.0 % Eos % (Auto) 0.2 % Baso % (Auto) 0.0 % Immature Gran # (Auto) 0.07 H (0.00-0.02) K/uL Neut # (Auto) 4.66 (1.4-6.5) K/uL Lymph # (Auto) 0.66 L (1.2-3.4) K/uL [place] # (Auto) 0.11 (0.11-0.59) K/uL Eos # (Auto) 0.01 (0-0.5) K/uL Baso # (Auto) 0.00 (0-0.2) K/uL Toxic Granulation 2+ Dohle Bodies 1+ Platelet Estimate SIGNIFIC DECREASED (Normal) Giant Platelets 2+ Tear Drop Cells 1+ Ovalocytes 2+ Schistocytes Occasional Sodium 138 (136-145) mmol/L Potassium 3.8 (3.5-5.1) mmol/L Chloride 108 H (98-107) mmol/L Carbon Dioxide 24 (21-32) mmol/L Anion Gap 6.0 (3-11) BUN 24 H (7-18) mg/dl Creatinine 0.99 (0.6-1.4) mg/dl Est Cr Clr Drug Dosing 55.3 ml/min Est GFR ( Amer) 82.4 Est GFR (Non-Af Amer) 71.1 BUN/Creatinine Ratio 24.6 H (10-20) Glucose 96 (70-99) mg/dl Calcium 9.7 (8.5-10.1) mg/dl Phosphorus 2.2 L (2.5-4.9) mg/dl Magnesium 2.1 (1.8-2.4) mg/dl _ (1) BPH (benign prostatic hyperplasia) Lower urinary tract symptom detail: Lower urinary tract symptom presence: symptoms absent Qualified Code(s): N40.0 - Benign prostatic hyperplasia without lower urinary tract symptoms (2) Atrial fibrillation Atrial fibrillation type: chronic Qualified Code(s): I48.2 - Chronic atrial fibrillation (3) Neutropenia Neutropenia type: unspecified Qualified Code(s): D70.9 - Neutropenia, unspecified (4) PNA (pneumonia) Aspiration pneumonia type: Laterality: right Lung location: middle lobe of lung Pneumonia type: due to unspecified organism Qualified Code(s): J18.1 - Lobar pneumonia, unspecified organism
[2018-11-06] MEDS: ALFUZOSIN HCL 10 MG TAB PO SCH (21:02)
[2018-11-07] MEDS: IPRATROPIUM BROMIDE NEB SOLN 0.02% 2.5 ML VIAL INH SCH ×4 (00:57→20:34)
[2018-11-07] MEDS: LEVALBUTEROL 1.25MG/0.5ML NEB INH SCH ×4 (00:57→20:34)
[2018-11-07] MEDS: CEFEPIME 2,000 MG in SYRINGE 7.5 ML IV SCH (05:06)
[2018-11-07] MEDS: METOCLOPRAMIDE HCL INJ 5 MG/ML 2 ML VIAL IV SCH ×4 (05:06→22:09)
[2018-11-07 05:51] LABS: Mean Corpuscular Hgb Conc 33.2 g/dL (32-36)
[2018-11-07 06:04] LABS: Hematocrit (blood only) 26.9 % (42-52); Mean Corpuscular Volume 94.1 fL (80-100); RDW Coefficient of Variation 18.5 % (11.5-14.5); RDW Standard Deviation 63.9 fL (36.4-46.3); Red Blood Count 2.86 M/uL (4.7-6.1); White Blood Count 4.12 K/uL (4.8-10.8)
[2018-11-07 06:20] LABS: Platelet Count 32 K/uL (130-400)
[2018-11-07 06:21] LABS: Giant Platelets 1+; Immature Granulocytes # (auto) 0.01 K/uL (0.00-0.02); Immature Granulocytes % (auto) 0.2 %; Lymphocytes # (auto) 0.59 K/uL (1.2-3.4); Lymphocytes % (auto) 14.3 %; Monocytes # (auto) 0.14 K/uL (0.11-0.59); Monocytes % (auto) 3.4 %; Neutrophils # (auto) 3.38 K/uL (1.4-6.5); Neutrophils % (auto) 82.1 %; Platelet Estimate SIGNIFIC DECREASED (Normal); Tear Drop Cells 1+; Toxic Granulation 2+
[2018-11-07 06:27] LABS: BUN Creatinine Ratio 21.8 (10-20); Calcium 9.6 mg/dl (8.5-10.1); Creatinine Clr Calc Pharmacy 57.5 ml/min; Est GFR (African American) 90.1; Est GFR (Non-African American) 77.7; Phosphorus 1.8 mg/dl (2.5-4.9); Potassium 3.5 mmol/L (3.5-5.1)
[2018-11-07] MEDS: HEPARIN 100 UNIT/ML 5ML FLUSH FLUSH PRN ×3 (08:04→22:09)
[2018-11-07] MEDS: METOPROLOL SUCC 50MG EXT REL TAB PO SCH (08:07)
[2018-11-07] MEDS: PANTOprazole 40 MG TAB PO SCH ×2 (08:07→20:28)
[2018-11-07] MEDS: ISOSORBIDE MONO EXTENDED REL 60 MG TABCR PO SCH (08:07)
[2018-11-07] MEDS: CHOLECALCIFEROL 1,000 UNITS TAB PO SCH (08:07)
[2018-11-07] MEDS: CYANOCOBALAMIN (VITAMIN B-12) 2,500 MCG TAB.SUBL SL SCH (08:08)
[2018-11-07] MEDS: FINASTERIDE 5 MG TAB PO SCH (08:08)
[2018-11-07] MEDS: THERATEARS OP SCH ×2 (08:08→20:30)
[2018-11-07] MEDS: ACYCLOVIR 400 MG TAB PO SCH ×2 (08:09→20:28)
[2018-11-07] MEDS ORDERED: POTASSIUM PHOS 3 MMOL/1 ML INFUSION IV STA (08:23)
[2018-11-07] MEDS ORDERED: POTASSIUM PHOSPHATE 21 MMOL in SODIUM CHLORIDE 0.9% 500 ML IV ONE (08:30)
[2018-11-07] MEDS: DIGOXIN 0.125 MG TAB PO SCH (16:15)
--- NOTE | 2018-11-07 17:49 | Hospitalist Progress Note ---
Date of Service November 07, 2018 Assessment & Plan (1) Generalized weakness: - Has developed weakness/deconditioning related to prolonged hospital stay for influenza A/PNA/CHF. - May require inpt rehab -- pt. refused OT today, PT did not evaluate. - Discussed discharge planning with -- would like pt. to be discharged to home with 24 hour assistance. - Encouraged ambulation at least 3x/day. (2) Influenza: - Positive for Influenza A at admission. - Completed 5 day course of Tamiflu. - Has ongoing fatigue, poor appetite and malaise - likely related to generalized deconditioning. - Supportive care with Xopenex q6hr and Atrovent q6hr scheduled. - Droplet precautions ordered. (3) PNA (pneumonia): - Probable on right side hilar region. - Completed Levaquin x 5 days and Cefepime x 7 days. - Incentive spirometry q1hr WA. - CXR 11/02 showed improvement in PNA and pulmonary vascular congestion. - Chest CT 11/05 negative for PE, showed multifocal consolidative changes in both lungs c/w multifocal PNA, will need f/u imaging in 3-4 months. (4) Acute on chronic systolic heart failure: - Echo showed EF 35-40%; previous TTE in December 2017 showed EF 40-45%. - CHF likely ischemic in nature; pt. has refused cardiac cath in past. - Monitor strict I/O's, low sodium diet and daily weights; weight stable. - Lasix IV prn -- last dose on 11/04/18. - Continue Toprol XL 100 mg daily; has not tolerated YENNI/ARB in past. - Will likely need to take Lasix prn at home. (5) Acute respiratory failure with hypoxia: - Secondary to flu A, multifocal pneumonia, and acute on chronic systolic CHF. - Continues to require 2L via NC. - CT PE was negative, showed known multifocal PNA. - Will need walking 2 step test with RT prior to discharge to determine O2 requirements. (6) Nausea: - Developed recurrent nausea over last few days, now slightly improved. - May be related to ileus vs. medication induced (Levaquin?) vs. GERD vs other. - D/c'ed Levaquin as pt. has completed 5 day course. - Continue PPI BID for GERD. - Reglan 10 mg IV q6hr scheduled with Zofran prn; monitor EKG daily for QTc prolongation. - Abd XR showed mild ileus, was otherwise negative. - CT A/P negative for acute abnormalities. - Cardiac work up, including repeat EKG and Trop x 3, all negative. (7) Ileus: - Mild ileus noted on repeat XR of abdomen. - Having regular BMs, nausea now improved. (8) Pancytopenia: - Secondary to multiple myeloma with acute suppression of counts from viral illness. - Current chemotherapy does not impact blood counts significantly per Dr. Maura Conde. - Received 2 units on 11/01 for Hgb 7.0. - Transfuse for hgb <7 or plt <15K (or active bleeding) - Follow CBC daily. (9) Neutropenia: - ANC stable after Neupogen x 2 doses. - Continue neutropenic precautions. - Monitor CBC daily; baseline WBC is ~3.0. - ID ppx: Acyclovir - Received Neupogen 300 mcg daily on 11/04 and 11/05. (10) Elevated troponin: - Likely related to myocardial demand ischemia in setting of acute illness. - Trop peaked at 0.539 then trended down. Repeat troponins were also negative. - No significant changes on EKG compared to prior studies. - Echo with low EF and hypokinesis of apex and akinesis of distal anteroseptum. - Continue cardiac meds as prescribed. (11) Atrial fibrillation: - In A. fib, rate controlled. - Continue Toprol XL 100 mg daily. - Continue Digoxin as prescribed - level was 0.6. - On Pradaxa at home -- holding in setting of thrombocytopenia. (12) History of multiple myeloma: - Present x 7 years; follows with Dr. Branch. - On chemo agent outside of hospital. 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 (15) Electrolyte abnormality: - Phos low in setting of poor PO intake. - Phos level 1.8 - ordered KPhos 21 mmol IV. - Monitor levels daily. (16) DVT prophylaxis: - Hold pharmacologic ppx due to thrombocytopenia; SCDs. Dispo: Discharge pending PT/OT evaluation -- may require inpatient rehab. His son Mo has been updated frequently (Cell#: [phone], Home#: ) -- Pt. needs barium swallow and video swallow study but will need to stand for 3 -5 minutes for procedure -- can be done as outpatient. Supervising Physician Co-Signing Physician Notes PA Supervision Note: I did not personally see or examine the patient today, but I verified all horta points of SUMMER Grimaldo's assessment and plan with the following exceptions/ additions: None Subjective Pt is very weak during afternoon rounds. He was lying in bed, would not open his eyes to speak with me. He complains of worsening fatigue/malaise. His was at bedside and reports he was alert and awake this morning -- he sat in chair and ate both breakfast and lunch. Appetite is slightly increased overall. Nausea now improved. Pt. is very weak, unsteady on his feet per bedside nurse. He refused to work with OT today, PT did not evaluate. We discussed the importance of working with PT/OT to determine discharge planning. Review of Systems All systems reviewed & are unremarkable except as noted in HPI & below Constitutional: + fatigue, + malaise and + weakness; no fever and no chills Respiratory: no cough and no dyspnea Cardiovascular: no chest pain, no palpitations and no edema Gastrointestinal: no abdominal pain, no nausea and no constipation Genitourinary (Male): no difficulty urinating Musculoskeletal: no joint pain and no myalgia Allergy / Immunological: no rash Physical Exam 2 Vital Signs (Past 24 Hours): Last Vital Signs Temp 36.8 C 11/07/18 15:52 Pulse 91 H 11/07/18 15:52 Resp 20 11/07/18 15:52 BP 145/80 H 11/07/18 15:52 Pulse Ox 94 11/07/18 15:52 Physical Exam: General: Fatigued, appears lethargic. HEENT: NC/AT; PERRLA with EOMI; [place] conjunctiva, MMM. Neck: Supple and nontender Cardiac: irregular Lungs: on 2L via NC; clear to auscultation Abdomen: Bowel normoactive X 4; nontender to light palpation. Extremities: Warm. No edema present Neuro: No focal weakness; answers all questions appropriately. Skin: No rash Results & Data Laboratory Results 11/07/18 11/07/18 Range/Units 05:08 05:08 WBC 4.12 L (4.8-10.8) K/uL RBC 2.86 L (4.7-6.1) M/uL Hgb 9.0 L (14.0-18.0) g/dL Hct 26.9 L (42-52) % MCV 94.1 (80-100) fL MCH 31.5 (25-34) pg MCHC 33.2 (32-36) g/dL RDW Std Deviation 63.9 H (36.4-46.3) fL RDW Coeff of Rigo 18.5 H (11.5-14.5) % Plt Count 32 L (130-400) K/uL Immature Gran % (Auto) 0.2 % Neut % (Auto) 82.1 % Lymph % (Auto) 14.3 % [place] % (Auto) 3.4 % Eos % (Auto) 0.0 % Baso % (Auto) 0.0 % Immature Gran # (Auto) 0.01 (0.00-0.02) K/uL Neut # (Auto) 3.38 (1.4-6.5) K/uL Lymph # (Auto) 0.59 L (1.2-3.4) K/uL Vernon # (Auto) 0.14 (0.11-0.59) K/uL Eos # (Auto) 0.00 (0-0.5) K/uL Baso # (Auto) 0.00 (0-0.2) K/uL Toxic Granulation 2+ Platelet Estimate SIGNIFIC DECREASED (Normal) Giant Platelets 1+ Tear Drop Cells 1+ Sodium 137 (136-145) mmol/L Potassium 3.5 (3.5-5.1) mmol/L Chloride 109 H (98-107) mmol/L Carbon Dioxide 25 (21-32) mmol/L Anion Gap 3.0 (3-11) BUN 20 H (7-18) mg/dl Creatinine 0.92 (0.6-1.4) mg/dl Est Cr Clr Drug Dosing 57.5 ml/min Est GFR ( Amer) 90.1 Est GFR (Non-Af Amer) 77.7 BUN/Creatinine Ratio 21.8 H (10-20) Glucose 103 H (70-99) mg/dl Calcium 9.6 (8.5-10.1) mg/dl Phosphorus 1.8 L (2.5-4.9) mg/dl Magnesium 2.0 (1.8-2.4) mg/dl _ (1) BPH (benign prostatic hyperplasia) Lower urinary tract symptom detail: Lower urinary tract symptom presence: symptoms absent Qualified Code(s): N40.0 - Benign prostatic hyperplasia without lower urinary tract symptoms (2) Atrial fibrillation Atrial fibrillation type: chronic Qualified Code(s): I48.2 - Chronic atrial fibrillation (3) Neutropenia Neutropenia type: unspecified Qualified Code(s): D70.9 - Neutropenia, unspecified (4) PNA (pneumonia) Aspiration pneumonia type: Laterality: right Lung location: middle lobe of lung Pneumonia type: due to unspecified organism Qualified Code(s): J18.1 - Lobar pneumonia, unspecified organism
[2018-11-07] MEDS: ALFUZOSIN HCL 10 MG TAB PO SCH (20:29)
[2018-11-08] MEDS: IPRATROPIUM BROMIDE NEB SOLN 0.02% 2.5 ML VIAL INH SCH ×4 (02:11→18:56)
[2018-11-08] MEDS: LEVALBUTEROL 1.25MG/0.5ML NEB INH SCH ×4 (02:11→18:56)
[2018-11-08] MEDS: HEPARIN 100 UNIT/ML 5ML FLUSH FLUSH PRN ×2 (04:10→05:53)
[2018-11-08] MEDS: METOCLOPRAMIDE HCL INJ 5 MG/ML 2 ML VIAL IV SCH ×3 (04:10→15:53)
[2018-11-08 06:44] LABS: Mean Corpuscular Hgb Conc 32.6 g/dL (32-36)
[2018-11-08 07:21] LABS: Calcium 9.9 mg/dl (8.5-10.1); Creatinine Clr Calc Pharmacy 64.7 ml/min; Est GFR (African American) 96.6; Est GFR (Non-African American) 83.4; Magnesium 1.9 mg/dl (1.8-2.4); Potassium 3.6 mmol/L (3.5-5.1)
[2018-11-08 07:22] LABS: Phosphorus 2.1 mg/dl (2.5-4.9)
[2018-11-08 07:33] LABS: Hematocrit (blood only) 27.3 % (42-52); Hemoglobin 8.9 g/dL (14.0-18.0); Mean Corpuscular Volume 94.1 fL (80-100); RDW Coefficient of Variation 18.4 % (11.5-14.5); RDW Standard Deviation 63.4 fL (36.4-46.3); White Blood Count 2.11 K/uL (4.8-10.8)
[2018-11-08 07:36] LABS: Platelet Count 34 K/uL (130-400); Platelet Estimate SIGNIFIC DECREASED (Normal)
[2018-11-08] MEDS: THERATEARS OP SCH ×2 (07:51→21:33)
[2018-11-08] MEDS: ISOSORBIDE MONO EXTENDED REL 60 MG TABCR PO SCH (07:51)
[2018-11-08] MEDS: METOPROLOL SUCC 50MG EXT REL TAB PO SCH (07:51)
[2018-11-08] MEDS: CHOLECALCIFEROL 1,000 UNITS TAB PO SCH (07:51)
[2018-11-08] MEDS: ACYCLOVIR 400 MG TAB PO SCH ×2 (07:51→21:33)
[2018-11-08] MEDS: CYANOCOBALAMIN (VITAMIN B-12) 2,500 MCG TAB.SUBL SL SCH (07:52)
[2018-11-08] MEDS: PANTOprazole 40 MG TAB PO SCH ×2 (07:52→21:33)
[2018-11-08] MEDS: FINASTERIDE 5 MG TAB PO SCH (07:52)
[2018-11-08] MEDS ORDERED: POTASSIUM PHOS 3 MMOL/1 ML INFUSION IV STA (08:13)
[2018-11-08] MEDS ORDERED: POTASSIUM PHOSPHATE 21 MMOL in SODIUM CHLORIDE 0.9% 500 ML IV ONE (09:00)
[2018-11-08] MEDS: DIGOXIN 0.125 MG TAB PO SCH (15:53)
[2018-11-08] MEDS ORDERED: ONDANSETRON 4 MG TAB PO PRN (16:09)
--- NOTE | 2018-11-08 16:13 | Hospitalist Progress Note ---
Date of Service November 08, 2018 Assessment & Plan (1) Generalized weakness: - Has developed weakness/deconditioning related to prolonged hospital stay for influenza A/PNA/CHF. - PT/OT both recommending SNF at discharge. - Family will discuss discharge planning -- they may choose home with PT/OT and out of pocket 24 hour caregivers. - Discussed pros and cons of SNF vs. home discharge; will continue to re- address discharge planning. (2) Influenza: - Positive for Influenza A at admission. - Completed 5 day course of Tamiflu. - Has ongoing fatigue, poor appetite and malaise - likely related to generalized deconditioning. - Supportive care with Xopenex q6hr and Atrovent q6hr scheduled. - Droplet precautions ordered. (3) PNA (pneumonia): - Probable on right side hilar region. - Completed Levaquin x 5 days and Cefepime x 7 days. - Incentive spirometry q1hr WA. - CXR 11/02 showed improvement in PNA and pulmonary vascular congestion. - Chest CT 11/05 negative for PE, showed multifocal consolidative changes in both lungs c/w multifocal PNA, will need f/u imaging in 3-4 months. (4) Acute on chronic systolic heart failure: - Echo showed EF 35-40%; previous TTE in December 2017 showed EF 40-45%. - CHF likely ischemic in nature; pt. has refused cardiac cath in past. - Monitor strict I/O's, low sodium diet and daily weights; weight stable. - Lasix IV prn -- has not received further doses due to poor PO intake. - Continue Toprol XL 100 mg daily; has not tolerated YENNI/ARB in past. (5) Acute respiratory failure with hypoxia: - Secondary to flu A, multifocal pneumonia, and acute on chronic systolic CHF. - Continues to require 2L via NC. - CT PE was negative, showed known multifocal PNA. - Will need walking 2 step test with RT prior to discharge. (6) Nausea: - Developed recurrent nausea over last week, now improved. - Was likely related to ileus vs. medication induced (Levaquin?) vs. GERD. - D/c'ed Levaquin as pt. had completed a 5 day course. - Continue PPI BID for GERD. - Reglan 10 mg PO q6hr scheduled with Zofran PO prn; monitor EKG for QTc prolongation. - Abd XR showed mild ileus, was otherwise negative. - CT A/P negative for acute abnormalities. - Cardiac work up, including EKG and Trop x 3, all negative. (7) Ileus: - Mild ileus noted on repeat XR of abdomen. - Having regular BMs, nausea resolving. (8) Pancytopenia: - Secondary to multiple myeloma with acute suppression of counts from viral illness. - Current chemotherapy does not impact blood counts significantly per Dr. Maura Conde. - Follow CBC daily. (9) Neutropenia: - ANC improved after Neupogen x 2 doses (11/04 and 11/05) - WBC count now trending down again, will monitor CBC daily. Baseline WBC ~3.0. - Continue neutropenic precautions. - ID ppx: Acyclovir (10) Elevated troponin: - Likely related to myocardial demand ischemia in setting of acute illness. - Trop peaked at 0.539 then trended down. Repeat troponins were also negative. - No significant changes on EKG compared to prior studies. - Echo with low EF and hypokinesis of apex and akinesis of distal anteroseptum. - Continue cardiac meds as prescribed. (11) Atrial fibrillation: - In A. fib, rate controlled. - Continue Toprol XL 100 mg daily. - Continue Digoxin as prescribed - both levels during this admission were 0.6. - On Pradaxa at home -- holding in setting of thrombocytopenia. (12) History of multiple myeloma: - Present x 7 years; follows with Dr. Branch. - On chemo agent outside of hospital. 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 (15) Electrolyte abnormality: - Phos low in setting of poor PO intake. - Phos level 2.1 - ordered KPhos 21 mmol IV. - Monitor levels daily. (16) DVT prophylaxis: - Hold pharmacologic ppx due to thrombocytopenia; SCDs. Dispo: Discharge pending family discharge planning, SNF vs. home with 24 hour support. His son Mo has been updated (Cell#: [phone], Home#: ). His son Romeo has also been contacted, works with [employer] in [place] (Cell#: [phone]) -- Pt. needs barium swallow and video swallow study but will need to stand for 3 -5 minutes for procedure -- can be done as outpatient. Supervising Physician Co-Signing Physician Notes PA Supervision Note: I did not personally see or examine the patient today, but I verified all horta points of SUMMER Grimaldo's assessment and plan with the following exceptions/ additions: None Subjective Pt. remains very weak overall. He complains of being "cold" all night long; did not have any fevers. Has an ongoing cough. Described mind as being "foggy" today. He is very weak, deconditioned. Multiple family members have been updated throughout the week regarding his medical condition and plan of care; I have also addressed discharge planning with them on multiple occasions. The patient was agreeable to rehab if PT recommends SNF at discharge. His son Romeo was contacted today; he would like the patient to go home with 24 hour support from private caregivers (pay out of pocket). He feels that his father would have more motivation at home versus at SNF. His son also expressed concern as "40% of patients who go to nursing homes are never discharged from there". We discussed the pros and cons of SNF vs home discharge. Family will discuss their options, determine discharge plan over next 48 hours. Review of Systems All systems reviewed & are unremarkable except as noted in HPI & below Constitutional: + chills, + fatigue, + weakness and + anorexia; no fever Respiratory: + cough; no dyspnea and no dyspnea on exertion Cardiovascular: no chest pain, no palpitations and no edema Gastrointestinal: no abdominal pain, no nausea and no constipation Genitourinary (Male): no difficulty urinating Musculoskeletal: no joint pain Allergy / Immunological: no rash Physical Exam 2 Vital Signs (Past 24 Hours): Last Vital Signs Temp 36.7 C 11/08/18 15:29 Pulse 94 H 11/08/18 15:29 Resp 18 11/08/18 15:29 BP 153/90 H 11/08/18 15:29 Pulse Ox 95 11/08/18 15:34 Physical Exam: General: Fatigued, more alert today overall, sitting up in chair. HEENT: NC/AT; PERRLA with EOMI; [place] conjunctiva, MMM. Neck: Supple and nontender Cardiac: irregular Lungs: on 2L via NC; clear to auscultation Abdomen: Bowel normoactive X 4; nontender to light palpation. Extremities: Warm. No edema present Neuro: No focal weakness; answers all questions appropriately. Skin: No rash Results & Data Laboratory Results 11/08/18 11/08/18 11/08/18 Range/Units 09:55 05:53 05:53 WBC 2.11 L (4.8-10.8) K/uL RBC 2.90 L (4.7-6.1) M/uL Hgb 8.9 L (14.0-18.0) g/dL Hct 27.3 L (42-52) % MCV 94.1 (80-100) fL MCH 30.7 (25-34) pg MCHC 32.6 (32-36) g/dL RDW Std Deviation 63.4 H (36.4-46.3) fL RDW Coeff of Rigo 18.4 H (11.5-14.5) % Plt Count 34 L (130-400) K/uL Platelet Estimate SIGNIFIC DECREASED (Normal) Sodium 138 (136-145) mmol/L Potassium 3.6 (3.5-5.1) mmol/L Chloride 109 H (98-107) mmol/L Carbon Dioxide 23 (21-32) mmol/L Anion Gap 6.0 (3-11) BUN 18 (7-18) mg/dl Creatinine 0.81 (0.6-1.4) mg/dl Est Cr Clr Drug Dosing 64.7 ml/min Est GFR ( Amer) 96.6 Est GFR (Non-Af Amer) 83.4 BUN/Creatinine Ratio 22.0 H (10-20) Glucose 92 (70-99) mg/dl Calcium 9.9 (8.5-10.1) mg/dl Phosphorus 2.1 L (2.5-4.9) mg/dl Magnesium 1.9 (1.8-2.4) mg/dl Digoxin 0.6 L (0.8-2.0) ng/ml _ (1) BPH (benign prostatic hyperplasia) Lower urinary tract symptom detail: Lower urinary tract symptom presence: symptoms absent Qualified Code(s): N40.0 - Benign prostatic hyperplasia without lower urinary tract symptoms (2) Atrial fibrillation Atrial fibrillation type: chronic Qualified Code(s): I48.2 - Chronic atrial fibrillation (3) Neutropenia Neutropenia type: unspecified Qualified Code(s): D70.9 - Neutropenia, unspecified (4) PNA (pneumonia) Aspiration pneumonia type: Laterality: right Lung location: middle lobe of lung Pneumonia type: due to unspecified organism Qualified Code(s): J18.1 - Lobar pneumonia, unspecified organism
[2018-11-08] MEDS: METOCLOPRAMIDE HCL 10 MG TABLET PO SCH ×2 (17:20→21:33)
[2018-11-08] MEDS: ALFUZOSIN HCL 10 MG TAB PO SCH (21:33)
[2018-11-09] MEDS: IPRATROPIUM BROMIDE NEB SOLN 0.02% 2.5 ML VIAL INH SCH ×4 (02:07→19:37)
[2018-11-09] MEDS: LEVALBUTEROL 1.25MG/0.5ML NEB INH SCH ×4 (02:08→19:37)
[2018-11-09] MEDS: HEPARIN 100 UNIT/ML 5ML FLUSH FLUSH PRN ×2 (05:40→14:59)
[2018-11-09 06:59] LABS: Hematocrit (blood only) 25.9 % (42-52); Hemoglobin 8.7 g/dL (14.0-18.0); Mean Corpuscular Hgb Conc 33.6 g/dL (32-36); Mean Corpuscular Volume 93.8 fL (80-100); Platelet Count 37 K/uL (130-400); RDW Coefficient of Variation 18.4 % (11.5-14.5); Red Blood Count 2.76 M/uL (4.7-6.1)
[2018-11-09 07:01] LABS: BUN Creatinine Ratio 22.9 (10-20); Calcium 9.9 mg/dl (8.5-10.1); Creatinine Clr Calc Pharmacy 62.4 ml/min; Est GFR (African American) 95.2; Est GFR (Non-African American) 82.1; Magnesium 1.8 mg/dl (1.8-2.4); Phosphorus 2.3 mg/dl (2.5-4.9); Potassium 3.7 mmol/L (3.5-5.1)
[2018-11-09 07:06] LABS: Giant Platelets 3+; Immature Granulocytes # (auto) 0.03 K/uL (0.00-0.02); Immature Granulocytes % (auto) 2.3 %; Lymphocytes # (auto) 0.35 K/uL (1.2-3.4); Lymphocytes % (auto) 26.9 %; Monocytes # (auto) 0.21 K/uL (0.11-0.59); Monocytes % (auto) 16.2 %; Neutrophils # (auto) 0.71 K/uL (1.4-6.5); Neutrophils % (auto) 54.6 %; Ovalocytes 2+; Platelet Estimate Decreased (Normal); Schistocytes 1+; Tear Drop Cells 3+; Toxic Granulation 2+
[2018-11-09] MEDS ORDERED: POTASSIUM PHOS 3 MMOL/1 ML INFUSION IV STA (08:28)
[2018-11-09] MEDS: FINASTERIDE 5 MG TAB PO SCH (08:49)
[2018-11-09] MEDS: METOCLOPRAMIDE HCL 10 MG TABLET PO SCH ×4 (08:50→23:05)
[2018-11-09] MEDS: CHOLECALCIFEROL 1,000 UNITS TAB PO SCH (08:51)
[2018-11-09] MEDS: ACYCLOVIR 400 MG TAB PO SCH ×2 (08:51→23:06)
[2018-11-09] MEDS: PANTOprazole 40 MG TAB PO SCH ×2 (08:52→23:05)
[2018-11-09] MEDS: METOPROLOL SUCC 50MG EXT REL TAB PO SCH (08:52)
[2018-11-09] MEDS: ISOSORBIDE MONO EXTENDED REL 60 MG TABCR PO SCH (08:52)
[2018-11-09] MEDS: THERATEARS OP SCH ×2 (08:57→23:05)
[2018-11-09] MEDS: CYANOCOBALAMIN (VITAMIN B-12) 2,500 MCG TAB.SUBL SL SCH (08:58)
[2018-11-09] MEDS ORDERED: POTASSIUM PHOSPHATE 21 MMOL in SODIUM CHLORIDE 0.9% 500 ML IV ONE (09:00)
--- NOTE | 2018-11-09 09:54 | XRay Report ---
XR chest 2V routine CLINICAL HISTORY: Multifocal pneumonia COMPARISON STUDY: 11/04/2018 FINDINGS: The heart is enlarged. There are trace pleural effusions. There is slight elevation of the interstitium suggesting bony vascular congestion. There is no lobar consolidation.[ There is slight p rogression in the patchy left basilar airspace opacities. There is a left subclavian dual-chamber nadiya tral venous pacemaker. There is a right-sided A-Port catheter. IMPRESSION: 1. Cardiomegaly, trace bilateral pleural effusions, and radiographic evidence of mild congestive fail ure/fluid overload 2. Slight progression in the left basilar opacities Electronically signed by: Real Hernández M.D. 11/09/2018 9:52 AM
[2018-11-09] MEDS ORDERED: FUROSEMIDE 20 MG in SYRINGE 0 ML IV ONE (12:30)
[2018-11-09 13:10] LABS: Appearance Urine Clear (Clear); Bacteria Urine Automated Negative (Negative); Bilirubin Urine Negative (Negative); Blood Urine 1+ (Negative); Color Urine Yellow; Glucose Urine UA Negative (Negative); Ketones Urine Trace (Negative); Leukocyte Esterase Urine Negative (Negative); Nitrite Urine Negative (Negative); Protein Urine 1+ (Negative); RBC Urine Automated 0-4 /hpf (0-4); Specific Gravity Urine 1.019 (1.000-1.030); Urobilinogen Urine Negative (Negative); pH Urine 5.5 (4.5-7.5)
--- NOTE | 2018-11-09 14:55 | Hospitalist Progress Note ---
Date of Service November 09, 2018 Assessment & Plan (1) Generalized weakness: - Has developed weakness/deconditioning related to prolonged hospital stay for influenza A/PNA/CHF. - Repeat infectious work up in setting of ongoing weakness: CXR unchanged, U/a negative and BC pending. - PT/OT both recommending SNF at discharge. - Plan for placement at SNF -- family would prefer [facility]. (2) Influenza: - Positive for Influenza A at admission. - Completed 5 day course of Tamiflu. - Has ongoing fatigue, poor appetite and malaise - likely related to generalized deconditioning. - Supportive care with Xopenex q6hr and Atrovent q6hr scheduled. - Droplet precautions ordered. (3) PNA (pneumonia): - Probable on right side hilar region. - Completed Levaquin x 5 days and Cefepime x 7 days. - Incentive spirometry q1hr WA. - CXR 11/02 showed improvement in PNA and pulmonary vascular congestion. - Chest CT 11/05 negative for PE, showed multifocal consolidative changes in both lungs c/w multifocal PNA, will need f/u imaging in 3-4 months. - CXR today showed mild CHF/fluid overload and slight progression in left basilar opacities. (4) Acute on chronic systolic heart failure: - Echo showed EF 35-40%; previous TTE in December 2017 showed EF 40-45%. - CHF likely ischemic in nature; pt. has refused cardiac cath in past. - Monitor strict I/O's, low sodium diet and daily weights; weight stable. - Lasix IV prn -- will give Lasix 20 mg IV due to CXR findings. - Continue Toprol XL 100 mg daily; has not tolerated YENNI/ARB in past. - Will need to continue Lasix prn at discharge. (5) Acute respiratory failure with hypoxia: - Secondary to flu A, multifocal pneumonia, and acute on chronic systolic CHF. - Continues to require 2L via NC. - CT PE was negative, showed known multifocal PNA. - Will need ongoing O2 at discharge -- no walking test if d/c'ed to SNF. (6) Nausea: - Developed recurrent nausea over last week, now improved. - Was likely related to ileus vs. medication induced (Levaquin?) vs. GERD. - D/c'ed Levaquin as pt. had completed a 5 day course. - Continue PPI BID for GERD. - Reglan 10 mg PO q6hr scheduled with Zofran PO prn; monitor EKG for QTc prolongation. - Abd XR showed mild ileus, was otherwise negative. - CT A/P negative for acute abnormalities. - Cardiac work up, including EKG and Trop x 3, all negative. (7) Ileus: - Mild ileus noted on repeat XR of abdomen. - Having regular BMs, nausea improved. (8) Pancytopenia: - Secondary to multiple myeloma with acute suppression of counts from viral illness. - Current chemotherapy does not impact blood counts significantly per Dr. Maura Conde. - WBC trending down, 1.3 today with ANC of 710. - Will consult heme/onc for evaluation. (9) Neutropenia: - ANC increased after Neupogen x 2 doses (11/04 and 11/05); is now trending down again. - WBC 1.3 with ANC 710 -- consulting heme/onc as noted above. - Continue neutropenic precautions. - ID ppx: Acyclovir (10) Elevated troponin: - Likely related to myocardial demand ischemia in setting of acute illness. - Trop peaked at 0.539 then trended down. Repeat troponins were also negative. - No significant changes on EKG compared to prior studies. - Echo with low EF and hypokinesis of apex and akinesis of distal anteroseptum. - Continue cardiac meds as prescribed. (11) Atrial fibrillation: - In A. fib, rate controlled. - Continue Toprol XL 100 mg daily. - Continue Digoxin as prescribed - both levels during this admission were 0.6. - On Pradaxa at home -- holding in setting of thrombocytopenia. (12) History of multiple myeloma: - Present x 7 years; follows with Dr. Branch. - On chemo agent outside of hospital. - Consulting heme/onc. 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 (15) Electrolyte abnormality: - Phos low in setting of poor PO intake. - Phos level 2.3 - ordered KPhos 21 mmol IV. - Monitor levels daily. (16) DVT prophylaxis: - Hold pharmacologic ppx due to thrombocytopenia; SCDs. Dispo: Discharge pending SNF placement ([facility]?) -- will need referrals on 11/10. His son Mo has been updated (Cell#: [phone], Home#: [phone]). His son Romeo has also been contacted, works with [employer] in [place] (Cell#: [phone]) -- Pt. needs barium swallow and video swallow study but will need to stand for 3 -5 minutes for procedure -- can be done as outpatient. Supervising Physician Co-Signing Physician Notes PA Supervision Note: I did not personally see or examine the patient today, but I verified all horta points of SUMMER Grimaldo's assessment and plan with the following exceptions/ additions: None Subjective Is very weak today, fatigued. Pt. is lying in bed, his and daughter were at bedside. He is oriented but responds very slowly to questions. States he has been cold over the last two nights. Extensive review of systems was not obtained as pt. was fatigued. His and daughter would like to place SNF referrals. Their first preference is [facility] -- no beds are available at facility. Will plan on placement at [facility] if beds are available. PT/ OT both recommending SNF. Family had multiple questions during rounds today about care at SNF. Review of Systems Other (Limited review of systems obtained ) Constitutional: + chills, + fatigue, + weakness and + anorexia; no fever Respiratory: + cough; no dyspnea and no dyspnea on exertion Cardiovascular: no chest pain and no edema Gastrointestinal: no nausea and no constipation Allergy / Immunological: no rash Physical Exam 2 Vital Signs (Past 24 Hours): Last Vital Signs Temp 36.7 C 11/09/18 11:08 Pulse 82 11/09/18 13:52 Resp 18 11/09/18 13:52 BP 120/71 11/09/18 11:08 Pulse Ox 92 11/09/18 13:52 Physical Exam: General: Fatigued, more alert today overall, sitting up in chair. HEENT: NC/AT; PERRLA with EOMI; [place] conjunctiva, MMM. Neck: Supple and nontender Cardiac: irregular Lungs: on 2L via NC; clear to auscultation Abdomen: Bowel normoactive X 4; nontender to light palpation. Extremities: Warm. No edema present Neuro: No focal weakness; answers all questions appropriately. Skin: No rash Results & Data Laboratory Results 11/09/18 11/09/18 11/09/18 Range/Units 12:45 05:42 05:42 WBC 1.30 L (4.8-10.8) K/uL RBC 2.76 L (4.7-6.1) M/uL Hgb 8.7 L (14.0-18.0) g/dL Hct 25.9 L (42-52) % MCV 93.8 (80-100) fL MCH 31.5 (25-34) pg MCHC 33.6 (32-36) g/dL RDW Std Deviation 63.0 H (36.4-46.3) fL RDW Coeff of Rigo 18.4 H (11.5-14.5) % Plt Count 37 L (130-400) K/uL Immature Gran % (Auto) 2.3 % Neut % (Auto) 54.6 % Lymph % (Auto) 26.9 % [place] % (Auto) 16.2 % Eos % (Auto) 0.0 % Baso % (Auto) 0.0 % Immature Gran # (Auto) 0.03 H (0.00-0.02) K/uL Neut # (Auto) 0.71 L* (1.4-6.5) K/uL Lymph # (Auto) 0.35 L (1.2-3.4) K/uL [place] # (Auto) 0.21 (0.11-0.59) K/uL Eos # (Auto) 0.00 (0-0.5) K/uL Baso # (Auto) 0.00 (0-0.2) K/uL Toxic Granulation 2+ Platelet Estimate Decreased (Normal) Giant Platelets 3+ Tear Drop Cells 3+ Ovalocytes 2+ Schistocytes 1+ Sodium 138 (136-145) mmol/L Potassium 3.7 (3.5-5.1) mmol/L Chloride 107 (98-107) mmol/L Carbon Dioxide 25 (21-32) mmol/L Anion Gap 6.0 (3-11) BUN 19 H (7-18) mg/dl Creatinine 0.84 (0.6-1.4) mg/dl Est Cr Clr Drug Dosing 62.4 ml/min Est GFR ( Amer) 95.2 Est GFR (Non-Af Amer) 82.1 BUN/Creatinine Ratio 22.9 H (10-20) Glucose 87 (70-99) mg/dl Calcium 9.9 (8.5-10.1) mg/dl Phosphorus 2.3 L (2.5-4.9) mg/dl Magnesium 1.8 (1.8-2.4) mg/dl Urine Color Yellow Urine Appearance Clear (Clear) Urine pH 5.5 (4.5-7.5) Ur Specific [place] 1.019 (1.000-1.030) Urine Protein 1+ H (Negative) Urine Glucose (UA) Negative (Negative) Urine Ketones Trace H (Negative) Urine Blood 1+ H (Negative) Urine Nitrite Negative (Negative) Urine Bilirubin Negative (Negative) Urine Urobilinogen Negative (Negative) Ur Leukocyte Esterase Negative (Negative) Urine WBC (Auto) 1-5 (0-5) /hpf Urine RBC (Auto) 0-4 (0-4) /hpf U Hyaline Cast (Auto) 1-5 (0-5) /lpf U Epithel Cells (Auto) 10-20 H (0-5) /lpf Urine Bacteria (Auto) Negative (Negative) _ (1) BPH (benign prostatic hyperplasia) Lower urinary tract symptom detail: Lower urinary tract symptom presence: symptoms absent Qualified Code(s): N40.0 - Benign prostatic hyperplasia without lower urinary tract symptoms (2) Atrial fibrillation Atrial fibrillation type: chronic Qualified Code(s): I48.2 - Chronic atrial fibrillation (3) Neutropenia Neutropenia type: unspecified Qualified Code(s): D70.9 - Neutropenia, unspecified (4) PNA (pneumonia) Aspiration pneumonia type: Laterality: right Lung location: middle lobe of lung Pneumonia type: due to unspecified organism Qualified Code(s): J18.1 - Lobar pneumonia, unspecified organism
[2018-11-09] MEDS: DIGOXIN 0.125 MG TAB PO SCH (17:44)
[2018-11-09] MEDS: ALFUZOSIN HCL 10 MG TAB PO SCH (23:06)
[2018-11-10] MEDS: IPRATROPIUM BROMIDE NEB SOLN 0.02% 2.5 ML VIAL INH SCH ×4 (03:34→20:09)
[2018-11-10] MEDS: LEVALBUTEROL 1.25MG/0.5ML NEB INH SCH ×4 (03:35→20:09)
[2018-11-10] MEDS: HEPARIN 100 UNIT/ML 5ML FLUSH FLUSH PRN (05:38)
[2018-11-10 06:43] LABS: BUN Creatinine Ratio 22.5 (10-20); Calcium 10.7 mg/dl (8.5-10.1); Creatinine Clr Calc Pharmacy 57.6 ml/min; Est GFR (African American) 91.3; Est GFR (Non-African American) 78.8; Magnesium 1.9 mg/dl (1.8-2.4); Phosphorus 2.7 mg/dl (2.5-4.9); Potassium 3.9 mmol/L (3.5-5.1)
[2018-11-10 07:00] LABS: Hematocrit (blood only) 28.6 % (42-52); Hemoglobin 9.4 g/dL (14.0-18.0); Mean Corpuscular Hgb Conc 32.9 g/dL (32-36); RDW Coefficient of Variation 18.4 % (11.5-14.5); RDW Standard Deviation 63.6 fL (36.4-46.3); Red Blood Count 3.01 M/uL (4.7-6.1); White Blood Count 1.69 K/uL (4.8-10.8)
[2018-11-10 07:05] LABS: Eosinophils # (auto) 0.01 K/uL (0-0.5); Eosinophils % (auto) 0.6 %; Immature Granulocytes # (auto) 0.02 K/uL (0.00-0.02); Immature Granulocytes % (auto) 1.2 %; Lymphocytes % (auto) 29.6 %; Monocytes # (auto) 0.17 K/uL (0.11-0.59); Monocytes % (auto) 10.1 %; Neutrophils # (auto) 0.99 K/uL (1.4-6.5); Neutrophils % (auto) 58.5 %; Ovalocytes 1+; Platelet Count 42 K/uL (130-400); Platelet Estimate Decreased (Normal); Poikilocytosis Present; Tear Drop Cells 2+; Toxic Granulation 2+
[2018-11-10] MEDS: THERATEARS OP SCH ×2 (08:15→20:40)
[2018-11-10] MEDS: METOCLOPRAMIDE HCL 10 MG TABLET PO SCH ×4 (08:15→20:40)
[2018-11-10] MEDS: METOPROLOL SUCC 50MG EXT REL TAB PO SCH (08:16)
[2018-11-10] MEDS: PANTOprazole 40 MG TAB PO SCH ×2 (08:16→20:40)
[2018-11-10] MEDS: FINASTERIDE 5 MG TAB PO SCH (08:16)
[2018-11-10] MEDS: ISOSORBIDE MONO EXTENDED REL 60 MG TABCR PO SCH (08:17)
[2018-11-10] MEDS: CYANOCOBALAMIN (VITAMIN B-12) 2,500 MCG TAB.SUBL SL SCH (08:18)
[2018-11-10] MEDS: ACYCLOVIR 400 MG TAB PO SCH ×2 (08:18→20:40)
[2018-11-10] MEDS: CHOLECALCIFEROL 1,000 UNITS TAB PO SCH (08:18)
[2018-11-10] MEDS ORDERED: FUROSEMIDE 20 MG in SYRINGE 0 ML IV ONE (09:15)
[2018-11-10] MEDS: DIGOXIN 0.125 MG TAB PO SCH (15:45)
--- NOTE | 2018-11-10 19:27 | Hospitalist Progress Note ---
Date of Service November 10, 2018 Assessment & Plan (1) Acute on chronic systolic heart failure: likely approaching euvolemia. give another dose of IV lasix today. reassess tomorrow for additional doses. continue beta luther therapy. has noted tolerated YENNI/ARB therapy in the past. (2) Neutropenia: ongoing. likely due to illness in the setting of an already chronically low WBC count from multiple myeloma. he is s/p 2 doses of neupogen this admission. will speak w/ his oncologist about ongoing CBC issues. (3) Pancytopenia: 2nd to multiple myeloma cbc in am (4) Acute respiratory failure with hypoxia: resolved finally off of O2 today (5) Influenza: resolved completed 5 days of tamiflu (6) PNA (pneumonia): resolved completed 7 days of Rx (7) Atrial fibrillation: rates acceptable was on pradaxa prior to admission but platelets too low at this time to allow safe use of anticoagulation family counseled re: this (8) History of multiple myeloma: treated by Dr. Branch at the [facility] cbc in am (9) Ileus: resolved having bowel movements and appetite improving (10) Generalized weakness: 2nd to prolonged admission for flu, pneumonia, CHF, etc --- all in the setting of advanced multiple myeloma needs rehab (11) DVT prophylaxis: SCDs only due to thrombocytopenia chemical means contraindicated (12) Hypercalcemia of malignancy: high calcium is due to multiple myeloma daily BMP , daughter updated at bedside PT, OT dispo planning - [facility] for rehab Subjective pt states he feels better today still w/ cough but not as severe had bowel movement last night no OH no areas of pain no chest pain or chest tightness Constitutional: no fever and no chills Respiratory: no dyspnea, no dyspnea on exertion and no hemoptysis Cardiovascular: no chest pain and no paroxysmal nocturnal dyspnea Gastrointestinal: no abdominal pain Physical Exam 2 Vital Signs (Past 24 Hours): Last Vital Signs Temp 36.5 C 11/10/18 19:07 Pulse 87 11/10/18 19:07 Resp 18 11/10/18 19:07 BP 138/82 11/10/18 19:07 Pulse Ox 91 11/10/18 19:07 Constitutional: WD/WN, vitals as above no acute distress looks better today ENMT: external ear and nose normal, oropharynx normal Respiratory: Auscultation: + crackles (bases ) Cardiovascular: Rate/Rhythm: regular rate; + abnormal rhythm (irregular) Heart Sounds: normal S1 and normal S2 Vessels: + JVD, posterior tibial pulses present and dorsalis pedis pulses present Extremities: no pedal edema Gastrointestinal (Abdomen): normal bowel sounds, soft, nontender, no hepatosplenomegaly Psychiatric: A+Ox3, euthymic affect Results & Data Laboratory Results Laboratory Results - last 24 hr 11/10/18 11/10/18 05:37 05:37 WBC 1.69 L RBC 3.01 L Hgb 9.4 L Hct 28.6 L MCV 95.0 MCH 31.2 MCHC 32.9 RDW Std Deviation 63.6 H RDW Coeff of Rigo 18.4 H Plt Count 42 L Immature Gran % (Auto) 1.2 Neut % (Auto) 58.5 Lymph % (Auto) 29.6 [place] % (Auto) 10.1 Eos % (Auto) 0.6 Baso % (Auto) 0.0 Immature Gran # (Auto) 0.02 Neut # (Auto) 0.99 L* Lymph # (Auto) 0.50 L [place] # (Auto) 0.17 Eos # (Auto) 0.01 Baso # (Auto) 0.00 Toxic Granulation 2+ Platelet Estimate Decreased Poikilocytosis Present Tear Drop Cells 2+ Ovalocytes 1+ Sodium 140 Potassium 3.9 Chloride 106 Carbon Dioxide 26 Anion Gap 8.0 BUN 21 H Creatinine 0.91 Est Cr Clr Drug Dosing 57.6 Est GFR ( Amer) 91.3 Est GFR (Non-Af Amer) 78.8 BUN/Creatinine Ratio 22.5 H Glucose 89 Calcium 10.7 H Phosphorus 2.7 Magnesium 1.9 _ (1) Neutropenia Neutropenia type: unspecified Qualified Code(s): D70.9 - Neutropenia, unspecified (2) PNA (pneumonia) Aspiration pneumonia type: Laterality: right Lung location: middle lobe of lung Pneumonia type: due to unspecified organism Qualified Code(s): J18.1 - Lobar pneumonia, unspecified organism (3) Atrial fibrillation Atrial fibrillation type: chronic Qualified Code(s): I48.2 - Chronic atrial fibrillation
[2018-11-10] MEDS: ALFUZOSIN HCL 10 MG TAB PO SCH (20:40)
[2018-11-11] MEDS: IPRATROPIUM BROMIDE NEB SOLN 0.02% 2.5 ML VIAL INH SCH ×2 (01:49→07:04)
[2018-11-11] MEDS: LEVALBUTEROL 1.25MG/0.5ML NEB INH SCH ×2 (01:49→07:04)
[2018-11-11] MEDS: HEPARIN 100 UNIT/ML 5ML FLUSH FLUSH PRN (05:39)
[2018-11-11 06:48] LABS: Hematocrit (blood only) 28.1 % (42-52); Hemoglobin 9.1 g/dL (14.0-18.0); Mean Corpuscular Hgb Conc 32.4 g/dL (32-36); Mean Corpuscular Volume 94.3 fL (80-100); RDW Coefficient of Variation 17.9 % (11.5-14.5); RDW Standard Deviation 60.9 fL (36.4-46.3); Red Blood Count 2.98 M/uL (4.7-6.1); White Blood Count 2.17 K/uL (4.8-10.8)
[2018-11-11 06:49] LABS: BUN Creatinine Ratio 20.1 (10-20); Calcium 11.1 mg/dl (8.5-10.1); Creatinine Clr Calc Pharmacy 58.9 ml/min; Est GFR (African American) 88.9; Est GFR (Non-African American) 76.7; Potassium 3.7 mmol/L (3.5-5.1)
[2018-11-11 07:04] LABS: Basophils # (auto) 0.01 K/uL (0-0.2); Basophils % (auto) 0.5 %; Eosinophils # (auto) 0.01 K/uL (0-0.5); Eosinophils % (auto) 0.5 %; Giant Platelets 3+; Immature Granulocytes # (auto) 0.03 K/uL (0.00-0.02); Immature Granulocytes % (auto) 1.4 %; Lymphocytes # (auto) 0.59 K/uL (1.2-3.4); Lymphocytes % (auto) 27.2 %; Monocytes # (auto) 0.11 K/uL (0.11-0.59); Monocytes % (auto) 5.1 %; Neutrophils # (auto) 1.42 K/uL (1.4-6.5); Neutrophils % (auto) 65.3 %; Ovalocytes 1+; Platelet Count 48 K/uL (130-400); Platelet Estimate Decreased (Normal); Tear Drop Cells 2+; Toxic Granulation 3+
[2018-11-11] MEDS: ACYCLOVIR 400 MG TAB PO SCH ×2 (08:11→21:23)
[2018-11-11] MEDS: PANTOprazole 40 MG TAB PO SCH ×2 (08:11→21:23)
[2018-11-11] MEDS: METOCLOPRAMIDE HCL 10 MG TABLET PO SCH ×4 (08:11→21:23)
[2018-11-11] MEDS: METOPROLOL SUCC 50MG EXT REL TAB PO SCH (08:11)
[2018-11-11] MEDS: ISOSORBIDE MONO EXTENDED REL 60 MG TABCR PO SCH (08:11)
[2018-11-11] MEDS: CHOLECALCIFEROL 1,000 UNITS TAB PO SCH (08:11)
[2018-11-11] MEDS: CYANOCOBALAMIN (VITAMIN B-12) 2,500 MCG TAB.SUBL SL SCH (08:11)
[2018-11-11] MEDS: THERATEARS OP SCH ×2 (08:12→21:23)
[2018-11-11] MEDS: FINASTERIDE 5 MG TAB PO SCH (08:12)
[2018-11-11] MEDS: FUROSEMIDE 20 MG TAB PO SCH (08:17)
[2018-11-11] MEDS ORDERED: IPRATROPIUM BROMIDE NEB SOLN 0.02% 2.5 ML VIAL INH PRN (12:16)
[2018-11-11] MEDS ORDERED: LEVALBUTEROL 1.25MG/0.5ML NEB INH PRN (12:17)
[2018-11-11] MEDS ORDERED: ZOLEDRONIC ACID 4 MG in 0.9 % SODIUM CHLORIDE 100 ML IV ONE (16:00)
[2018-11-11] MEDS: DIGOXIN 0.125 MG TAB PO SCH (16:32)
[2018-11-11 16:54] LABS: Albumin Level 2.5 gm/dl (3.4-5.0); BUN Creatinine Ratio 23.2 (10-20); Calcium 11.2 mg/dl (8.5-10.1); Creatinine Clr Calc Pharmacy 57.1 ml/min; Est GFR (African American) 91.3; Est GFR (Non-African American) 78.8; Potassium 3.9 mmol/L (3.5-5.1)
[2018-11-11 17:14] LABS: Albumin Globulin Ratio 0.7 (0.9-2); Bilirubin,Total 0.6 mg/dl (0.2-1); Globulin 3.5 gm/dl (2.5-4.0); Troponin I 0.087 ng/ml (0-0.045)
--- NOTE | 2018-11-11 18:12 | XRay Report ---
SINGLE VIEW CHEST CLINICAL HISTORY: Atypical chest pain. FINDINGS: An AP, portable, upright chest radiograph is compared to study dated 11/09/2018 and correlat ed with chest CT dated 11/05/2018. The examination is degraded by portable technique and patient rotat ion. A right subclavian central venous infusion port is unchanged in position. A 2-lead cardiac pace maker is unchanged in position and partially obscures the left lower chest. The heart is enlarged and there is atherosclerotic calcification of the thoracic aorta. There is pulmonary vascular congestion . Asymmetric right perihilar airspace opacities are observed. Layering pleural effusions are identifi ed. Apical scarring is observed. No pneumothorax is seen. The skeletal structures are osteopenic. A c ompression deformity of evidence of previous vertebroplasty is noted in the upper lumbar spine. Advan nataliya degenerative changes noted in the shoulders and thoracic spine. IMPRESSION: 1. Cardiomegaly and cardiac pacemaker with evidence of congestive failure. 2. There are slightly asymmetric perihilar airspace opacities on the right. This could represent a co mponent of pulmonary edema versus a superimposed infectious/inflammatory pneumonitis. Clinical correl ation will be required. 3. Layering pleural effusions. Electronically signed by: Don Quiroga M.D. 11/11/2018 6:10 PM
--- NOTE | 2018-11-11 21:11 | Hospitalist Progress Note ---
Date of Service November 11, 2018 Assessment & Plan (1) Right-sided chest pain: seems to be musculoskeletal. likely rib pain - from multiple myeloma? to be on safe side will recheck EKG and chest x-ray along with troponin but suspicion this is from CAD is low. doubt PE; sats are normal, he is not short of breath, and pain is reproducible. lidoderm patches. follow clinical course. (2) Hypercalcemia: most likely reason for such is his multiple myeloma but the rise in the calcium is quite acute. correct Ca level today is at least 11.5. received zometa in Jul 2018; will give again today. due to CHF cannot give IVF. did receive lasix earlier today. could consider calcitonin for short-term treatment. stop the vitamin D. consider nephrology consultation. repeat BMP tonight and then again in AM. (3) Metabolic encephalopathy: likely due to the hypercalcemia. the lethargy started in the last 24 hours c/w the rapid rise in calcium. treat the high calcium. follow. will recheck lactate, bmp, other labs to ensure no other process is present. (4) Acute on chronic systolic heart failure: appears near or at euvolemia today. lasix, but give PO. cont BB. not greta or arb candidate. (5) Neutropenia: ongoing but improved ANC today. likely due to illness in the setting of an already chronically low WBC count from multiple myeloma. he is s/p 2 doses of neupogen this admission. Dr. Branch to see in AM tomorrow. (6) Pancytopenia: 2nd to multiple myeloma cbc in am for stability Dr. Branch to see in am. sent valentina and kappa light chains; send out lab to reference lab. (7) Acute respiratory failure with hypoxia: resolved off O2 for 24+ hours (8) Influenza: resolved completed 5 days of tamiflu (9) PNA (pneumonia): resolved completed 7 days of Rx (10) Atrial fibrillation: rates acceptable was on pradaxa prior to admission but platelets too low at this time to allow safe use of anticoagulation family counseled re: this resume pradaxa (or similar agent) if platelets return to the 70-80 baseline he was prior (11) History of multiple myeloma: treated by Dr. Branch at the [facility] cbc in am formal consult with oncology requested I spoke several times with Dr. Branch today re: this gentleman's care (12) Ileus: resolved having bowel movements (13) Generalized weakness: 2nd to prolonged admission for flu, pneumonia, CHF, etc --- all in the setting of advanced multiple myeloma needs rehab [facility] hopefully cont PT, OT in meantime (14) DVT prophylaxis: SCDs only due to thrombocytopenia chemical means contraindicated I am concerned about the hypercalcemia and set back in his progress today updated repeat labs tonight/in am Dr. Branch to see tomorrow morning Subjective patient very sleepy during the visit. at bedside. she reports he was in the chair for several hours earlier in the day but she comments that he is much more sleepy than usual. he apparently has had right-sided rib pain much of the day - continuous. nothing substernal. Review of Systems Unobtainable due to cognitive status (too sleepy to ask him questions) Physical Exam 2 Vital Signs (Past 24 Hours): Last Vital Signs Temp 36.5 C 11/11/18 19:28 Pulse 85 11/11/18 19:28 Resp 15 11/11/18 19:28 BP 109/73 11/11/18 19:28 Pulse Ox 92 11/11/18 19:28 Constitutional: WD/WN, vitals as above + ill appearing and average body habitus; no acute distress looks worse than yesterday; very sleepy today ENMT: external ear and nose normal, oropharynx normal Respiratory: normal respiratory effort, lungs clear to auscultation normal respiratory effort; no respiratory distress Cardiovascular: Rate/Rhythm: regular rate; + abnormal rhythm (irregular) Heart Sounds: normal S1 and normal S2; no murmur Vessels: posterior tibial pulses present and dorsalis pedis pulses present; no JVD Extremities: no pedal edema Chest (Breasts): Additional Comments: tender to palpation along right lower costal margin (ribs) Gastrointestinal (Abdomen): normal bowel sounds, soft, nontender, no hepatosplenomegaly Psychiatric: Orientation: + not alert and + not oriented x 3 Results & Data Laboratory Results Laboratory Results - last 24 hr 11/11/18 11/11/18 11/11/18 05:43 05:43 16:26 WBC 2.17 L RBC 2.98 L Hgb 9.1 L Hct 28.1 L MCV 94.3 MCH 30.5 MCHC 32.4 RDW Std Deviation 60.9 H RDW Coeff of Rigo 17.9 H Plt Count 48 L Immature Gran % (Auto) 1.4 Neut % (Auto) 65.3 Lymph % (Auto) 27.2 [place] % (Auto) 5.1 Eos % (Auto) 0.5 Baso % (Auto) 0.5 Immature Gran # (Auto) 0.03 H Neut # (Auto) 1.42 Lymph # (Auto) 0.59 L [place] # (Auto) 0.11 Eos # (Auto) 0.01 Baso # (Auto) 0.01 Toxic Granulation 3+ Platelet Estimate Decreased Giant Platelets 3+ Tear Drop Cells 2+ Ovalocytes 1+ Sodium 138 136 Potassium 3.7 3.9 Chloride 106 104 Carbon Dioxide 25 26 Anion Gap 7.0 6.0 BUN 19 H 21 H Creatinine 0.93 0.91 Est Cr Clr Drug Dosing 58.9 57.1 Est GFR ( Amer) 88.9 91.3 Est GFR (Non-Af Amer) 76.7 78.8 BUN/Creatinine Ratio 20.1 H 23.2 H Glucose 93 94 Lactate Calcium 11.1 H 11.2 H Total Bilirubin 0.6 AST 25 ALT 49 Alkaline Phosphatase 88 Troponin I 0.087 H* Total Protein 6.0 L Albumin 2.5 L Globulin 3.5 Albumin/Globulin Ratio 0.7 L Lipase 97 11/11/18 16:26 WBC RBC Hgb Hct MCV MCH MCHC RDW Std Deviation RDW Coeff of Rigo Plt Count Immature Gran % (Auto) Neut % (Auto) Lymph % (Auto) [place] % (Auto) Eos % (Auto) Baso % (Auto) Immature Gran # (Auto) Neut # (Auto) Lymph # (Auto) [place] # (Auto) Eos # (Auto) Baso # (Auto) Toxic Granulation Platelet Estimate Giant Platelets Tear Drop Cells Ovalocytes Sodium Potassium Chloride Carbon Dioxide Anion Gap BUN Creatinine Est Cr Clr Drug Dosing Est GFR ( Amer) Est GFR (Non-Af Amer) BUN/Creatinine Ratio Glucose Lactate 1.2 Calcium Total Bilirubin AST ALT Alkaline Phosphatase Troponin I Total Protein Albumin Globulin Albumin/Globulin Ratio Lipase _ (1) Atrial fibrillation Atrial fibrillation type: chronic Qualified Code(s): I48.2 - Chronic atrial fibrillation (2) Neutropenia Neutropenia type: unspecified Qualified Code(s): D70.9 - Neutropenia, unspecified (3) PNA (pneumonia) Aspiration pneumonia type: Laterality: right Lung location: middle lobe of lung Pneumonia type: due to unspecified organism Qualified Code(s): J18.1 - Lobar pneumonia, unspecified organism
[2018-11-11] MEDS: LIDOCAINE 5% 1 PATCH TD SCH (21:22)
[2018-11-11] MEDS: ALFUZOSIN HCL 10 MG TAB PO SCH (21:23)
[2018-11-12 05:55] LABS: Nucleated RBC # (auto) 0.02 K/uL (0-0); Nucleated RBC % (auto) 0.8 %
[2018-11-12 06:22] LABS: BUN Creatinine Ratio 22.2 (10-20); Calcium 11.4 mg/dl (8.5-10.1); Creatinine Clr Calc Pharmacy 58.4 ml/min; Est GFR (African American) 92.9; Est GFR (Non-African American) 80.2; Potassium 3.8 mmol/L (3.5-5.1)
[2018-11-12 06:30] LABS: Hematocrit (blood only) 27.3 % (42-52); Hemoglobin 8.9 g/dL (14.0-18.0); Mean Corpuscular Hgb Conc 32.6 g/dL (32-36); Mean Corpuscular Volume 93.8 fL (80-100); Platelet Count 54 K/uL (130-400); RDW Coefficient of Variation 17.9 % (11.5-14.5); RDW Standard Deviation 61.5 fL (36.4-46.3); Red Blood Count 2.91 M/uL (4.7-6.1); White Blood Count 2.27 K/uL (4.8-10.8)
[2018-11-12 06:33] LABS: Basophils # (auto) 0.01 K/uL (0-0.2); Basophils % (auto) 0.4 %; Giant Platelets 3+; Immature Granulocytes # (auto) 0.05 K/uL (0.00-0.02); Immature Granulocytes % (auto) 2.2 %; Lymphocytes # (auto) 0.55 K/uL (1.2-3.4); Lymphocytes % (auto) 24.2 %; Monocytes # (auto) 0.19 K/uL (0.11-0.59); Monocytes % (auto) 8.4 %; Neutrophils # (auto) 1.47 K/uL (1.4-6.5); Neutrophils % (auto) 64.8 %; Ovalocytes 2+; Platelet Estimate Decreased (Normal); Tear Drop Cells 2+; Toxic Granulation 3+
[2018-11-12] MEDS: FINASTERIDE 5 MG TAB PO SCH (08:22)
[2018-11-12] MEDS: ACYCLOVIR 400 MG TAB PO SCH ×2 (08:22→22:16)
[2018-11-12] MEDS: ISOSORBIDE MONO EXTENDED REL 60 MG TABCR PO SCH (08:22)
[2018-11-12] MEDS: FUROSEMIDE 20 MG TAB PO SCH (08:23)
[2018-11-12] MEDS: METOPROLOL SUCC 50MG EXT REL TAB PO SCH (08:23)
[2018-11-12] MEDS: METOCLOPRAMIDE HCL 10 MG TABLET PO SCH ×4 (08:23→22:17)
[2018-11-12] MEDS: CYANOCOBALAMIN (VITAMIN B-12) 2,500 MCG TAB.SUBL SL SCH (08:23)
[2018-11-12] MEDS: PANTOprazole 40 MG TAB PO SCH ×2 (08:23→22:16)
[2018-11-12] MEDS: THERATEARS OP SCH ×2 (08:24→22:16)
[2018-11-12] MEDS: LIDOCAINE 5% 1 PATCH TD SCH (10:57)
--- NOTE | 2018-11-12 12:15 | Oncology Consultation ---
Date of Consultation November 12, 2018 Assessment & Plan (1) Hypercalcemia: Mr. Blanchard's baseline calcium levels have been around 8-9, so this is an elevation for him. His iPTH is low, arguing against primary hypercalcemia. PTHrP is commonly associated with hypercalcemia of malignancy, but not in patients with myeloma. You can check a calcitriol level to rule out vitamin D toxicity, since he was receiving exogenous Vit D supplements. His creatinine is actually lower than his baseline. He does not appear to be on any other medications commonly associated with medication-induced hypercalcemia. The other possibility is progression of his myeloma. Serum free light chains are pending to evaluate this possibility. His disease is difficult to assess, as his light chain levels are rather labile, but rising calcium is usually not the first marker we see with progressive disease. Another thought would be adrenal insufficiency, which could be related to his steroid use, and we could consider an AM cortisol. I would treat him supportively for now, with IV hydration as tolerated. He has also received a bisphosphonate, which should help. Present on Admission?: No History of Present Illness Reason for Consultation: Hypercalcemia Multiple myeloma Attending Physician: Jordin Guillaume History of Present Illness Mr. Blanchard is an 82 year old man who was diagnosed in June, with IgA kappa multiple myeloma with hyperdiploid cytogenetics. He was initially treated with Velcade and dexamethasone and had a very good partial response. He initially progressed in March, and Revlimid was added. He continued this combination until May 2013. He then started weekly Velcade with pomalidomide. He had a modest response but had a long duration of stable disease. He continued this regimen until April 2017, when it was held due to an unexplained cardiomyopathy. He didn't improve off of therapy and his numbers were markedly progressive in July,, so he started weekly Daratumumab and then resumed Pomalidomide in August,. He remained on this combination until June,, when we held the Pomalyst due to worsening counts and generalized fatigue. He remains on daratumumab to today. His myeloma proteins fluctuate widely within a range of around 1 gram/dL, but without a clear trend. He has been hospitalized since 10/30 with influenza and subsequent complications, including a possible superimposed pneumonia. He was noted in recent days to have a rising serum calcium level. He was given a dose of Zometa yesterday. He is somnolent and weak in the room today. He did not answer questions verbally, but made good eye contact and responded appropriately with head nods and shakes. He denies any new pain but agreed that he was very weak. Allergies Allergy/AdvReac Type Severity Reaction Status Date / Time immune globulin,gamma (IgG) Allergy Severe ANAPHYLAXIS Verified 10/30/18 14:09 human Penicillins Allergy Severe Unknown Verified 10/30/18 14:09 Sojdace-Glk-Gty Reductase Allergy Unknown unknown Verified 10/30/18 14:09 Inhibitor Sulfa (Sulfonamide Allergy Unknown Unknown rxn Verified 10/30/18 14:09 Antibiotics) garlic AdvReac Intermediate Gastrointestinal Verified 11/03/18 11:55 Upset omeprazole AdvReac Intermediate dizziness Verified 10/30/18 14:09 Home Medications Home Medications Medication Instructions Recorded Confirmed Type Ivig 0 mg PO MONTHLY 10/30/18 10/30/18 History Steriod 0 mg PO UD 10/30/18 10/30/18 History acyclovir 400 mg PO BID 10/30/18 10/30/18 History alfuzosin 10 mg PO HS 10/30/18 10/30/18 History carboxymethylcellulose sodium 1 drp OPHTHALMIC (EYE) BID 10/30/18 10/30/18 History [TheraTears] cholecalciferol (vitamin D3) 5,000 unit PO DAILY 10/30/18 10/30/18 History [Vitamin D3] cyanocobalamin (vitamin B-12) 5,000 mcg SUBLINGUAL DAILY 10/30/18 10/30/18 History [Vitamin B-12] dabigatran etexilate [Pradaxa] 150 mg PO BID 10/30/18 10/30/18 History dexamethasone 20 mg PO WK 10/30/18 10/30/18 History digoxin [Digitek] 125 mcg PO DAILY 10/30/18 10/30/18 History finasteride 5 mg PO QAM 10/30/18 10/30/18 History isosorbide mononitrate 60 mg PO DAILY 10/30/18 10/30/18 History metoprolol succinate 100 mg PO DAILY 10/30/18 10/30/18 History pantoprazole 40 mg PO BID 10/30/18 10/30/18 History Patient History Medical History Afib (Chronic) Multiple myeloma (Chronic) Surgical History S/P placement of cardiac pacemaker (Resolved) Family History Father Bladder cancer Mother , "Fell over in the street" No formal dx given. No problems noted. Social History marital status: Current Living Situation: Spouse Other Information That Helps Us Care for You: No Feels Safe at Home: Yes Smoking Status: Never smoker Do You Dip or Chew Tobacco: No Second Hand Exposure: No Tobacco Cessation Education Requested by Patient: No Hx Alcohol Use: No Hx Substance Use: No Beliefs That Will Affect Care: None Communication Ability: Effective Review of Systems See HPI. Patient's history was limited by a lack of verbal response to questions Physical Exam 2 Vital Signs (Past 24 Hours): Last Vital Signs Temp 36.7 C 11/12/18 11:29 Pulse 87 11/12/18 11:29 Resp 20 11/12/18 11:29 BP 126/81 11/12/18 11:29 Pulse Ox 95 11/12/18 11:29 Constitutional: + ill appearing (chronically) and + cachectic; no acute distress Eyes: + anicteric sclerae and EOM intact bilaterally ENMT: Mouth: + dry oral mucous membranes Throat: no posterior oropharynx abnormality Respiratory: normal respiratory effort Coarse breath sounds in all davis Cardiovascular: RRR, no murmur, no edema Gastrointestinal (Abdomen): normal bowel sounds, soft, nontender, no hepatosplenomegaly Musculoskeletal: no cyanosis or clubbing, extremities motor strength 5/5 Skin: Scattered senile ecchymoses Neurologic: Patient was awake and alert but did not respond verbally to questions. He could follow commands appropriately, but was slow. Results & Data Laboratory Results Laboratory Results - last 48 hr 11/11/18 11/11/18 11/11/18 05:43 05:43 16:26 WBC 2.17 L RBC 2.98 L Hgb 9.1 L Hct 28.1 L MCV 94.3 MCH 30.5 MCHC 32.4 RDW Std Deviation 60.9 H RDW Coeff of Rigo 17.9 H Plt Count 48 L Immature Gran % (Auto) 1.4 Neut % (Auto) 65.3 Lymph % (Auto) 27.2 [place] % (Auto) 5.1 Eos % (Auto) 0.5 Baso % (Auto) 0.5 Immature Gran # (Auto) 0.03 H Neut # (Auto) 1.42 Lymph # (Auto) 0.59 L [place] # (Auto) 0.11 Eos # (Auto) 0.01 Baso # (Auto) 0.01 Absolute Nucleated RBC Nucleated RBC % (auto) Toxic Granulation 3+ Platelet Estimate Decreased Giant Platelets 3+ Tear Drop Cells 2+ Ovalocytes 1+ Sodium 138 136 Potassium 3.7 3.9 Chloride 106 104 Carbon Dioxide 25 26 Anion Gap 7.0 6.0 BUN 19 H 21 H Creatinine 0.93 0.91 Est Cr Clr Drug Dosing 58.9 57.1 Est GFR ( Amer) 88.9 91.3 Est GFR (Non-Af Amer) 76.7 78.8 BUN/Creatinine Ratio 20.1 H 23.2 H Glucose 93 94 Lactate Calcium 11.1 H 11.2 H Total Bilirubin 0.6 AST 25 ALT 49 Alkaline Phosphatase 88 Troponin I 0.087 H* Total Protein 6.0 L Albumin 2.5 L Globulin 3.5 Albumin/Globulin Ratio 0.7 L Lipase 97 PTH Intact 11/11/18 11/12/18 11/12/18 16:26 05:01 05:01 WBC 2.27 L RBC 2.91 L Hgb 8.9 L Hct 27.3 L MCV 93.8 MCH 30.6 MCHC 32.6 RDW Std Deviation 61.5 H RDW Coeff of Rigo 17.9 H Plt Count 54 L Immature Gran % (Auto) 2.2 Neut % (Auto) 64.8 Lymph % (Auto) 24.2 [place] % (Auto) 8.4 Eos % (Auto) 0.0 Baso % (Auto) 0.4 Immature Gran # (Auto) 0.05 H Neut # (Auto) 1.47 Lymph # (Auto) 0.55 L [place] # (Auto) 0.19 Eos # (Auto) 0.00 Baso # (Auto) 0.01 Absolute Nucleated RBC 0.02 H Nucleated RBC % (auto) 0.8 Toxic Granulation 3+ Platelet Estimate Decreased Giant Platelets 3+ Tear Drop Cells 2+ Ovalocytes 2+ Sodium 139 Potassium 3.8 Chloride 107 Carbon Dioxide 27 Anion Gap 5.0 BUN 20 H Creatinine 0.89 Est Cr Clr Drug Dosing 58.4 Est GFR ( Amer) 92.9 Est GFR (Non-Af Amer) 80.2 BUN/Creatinine Ratio 22.2 H Glucose 90 Lactate 1.2 Calcium 11.4 H Total Bilirubin AST ALT Alkaline Phosphatase Troponin I Total Protein Albumin Globulin Albumin/Globulin Ratio Lipase PTH Intact 11/12/18 09:46 WBC RBC Hgb Hct MCV MCH MCHC RDW Std Deviation RDW Coeff of Rigo Plt Count Immature Gran % (Auto) Neut % (Auto) Lymph % (Auto) [place] % (Auto) Eos % (Auto) Baso % (Auto) Immature Gran # (Auto) Neut # (Auto) Lymph # (Auto) [place] # (Auto) Eos # (Auto) Baso # (Auto) Absolute Nucleated RBC Nucleated RBC % (auto) Toxic Granulation Platelet Estimate Giant Platelets Tear Drop Cells Ovalocytes Sodium Potassium Chloride Carbon Dioxide Anion Gap BUN Creatinine Est Cr Clr Drug Dosing Est GFR ( Amer) Est GFR (Non-Af Amer) BUN/Creatinine Ratio Glucose Lactate Calcium Total Bilirubin AST ALT Alkaline Phosphatase Troponin I Total Protein Albumin Globulin Albumin/Globulin Ratio Lipase PTH Intact 9.1 L
[2018-11-12] MEDS ORDERED: SODIUM CHLORIDE 0.9% 1000ML 1,000 ML IV SCH (12:30)
--- NOTE | 2018-11-12 12:31 | Nephrology Consultation ---
Date of Consultation November 12, 2018 Assessment & Plan (1) Hypercalcemia: Non PTH related hypercalcemia. This most likely represents hypercalcemia of malignancy (Multiple Myeloma). Vitamin D supplement and immobilization have also likely contributed. Clinically doubt granulomatous disease, milk-alkali, thyroid disorder or vitamin A intoxication. -- PTH is appropriately suppressed -- Will check PTHrp, vitamin D level, TSH w/ reflex T4 and serum alkaline phosphatase -- Agree w/ stopping oral vitamin D supplement -- Patient is breathing comfortably flat in bed on RA. His RA SaO2 is 95%. Will provide 1 L 0.9NS IV at 100 cc/hr and administer 20 mg Furosemide IV midway through infusion -- Agree w/ plans for Calcitonin and Zometa -- Follow up serum Ca ordered for am (2) Multiple myeloma: -- Oncology has been consulted. Await their recommendations (3) Influenza: -- Completed 5 days Tamiflu therapy History of Present Illness Reason for Consultation: Hypercalcemia Attending Physician: Jordin Guillaume History of Present Illness Mr. Blanchard is an 82 year old white male who is seen at the request of Dr. Guillaume for evaluation of hypercalcemia. The patient is unable to provide details of his medical history. Medical records in the EMR were reviewed today and are summarized as follows: Mr. Blanchard was diagnosed w/ Multiple Myeloma approximately 7 years ago. He is currently on chemotherapy and cared for by the [facility]. His medical history is also significant for sick sinus syndrome s/p pacemaker, cardiomyopathy w/ LVEF 35%, BPH and anemia. Mr. Blanchard was admitted 10/30/18 with influenza complicated by pneumonia. He has been weak and on bed rest throughout most of his hospitalization. On 11/09/18 it was noted that serum calcium was trending up. Vitamin D supplement has been stopped, furosemide, calcitonin and Zometa have been administered. [place] valentina ratio remains markedly elevated. Oncology and Nephrology consults have been requested Allergies Allergy/AdvReac Type Severity Reaction Status Date / Time immune globulin,gamma (IgG) Allergy Severe ANAPHYLAXIS Verified 10/30/18 14:09 human Penicillins Allergy Severe Unknown Verified 10/30/18 14:09 Liqdcvy-Gey-Stt Reductase Allergy Unknown unknown Verified 10/30/18 14:09 Inhibitor Sulfa (Sulfonamide Allergy Unknown Unknown rxn Verified 10/30/18 14:09 Antibiotics) garlic AdvReac Intermediate Gastrointestinal Verified 11/03/18 11:55 Upset omeprazole AdvReac Intermediate dizziness Verified 10/30/18 14:09 Home Medications Home Medications Medication Instructions Recorded Confirmed Type Ivig 0 mg PO MONTHLY 10/30/18 10/30/18 History Steriod 0 mg PO UD 10/30/18 10/30/18 History acyclovir 400 mg PO BID 10/30/18 10/30/18 History alfuzosin 10 mg PO HS 10/30/18 10/30/18 History carboxymethylcellulose sodium 1 drp OPHTHALMIC (EYE) BID 10/30/18 10/30/18 History [TheraTears] cholecalciferol (vitamin D3) 5,000 unit PO DAILY 10/30/18 10/30/18 History [Vitamin D3] cyanocobalamin (vitamin B-12) 5,000 mcg SUBLINGUAL DAILY 10/30/18 10/30/18 History [Vitamin B-12] dabigatran etexilate [Pradaxa] 150 mg PO BID 10/30/18 10/30/18 History dexamethasone 20 mg PO WK 10/30/18 10/30/18 History digoxin [Digitek] 125 mcg PO DAILY 10/30/18 10/30/18 History finasteride 5 mg PO QAM 10/30/18 10/30/18 History isosorbide mononitrate 60 mg PO DAILY 10/30/18 10/30/18 History metoprolol succinate 100 mg PO DAILY 10/30/18 10/30/18 History pantoprazole 40 mg PO BID 10/30/18 10/30/18 History Patient History Medical History Afib (Chronic) Multiple myeloma (Chronic) Surgical History S/P placement of cardiac pacemaker (Resolved) Family History Father Bladder cancer Mother , "Fell over in the street" No formal dx given. No problems noted. Social History marital status: Current Living Situation: Spouse Other Information That Helps Us Care for You: No Feels Safe at Home: Yes Smoking Status: Never smoker Do You Dip or Chew Tobacco: No Second Hand Exposure: No Tobacco Cessation Education Requested by Patient: No Hx Alcohol Use: No Hx Substance Use: No Beliefs That Will Affect Care: None Communication Ability: Effective Review of Systems Patient is unable to participate in ROS Physical Exam 2 Vital Signs (Past 24 Hours): Last Vital Signs Temp 36.7 C 11/12/18 11:29 Pulse 87 11/12/18 11:29 Resp 20 11/12/18 11:29 BP 126/81 11/12/18 11:29 Pulse Ox 95 11/12/18 11:29 Constitutional: + frail appearing Eyes: PERRL, conjunctivae normal, anicteric sclerae Neck: trachea midline, no thyromegaly Respiratory: no respiratory distress Auscultation: + rales Cardiovascular: RRR, no murmur, no edema Gastrointestinal (Abdomen): normal bowel sounds, soft, nontender, no hepatosplenomegaly Results & Data Laboratory Results Laboratory Tests 11/11/18 11/12/18 11/12/18 16:26 05:01 05:01 WBC 2.27 L Hgb 8.9 L Hct 27.3 L Plt Count 54 L Sodium 139 Potassium 3.8 Chloride 107 Carbon Dioxide 27 BUN 20 H Creatinine 0.89 Glucose 90 Calcium 11.4 H Albumin 2.5 L Laboratory Tests 11/12/18 09:46 PTH Intact 9.1 L
[2018-11-12] MEDS: HEPARIN 100 UNIT/ML 5ML FLUSH FLUSH PRN ×2 (12:54→22:24)
[2018-11-12] MEDS ORDERED: CALCITONIN SALMON 400 UNITS/2 ML SQ SCH (13:30)
[2018-11-12] MEDS: DIGOXIN 0.125 MG TAB PO SCH (15:43)
[2018-11-12] MEDS ORDERED: FUROSEMIDE 20 MG in SYRINGE 0 ML IV ONE (17:00)
--- NOTE | 2018-11-12 18:45 | Hospitalist Progress Note ---
Date of Service November 12, 2018 Assessment & Plan (1) Right-sided chest pain: resolved. suspect this was due to rib pain and not cardiac or pulmonary in origin. (2) Hypercalcemia: most likely reason for such is his multiple myeloma but the rise in the calcium is quite acute. s/p zometa yesterday. will give calcitonin 250mcg x 1 today. appreciate nephrology consult. giving 1 L of NS along with IV lasix. repeat BMP in am. cannot rule out vit D supplement played a role intact PTH wnl. PTH-related peptide and YENNI pending. BMP in am suspect current mental status is due to high calcium (3) Metabolic encephalopathy: likely due to the hypercalcemia. the lethargy started in conjunction w/ rapid rise in calcium. treat the high calcium. follow. I don't see any other cause of current mental status (infections, etc). (4) Acute on chronic systolic heart failure: euvolemic. cont BB. (5) Neutropenia: improved (6) Pancytopenia: 2nd to multiple myeloma cbc in am for stability Dr. Branch's consult appreciated sent valentina and kappa light chains (7) Acute respiratory failure with hypoxia: resolved (8) Influenza: resolved completed 5 days of tamiflu (9) PNA (pneumonia): resolved completed 7 days of Rx (10) Atrial fibrillation: rates acceptable was on pradaxa prior to admission but platelets too low at this time to allow safe use of anticoagulation family counseled re: this resume pradaxa (or similar agent) if platelets return to the 70-80 baseline he was prior (11) History of multiple myeloma: treated by Dr. Branch at the [facility] cbc in am paraproteins pending (12) Ileus: resolved (13) Generalized weakness: 2nd to prolonged admission for flu, pneumonia, CHF, etc --- all in the setting of advanced multiple myeloma needs rehab [facility] has accepted cont PT, OT in meantime when able (14) DVT prophylaxis: SCDs only due to thrombocytopenia chemical means contraindicated updated by phone today to [facility] once high calcium is resolved Subjective patient confused and drowsy during the visit could not offer any history or ROS today I spoke with heme/onc (Jose Carlos), nephrology ([place]), and his today poor appetite per staff Review of Systems Unobtainable due to cognitive status Physical Exam 2 Vital Signs (Past 24 Hours): Last Vital Signs Temp 36.7 C 11/12/18 15:05 Pulse 86 11/12/18 15:43 Resp 16 11/12/18 15:05 BP 132/74 11/12/18 15:05 Pulse Ox 93 11/12/18 15:05 Constitutional: WD/WN, vitals as above + ill appearing and average body habitus; no acute distress ENMT: external ear and nose normal, oropharynx normal Respiratory: normal respiratory effort, lungs clear to auscultation no respiratory distress Cardiovascular: Rate/Rhythm: regular rate; + abnormal rhythm (irregular) Heart Sounds: normal S1 and normal S2; no murmur Vessels: posterior tibial pulses present and dorsalis pedis pulses present; no JVD Extremities: no pedal edema Gastrointestinal (Abdomen): normal bowel sounds, soft, nontender, no hepatosplenomegaly Percussion/Palpation: no guarding Psychiatric: Orientation: + not alert and + not oriented x 3 sleepy Results & Data Laboratory Results Laboratory Results - last 24 hr 11/12/18 11/12/18 11/12/18 05:01 05:01 09:46 WBC 2.27 L RBC 2.91 L Hgb 8.9 L Hct 27.3 L MCV 93.8 MCH 30.6 MCHC 32.6 RDW Std Deviation 61.5 H RDW Coeff of Rigo 17.9 H Plt Count 54 L Immature Gran % (Auto) 2.2 Neut % (Auto) 64.8 Lymph % (Auto) 24.2 [place] % (Auto) 8.4 Eos % (Auto) 0.0 Baso % (Auto) 0.4 Immature Gran # (Auto) 0.05 H Neut # (Auto) 1.47 Lymph # (Auto) 0.55 L [place] # (Auto) 0.19 Eos # (Auto) 0.00 Baso # (Auto) 0.01 Absolute Nucleated RBC 0.02 H Nucleated RBC % (auto) 0.8 Toxic Granulation 3+ Platelet Estimate Decreased Giant Platelets 3+ Tear Drop Cells 2+ Ovalocytes 2+ Sodium 139 Potassium 3.8 Chloride 107 Carbon Dioxide 27 Anion Gap 5.0 BUN 20 H Creatinine 0.89 Est Cr Clr Drug Dosing 58.4 Est GFR ( Amer) 92.9 Est GFR (Non-Af Amer) 80.2 BUN/Creatinine Ratio 22.2 H Glucose 90 Calcium 11.4 H 25-OH Vitamin D Total TSH PTH Intact 9.1 L 11/12/18 11/12/18 12:49 12:49 WBC RBC Hgb Hct MCV MCH MCHC RDW Std Deviation RDW Coeff of Rigo Plt Count Immature Gran % (Auto) Neut % (Auto) Lymph % (Auto) [place] % (Auto) Eos % (Auto) Baso % (Auto) Immature Gran # (Auto) Neut # (Auto) Lymph # (Auto) [place] # (Auto) Eos # (Auto) Baso # (Auto) Absolute Nucleated RBC Nucleated RBC % (auto) Toxic Granulation Platelet Estimate Giant Platelets Tear Drop Cells Ovalocytes Sodium Potassium Chloride Carbon Dioxide Anion Gap BUN Creatinine Est Cr Clr Drug Dosing Est GFR ( Amer) Est GFR (Non-Af Amer) BUN/Creatinine Ratio Glucose Calcium 25-OH Vitamin D Total 78.4 TSH 2.700 PTH Intact _ (1) Atrial fibrillation Atrial fibrillation type: chronic Qualified Code(s): I48.2 - Chronic atrial fibrillation (2) Neutropenia Neutropenia type: unspecified Qualified Code(s): D70.9 - Neutropenia, unspecified (3) PNA (pneumonia) Aspiration pneumonia type: Laterality: right Lung location: middle lobe of lung Pneumonia type: due to unspecified organism Qualified Code(s): J18.1 - Lobar pneumonia, unspecified organism
[2018-11-12] MEDS: ALFUZOSIN HCL 10 MG TAB PO SCH (22:17)
[2018-11-13] MEDS ORDERED: SODIUM CHLORIDE 0.9% 1000ML 250 ML IV ONE
[2018-11-13] MEDS: ALBUMIN 25% 50 ML IV SCH ×2 (00:16→01:26)
[2018-11-13] MEDS: HEPARIN 100 UNIT/ML 5ML FLUSH FLUSH PRN ×2 (02:43→05:34)
[2018-11-13 06:25] LABS: Mean Corpuscular Hgb Conc 33.7 g/dL (32-36)
[2018-11-13 06:35] LABS: Hematocrit (blood only) 25.2 % (42-52); Hemoglobin 8.5 g/dL (14.0-18.0); Mean Corpuscular Volume 93.7 fL (80-100); RDW Coefficient of Variation 17.8 % (11.5-14.5); RDW Standard Deviation 61.1 fL (36.4-46.3); Red Blood Count 2.69 M/uL (4.7-6.1); White Blood Count 2.24 K/uL (4.8-10.8)
[2018-11-13 06:57] LABS: Albumin Level 2.8 gm/dl (3.4-5.0); BUN Creatinine Ratio 24.2 (10-20); Calcium 10.5 mg/dl (8.5-10.1); Creatinine Clr Calc Pharmacy 61.4 ml/min; Est GFR (African American) 94.3; Est GFR (Non-African American) 81.3; Potassium 3.6 mmol/L (3.5-5.1)
[2018-11-13 07:00] LABS: Albumin Globulin Ratio 0.9 (0.9-2); Bilirubin,Total 0.6 mg/dl (0.2-1); Globulin 3.3 gm/dl (2.5-4.0); Total Protein 6.1 gm/dl (6.4-8.2)
[2018-11-13 07:02] LABS: Platelet Count 53 K/uL (130-400); Platelet Estimate Decreased (Normal)
[2018-11-13] MEDS: ACYCLOVIR 400 MG TAB PO SCH ×2 (07:25→21:00)
[2018-11-13] MEDS: FINASTERIDE 5 MG TAB PO SCH (07:26)
[2018-11-13] MEDS: CYANOCOBALAMIN (VITAMIN B-12) 2,500 MCG TAB.SUBL SL SCH (07:26)
[2018-11-13] MEDS: METOCLOPRAMIDE HCL 10 MG TABLET PO SCH ×4 (07:26→21:00)
[2018-11-13] MEDS: PANTOprazole 40 MG TAB PO SCH ×2 (07:26→21:01)
[2018-11-13] MEDS: LIDOCAINE 5% 1 PATCH TD SCH (07:26)
[2018-11-13] MEDS: THERATEARS OP SCH ×2 (07:27→21:06)
[2018-11-13] MEDS: METOPROLOL SUCC 50MG EXT REL TAB PO SCH (07:29)
[2018-11-13] MEDS: ISOSORBIDE MONO EXTENDED REL 60 MG TABCR PO SCH (07:29)
[2018-11-13] MEDS: FUROSEMIDE 20 MG TAB PO SCH (07:29)
--- NOTE | 2018-11-13 10:51 | Nephrology Progress Note ---
Date of Service November 13, 2018 Assessment & Plan (1) Hypercalcemia: Non PTH related hypercalcemia. This most likely represents hypercalcemia of malignancy (Multiple Myeloma). Vitamin D supplement and immobilization have also likely contributed. Clinically doubt granulomatous disease, milk-alkali, thyroid disorder or vitamin A intoxication. -- PTH is appropriately suppressed, TSH and alkaline phosphatase are within normal limits -- PTHrp and serum YENNI level are currently pending -- Recommend holiding vitamin D supplement. Serum vitamin D was high normal -- Patient was given Calcitonin & Zometa yesterday. He was hydrated w/ 1 L NS and given 20 mg Furosemide IV x 1. Serum calcium is trending down -- No further Nephrology evaluation needed at this time. Will sign off. Please call if further assistance is needed (2) Multiple myeloma: -- Oncology consult reviewed this am. Repeat free light chain assay has been ordered (3) Influenza: -- Completed 5 days Tamiflu therapy Subjective Mr. Blanchard was seen & examined in his hospital room. He was more alert and sitting up in a chair this morning. Mr. Blanchard tolerated gentle hydration yesterday without dyspnea. UO was not recorded. Respiratory: no dyspnea Cardiovascular: no chest pain Physical Exam 2 Vital Signs (Past 24 Hours): Last Vital Signs Temp 36.6 C 11/13/18 07:59 Pulse 89 11/13/18 07:59 Resp 20 11/13/18 07:59 BP 132/78 11/13/18 07:59 Pulse Ox 97 11/13/18 07:59 Constitutional: + frail appearing Eyes: PERRL, conjunctivae normal, anicteric sclerae Neck: trachea midline, no thyromegaly Respiratory: no respiratory distress Auscultation: + rales Cardiovascular: RRR, no murmur, no edema Gastrointestinal (Abdomen): normal bowel sounds, soft, nontender, no hepatosplenomegaly Results & Data Laboratory Results Laboratory Tests 11/13/18 11/13/18 05:31 05:31 WBC 2.24 L Hgb 8.5 L Hct 25.2 L Plt Count 53 L Sodium 139 Potassium 3.6 Chloride 105 Carbon Dioxide 27 BUN 21 H Creatinine 0.86 Calcium 10.5 H
[2018-11-13 10:59] LABS: Free Kappa 890.2 MG/L (3.3-19.4); Free Kappa/Lambda Ratio >593.47 (0.26-1.65); Free Lambda <1.5 MG/L (5.7-26.3)
[2018-11-13] MEDS: DIGOXIN 0.125 MG TAB PO SCH (16:45)
--- NOTE | 2018-11-13 20:10 | Hospitalist Progress Note ---
Date of Service November 13, 2018 Assessment & Plan (1) Hypercalcemia: likely due to multiple myeloma. s/p zometa infusion and calcitonin 250mcg x 1 in the last 48 hours. s/p fluids with IV lasix yesterday as well. total calclum level improved today. vitamin D supplement on hold. intact PTH wnl. PTH-related peptide and YENNI pending. BMP in am suspect current mental status and overall constitution is due to high calcium symptoms should improve as calcium level falls (2) Metabolic encephalopathy: likely due to the hypercalcemia. the lethargy started in conjunction w/ rapid rise in calcium. treat the high calcium. follow. I don't see any other cause of current mental status (infections, etc). u/a not suggestive of UTI. no fever. does have a. fib and has been off his pradaxa -- if mental status continues to be poor could consider MRI brain. (3) Acute on chronic systolic heart failure: euvolemic. cont BB. cont low-dose lasix. (4) Neutropenia: improved (5) Pancytopenia: 2nd to multiple myeloma cbc in am for stability Dr. Branch's consult appreciated valentina and kappa light chains pending (6) Acute respiratory failure with hypoxia: resolved (7) Influenza: resolved completed 5 days of tamiflu (8) PNA (pneumonia): resolved completed 7 days of Rx (9) Atrial fibrillation: rates acceptable was on pradaxa prior to admission but platelets too low at this time to allow safe use of anticoagulation family counseled re: this resume pradaxa (or similar agent) if platelets return to the 70-80 baseline he was prior (10) History of multiple myeloma: treated by Dr. Branch at the [facility] cbc in am for stability paraproteins pending (11) Ileus: resolved (12) Generalized weakness: 2nd to prolonged admission for flu, pneumonia, CHF, etc --- all in the setting of advanced multiple myeloma needs rehab [facility] has accepted cont PT, OT in meantime when able (13) Dysphagia: reconsult speech therapy (14) DVT prophylaxis: SCDs only due to thrombocytopenia chemical means contraindicated updated at bedside today to [facility] once high calcium is resolved Subjective patient more awake today during the visit he was sitting in chair attempting to feed himself his lunch he was mildly more interactive although his speech was low, almost parkinsonian in quality and daughter along with grand-kids at bedside numerous questions from family concerned about swallowing apparently patient had a brief episode of hypotension last pm requiring fluid bolus following the bolus his BP normalized Respiratory: + cough; no dyspnea Cardiovascular: no chest pain Gastrointestinal: no abdominal pain Physical Exam 2 Vital Signs (Past 24 Hours): Last Vital Signs Temp 36.5 C 11/13/18 19:00 Pulse 93 H 11/13/18 19:00 Resp 19 11/13/18 19:00 BP 120/67 11/13/18 19:00 Pulse Ox 94 11/13/18 19:00 Constitutional: + ill appearing (but looks better than yesterday) and average body habitus; no acute distress ENMT: external ear and nose normal, oropharynx normal Respiratory: normal respiratory effort, lungs clear to auscultation Cardiovascular: Rate/Rhythm: regular rate; + abnormal rhythm (irregular) Heart Sounds: normal S1 and normal S2; no murmur Vessels: posterior tibial pulses present and dorsalis pedis pulses present; no JVD Extremities: no pedal edema Gastrointestinal (Abdomen): normal bowel sounds, soft, nontender, no hepatosplenomegaly Psychiatric: Orientation: alert, oriented to person and oriented to place Affect: + flat affect (almost parkinsonian ) Results & Data Laboratory Results Laboratory Results - last 24 hr 11/11/18 11/12/18 11/13/18 16:26 20:34 05:31 WBC 2.24 L RBC 2.69 L Hgb 8.5 L Hct 25.2 L MCV 93.7 MCH 31.6 MCHC 33.7 RDW Std Deviation 61.1 H RDW Coeff of Rigo 17.8 H Plt Count 53 L Platelet Estimate Decreased Sodium Potassium Chloride Carbon Dioxide Anion Gap BUN Creatinine Est Cr Clr Drug Dosing Est GFR ( Amer) Est GFR (Non-Af Amer) BUN/Creatinine Ratio Glucose POC Glucose 113 H Calcium Total Bilirubin AST ALT Alkaline Phosphatase Total Protein Albumin Globulin Albumin/Globulin Ratio Free Calipatria LC, Quant 890.2 H Free Lambda LC, Quant <1.5 L Free [place]/Lambda Ratio >593.47 H 11/13/18 05:31 WBC RBC Hgb Hct MCV MCH MCHC RDW Std Deviation RDW Coeff of Rigo Plt Count Platelet Estimate Sodium 139 Potassium 3.6 Chloride 105 Carbon Dioxide 27 Anion Gap 7.0 BUN 21 H Creatinine 0.86 Est Cr Clr Drug Dosing 61.4 Est GFR ( Amer) 94.3 Est GFR (Non-Af Amer) 81.3 BUN/Creatinine Ratio 24.2 H Glucose 97 POC Glucose Calcium 10.5 H Total Bilirubin 0.6 AST 13 L ALT 35 Alkaline Phosphatase 75 Total Protein 6.1 L Albumin 2.8 L Globulin 3.3 Albumin/Globulin Ratio 0.9 Free [place]ipatria LC, Quant Free Lambda LC, Quant Free [place]/Lambda Ratio _ (1) Atrial fibrillation Atrial fibrillation type: chronic Qualified Code(s): I48.2 - Chronic atrial fibrillation (2) Neutropenia Neutropenia type: unspecified Qualified Code(s): D70.9 - Neutropenia, unspecified (3) PNA (pneumonia) Aspiration pneumonia type: Laterality: right Lung location: middle lobe of lung Pneumonia type: due to unspecified organism Qualified Code(s): J18.1 - Lobar pneumonia, unspecified organism (4) Dysphagia Dysphagia type: unspecified Qualified Code(s): R13.10 - Dysphagia, unspecified
[2018-11-13 21:40] LABS: Appearance Urine Clear (Clear); Bacteria Urine Automated Negative (Negative); Bilirubin Urine Negative (Negative); Blood Urine Negative (Negative); Color Urine Yellow; Glucose Urine UA Negative (Negative); Ketones Urine Negative (Negative); Leukocyte Esterase Urine Negative (Negative); Nitrite Urine Negative (Negative); Protein Urine Trace (Negative); Specific Gravity Urine 1.022 (1.000-1.030); Urobilinogen Urine Negative (Negative); pH Urine 5.5 (4.5-7.5)
[2018-11-14 05:50] LABS: Nucleated RBC # (auto) 0.02 K/uL (0-0); Nucleated RBC % (auto) 0.8 %
[2018-11-14 06:29] LABS: Hematocrit (blood only) 27.5 % (42-52); Hemoglobin 8.9 g/dL (14.0-18.0); Mean Corpuscular Hgb Conc 32.4 g/dL (32-36); Mean Corpuscular Volume 93.9 fL (80-100); Platelet Count 59 K/uL (130-400); RDW Coefficient of Variation 17.6 % (11.5-14.5); RDW Standard Deviation 59.9 fL (36.4-46.3); Red Blood Count 2.93 M/uL (4.7-6.1); White Blood Count 2.71 K/uL (4.8-10.8)
[2018-11-14 06:30] LABS: BUN Creatinine Ratio 22.3 (10-20); Creatinine Clr Calc Pharmacy 58.7 ml/min; Est GFR (African American) 93.4; Est GFR (Non-African American) 80.6; Potassium 3.5 mmol/L (3.5-5.1)
[2018-11-14 06:33] LABS: Basophils # (auto) 0.01 K/uL (0-0.2); Basophils % (auto) 0.4 %; Eosinophils # (auto) 0.01 K/uL (0-0.5); Eosinophils % (auto) 0.4 %; Giant Platelets 2+; Immature Granulocytes # (auto) 0.02 K/uL (0.00-0.02); Immature Granulocytes % (auto) 0.7 %; Lymphocytes # (auto) 0.64 K/uL (1.2-3.4); Lymphocytes % (auto) 23.6 %; Monocytes # (auto) 0.28 K/uL (0.11-0.59); Monocytes % (auto) 10.3 %; Neutrophils # (auto) 1.75 K/uL (1.4-6.5); Neutrophils % (auto) 64.6 %; Ovalocytes 1+; Tear Drop Cells 1+; Toxic Granulation 1+
[2018-11-14] MEDS: CYANOCOBALAMIN (VITAMIN B-12) 2,500 MCG TAB.SUBL SL SCH (07:51)
[2018-11-14] MEDS: ACYCLOVIR 400 MG TAB PO SCH ×2 (07:51→20:40)
[2018-11-14] MEDS: THERATEARS OP SCH ×2 (07:51→20:42)
[2018-11-14] MEDS: FUROSEMIDE 20 MG TAB PO SCH (07:51)
[2018-11-14] MEDS: FINASTERIDE 5 MG TAB PO SCH (07:51)
[2018-11-14] MEDS: METOPROLOL SUCC 50MG EXT REL TAB PO SCH (07:52)
[2018-11-14] MEDS: PANTOprazole 40 MG TAB PO SCH ×2 (07:52→20:40)
[2018-11-14] MEDS: LIDOCAINE 5% 1 PATCH TD SCH (07:52)
[2018-11-14] MEDS: METOCLOPRAMIDE HCL 10 MG TABLET PO SCH ×4 (07:52→20:40)
[2018-11-14] MEDS ORDERED: SODIUM CHLORIDE 0.9% 1000ML 1,000 ML IV SCH (09:30)
[2018-11-14] MEDS ORDERED: CALCITONIN SALMON 250 UNITS in SYRINGE 0 ML SQ SCH (09:30)
[2018-11-14] MEDS ORDERED: CALCITONIN SALMON 400 UNITS/2 ML SQ SCH (09:30)
[2018-11-14] MEDS: DIGOXIN 0.125 MG TAB PO SCH (16:33)
[2018-11-14] MEDS: ACETAMINOPHEN 325 MG TAB PO PRN (18:37)
[2018-11-14] MEDS ORDERED: FUROSEMIDE 20 MG in SYRINGE 0 ML IV ONE (19:30)
[2018-11-14] MEDS ORDERED: POTASSIUM CHLORIDE 10 MEQ TABCR PO STA (19:51)
--- NOTE | 2018-11-14 19:56 | Hospitalist Progress Note ---
Date of Service November 14, 2018 Assessment & Plan (1) Hypercalcemia: ongoing suspected to be multifactorial including his multiple myeloma, immobility, and vitamin D supplementation YENNI level and PTH related peptide pending s/p zometa several days ago s/p calcitonin, fluids, and lasix ongoing today - NS x 1 liter followed by lasix 20mg IV x 1 along with calcitonin 250mcg SC x 1 repeat bmp am (2) Metabolic encephalopathy: improving slowly likely due to hypercalcemia (3) Multiple myeloma: appreciate Dr. Branch's consultation. daily CBC. (4) Influenza: resolved completed 5 days of tamiflu off droplet precautions (5) PNA (pneumonia): resolved completed full course of antibiotics (6) Acute on chronic systolic heart failure: EF 35-40%; previous TTE in December 2017 showed EF 40-45%. euvolemic today continue BB has not tolerated YENNI/ARB in past. getting lasix today primarily for calcium diuresis (7) Acute respiratory failure with hypoxia: due to flu A, multifocal pneumonia, and acute on chronic systolic CHF. resolved (8) Ileus: resolved (9) Pancytopenia: Secondary to multiple myeloma with acute suppression of counts from viral illness. Counts acceptable today. (10) Neutropenia: resolved (11) Elevated troponin: 2nd to myocardial demand ischemia in setting of acute illness. (12) Atrial fibrillation: rate controlled w/ toprol xl and digoxin. Pradaxa on hold in setting of thrombocytopenia. repeat cbc in am. 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 fib. no issues. (14) BPH (benign prostatic hyperplasia): alpha luther, finasteride. (15) Dysphagia: appreciate speech therapy consult and recommendations. (16) DVT prophylaxis: SCDs only. dispo - [facility] once calcium level is normal. Subjective patient feeling better today not as sleepy more awake/alert eating better he denies dyspnea or any pain Constitutional: no fever and no chills Respiratory: + cough; no dyspnea Cardiovascular: no chest pain Gastrointestinal: no abdominal pain Physical Exam 2 Vital Signs (Past 24 Hours): Last Vital Signs Temp 36.4 C L 11/14/18 19:10 Pulse 82 11/14/18 19:34 Resp 20 11/14/18 19:34 BP 138/84 11/14/18 19:34 Pulse Ox 95 11/14/18 19:34 Constitutional: WD/WN, vitals as above average body habitus; no acute distress ENMT: external ear and nose normal, oropharynx normal Respiratory: normal respiratory effort, lungs clear to auscultation no respiratory distress Cardiovascular: Rate/Rhythm: regular rate; + abnormal rhythm (irregular) Heart Sounds: normal S1 and normal S2; no murmur Vessels: posterior tibial pulses present and dorsalis pedis pulses present; no JVD Extremities: no pedal edema Gastrointestinal (Abdomen): normal bowel sounds, soft, nontender, no hepatosplenomegaly Percussion/Palpation: no guarding Psychiatric: Orientation: alert and oriented x 3 Affect: + flat affect ( almost parkinsonian ) Results & Data Laboratory Results Laboratory Results - last 24 hr 11/13/18 11/14/18 11/14/18 21:10 05:18 05:18 WBC 2.71 L RBC 2.93 L Hgb 8.9 L Hct 27.5 L MCV 93.9 MCH 30.4 MCHC 32.4 RDW Std Deviation 59.9 H RDW Coeff of Rigo 17.6 H Plt Count 59 L Immature Gran % (Auto) 0.7 Neut % (Auto) 64.6 Lymph % (Auto) 23.6 [place] % (Auto) 10.3 Eos % (Auto) 0.4 Baso % (Auto) 0.4 Immature Gran # (Auto) 0.02 Neut # (Auto) 1.75 Lymph # (Auto) 0.64 L [place] # (Auto) 0.28 Eos # (Auto) 0.01 Baso # (Auto) 0.01 Absolute Nucleated RBC 0.02 H Nucleated RBC % (auto) 0.8 Toxic Granulation 1+ Giant Platelets 2+ Tear Drop Cells 1+ Ovalocytes 1+ Sodium 139 Potassium 3.5 Chloride 106 Carbon Dioxide 28 Anion Gap 6.0 BUN 20 H Creatinine 0.88 Est Cr Clr Drug Dosing 58.7 Est GFR ( Amer) 93.4 Est GFR (Non-Af Amer) 80.6 BUN/Creatinine Ratio 22.3 H Glucose 90 Calcium 11.0 H Urine Color Yellow Urine Appearance Clear Urine pH 5.5 Ur Specific Muse 1.022 Urine Protein Trace H Urine Glucose (UA) Negative Urine Ketones Negative Urine Blood Negative Urine Nitrite Negative Urine Bilirubin Negative Urine Urobilinogen Negative Ur Leukocyte Esterase Negative Urine WBC (Auto) 1-5 Urine RBC (Auto) 10-30 H U Hyaline Cast (Auto) 1-5 U Epithel Cells (Auto) 10-20 H Urine Bacteria (Auto) Negative _ (1) BPH (benign prostatic hyperplasia) Lower urinary tract symptom detail: Lower urinary tract symptom presence: symptoms absent Qualified Code(s): N40.0 - Benign prostatic hyperplasia without lower urinary tract symptoms (2) Atrial fibrillation Atrial fibrillation type: chronic Qualified Code(s): I48.2 - Chronic atrial fibrillation (3) Neutropenia Neutropenia type: unspecified Qualified Code(s): D70.9 - Neutropenia, unspecified (4) PNA (pneumonia) Aspiration pneumonia type: Laterality: right Lung location: middle lobe of lung Pneumonia type: due to unspecified organism Qualified Code(s): J18.1 - Lobar pneumonia, unspecified organism (5) Dysphagia Dysphagia type: unspecified Qualified Code(s): R13.10 - Dysphagia, unspecified (6) Multiple myeloma Multiple myeloma remission status: unspecified Qualified Code(s): C90.00 - Multiple myeloma not having achieved remission
[2018-11-14] MEDS: HEPARIN 100 UNIT/ML 5ML FLUSH FLUSH PRN (20:44)
[2018-11-15] MEDS: METOCLOPRAMIDE HCL 10 MG TABLET PO SCH ×4 (07:54→21:06)
[2018-11-15] MEDS: HEPARIN 100 UNIT/ML 5ML FLUSH FLUSH PRN ×2 (08:50→13:56)
[2018-11-15 09:20] LABS: Nucleated RBC # (auto) 0.02 K/uL (0-0); Nucleated RBC % (auto) 0.6 %
[2018-11-15 09:59] LABS: BUN Creatinine Ratio 19.5 (10-20); Calcium 10.4 mg/dl (8.5-10.1); Creatinine Clr Calc Pharmacy 62.5 ml/min; Est GFR (African American) 97.6; Est GFR (Non-African American) 84.2; Magnesium 1.5 mg/dl (1.8-2.4); Potassium 3.5 mmol/L (3.5-5.1)
[2018-11-15 10:04] LABS: Hematocrit (blood only) 29.8 % (42-52); Hemoglobin 9.8 g/dL (14.0-18.0); Mean Corpuscular Hgb Conc 32.9 g/dL (32-36); Mean Corpuscular Volume 93.7 fL (80-100); Platelet Count 72 K/uL (130-400); RDW Coefficient of Variation 17.6 % (11.5-14.5); RDW Standard Deviation 60.4 fL (36.4-46.3); Red Blood Count 3.18 M/uL (4.7-6.1); White Blood Count 3.08 K/uL (4.8-10.8)
[2018-11-15 10:06] LABS: Basophils # (auto) 0.01 K/uL (0-0.2); Basophils % (auto) 0.3 %; Eosinophils # (auto) 0.01 K/uL (0-0.5); Eosinophils % (auto) 0.3 %; Giant Platelets 1+; Immature Granulocytes # (auto) 0.04 K/uL (0.00-0.02); Immature Granulocytes % (auto) 1.3 %; Lymphocytes # (auto) 1.01 K/uL (1.2-3.4); Lymphocytes % (auto) 32.8 %; Monocytes # (auto) 0.37 K/uL (0.11-0.59); Neutrophils # (auto) 1.64 K/uL (1.4-6.5); Neutrophils % (auto) 53.3 %; Ovalocytes 2+; Platelet Estimate Decreased (Normal); Tear Drop Cells 1+
[2018-11-15] MEDS: FUROSEMIDE 20 MG TAB PO SCH (10:28)
[2018-11-15] MEDS: THERATEARS OP SCH ×2 (10:30→21:08)
[2018-11-15] MEDS: PANTOprazole 40 MG TAB PO SCH ×2 (10:31→21:06)
[2018-11-15] MEDS: FINASTERIDE 5 MG TAB PO SCH (10:31)
[2018-11-15] MEDS: METOPROLOL SUCC 50MG EXT REL TAB PO SCH (10:32)
[2018-11-15] MEDS: ACYCLOVIR 400 MG TAB PO SCH ×2 (10:33→21:06)
[2018-11-15] MEDS: MAGNESIUM SULFATE / D5W 1 GM/100 ML BAG IV SCH ×2 (11:41→12:46)
[2018-11-15] MEDS: LIDOCAINE 5% 1 PATCH TD SCH (12:34)
--- NOTE | 2018-11-15 13:55 | Hematology/Oncology Prog Note ---
Date of Service November 15, 2018 Assessment & Plan (1) Hypercalcemia: Mr. Blanchard's baseline calcium levels have been around 8-9 and they remain above that range, though they are down a bit from yesterday. This may reflect the Zometa taking effect or may reflect the resolution of his other multifactorial health issues. His paraproteins were improved, so I doubt this issue was related directly to his myeloma, though it probably played a role. Overall, I remain uncertain what exactly provoked the hypercalcemia, but I suspect it was attributable to his acute illness and immobility. If his numbers continue to improve tomorrow, he will hopefully be ready to leave early next week. I will make arrangements with my office to resume his myeloma therapy in the next 1-2 weeks. Subjective Mr. Blanchard looks much improved today. He is seated in a chair and is much more alert and interactive. He is still very fatigued and is planning to go to an inpatient rehab facility following this stay. He has no pain, fevers, or other new complaints today. Constitutional: + fatigue and + weakness (generalized); no fever Respiratory: no cough and no dyspnea Cardiovascular: no chest pain and no palpitations Gastrointestinal: no abdominal pain, no nausea and no vomiting Genitourinary (Male): no dysuria and no hematuria Musculoskeletal: no back pain and no joint pain Neurologic: no dizziness and no headache(s) Hematologic / Lymphatic: no easy bleeding and no easy bruising Physical Exam 2 Vital Signs (Past 24 Hours): Last Vital Signs Temp 36.2 C L 11/15/18 07:07 Pulse 84 11/15/18 07:07 Resp 16 11/15/18 07:07 BP 162/83 H 11/15/18 07:07 Pulse Ox 96 11/15/18 07:07 Constitutional: + ill appearing (chronically) and + cachectic; no acute distress Eyes: + anicteric sclerae and EOM intact bilaterally ENMT: Mouth: + dry oral mucous membranes Throat: no posterior oropharynx abnormality Respiratory: normal respiratory effort Cardiovascular: RRR, no murmur, no edema Gastrointestinal (Abdomen): normal bowel sounds, soft, nontender, no hepatosplenomegaly Musculoskeletal: no cyanosis or clubbing, extremities motor strength 5/5
[2018-11-15] MEDS: CYANOCOBALAMIN (VITAMIN B-12) 2,500 MCG TAB.SUBL SL SCH (13:56)
[2018-11-15] MEDS: DIGOXIN 0.125 MG TAB PO SCH (15:57)
--- NOTE | 2018-11-15 20:43 | Hospitalist Progress Note ---
Date of Service November 15, 2018 Assessment & Plan (1) Hypercalcemia: improving and symptoms from such also improving suspected to be multifactorial including his multiple myeloma, immobility, and vitamin D supplementation YENNI level and PTH related peptide pending s/p zometa several days ago s/p calcitonin, fluids, and lasix multiple times no change in care plan today repeat bmp am (2) Metabolic encephalopathy: just about resolved was likely due to high calcium (3) Multiple myeloma: appreciate Dr. Branch's consultation. daily CBC. counts have recovered to his typical baseline values. (4) Influenza: resolved completed 5 days of tamiflu off droplet precautions (5) PNA (pneumonia): resolved completed full course of antibiotics (6) Acute on chronic systolic heart failure: EF 35-40%; previous TTE in December 2017 showed EF 40-45%. euvolemic today continue BB has not tolerated YENNI/ARB in past. cont 20mg of lasix daily including at d/c. (7) Acute respiratory failure with hypoxia: due to flu A, multifocal pneumonia, and acute on chronic systolic CHF. resolved (8) Ileus: resolved (9) Pancytopenia: Secondary to multiple myeloma with acute suppression of counts from viral illness. Counts again acceptable today. (10) Neutropenia: resolved (11) Elevated troponin: 2nd to myocardial demand ischemia in setting of acute illness. (12) Atrial fibrillation: rate controlled w/ toprol xl and digoxin. now that platelets are back to his typical baseline of about 70-80 will restart his Pradaxa 150mg bid. cbc in am. 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 fib. no issues. (14) BPH (benign prostatic hyperplasia): alpha luther, finasteride. (15) Dysphagia: appreciate speech therapy consult and recommendations. no issues. (16) Parkinsonian features: is his flat affect, low/soft voice, ?cogwheeling, etc due to acute illness /encephalopathy or does he have parkisonian features at baseline? serial exams for improvement is poor historian and getting information about possible chronic symptoms is challenging he does not have tremors by history (both concurred) (17) DVT prophylaxis: resume pradaxa. [facility] once calcium level is normal. Subjective overall feels better today more awake, alert more energy talking better (more spirited) minimal cough no OH no pain in any location at bedside during the visit Constitutional: + fatigue and + weakness; no fever and no chills Respiratory: no dyspnea, no dyspnea on exertion, no sputum production and no wheezing Cardiovascular: no chest pain, no orthopnea and no paroxysmal nocturnal dyspnea Gastrointestinal: no abdominal pain, no nausea and no vomiting Physical Exam 2 Vital Signs (Past 24 Hours): Last Vital Signs Temp 36.4 C L 11/15/18 19:07 Pulse 82 11/15/18 19:07 Resp 16 11/15/18 19:07 BP 111/77 11/15/18 19:07 Pulse Ox 98 11/15/18 19:07 Constitutional: + ill appearing (continues to look better than yesterday) and average body habitus; no acute distress ENMT: external ear and nose normal, oropharynx normal Respiratory: normal respiratory effort, lungs clear to auscultation no respiratory distress Cardiovascular: Rate/Rhythm: regular rate; + abnormal rhythm (irregular) Heart Sounds: normal S1 and normal S2; no murmur Vessels: posterior tibial pulses present and dorsalis pedis pulses present; no JVD Extremities: no pedal edema Gastrointestinal (Abdomen): normal bowel sounds, soft, nontender, no hepatosplenomegaly Percussion/Palpation: no guarding Neurologic: ?cogwheeling? Psychiatric: Orientation: alert and oriented x 3 Affect: + flat affect ( almost parkinsonian ) Results & Data Laboratory Results Laboratory Results - last 24 hr 11/15/18 11/15/18 11/15/18 08:49 08:49 20:17 WBC 3.08 L RBC 3.18 L Hgb 9.8 L Hct 29.8 L MCV 93.7 MCH 30.8 MCHC 32.9 RDW Std Deviation 60.4 H RDW Coeff of Rigo 17.6 H Plt Count 72 L Immature Gran % (Auto) 1.3 Neut % (Auto) 53.3 Lymph % (Auto) 32.8 [place] % (Auto) 12.0 Eos % (Auto) 0.3 Baso % (Auto) 0.3 Immature Gran # (Auto) 0.04 H Neut # (Auto) 1.64 Lymph # (Auto) 1.01 L [place] # (Auto) 0.37 Eos # (Auto) 0.01 Baso # (Auto) 0.01 Absolute Nucleated RBC 0.02 H Nucleated RBC % (auto) 0.6 Platelet Estimate Decreased Giant Platelets 1+ Tear Drop Cells 1+ Ovalocytes 2+ Sodium 139 Potassium 3.5 Chloride 106 Carbon Dioxide 28 Anion Gap 5.0 BUN 15 Creatinine 0.79 Est Cr Clr Drug Dosing 62.5 Est GFR ( Amer) 97.6 Est GFR (Non-Af Amer) 84.2 BUN/Creatinine Ratio 19.5 Glucose 90 POC Glucose 118 H Calcium 10.4 H Magnesium 1.5 L _ (1) BPH (benign prostatic hyperplasia) Lower urinary tract symptom detail: Lower urinary tract symptom presence: symptoms absent Qualified Code(s): N40.0 - Benign prostatic hyperplasia without lower urinary tract symptoms (2) Atrial fibrillation Atrial fibrillation type: chronic Qualified Code(s): I48.2 - Chronic atrial fibrillation (3) Dysphagia Dysphagia type: unspecified Qualified Code(s): R13.10 - Dysphagia, unspecified (4) Neutropenia Neutropenia type: unspecified Qualified Code(s): D70.9 - Neutropenia, unspecified (5) PNA (pneumonia) Aspiration pneumonia type: Laterality: right Lung location: middle lobe of lung Pneumonia type: due to unspecified organism Qualified Code(s): J18.1 - Lobar pneumonia, unspecified organism (6) Multiple myeloma Multiple myeloma remission status: unspecified Qualified Code(s): C90.00 - Multiple myeloma not having achieved remission
[2018-11-15] MEDS: DABIGATRAN ETEXILATE 75 MG CAP PO SCH (21:06)
[2018-11-15] MEDS: MAGNESIUM OXIDE 400 MG TAB PO SCH (21:08)
[2018-11-16] MEDS: HEPARIN 100 UNIT/ML 5ML FLUSH FLUSH PRN ×2 (07:40→21:11)
[2018-11-16 07:52] LABS: Mean Corpuscular Hgb Conc 32.5 g/dL (32-36); Nucleated RBC # (auto) 0.03 K/uL (0-0); Nucleated RBC % (auto) 0.9 %
[2018-11-16] MEDS: MAGNESIUM OXIDE 400 MG TAB PO SCH ×2 (07:53→20:07)
[2018-11-16] MEDS: LIDOCAINE 5% 1 PATCH TD SCH (07:53)
[2018-11-16] MEDS: METOPROLOL SUCC 50MG EXT REL TAB PO SCH (07:54)
[2018-11-16] MEDS: DABIGATRAN ETEXILATE 75 MG CAP PO SCH ×2 (07:54→20:07)
[2018-11-16] MEDS: PANTOprazole 40 MG TAB PO SCH ×2 (07:54→20:07)
[2018-11-16] MEDS: ACYCLOVIR 400 MG TAB PO SCH ×2 (07:54→20:07)
[2018-11-16] MEDS: METOCLOPRAMIDE HCL 10 MG TABLET PO SCH ×4 (07:54→20:07)
[2018-11-16] MEDS: CYANOCOBALAMIN (VITAMIN B-12) 2,500 MCG TAB.SUBL SL SCH (07:55)
[2018-11-16] MEDS: FUROSEMIDE 20 MG TAB PO SCH (07:55)
[2018-11-16] MEDS: FINASTERIDE 5 MG TAB PO SCH (07:55)
[2018-11-16] MEDS: THERATEARS OP SCH ×2 (07:56→20:03)
[2018-11-16 08:09] LABS: Hematocrit (blood only) 30.2 % (42-52); Hemoglobin 9.8 g/dL (14.0-18.0); Mean Corpuscular Volume 93.8 fL (80-100); RDW Coefficient of Variation 17.8 % (11.5-14.5); RDW Standard Deviation 60.7 fL (36.4-46.3); Red Blood Count 3.22 M/uL (4.7-6.1); White Blood Count 2.82 K/uL (4.8-10.8)
[2018-11-16 08:29] LABS: Platelet Count 82 K/uL (130-400)
[2018-11-16 08:30] LABS: Platelet Estimate Decreased (Normal)
[2018-11-16 08:33] LABS: BUN Creatinine Ratio 19.2 (10-20); Calcium 11.2 mg/dl (8.5-10.1); Creatinine Clr Calc Pharmacy 56.4 ml/min; Est GFR (African American) 93.8; Est GFR (Non-African American) 80.9; Magnesium 1.9 mg/dl (1.8-2.4); Potassium 3.4 mmol/L (3.5-5.1)
[2018-11-16] MEDS ORDERED: SODIUM CHLORIDE 0.9% 1000ML 1,000 ML IV SCH ×2 (10:30→12:15)
[2018-11-16] MEDS: POTASSIUM CHLORIDE 20 MEQ TABCR PO SCH (11:12)
[2018-11-16] MEDS: ISOSORBIDE MONO EXTENDED REL 30 MG TABCR PO SCH (11:12)
[2018-11-16] MEDS ORDERED: FUROSEMIDE 20 MG in SYRINGE 0 ML IV ONE (11:30)
[2018-11-16] MEDS: CLOTRIMAZOLE 10 MG TROCHE BUCCAL SCH ×3 (15:22→22:34)
[2018-11-16] MEDS: DIGOXIN 0.125 MG TAB PO SCH (16:35)
[2018-11-16] MEDS: ALFUZOSIN HCL 10 MG TAB PO SCH (20:09)
--- NOTE | 2018-11-16 22:32 | Hospitalist Progress Note ---
Date of Service November 16, 2018 Assessment & Plan (1) Hypercalcemia: Ongoing. suspected to be multifactorial including his multiple myeloma, immobility, and possibly his prior vitamin D supplementation PTH related peptide pending but suspect it will be normal s/p zometa several days ago (about 5-6 days ago) s/p calcitonin, fluids, and lasix multiple times give 1 L of NS, then vijay with lasix IV after that repeat BMP in am I believe much of his current symptomatology is due to the high calcium and hopefully these symptoms will improve with calcium normalization if calcium does not improve in the next 1-2 days consider denosumab as per recommendations from Dr. Branch (2) Metabolic encephalopathy: a/o x 3 today resolved was likely due to high calcium (3) Multiple myeloma: appreciate Dr. Branch's consultation. daily CBC. counts have recovered to his typical baseline values. paraprotein levels returned and were acceptable according to Dr. Branch. (4) Influenza: resolved completed 5 days of tamiflu off droplet precautions (5) PNA (pneumonia): resolved completed full course of antibiotics (6) Acute on chronic systolic heart failure: EF 35-40%; previous TTE in December 2017 showed EF 40-45%. euvolemic today continue BB has not tolerated YENNI/ARB in past. cont 20mg of lasix daily including at d/c. receiving IVF with IV lasix PRN for the high calcium. (7) Acute respiratory failure with hypoxia: due to flu A, multifocal pneumonia, and acute on chronic systolic CHF. resolved (8) Ileus: resolved (9) Pancytopenia: Secondary to multiple myeloma with acute suppression of counts from viral illness. Counts again acceptable today and actually modestly improved. (10) Neutropenia: resolved (11) Elevated troponin: 2nd to myocardial demand ischemia in setting of acute illness. (12) Atrial fibrillation: rates controlled w/ toprol xl and digoxin. now that platelets are back to his typical baseline of about 70-80 Pradaxa 150mg bid has been resumed. cbc in am. 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 fib. no issues. (14) BPH (benign prostatic hyperplasia): alpha luther, finasteride. (15) Dysphagia: appreciate speech therapy consult and recommendations. (16) Parkinsonian features: flat affect, low/soft voice, ?cogwheeling, etc --- are these features due to acute illness/encephalopathy or does he have parkisonian features at baseline ? exam is unchanged today vs previous exams is poor historian and getting information about possible chronic symptoms is challenging he does not have tremors by history (both concurred with that) if calcium improves and all other issues are stable -- and if parkinsonism features persist -- then neuro referral after d/c I offered to perform CT head today to r/o subacute stroke contributing to the above symptoms but declined; wants to wait on this for now (17) DVT prophylaxis: pradaxa. [facility] once calcium level is normal. updated at bedside today. cont PT, OT. Subjective no issues overnight patient feels similar to yesterday eating again modestly better than yesterday at bedside staff report no issues Constitutional: + weakness Respiratory: + cough (minimal); no dyspnea, no dyspnea on exertion and no wheezing Cardiovascular: no chest pain Gastrointestinal: no abdominal pain Physical Exam 2 Vital Signs (Past 24 Hours): Last Vital Signs Temp 36.7 C 11/16/18 18:39 Pulse 83 11/16/18 18:39 Resp 16 11/16/18 18:39 BP 119/76 11/16/18 18:39 Pulse Ox 96 11/16/18 18:39 Constitutional: average body habitus; no acute distress ENMT: external ear and nose normal, oropharynx normal Respiratory: normal respiratory effort, lungs clear to auscultation no respiratory distress Cardiovascular: Rate/Rhythm: regular rate; + abnormal rhythm (irregular) Heart Sounds: normal S1 and normal S2; no murmur Vessels: posterior tibial pulses present and dorsalis pedis pulses present; no JVD Extremities: no pedal edema Gastrointestinal (Abdomen): normal bowel sounds, soft, nontender, no hepatosplenomegaly Percussion/Palpation: abdomen nontender and no hepatosplenomegaly Neurologic: strength 5/5 x 4 exts; no facial droop Psychiatric: Orientation: alert and oriented x 3 Affect: + flat affect ( parkinsonian?) Results & Data Laboratory Results Laboratory Results - last 24 hr 11/16/18 11/16/18 07:41 07:41 WBC 2.82 L RBC 3.22 L Hgb 9.8 L Hct 30.2 L MCV 93.8 MCH 30.4 MCHC 32.5 RDW Std Deviation 60.7 H RDW Coeff of Rigo 17.8 H Plt Count 82 L Absolute Nucleated RBC 0.03 H Nucleated RBC % (auto) 0.9 Platelet Estimate Decreased Sodium 138 Potassium 3.4 L Chloride 104 Carbon Dioxide 25 Anion Gap 9.0 BUN 17 Creatinine 0.87 Est Cr Clr Drug Dosing 56.4 Est GFR ( Amer) 93.8 Est GFR (Non-Af Amer) 80.9 BUN/Creatinine Ratio 19.2 Glucose 90 Calcium 11.2 H Magnesium 1.9 _ (1) Multiple myeloma Multiple myeloma remission status: unspecified Qualified Code(s): C90.00 - Multiple myeloma not having achieved remission (2) PNA (pneumonia) Aspiration pneumonia type: Laterality: right Lung location: middle lobe of lung Pneumonia type: due to unspecified organism Qualified Code(s): J18.1 - Lobar pneumonia, unspecified organism (3) Neutropenia Neutropenia type: unspecified Qualified Code(s): D70.9 - Neutropenia, unspecified (4) Atrial fibrillation Atrial fibrillation type: chronic Qualified Code(s): I48.2 - Chronic atrial fibrillation (5) BPH (benign prostatic hyperplasia) Lower urinary tract symptom presence: symptoms absent Lower urinary tract symptom detail: Qualified Code(s): N40.0 - Benign prostatic hyperplasia without lower urinary tract symptoms (6) Dysphagia Dysphagia type: unspecified Qualified Code(s): R13.10 - Dysphagia, unspecified
[2018-11-17] MEDS: HEPARIN 100 UNIT/ML 5ML FLUSH FLUSH PRN (06:09)
[2018-11-17 07:14] LABS: Hematocrit (blood only) 25.8 % (42-52); Hemoglobin 8.6 g/dL (14.0-18.0); Mean Corpuscular Hgb Conc 33.3 g/dL (32-36); Mean Corpuscular Volume 92.1 fL (80-100); Platelet Count 73 K/uL (130-400); RDW Coefficient of Variation 17.9 % (11.5-14.5); RDW Standard Deviation 60.2 fL (36.4-46.3); White Blood Count 2.26 K/uL (4.8-10.8)
[2018-11-17 07:16] LABS: BUN Creatinine Ratio 22.4 (10-20); Calcium 10.8 mg/dl (8.5-10.1); Est GFR (African American) 90.1; Est GFR (Non-African American) 77.7; Potassium 3.4 mmol/L (3.5-5.1)
[2018-11-17 07:41] LABS: Basophils # (auto) 0.01 K/uL (0-0.2); Basophils % (auto) 0.4 %; Eosinophils # (auto) 0.01 K/uL (0-0.5); Eosinophils % (auto) 0.4 %; Giant Platelets 3+; Immature Granulocytes # (auto) 0.02 K/uL (0.00-0.02); Immature Granulocytes % (auto) 0.9 %; Lymphocytes # (auto) 1.02 K/uL (1.2-3.4); Lymphocytes % (auto) 45.1 %; Monocytes # (auto) 0.28 K/uL (0.11-0.59); Monocytes % (auto) 12.4 %; Neutrophils # (auto) 0.92 K/uL (1.4-6.5); Neutrophils % (auto) 40.8 %; Ovalocytes 2+; Platelet Estimate Decreased (Normal); Tear Drop Cells 2+
[2018-11-17] MEDS: CLOTRIMAZOLE 10 MG TROCHE BUCCAL SCH ×5 (08:49→23:06)
[2018-11-17] MEDS: ISOSORBIDE MONO EXTENDED REL 30 MG TABCR PO SCH (08:49)
[2018-11-17] MEDS: MAGNESIUM OXIDE 400 MG TAB PO SCH ×2 (08:49→21:25)
[2018-11-17] MEDS: METOPROLOL SUCC 50MG EXT REL TAB PO SCH (08:50)
[2018-11-17] MEDS: PANTOprazole 40 MG TAB PO SCH ×2 (08:50→21:19)
[2018-11-17] MEDS: METOCLOPRAMIDE HCL 10 MG TABLET PO SCH ×3 (08:50→16:54)
[2018-11-17] MEDS: FINASTERIDE 5 MG TAB PO SCH (08:50)
[2018-11-17] MEDS: CYANOCOBALAMIN (VITAMIN B-12) 2,500 MCG TAB.SUBL SL SCH (08:50)
[2018-11-17] MEDS: ACYCLOVIR 400 MG TAB PO SCH ×2 (08:51→21:19)
[2018-11-17] MEDS: POTASSIUM CHLORIDE 20 MEQ TABCR PO SCH (08:51)
[2018-11-17] MEDS: FUROSEMIDE 20 MG TAB PO SCH (08:51)
[2018-11-17] MEDS: DABIGATRAN ETEXILATE 75 MG CAP PO SCH ×2 (08:51→21:21)
[2018-11-17] MEDS: THERATEARS OP SCH ×2 (08:52→21:27)
[2018-11-17] MEDS: LIDOCAINE 5% 1 PATCH TD SCH (08:52)
[2018-11-17] MEDS: DIGOXIN 0.125 MG TAB PO SCH (16:53)
--- NOTE | 2018-11-17 20:10 | Hospitalist Progress Note ---
Date of Service November 17, 2018 Assessment & Plan (1) Hypercalcemia: Ongoing. But improved. Corrected calcium today is 11.76 suspected to be multifactorial including his multiple myeloma, immobility, and possibly his prior vitamin D supplementation As his vitamin D level was very high at 76 PTH related peptide pending but suspect it will be normal s/p zometa several days ago (about 6 days ago) s/p calcitonin, fluids, and lasix multiple times repeat BMP in am I believe much of his current symptomatology is due to the high calcium and hopefully these symptoms will improve with calcium normalization if calcium does not Continue to improve in the next 1 days consider denosumab as per recommendations from Dr. Branch (2) Generalized weakness: - Has developed weakness/deconditioning related to prolonged hospital stay for influenza A/PNA/CHF. - Repeat infectious work up in setting of ongoing weakness: CXR unchanged, U/a negative and BC pending. - PT/OT both recommending SNF at discharge. - Plan for placement at SNF -- family would prefer [facility]. (3) Influenza: - Positive for Influenza A at admission. - Completed 5 day course of Tamiflu. - Has ongoing fatigue, poor appetite and malaise - likely related to generalized deconditioning. - Supportive care with Xopenex q6hr and Atrovent q6hr prn (4) PNA (pneumonia): - Probable on right side hilar region. - Completed Levaquin x 5 days and Cefepime x 7 days. - Incentive spirometry q1hr WA. - CXR 11/02 showed improvement in PNA and pulmonary vascular congestion. - Chest CT 11/05 negative for PE, showed multifocal consolidative changes in both lungs c/w multifocal PNA, will need f/u imaging in 3-4 months. - CXR Repeat On 11/11 showed mild CHF/fluid overload and slight progression in left basilar opacities. (5) Acute on chronic systolic heart failure: - Echo showed EF 35-40%; previous TTE in December 2017 showed EF 40-45%. - CHF likely ischemic in nature; pt. has refused cardiac cath in past. - Monitor strict I/O's, low sodium diet and daily weights; weight stable. - Continue Toprol XL 100 mg daily; has not tolerated YENNI/ARB in past. -Continue Lasix 20 mg p.o. once daily (6) Acute respiratory failure with hypoxia: - Secondary to flu A, multifocal pneumonia, and acute on chronic systolic CHF. Is now weaned off oxygen and pulse ox is normal on room air - CT PE was negative, showed known multifocal PNA. (7) Nausea: Had nausea in the first week of his stay likely related to acute illness This resolved with treatment with metoclopramide-can now discontinue standing dose - Abd XR showed mild ileus, was otherwise negative. - CT A/P negative for acute abnormalities. - Cardiac work up, including EKG and Trop x 3, all negative. (8) Pancytopenia: - Secondary to multiple myeloma with acute suppression of counts from viral illness. Counts are stable To improved (9) Neutropenia: - Continue neutropenic precautions. - ID ppx: Acyclovir (10) Elevated troponin: - Likely related to myocardial demand ischemia in setting of acute illness. - Trop peaked at 0.539 then trended down. Repeat troponins were also negative. - No significant changes on EKG compared to prior studies. - Echo with low EF and hypokinesis of apex and akinesis of distal anteroseptum. - Continue cardiac meds as prescribed. (11) Atrial fibrillation: - In A. fib, rate controlled. - Continue Toprol XL 100 mg daily. - Continue Digoxin as prescribed - both levels during this admission were 0.6. - Now back on Pradaxa as platelets are improved greater than 50,000 (12) History of multiple myeloma: - Present x 7 years; follows with Dr. Branch. - On chemo agent outside of hospital. -Hemoccult consultation appreciated (13) Pacemaker: - Placed for tachybradycardia syndrome (14) BPH (benign prostatic hyperplasia): - Continue alpha luther, finasteride. (15) Parkinsonian features: flat affect, low/soft voice, ?cogwheeling, etc --- are these features due to acute illness/encephalopathy or does he have parkisonian features at baseline ? exam is unchanged today vs previous exams is poor historian and getting information about possible chronic symptoms is challenging he does not have tremors by history (both concurred with that) if calcium improves and all other issues are stable -- and if parkinsonism features persist -- then neuro referral after d/c Previous hospitalist offered to perform CT head today to r/o subacute stroke contributing to the above symptoms but declined; wants to wait on this for now (16) Dysphagia: appreciate speech therapy consult and recommendations. -- Pt. needs barium swallow and video swallow study but will need to stand for 3 -5 minutes for procedure -- can be done as outpatient. (17) Metabolic encephalopathy: a/o x 3 today resolved was likely due to high calcium (18) Multiple myeloma: appreciate Dr. Branch's consultation. daily CBC. counts have recovered to his typical baseline values. paraprotein levels returned and were acceptable according to Dr. Branch. (19) DVT prophylaxis: Pradaxa Dispo: Discharge pending SNF placement ([facility]) Once calcium levels continue to improve-hopefully tomorrow. His son Mo has been updated (Cell#: [phone], Home#: [phone]) . His son Romeo has also been contacted, works with [employer] in [place] ( Cell#: [phone]) Subjective Patient feels better today than yesterday. He has no complaints. Denies pain anywhere or shortness of breath.He reports he is eating more. Review of Systems All systems reviewed & are unremarkable except as noted in HPI & below Physical Exam 2 Vital Signs (Past 24 Hours): Last Vital Signs Temp 36.8 C 11/17/18 19:00 Pulse 84 11/17/18 19:00 Resp 19 11/17/18 19:00 BP 124/67 11/17/18 19:00 Pulse Ox 94 11/17/18 19:00 Constitutional: + thin; no acute distress Eyes: PERRL, conjunctivae normal, anicteric sclerae ENMT: Ears: no hearing impairment Neck: trachea midline, no thyromegaly Respiratory: normal respiratory effort, lungs clear to auscultation Cardiovascular: Rate/Rhythm: regular rate; + abnormal rhythm (Irregularly irregular) Heart Sounds: no murmur Extremities: no edema Gastrointestinal (Abdomen): normal bowel sounds, soft, nontender, no hepatosplenomegaly Musculoskeletal: Extremities: extremities normal to inspection; no cyanosis and no clubbing Skin: no rashes, warm and dry Neurologic: moves all extremities (But with generalized weakness) and awake; no focal motor deficits Psychiatric: Orientation: alert and cooperative Affect: + flat affect Results & Data Laboratory Results 02/25/19 02/25/19 Range/Units 06:09 06:09 WBC 2.26 L (4.8-10.8) K/uL RBC 2.80 L (4.7-6.1) M/uL Hgb 8.6 L (14.0-18.0) g/dL Hct 25.8 L (42-52) % MCV 92.1 (80-100) fL MCH 30.7 (25-34) pg MCHC 33.3 (32-36) g/dL RDW Std Deviation 60.2 H (36.4-46.3) fL RDW Coeff of Rigo 17.9 H (11.5-14.5) % Plt Count 73 L (130-400) K/uL Immature Gran % (Auto) 0.9 % Neut % (Auto) 40.8 % Lymph % (Auto) 45.1 % Whitfield % (Auto) 12.4 % Eos % (Auto) 0.4 % Baso % (Auto) 0.4 % Immature Gran # (Auto) 0.02 (0.00-0.02) K/uL Neut # (Auto) 0.92 L* (1.4-6.5) K/uL Lymph # (Auto) 1.02 L (1.2-3.4) K/uL Whitfield # (Auto) 0.28 (0.11-0.59) K/uL Eos # (Auto) 0.01 (0-0.5) K/uL Baso # (Auto) 0.01 (0-0.2) K/uL Platelet Estimate Decreased (Normal) Giant Platelets 3+ Tear Drop Cells 2+ Ovalocytes 2+ Sodium 139 (136-145) mmol/L Potassium 3.4 L (3.5-5.1) mmol/L Chloride 106 (98-107) mmol/L Carbon Dioxide 26 (21-32) mmol/L Anion Gap 7.0 (3-11) BUN 21 H (7-18) mg/dl Creatinine 0.92 (0.6-1.4) mg/dl Est Cr Clr Drug Dosing 55.0 ml/min Est GFR ( Amer) 90.1 Est GFR (Non-Af Amer) 77.7 BUN/Creatinine Ratio 22.4 H (10-20) Glucose 92 (70-99) mg/dl Calcium 10.8 H (8.5-10.1) mg/dl _ (1) BPH (benign prostatic hyperplasia) Lower urinary tract symptom detail: Lower urinary tract symptom presence: symptoms absent Qualified Code(s): N40.0 - Benign prostatic hyperplasia without lower urinary tract symptoms (2) Atrial fibrillation Atrial fibrillation type: chronic Qualified Code(s): I48.2 - Chronic atrial fibrillation (3) Dysphagia Dysphagia type: unspecified Qualified Code(s): R13.10 - Dysphagia, unspecified (4) Neutropenia Neutropenia type: unspecified Qualified Code(s): D70.9 - Neutropenia, unspecified (5) PNA (pneumonia) Aspiration pneumonia type: Laterality: right Lung location: middle lobe of lung Pneumonia type: due to unspecified organism Qualified Code(s): J18.1 - Lobar pneumonia, unspecified organism (6) Multiple myeloma Multiple myeloma remission status: unspecified Qualified Code(s): C90.00 - Multiple myeloma not having achieved remission
[2018-11-17] MEDS: ALFUZOSIN HCL 10 MG TAB PO SCH (21:30)
[2018-11-18] MEDS: HEPARIN 100 UNIT/ML 5ML FLUSH FLUSH PRN (05:51)
[2018-11-18] MEDS: CLOTRIMAZOLE 10 MG TROCHE BUCCAL SCH ×5 (06:27→20:43)
[2018-11-18 07:19] LABS: Albumin Level 2.8 gm/dl (3.4-5.0); BUN Creatinine Ratio 19.6 (10-20); Calcium 11.1 mg/dl (8.5-10.1); Creatinine Clr Calc Pharmacy 52.6 ml/min; Est GFR (African American) 82.4; Est GFR (Non-African American) 71.1; Magnesium 1.7 mg/dl (1.8-2.4); Phosphorus 2.3 mg/dl (2.5-4.9); Potassium 3.6 mmol/L (3.5-5.1)
[2018-11-18] MEDS: CYANOCOBALAMIN (VITAMIN B-12) 2,500 MCG TAB.SUBL SL SCH (07:28)
[2018-11-18] MEDS: POTASSIUM CHLORIDE 20 MEQ TABCR PO SCH (07:28)
[2018-11-18] MEDS: METOPROLOL SUCC 50MG EXT REL TAB PO SCH (07:28)
[2018-11-18] MEDS: MAGNESIUM OXIDE 400 MG TAB PO SCH ×2 (07:28→20:38)
[2018-11-18] MEDS: ACYCLOVIR 400 MG TAB PO SCH ×2 (07:28→20:38)
[2018-11-18] MEDS: ISOSORBIDE MONO EXTENDED REL 30 MG TABCR PO SCH (07:29)
[2018-11-18] MEDS: FUROSEMIDE 20 MG TAB PO SCH (07:29)
[2018-11-18] MEDS: PANTOprazole 40 MG TAB PO SCH ×2 (07:29→20:38)
[2018-11-18] MEDS: FINASTERIDE 5 MG TAB PO SCH (07:29)
[2018-11-18] MEDS: DABIGATRAN ETEXILATE 75 MG CAP PO SCH ×2 (07:29→20:38)
[2018-11-18] MEDS: LIDOCAINE 5% 1 PATCH TD SCH ×2 (07:29→14:49)
[2018-11-18 07:30] LABS: Hemoglobin 7.9 g/dL (14.0-18.0); Mean Corpuscular Hgb Conc 32.9 g/dL (32-36); Mean Corpuscular Volume 92.3 fL (80-100); Nucleated RBC # (auto) 0.02 K/uL (0-0); Nucleated RBC % (auto) 0.7 %; Platelet Count 80 K/uL (130-400); RDW Coefficient of Variation 17.9 % (11.5-14.5); RDW Standard Deviation 60.6 fL (36.4-46.3); White Blood Count 2.34 K/uL (4.8-10.8)
[2018-11-18 07:31] LABS: Anisocytosis Present; Basophils # (auto) 0.01 K/uL (0-0.2); Basophils % (auto) 0.4 %; Immature Granulocytes # (auto) 0.02 K/uL (0.00-0.02); Immature Granulocytes % (auto) 0.9 %; Lymphocytes % (auto) 38.5 %; Monocytes % (auto) 17.1 %; Neutrophils # (auto) 1.01 K/uL (1.4-6.5); Neutrophils % (auto) 43.1 %; Schistocytes Occasional
[2018-11-18] MEDS: THERATEARS OP SCH ×2 (07:31→20:39)
[2018-11-18 07:35] LABS: Giant Platelets 1+; Tear Drop Cells 1+
[2018-11-18 07:36] LABS: Ovalocytes 2+
[2018-11-18] MEDS ORDERED: POTASSIUM PHOS 3 MMOL/1 ML INFUSION IV STA (10:12)
[2018-11-18] MEDS ORDERED: FUROSEMIDE 20 MG in SYRINGE 0 ML IV ONE ×2 (10:45→18:15)
[2018-11-18] MEDS ORDERED: POTASSIUM PHOSPHATE 15 MMOL in SODIUM CHLORIDE 0.9% 250 ML IV ONE (10:45)
[2018-11-18] MEDS ORDERED: MAGNESIUM SULFATE / D5W 1 GM/100 ML BAG IV ONE (10:45)
[2018-11-18] MEDS: DIGOXIN 0.125 MG TAB PO SCH (15:34)
--- NOTE | 2018-11-18 17:33 | Hospitalist Progress Note ---
Date of Service November 18, 2018 Assessment & Plan (1) Hypercalcemia: Worsening today. Corrected calcium today is 4.06 suspected to be multifactorial including his multiple myeloma, immobility, and possibly his prior vitamin D supplementation As his vitamin D level was very high at 76 PTH related peptide is also elevated at 94 suggesting this could be from his malignancy Discussed case with nephrology who feels that this is an oncology issue s/p zometa 1 week ago s/p calcitonin, fluids, and lasix multiple times Will give pamidronate 60 mg IV x1 Start Lasix 20 mill grams IV twice daily along with gentle normal saline in the setting of CHF I believe much of his current symptomatology is due to the high calcium and hopefully these symptoms will improve with calcium normalization Consider Xgeva if still not improving (2) Generalized weakness: - Has developed weakness/deconditioning related to prolonged hospital stay for influenza A/PNA/CHF. Slightly improved today - Repeat infectious work up in setting of ongoing weakness: CXR unchanged, U/a negative and BC pending. - PT/OT both recommending SNF at discharge. - Plan for placement at SNF -- family would prefer [facility]. (3) Influenza: - Positive for Influenza A at admission. - Completed 5 day course of Tamiflu. - Has ongoing fatigue, poor appetite and malaise - likely related to generalized deconditioning. - Supportive care with Xopenex q6hr and Atrovent q6hr prn (4) PNA (pneumonia): - Probable on right side hilar region. - Completed Levaquin x 5 days and Cefepime x 7 days. - Incentive spirometry q1hr WA. - CXR 11/02 showed improvement in PNA and pulmonary vascular congestion. - Chest CT 11/05 negative for PE, showed multifocal consolidative changes in both lungs c/w multifocal PNA, will need f/u imaging in 3-4 months. - CXR Repeat On 11/11 showed mild CHF/fluid overload and slight progression in left basilar opacities. (5) Acute on chronic systolic heart failure: - Echo showed EF 35-40%; previous TTE in December 2017 showed EF 40-45%. - CHF likely ischemic in nature; pt. has refused cardiac cath in past. - Monitor strict I/O's, low sodium diet and daily weights; weight stable. - Continue Toprol XL 100 mg daily; has not tolerated YENNI/ARB in past. -Continue Lasix 20 mg IV twice daily as above for hypercalcemia (6) Acute respiratory failure with hypoxia: - Secondary to flu A, multifocal pneumonia, and acute on chronic systolic CHF. Is now weaned off oxygen and pulse ox is normal on room air - CT PE was negative, showed known multifocal PNA. (7) Nausea: Had nausea in the first week of his stay likely related to acute illness This resolved with treatment with metoclopramide-I have since discontinued the standing dose - Abd XR showed mild ileus, was otherwise negative. - CT A/P negative for acute abnormalities. - Cardiac work up, including EKG and Trop x 3, all negative. (8) Pancytopenia: - Secondary to multiple myeloma with acute suppression of counts from viral illness. Counts are stable To improved ANC is now over 1000 (9) Neutropenia: -No further need for neutropenic precautions as ANC greater than 1000 - ID ppx: Acyclovir (10) Elevated troponin: - Likely related to myocardial demand ischemia in setting of acute illness. - Trop peaked at 0.539 then trended down. Repeat troponins were also negative. - No significant changes on EKG compared to prior studies. - Echo with low EF and hypokinesis of apex and akinesis of distal anteroseptum. - Continue cardiac meds as prescribed. (11) Atrial fibrillation: - In A. fib, rate controlled. - Continue Toprol XL 100 mg daily. - Continue Digoxin as prescribed - both levels during this admission were 0.6. - Now back on Pradaxa as platelets are improved greater than 50,000 (12) History of multiple myeloma: - Present x 7 years; follows with Dr. Branch. - On chemo agent outside of hospital. -Hemoccult consultation appreciated (13) Pacemaker: - Placed for tachybradycardia syndrome (14) BPH (benign prostatic hyperplasia): - Continue alpha luther, finasteride. (15) Parkinsonian features: flat affect, low/soft voice, ?cogwheeling, etc --- are these features due to acute illness/encephalopathy or does he have parkisonian features at baseline? exam is unchanged today vs previous exams is poor historian and getting information about possible chronic symptoms is challenging he does not have tremors by history (both concurred with that) if calcium improves and all other issues are stable -- and if parkinsonism features persist -- then neuro referral after d/c Previous hospitalist offered to perform CT head to r/o subacute stroke contributing to the above symptoms but declined; wants to wait on this for now-not necessary at this point as he is improved (16) Dysphagia: appreciate speech therapy consult and recommendations. -- Pt. needs barium swallow and video swallow study but will need to stand for 3-5 minutes for procedure -- can be done as outpatient. (17) Metabolic encephalopathy: a/o x 3 today resolved was likely due to high calcium (18) Multiple myeloma: appreciate Dr. Branch's consultation. daily CBC. counts have recovered to his typical baseline values. paraprotein levels returned and were acceptable according to Dr. Branch. (19) DVT prophylaxis: Pradaxa Dispo: Discharge pending SNF placement ([facility]) Once calcium levels continue to improve-hopefully in the next 1-2 days His son Mo has been updated at the bedside today (Cell#: [phone], Home#: [phone]). Son Donald works with [employer] in [place] (Cell#: [phone]) Subjective Patient feeling better today, has more strength, appetite is better. Disappointed that his calcium is going back up and then he is to stay I discussed the case with oncology-we will give him pamidronate and more fluids and Lasix Review of Systems All systems reviewed & are unremarkable except as noted in HPI & below Physical Exam Vital Signs (Past 24 Hours): Last Vital Signs Temp 36.5 C 11/18/18 15:37 Pulse 73 11/18/18 15:37 Resp 16 11/18/18 15:37 BP 109/75 11/18/18 15:37 Pulse Ox 96 11/18/18 15:37 Constitutional: + thin; no acute distress Eyes: PERRL, conjunctivae normal, anicteric sclerae ENMT: Ears: no hearing impairment Neck: trachea midline, no thyromegaly Respiratory: normal respiratory effort, lungs clear to auscultation Cardiovascular: Rate/Rhythm: regular rate; + abnormal rhythm (Irregularly irregular) Heart Sounds: no murmur Extremities: no edema Gastrointestinal (Abdomen): normal bowel sounds, soft, nontender, no hepatosplenomegaly Musculoskeletal: Extremities: extremities normal to inspection; no cyanosis and no clubbing Skin: no rashes, warm and dry Neurologic: moves all extremities (But with generalized weakness) and awake; no focal motor deficits Psychiatric: Orientation: alert and cooperative Affect: + flat affect Results & Data Laboratory Results 11/19/18 11/19/18 11/18/18 Range/Units 05:45 05:45 05:50 WBC 2.03 L 2.34 L (4.8-10.8) K/uL RBC 2.43 L 2.60 L (4.7-6.1) M/uL Hgb 7.7 L 7.9 L (14.0-18.0) g/dL Hct 22.7 L 24.0 L (42-52) % MCV 93.4 92.3 (80-100) fL MCH 31.7 30.4 (25-34) pg MCHC 33.9 32.9 (32-36) g/dL RDW Std Deviation 61.5 H 60.6 H (36.4-46.3) fL RDW Coeff of Rigo 17.9 H 17.9 H (11.5-14.5) % Plt Count 78 L 80 L (130-400) K/uL Immature Gran % (Auto) 1.0 0.9 % Neut % (Auto) 31.0 43.1 % Lymph % (Auto) 48.8 38.5 % Nolan % (Auto) 17.7 17.1 % Eos % (Auto) 0.5 0.0 % Baso % (Auto) 1.0 0.4 % Immature Gran # (Auto) 0.02 0.02 (0.00-0.02) K/uL Neut # (Auto) 0.63 L* 1.01 L (1.4-6.5) K/uL Lymph # (Auto) 0.99 L 0.90 L (1.2-3.4) K/uL Nolan # (Auto) 0.36 0.40 (0.11-0.59) K/uL Eos # (Auto) 0.01 0.00 (0-0.5) K/uL Baso # (Auto) 0.02 0.01 (0-0.2) K/uL Absolute Nucleated RBC 0.04 H 0.02 H (0-0) K/uL Nucleated RBC % (auto) 2.0 0.7 % Platelet Estimate Decreased (Normal) Giant Platelets 2+ 1+ Anisocytosis Present Tear Drop Cells 2+ 1+ Ovalocytes 2+ 2+ Schistocytes Occasional Sodium 139 (136-145) mmol/L Potassium 3.5 (3.5-5.1) mmol/L Chloride 107 (98-107) mmol/L Carbon Dioxide 25 (21-32) mmol/L Anion Gap 7.0 (3-11) BUN 16 (7-18) mg/dl Creatinine 1.04 (0.6-1.4) mg/dl Est Cr Clr Drug Dosing 50.3 ml/min Est GFR ( Amer) 77.7 Est GFR (Non-Af Amer) 67.0 BUN/Creatinine Ratio 15.6 (10-20) Glucose 86 (70-99) mg/dl Calcium 10.7 H (8.5-10.1) mg/dl Phosphorus 2.5 (2.5-4.9) mg/dl Magnesium 1.7 L (1.8-2.4) mg/dl Albumin 2.7 L (3.4-5.0) gm/dl Calcium corrected is 12.06 (1) BPH (benign prostatic hyperplasia) Lower urinary tract symptom presence: symptoms absent Qualified Code(s): N40.0 - Benign prostatic hyperplasia without lower urinary tract symptoms (2) Atrial fibrillation Atrial fibrillation type: chronic Qualified Code(s): I48.2 - Chronic atrial fibrillation (3) Dysphagia Dysphagia type: unspecified Qualified Code(s): R13.10 - Dysphagia, unspecified (4) Neutropenia Neutropenia type: unspecified Qualified Code(s): D70.9 - Neutropenia, unspecified (5) PNA (pneumonia) Laterality: right Lung location: middle lobe of lung Pneumonia type: due to unspecified organism Qualified Code(s): J18.1 - Lobar pneumonia, unspecified organism (6) Multiple myeloma Multiple myeloma remission status: unspecified Qualified Code(s): C90.00 - Multiple myeloma not having achieved remission
[2018-11-18] MEDS: SODIUM CHLORIDE 0.9% 1000ML 1,000 ML IV SCH (18:10)
[2018-11-18] MEDS ORDERED: PAMIDRONATE DISODIUM 60 MG in SODIUM CHLORIDE 0.9% 1000ML 1,000 ML IV ONE (18:30)
[2018-11-18] MEDS: ALFUZOSIN HCL 10 MG TAB PO SCH (20:38)
[2018-11-19] MEDS: SODIUM CHLORIDE 0.9% 1000ML 1,000 ML IV SCH ×2 (05:54→19:46)
[2018-11-19] MEDS: CLOTRIMAZOLE 10 MG TROCHE BUCCAL SCH ×4 (05:59→19:47)
[2018-11-19 07:08] LABS: Albumin Level 2.7 gm/dl (3.4-5.0); BUN Creatinine Ratio 15.6 (10-20); Calcium 10.7 mg/dl (8.5-10.1); Creatinine Clr Calc Pharmacy 50.3 ml/min; Est GFR (African American) 77.7; Magnesium 1.7 mg/dl (1.8-2.4); Potassium 3.5 mmol/L (3.5-5.1)
[2018-11-19 07:09] LABS: Phosphorus 2.5 mg/dl (2.5-4.9)
[2018-11-19 07:13] LABS: Hematocrit (blood only) 22.7 % (42-52); Hemoglobin 7.7 g/dL (14.0-18.0); Mean Corpuscular Hgb Conc 33.9 g/dL (32-36); Mean Corpuscular Volume 93.4 fL (80-100); RDW Coefficient of Variation 17.9 % (11.5-14.5); RDW Standard Deviation 61.5 fL (36.4-46.3); Red Blood Count 2.43 M/uL (4.7-6.1); White Blood Count 2.03 K/uL (4.8-10.8)
[2018-11-19 07:15] LABS: Basophils # (auto) 0.02 K/uL (0-0.2); Eosinophils # (auto) 0.01 K/uL (0-0.5); Eosinophils % (auto) 0.5 %; Giant Platelets 2+; Immature Granulocytes # (auto) 0.02 K/uL (0.00-0.02); Lymphocytes # (auto) 0.99 K/uL (1.2-3.4); Lymphocytes % (auto) 48.8 %; Monocytes # (auto) 0.36 K/uL (0.11-0.59); Monocytes % (auto) 17.7 %; Neutrophils # (auto) 0.63 K/uL (1.4-6.5); Nucleated RBC # (auto) 0.04 K/uL (0-0); Ovalocytes 2+; Platelet Count 78 K/uL (130-400); Platelet Estimate Decreased (Normal); Tear Drop Cells 2+
[2018-11-19] MEDS: ISOSORBIDE MONO EXTENDED REL 30 MG TABCR PO SCH (08:57)
[2018-11-19] MEDS: POTASSIUM CHLORIDE 20 MEQ TABCR PO SCH (08:58)
[2018-11-19] MEDS: PANTOprazole 40 MG TAB PO SCH ×2 (08:58→21:19)
[2018-11-19] MEDS: CYANOCOBALAMIN (VITAMIN B-12) 2,500 MCG TAB.SUBL SL SCH (08:59)
[2018-11-19] MEDS: METOPROLOL SUCC 50MG EXT REL TAB PO SCH (08:59)
[2018-11-19] MEDS: FINASTERIDE 5 MG TAB PO SCH (09:00)
[2018-11-19] MEDS: DABIGATRAN ETEXILATE 75 MG CAP PO SCH ×2 (09:00→21:19)
[2018-11-19] MEDS: ACYCLOVIR 400 MG TAB PO SCH ×2 (09:00→21:19)
[2018-11-19] MEDS ORDERED: FUROSEMIDE 20 MG in SYRINGE 0 ML IV SCH (09:00)
[2018-11-19] MEDS: MAGNESIUM OXIDE 400 MG TAB PO SCH ×2 (09:00→21:19)
[2018-11-19] MEDS: THERATEARS OP SCH ×2 (09:04→21:20)
[2018-11-19] MEDS: LIDOCAINE 5% 1 PATCH TD SCH (09:09)
--- NOTE | 2018-11-19 09:31 | Progress Note ---
DATE: 11/19/2018 HEMATOLOGY PROGRESS NOTE DIAGNOSES: 1. Hypercalcemia, attributable to malignancy. 2. Generalized weakness. 3. Influenza. 4. Pneumonia. 5. Acute on chronic systolic heart failure. 6. Acute respiratory failure with hypoxia. 7. Nausea. 8. Pancytopenia. 9. Multiple myeloma. SUBJECTIVE: Lester was seen and examined at bedside today. He seems to be making satisfactory clinical progress other than calcium levels. I was contacted by the hospitalist last night alerting me to his rising calcium level. Recommended pamidronate 60 mg infused every 2 hours, gentle saline IV fluid and loop diuretic. His calcium has retreated modestly. Will suggest adding prednisone, which should help in calcium excretion. The patient's appetite is robust. He is actually waiting for breakfast today. He has no complaints of pain and nursing reports no overnight difficulties. OBJECTIVE: GENERAL: He is a pleasant 82-year-old, awake, alert and appropriate, in no acute distress. VITAL SIGNS: Temperature 36.7, pulse 73, respiratory rate 20, blood pressure 102/62. SKIN: Without rash or lesion. HEENT: Oral mucosa without erythema or ulceration. NECK: Supple. Trachea midline. HEART: Regular rate and rhythm. LUNGS: Clear to auscultation bilaterally. ABDOMEN: Soft, nontender, nondistended. EXTREMITIES: No clubbing, cyanosis or edema. NEUROLOGIC: Grossly intact. LABORATORY DATA: WBC count 2030, hemoglobin 7.7, platelet count 78,000. Sodium 139, potassium 3.5, chloride 107, carbon dioxide 25, creatinine 1.04, BUN 16, albumin 2.7, magnesium 1.7. IMPRESSION: 1. Hypercalcemia. 2. Hypomagnesemia. 3. Hypoalbuminemia. 4. Pancytopenia. 5. Multiple myeloma. PLAN: As recommended, the patient received 60 mg pamidronate last night. He continues gentle IV saline with loop diuretic. His calcium level did fall modestly. I think the addition of prednisone 20-40 mg p.o. daily should assist in further excretion. According to the hospitalist service, nephrology does not want to pursue hemodialysis at this time and probably does not need to. Will touch base with Dr. Mcclure later regarding this gentleman's disposition. Dr. 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 We will continue to follow him periodically during his hospital stay. Please contact me if there are any new issues. Thank you for assisting us in the care of this very pleasant gentleman. CRISS
[2018-11-19] MEDS ORDERED: MAGNESIUM SULFATE / D5W 1 GM/100 ML BAG IV ONE (10:30)
[2018-11-19] MEDS ORDERED: predniSONE 20 MG TAB PO STA (15:34)
--- NOTE | 2018-11-19 15:55 | Hospitalist Progress Note ---
Date of Service November 19, 2018 Assessment & Plan (1) Hypercalcemia: Improving today after getting pamidronate last night and restarting IV Lasix with normal saline. Corrected calcium today is down to 11.74 from 12.04 suspected to be multifactorial including his multiple myeloma, immobility, and possibly his prior vitamin D supplementation As his vitamin D level was very high at 76 PTH related peptide is also elevated at 94 suggesting this could be from his malignancy Discussed case with nephrology who feels that this is an oncology issue s/p zometa on 11/10 s/p calcitonin, fluids, and lasix multiple times Status post pamidronate 60 mg IV x1 on 11/18 -Restarted Lasix 20 mill grams IV twice daily along with gentle normal saline on 11/18 Fairly asymptomatic from this at this point -Also adding prednisone 20 mg daily as per oncology suggestion-would likely make a short course of this over the next 1-2 weeks Consider Xgeva if still not improving (2) Generalized weakness: - Has developed weakness/deconditioning related to prolonged hospital stay for influenza A/PNA/CHF. Continues to improve daily - Repeat infectious work up in setting of ongoing weakness: CXR unchanged, U/a negative and BC pending. - PT/OT both recommending SNF at discharge. - Plan for placement at SNF -- family would prefer [facility]. (3) Influenza: - Positive for Influenza A at admission. - Completed 5 day course of Tamiflu. Resolved (4) PNA (pneumonia): - Probable on right side hilar region on chest x-ray. - Completed Levaquin x 5 days and Cefepime x 7 days. - Incentive spirometry q1hr . - CXR 11/02 showed improvement in PNA and pulmonary vascular congestion. - Chest CT 11/05 negative for PE, showed multifocal consolidative changes in both lungs c/w multifocal PNA, will need f/u imaging in 3-4 months. - CXR Repeat On 11/11 showed mild CHF/fluid overload and slight progression in left basilar opacities. Clinically resolved (5) Acute on chronic systolic heart failure: - Echo showed EF 35-40%; previous TTE in December 2017 showed EF 40-45%. - CHF likely ischemic in nature; pt. has refused cardiac cath in past. - Monitor strict I/O's, low sodium diet and daily weights; weight stable. No evidence of volume overload on exam - Continue Toprol XL 100 mg daily; has not tolerated YENNI/ARB in past. -Continue Lasix 20 mg IV twice daily as above for hypercalcemia (6) Acute respiratory failure with hypoxia: - Secondary to flu A, multifocal pneumonia, and acute on chronic systolic CHF. Is now weaned off oxygen and pulse ox is normal on room air - CT PE was negative, showed known multifocal PNA. (7) Nausea: Had nausea in the first week of his stay likely related to acute illness This resolved with treatment with metoclopramide-I have since discontinued the standing dose - Abd XR showed mild ileus, was otherwise negative. - CT A/P negative for acute abnormalities. - Cardiac work up, including EKG and Trop x 3, all negative. Now resolved (8) Pancytopenia: - Secondary to multiple myeloma with acute suppression of counts from viral illness. Counts are slowly declining again as for his hemoglobin and WBC ANC is back down in the 600s-continue neutropenic precautions-of note, [facility] will not accept him if he is on neutropenic precautions -Hopefully prednisone will help bring his white count up and therefore his neutrophil count up as well Hemoglobin down to 7.7 today-transfuse if hemoglobin drops less than 7.5 (9) Neutropenia: -As above - ID ppx: Acyclovir (10) Elevated troponin: - Likely related to myocardial demand ischemia in setting of acute illness. - Trop peaked at 0.539 then trended down upon admission. Repeat troponins were also negative. - No significant changes on EKG compared to prior studies. - Echo with low EF and hypokinesis of apex and akinesis of distal anteroseptum. - Continue cardiac meds as prescribed. (11) Atrial fibrillation: - In A. fib, rate controlled. - Continue Toprol XL 100 mg daily. - Continue Digoxin as prescribed - both levels during this admission were 0.6. - Now back on Pradaxa as platelets are improved greater than 50,000 (12) History of multiple myeloma: - Present x 7 years; follows with Dr. Branch. - On chemo agent outside of hospital. -Hemoccult consultation [id number] with oncology after discharge to resume therapy (13) Pacemaker: - Placed for tachybradycardia syndrome (14) BPH (benign prostatic hyperplasia): - Continue alpha luther, finasteride. (15) Parkinsonian features: flat affect, low/soft voice, ?cogwheeling, etc --- are these features due to acute illness/encephalopathy or does he have parkisonian features at baseline? exam is unchanged today vs previous exams is poor historian and getting information about possible chronic symptoms is challenging he does not have tremors by history (both concurred with that) if calcium improves and all other issues are stable -- and if parkinsonism features persist -- then neuro referral after d/c Previous hospitalist offered to perform CT head to r/o subacute stroke contributing to the above symptoms but declined; wants to wait on this for now-not necessary at this point as he is improved (16) Dysphagia: appreciate speech therapy consult and recommendations. -- Pt. needs barium swallow and video swallow study but will need to stand for 3-5 minutes for procedure -- can be done as outpatient. (17) Metabolic encephalopathy: a/o x 3 today resolved was likely due to high calcium (18) Multiple myeloma: appreciate Dr. Branch's consultation. daily CBC. counts have recovered to his typical baseline values. paraprotein levels returned and were acceptable according to Dr. Branch. (19) DVT prophylaxis: Pradaxa Dispo: Discharge pending SNF placement ([facility]) Once calcium levels continue to improve and once off neutropenic precautions-hopefully in the next 1-2 days His son Mo has been updated at the bedside today (Cell#: [phone], Home#: [phone]). Son Donald works with [employer] in [place] (Cell#: [phone]) Subjective Patient is feeling well today, his appetite is good. His son reports that he walked the furthest he ever has with physical therapy in the hallway today and looked good. Calcium levels are slowly coming down today. Review of Systems All systems reviewed & are unremarkable except as noted in HPI & below Physical Exam Vital Signs (Past 24 Hours): Last Vital Signs Temp 36.4 C L 11/19/18 14:39 Pulse 70 11/19/18 14:39 Resp 20 11/19/18 14:39 BP 99/59 L 11/19/18 14:39 Pulse Ox 94 11/19/18 14:39 Constitutional: + thin; no acute distress (Sitting in chair) Eyes: PERRL, conjunctivae normal, anicteric sclerae ENMT: Ears: no hearing impairment Neck: trachea midline, no thyromegaly neck nontender Respiratory: normal respiratory effort, lungs clear to auscultation Cardiovascular: Rate/Rhythm: regular rate; + abnormal rhythm (Irregularly irregular) Heart Sounds: no murmur Extremities: no edema Gastrointestinal (Abdomen): normal bowel sounds, soft, nontender, no hepatosplenomegaly Musculoskeletal: Extremities: extremities normal to inspection; no cyanosis and no clubbing Skin: no rashes, warm and dry Neurologic: moves all extremities (But with generalized weakness) and awake; no focal motor deficits Psychiatric: Orientation: alert and cooperative Affect: + flat affect Results & Data Laboratory Results 11/19/18 11/19/18 Range/Units 05:45 05:45 WBC 2.03 L (4.8-10.8) K/uL RBC 2.43 L (4.7-6.1) M/uL Hgb 7.7 L (14.0-18.0) g/dL Hct 22.7 L (42-52) % MCV 93.4 (80-100) fL MCH 31.7 (25-34) pg MCHC 33.9 (32-36) g/dL RDW Std Deviation 61.5 H (36.4-46.3) fL RDW Coeff of Rigo 17.9 H (11.5-14.5) % Plt Count 78 L (130-400) K/uL Immature Gran % (Auto) 1.0 % Neut % (Auto) 31.0 % Lymph % (Auto) 48.8 % [place] % (Auto) 17.7 % Eos % (Auto) 0.5 % Baso % (Auto) 1.0 % Immature Gran # (Auto) 0.02 (0.00-0.02) K/uL Neut # (Auto) 0.63 L* (1.4-6.5) K/uL Lymph # (Auto) 0.99 L (1.2-3.4) K/uL [place] # (Auto) 0.36 (0.11-0.59) K/uL Eos # (Auto) 0.01 (0-0.5) K/uL Baso # (Auto) 0.02 (0-0.2) K/uL Absolute Nucleated RBC 0.04 H (0-0) K/uL Nucleated RBC % (auto) 2.0 % Platelet Estimate Decreased (Normal) Giant Platelets 2+ Tear Drop Cells 2+ Ovalocytes 2+ Sodium 139 (136-145) mmol/L Potassium 3.5 (3.5-5.1) mmol/L Chloride 107 (98-107) mmol/L Carbon Dioxide 25 (21-32) mmol/L Anion Gap 7.0 (3-11) BUN 16 (7-18) mg/dl Creatinine 1.04 (0.6-1.4) mg/dl Est Cr Clr Drug Dosing 50.3 ml/min Est GFR ( Amer) 77.7 Est GFR (Non-Af Amer) 67.0 BUN/Creatinine Ratio 15.6 (10-20) Glucose 86 (70-99) mg/dl Calcium 10.7 H (8.5-10.1) mg/dl Phosphorus 2.5 (2.5-4.9) mg/dl Magnesium 1.7 L (1.8-2.4) mg/dl Albumin 2.7 L (3.4-5.0) gm/dl (1) PNA (pneumonia) Laterality: right Lung location: middle lobe of lung Pneumonia type: due to unspecified organism Qualified Code(s): J18.1 - Lobar pneumonia, unspecified organism (2) Neutropenia Neutropenia type: unspecified Qualified Code(s): D70.9 - Neutropenia, unspecified (3) Atrial fibrillation Atrial fibrillation type: chronic Qualified Code(s): I48.2 - Chronic atrial fibrillation (4) BPH (benign prostatic hyperplasia) Lower urinary tract symptom presence: symptoms absent Qualified Code(s): N40.0 - Benign prostatic hyperplasia without lower urinary tract symptoms (5) Dysphagia Dysphagia type: unspecified Qualified Code(s): R13.10 - Dysphagia, unspecified (6) Multiple myeloma Multiple myeloma remission status: unspecified Qualified Code(s): C90.00 - Multiple myeloma not having achieved remission
[2018-11-19] MEDS: FUROSEMIDE 20 MG in SYRINGE 0 ML IV SCH (16:16)
[2018-11-19] MEDS: DIGOXIN 0.125 MG TAB PO SCH (16:17)
[2018-11-19] MEDS: ALFUZOSIN HCL 10 MG TAB PO SCH (21:19)
[2018-11-20] MEDS: CLOTRIMAZOLE 10 MG TROCHE BUCCAL SCH ×6 (00:19→23:56)
[2018-11-20 06:46] LABS: Hemoglobin 7.4 g/dL (14.0-18.0); Mean Corpuscular Hgb Conc 32.2 g/dL (32-36); Mean Corpuscular Volume 93.5 fL (80-100); Nucleated RBC # (auto) 0.02 K/uL (0-0); Nucleated RBC % (auto) 0.8 %; Platelet Count 86 K/uL (130-400); RDW Standard Deviation 61.5 fL (36.4-46.3); Red Blood Count 2.46 M/uL (4.7-6.1); White Blood Count 2.51 K/uL (4.8-10.8)
[2018-11-20 06:52] LABS: Albumin Level 2.7 gm/dl (3.4-5.0); BUN Creatinine Ratio 19.5 (10-20); Calcium 10.6 mg/dl (8.5-10.1); Creatinine Clr Calc Pharmacy 52.6 ml/min; Est GFR (African American) 79.5; Est GFR (Non-African American) 68.6; Potassium 3.7 mmol/L (3.5-5.1)
[2018-11-20 07:19] LABS: Basophils # (auto) 0.01 K/uL (0-0.2); Basophils % (auto) 0.4 %; Immature Granulocytes # (auto) 0.02 K/uL (0.00-0.02); Immature Granulocytes % (auto) 0.8 %; Lymphocytes # (auto) 0.97 K/uL (1.2-3.4); Lymphocytes % (auto) 38.6 %; Monocytes # (auto) 0.42 K/uL (0.11-0.59); Monocytes % (auto) 16.7 %; Neutrophils # (auto) 1.09 K/uL (1.4-6.5); Neutrophils % (auto) 43.5 %; Ovalocytes 2+; Platelet Estimate Decreased (Normal); Poikilocytosis Present; Tear Drop Cells 2+
[2018-11-20] MEDS: FINASTERIDE 5 MG TAB PO SCH (07:38)
[2018-11-20] MEDS: ACYCLOVIR 400 MG TAB PO SCH ×2 (07:38→20:19)
[2018-11-20] MEDS: predniSONE 20 MG TAB PO SCH (07:38)
[2018-11-20] MEDS: DABIGATRAN ETEXILATE 75 MG CAP PO SCH ×2 (07:38→20:23)
[2018-11-20] MEDS: MAGNESIUM OXIDE 400 MG TAB PO SCH ×2 (07:38→20:22)
[2018-11-20] MEDS: PANTOprazole 40 MG TAB PO SCH ×2 (07:39→20:19)
[2018-11-20] MEDS: CYANOCOBALAMIN (VITAMIN B-12) 2,500 MCG TAB.SUBL SL SCH (07:39)
[2018-11-20] MEDS: POTASSIUM CHLORIDE 20 MEQ TABCR PO SCH (07:40)
[2018-11-20] MEDS: LIDOCAINE 5% 1 PATCH TD SCH (07:40)
[2018-11-20] MEDS: SODIUM CHLORIDE 0.9% 1000ML 1,000 ML IV SCH (07:40)
[2018-11-20] MEDS: THERATEARS OP SCH ×2 (07:41→20:23)
[2018-11-20] MEDS: ISOSORBIDE MONO EXTENDED REL 30 MG TABCR PO SCH (08:54)
[2018-11-20] MEDS: FUROSEMIDE 20 MG in SYRINGE 0 ML IV SCH ×2 (08:54→16:07)
[2018-11-20] MEDS: METOPROLOL SUCC 50MG EXT REL TAB PO SCH (08:54)
[2018-11-20] MEDS: HEPARIN 100 UNIT/ML 5ML FLUSH FLUSH PRN ×3 (10:35→16:08)
[2018-11-20] MEDS ORDERED: SODIUM CHLORIDE 0.9% 250 ML IV PRN (12:03)
[2018-11-20] MEDS: DIGOXIN 0.125 MG TAB PO SCH (16:07)
--- NOTE | 2018-11-20 20:22 | Hospitalist Progress Note ---
Date of Service November 20, 2018 Assessment & Plan (1) Hypercalcemia: Ongoing but stable/improved. suspected to be multifactorial including his multiple myeloma, immobility, and possibly his prior vitamin D supplementation s/p zometa this admission s/p pamidronate 2 days ago s/p calcitonin, fluids, and lasix numerous times over the last 7-10 days if calcium level tomorrow is the same or less I believe he would be safe for discharge. he will need very close follow-up of this issue. (2) Metabolic encephalopathy: resolved multifactorial most recent cause was likely the high calcium (3) Multiple myeloma: paraprotein levels returned and were acceptable according to Dr. Branch. (4) Influenza: resolved completed 5 days of tamiflu off droplet precautions (5) PNA (pneumonia): resolved completed full course of antibiotics (6) Acute on chronic systolic heart failure: EF 35-40%; previous TTE in December 2017 showed EF 40-45%. euvolemic today continue BB has not tolerated YENNI/ARB in past. stop IVF continue IV lasix BMP and mag in am (7) Acute respiratory failure with hypoxia: due to flu A, multifocal pneumonia, and acute on chronic systolic CHF. resolved (8) Ileus: resolved (9) Pancytopenia: Secondary to multiple myeloma with acute suppression of counts from viral illness. Counts again acceptable. (10) Neutropenia: ANC is >1000 cbc in am (11) Elevated troponin: 2nd to myocardial demand ischemia in setting of acute illness. (12) Atrial fibrillation: rates controlled w/ toprol xl and digoxin. now that platelets are back to his typical baseline of about 70-80 Pradaxa 150mg bid has been resumed. cbc in am. 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 fib. no issues. (14) BPH (benign prostatic hyperplasia): alpha luther, finasteride. (15) Dysphagia: appreciate speech therapy consult and recommendations. this is improved much of the issue was likely worsened by his delirium (16) Parkinsonian features: flat affect, low/soft voice, ?cogwheeling, etc -- symptoms better as his encephalopathy and high calcium have improved continue to monitor (17) Anemia: Hb today 7.4. likely deserves 1 unit of PRBCs. Type/cross for 1 unit and transfuse today followed by IV lasix. Will also repeat the hemoglobin. If the repeat Hb is >8 may not need to transfuse at all. (18) DVT prophylaxis: pradaxa. dispo - [place] updated at bedside today. cont PT, OT. Subjective pt frustrated that he is still in hospital a little argumentative today stating "i can do physical activity at home" (rather than going to inpt rehab) appetite, strength, and overall well-being have improved considerably over the last few days at bedside Constitutional: + fatigue; no fever, no chills and no anorexia Respiratory: no cough, no dyspnea and no dyspnea on exertion Cardiovascular: no chest pain Gastrointestinal: no abdominal pain, no nausea and no vomiting Physical Exam Vital Signs (Past 24 Hours): Last Vital Signs Temp 36.4 C L 11/20/18 19:34 Pulse 82 11/20/18 19:34 Resp 20 11/20/18 19:34 BP 103/58 L 11/20/18 19:34 Pulse Ox 96 11/20/18 19:34 Constitutional: WD/WN, vitals as above average body habitus; no acute distress and not ill appearing best he has looked in 1-2 weeks ENMT: external ear and nose normal, oropharynx normal Respiratory: normal respiratory effort, lungs clear to auscultation Auscultation: + crackles (bases ), + rales (b/l bases) and + wheezes (diffuse - all segments of both lungs) Cardiovascular: Rate/Rhythm: regular rate; + abnormal rhythm (irregular) Heart Sounds: normal S1 and normal S2; no murmur Vessels: posterior tibial pulses present and dorsalis pedis pulses present; no JVD Extremities: no pedal edema Gastrointestinal (Abdomen): normal bowel sounds, soft, nontender, no hepatosplenomegaly Percussion/Palpation: no guarding and no hepatosplenomegaly Psychiatric: Orientation: alert and oriented x 3 Affect: + flat affect (parkinsonian?) Results & Data Laboratory Results Laboratory Results - last 24 hr 11/20/18 11/20/18 11/20/18 05:15 05:15 12:21 WBC 2.51 L RBC 2.46 L Hgb 7.4 L 8.4 L Hct 23.0 L MCV 93.5 MCH 30.1 MCHC 32.2 RDW Std Deviation 61.5 H RDW Coeff of Rigo 18.0 H Plt Count 86 L Immature Gran % (Auto) 0.8 Neut % (Auto) 43.5 Lymph % (Auto) 38.6 [place] % (Auto) 16.7 Eos % (Auto) 0.0 Baso % (Auto) 0.4 Immature Gran # (Auto) 0.02 Neut # (Auto) 1.09 L Lymph # (Auto) 0.97 L [place] # (Auto) 0.42 Eos # (Auto) 0.00 Baso # (Auto) 0.01 Absolute Nucleated RBC 0.02 H Nucleated RBC % (auto) 0.8 Platelet Estimate Decreased Poikilocytosis Present Tear Drop Cells 2+ Ovalocytes 2+ Sodium 140 Potassium 3.7 Chloride 108 H Carbon Dioxide 23 Anion Gap 9.0 BUN 20 H Creatinine 1.02 Est Cr Clr Drug Dosing 52.6 Est GFR ( Amer) 79.5 Est GFR (Non-Af Amer) 68.6 BUN/Creatinine Ratio 19.5 Glucose 96 Calcium 10.6 H Albumin 2.7 L Blood Type Antibody Screen Crossmatch 11/20/18 12:21 WBC RBC Hgb Hct MCV MCH MCHC RDW Std Deviation RDW Coeff of Rigo Plt Count Immature Gran % (Auto) Neut % (Auto) Lymph % (Auto) [place] % (Auto) Eos % (Auto) Baso % (Auto) Immature Gran # (Auto) Neut # (Auto) Lymph # (Auto) [place] # (Auto) Eos # (Auto) Baso # (Auto) Absolute Nucleated RBC Nucleated RBC % (auto) Platelet Estimate Poikilocytosis Tear Drop Cells Ovalocytes Sodium Potassium Chloride Carbon Dioxide Anion Gap BUN Creatinine Est Cr Clr Drug Dosing Est GFR ( Amer) Est GFR (Non-Af Amer) BUN/Creatinine Ratio Glucose Calcium Albumin Blood Type O Positive Antibody Screen POSITIVE A Crossmatch See Detail (1) BPH (benign prostatic hyperplasia) Lower urinary tract symptom presence: symptoms absent Qualified Code(s): N40.0 - Benign prostatic hyperplasia without lower urinary tract symptoms (2) Atrial fibrillation Atrial fibrillation type: chronic Qualified Code(s): I48.2 - Chronic atrial fibrillation (3) Dysphagia Dysphagia type: unspecified Qualified Code(s): R13.10 - Dysphagia, unspecified (4) Neutropenia Neutropenia type: unspecified Qualified Code(s): D70.9 - Neutropenia, unspecified (5) PNA (pneumonia) Laterality: right Lung location: middle lobe of lung Pneumonia type: due to unspecified organism Qualified Code(s): J18.1 - Lobar pneumonia, unspecified organism (6) Multiple myeloma Multiple myeloma remission status: unspecified Qualified Code(s): C90.00 - Multiple myeloma not having achieved remission
[2018-11-20] MEDS: ALFUZOSIN HCL 10 MG TAB PO SCH (20:23)
[2018-11-21 06:12] LABS: Mean Corpuscular Hgb Conc 32.9 g/dL (32-36)
[2018-11-21 06:31] LABS: BUN Creatinine Ratio 21.1 (10-20); Calcium 10.3 mg/dl (8.5-10.1); Creatinine Clr Calc Pharmacy 47.7 ml/min; Est GFR (African American) 68.1; Est GFR (Non-African American) 58.7; Magnesium 1.8 mg/dl (1.8-2.4); Potassium 3.7 mmol/L (3.5-5.1)
[2018-11-21 06:36] LABS: Hematocrit (blood only) 24.3 % (42-52); Mean Corpuscular Volume 94.2 fL (80-100); Platelet Count 96 K/uL (130-400); RDW Coefficient of Variation 18.4 % (11.5-14.5); RDW Standard Deviation 62.8 fL (36.4-46.3); Red Blood Count 2.58 M/uL (4.7-6.1); White Blood Count 2.66 K/uL (4.8-10.8)
[2018-11-21 06:40] LABS: Basophils # (auto) 0.01 K/uL (0-0.2); Basophils % (auto) 0.4 %; Immature Granulocytes # (auto) 0.02 K/uL (0.00-0.02); Immature Granulocytes % (auto) 0.8 %; Lymphocytes # (auto) 1.21 K/uL (1.2-3.4); Lymphocytes % (auto) 45.5 %; Monocytes # (auto) 0.48 K/uL (0.11-0.59); Neutrophils # (auto) 0.94 K/uL (1.4-6.5); Neutrophils % (auto) 35.3 %; Platelet Estimate Decreased (Normal); Poikilocytosis Present; Spherocytes 1+; Tear Drop Cells 1+
[2018-11-21 07:32] VITALS: TEMP 97.9
[2018-11-21] MEDS: ISOSORBIDE MONO EXTENDED REL 30 MG TABCR PO SCH (08:25)
[2018-11-21] MEDS: MAGNESIUM OXIDE 400 MG TAB PO SCH (08:26)
[2018-11-21] MEDS: DABIGATRAN ETEXILATE 75 MG CAP PO SCH (08:26)
[2018-11-21] MEDS: THERATEARS OP SCH (08:26)
[2018-11-21] MEDS: POTASSIUM CHLORIDE 20 MEQ TABCR PO SCH (08:26)
[2018-11-21] MEDS: FUROSEMIDE 20 MG in SYRINGE 0 ML IV SCH (08:26)
[2018-11-21] MEDS: METOPROLOL SUCC 50MG EXT REL TAB PO SCH (08:27)
[2018-11-21] MEDS: predniSONE 20 MG TAB PO SCH (08:27)
[2018-11-21] MEDS: PANTOprazole 40 MG TAB PO SCH (08:27)
[2018-11-21] MEDS: FINASTERIDE 5 MG TAB PO SCH (08:27)
[2018-11-21] MEDS: CYANOCOBALAMIN (VITAMIN B-12) 2,500 MCG TAB.SUBL SL SCH (08:27)
[2018-11-21] MEDS: ACYCLOVIR 400 MG TAB PO SCH (08:27)
[2018-11-21] MEDS: LIDOCAINE 5% 1 PATCH TD SCH (08:28)
[2018-11-21] MEDS: CLOTRIMAZOLE 10 MG TROCHE BUCCAL SCH ×2 (08:28→11:24)
[2018-11-21 11:49] VITALS: BP 96/55; PULSE 71; O2SAT 98
[2018-11-21] MEDS: HEPARIN 100 UNIT/ML 5ML FLUSH FLUSH PRN (13:25)
--- NOTE | 2018-11-26 10:26 | Discharge Summary ---
Date of Service date of admission - 10/30/18 date of discharge - 11/21/18 Admission HPI Per Admitting Provider 82yo male with long-standing multiple myeloma, atrial fibrillation, and chronic systolic CHF who presented with simply feeling unwell. Pt has been very tired for quite some time now. He and his relate this to ongoing treatment for multiple myeloma. Pt had been feeling fine over the weekend. With the warmer temperatures outside he and his had gone outside for several short walks even. Starting yesterday, however, patient began to feel unwell with increased fatigue and SOB. states that last night she noted patient had raspy breathing and "chest rattling." Patient was able to eat dinner without issue however. This AM he had a fever of 100.3. He was nauseated but had no emesis. He also had mild diarrhea. Patient denied chest pain, LE pain or swelling. At time of admission his rapid flu test was positive for flu A. Principal Diagnosis influenza type A infection with concomitant community-acquired pneumonia Discharge Exam Constitutional WD/WN, vitals as above average body habitus; no acute distress ENMT external ear and nose normal, oropharynx normal Respiratory normal respiratory effort, lungs clear to auscultation no respiratory distress Cardiovascular Rate/Rhythm: regular rate; + abnormal rhythm (irregular) Heart Sounds: normal S1 and normal S2; no murmur Vessels: posterior tibial pulses present and dorsalis pedis pulses present; no JVD Extremities: no pedal edema Gastrointestinal (Abdomen) normal bowel sounds, soft, nontender, no hepatosplenomegaly Psychiatric Orientation: alert and oriented x 3 Affect: + flat affect (parkinsonian?) Discharge Data Allergies Allergy/AdvReac Type Severity Reaction Status Date / Time immune globulin,gamma (IgG) Allergy Severe ANAPHYLAXIS Verified 10/30/18 14:09 human Penicillins Allergy Severe Unknown Verified 10/30/18 14:09 Qixzqps-Dry-Xrm Reductase Allergy Unknown unknown Verified 10/30/18 14:09 Inhibitor Sulfa (Sulfonamide Allergy Unknown Unknown rxn Verified 10/30/18 14:09 Antibiotics) garlic AdvReac Intermediate Gastrointestinal Verified 11/03/18 11:55 Upset omeprazole AdvReac Intermediate dizziness Verified 10/30/18 14:09 Consultations 1. oncology - Calvin Branch MD 2. nephrology - Donald Schaefer MD 3. PT, OT 4. speech therapy Ordered Studies 1. PRBCs x 2 units 2. CTA chest: IMPRESSION: 1. Motion compromised examination. 2. There is no evidence of central pulmonary embolus in the main, lobar, or proximal segmental pulmonary arteries. 3. Cardiomegaly and small pleural effusions. 4. There is multifocal consolidative change seen throughout both lungs. This likely represents multifocal pneumonia. Pulmonary edema could have a similar appearance and clinical correlation will be required. Follow-up chest CT in 3-4 months time is recommended to document complete resolution. 3. CT abdomen/pelvis: IMPRESSION: 1. No acute process in the abdomen or pelvis. 2. Bibasilar parenchymal infiltrates with small bilateral pleural effusions. 3. Trace free fluid within the pelvic cul-de-sac possibly reactive. 4. echocardiogram: * EF 35-40% * mild MR, mild TR * hypokinesis of apex * akinesis of distal anteroseptum 5. zometa infusion AND pamidronate infusion for hypercalcemia Hospital Course (1) Influenza: At time of admission his initial symptoms were due to influenza type A infection. He was treated with 5 days of tamiflu. His influenza was complicated by multifocal pneumonia. He has been off droplet precautions for quite some time and made full recovery from his flu & pneumonia. (2) Hypercalcemia: At time of admission and for the first portion of his stay his total calcium levels were in the 9's. However, later on in his stay, the calcium level trended up and peaked at 11.4. He was symptomatic from the high calcium levels with fatigue, lethargy, anorexia, and simply not feeling well. He was seen in consult by nephrology and oncology. The hypercalcemia was suspected to be multifactorial in etiology including his multiple myeloma, immobility, and possibly his prior vitamin D supplementation (had been taking a very large dose on daily basis - 5000 IU). The vitamin D supplement was stopped. The hypercalcemia proved very difficult to treat and it took 7-10 days for it to normalize. He received zometa, multiple doses of calcitonin, fluids, lasix, and ultimately pamidronate for the hypercalcemia. On day of discharge his total calcium level was 10.3. All of the previous symptoms from the high calcium level had resolved. To be complete a PTH-related peptide level was sent and was pending at time of discharge. He will need at least weekly, if not more frequent, BMPs to check his calcium level in the first couple of weeks post-discharge. (3) Metabolic encephalopathy: Multifactorial including infectious causes (flu, pneumonia) and metabolic causes (high calcium). Cannot rule out hospital delirium as well. Either way his mental status returned to baseline prior to discharge. (4) Multiple myeloma: Diagnosed 7 years prior. Followed by Dr. Branch at the [facility]. Paraprotein levels were sent & returned in an acceptable range according to Dr. Branch. He is due to receive chemotherapy 1 week after discharge; defer management to Dr. Branch. He did not have any bone pain during the stay. 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 Counts were suppressed even further beyond his baseline but returned to typical baseline levels by discharge. (5) PNA (pneumonia): Multifocal/bilateral. Likely community-acquired but cannot rule out gram negative pathogens given his immunocompromised state. Completed full course of antibiotics while here and all symptoms/signs resolved. (6) Acute on chronic systolic heart failure: EF 35-40%; previous TTE in December 2017 showed EF 40-45%. His CHF is presumed to be ischemic in etiology. He required frequent diuresis with IV diuretics during the stay. At discharge he appeared euvolemic. He will continue BB therapy. Has not tolerated YENNI/ARB in past. At discharge he will take a standing dose of lasix 20mg every morning. CHF instructions were provided at discharge including the importance of checking daily weights. (7) Acute respiratory failure with hypoxia: due to flu A, multifocal pneumonia, and acute on chronic systolic CHF. resolved and O2 was weaned off. (8) Ileus: resolved. suffered this early on in his stay. in the latter half of his stay he was eating without any GI intolerance and having normal stools. (9) Pancytopenia: Secondary to multiple myeloma with acute suppression of counts from viral illness. Counts returned to his typical baseline levels later in his stay (WBC count of about 3, Hemoglobin of about 8 to 8.5, and platelets in the 80s). (10) Neutropenia: Due to fluA infection in the setting of his multiple myeloma. Resolved. ANC adequate later on in his stay. (11) Elevated troponin: 2nd to myocardial demand ischemia in setting of acute illness. Never had evidence of ACS. (12) Atrial fibrillation: Rates controlled with toprol xl and digoxin. Once his platelets were back to his typical baseline of about 70-80 Pradaxa 150mg bid was resumed. 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 fib. no issues. (14) BPH (benign prostatic hyperplasia): alpha luther, finasteride. no issues while here. (15) Dysphagia: Seen by speech therapy. Video swallow and upper GI series recommended but he was too ill for most of his stay to have these tests. He was placed on a soft, bite-sized consistency diet. Dysphagia was worse when he had active delirium. At discharge he appeared to be swallowing ok. Upon admission to SNF for rehab suggest speech therapy follow-up. (16) Parkinsonian features: flat affect, low/soft voice, ?cogwheeling, etc -- symptoms were better as his encephalopathy and high calcium improved. follow-up after discharge advised to see if symptoms persist. (17) Anemia: received 2 units of PRBCs during his stay. discharge hemoglobin was 8 - about his baseline. Total Time Total Time Spent Total Time Spent (In Minutes): 45 Total Time Includes: Examination of the Patient, Discharge Planning, Medication Reconciliation and Communication With Other Providers Discharge Plan Discharge Items Patient Disposition: Transfer [facility] Living Fac Reason For Visit: influenza A, pneumonia Discharge Diagnosis: 1. influenza A infection - resolved. 2. pneumonia - resolved. 3. congestive heart failure - improved. 4. high calcium due to multiple myeloma and other factors - improved. 5. deconditioning - ongoing. Discharge Goals: Diagnostic testing, Learn about illness and Therapeutic intervention Activity: Resume your previous activity Non-emergency contact: Primary Care Provider, Bulk Receiver and Oncologist Call non-emergency contact if: you have any medication questions and your temperature is above 100.5 Follow-up/Referrals: Jamie La MD [Bulk Receiver] - (within 1 week - or any other cardiology provider) Calvin Branch [Physician] - (within 1 week at the [facility] Diet: Heart Healthy Fluids: 1800ml (7 cups) Diet Texture: Dental soft (bite-sized) Addtl Provider Instructions: From Jordin Guillaume - Hospitalist - 1. Check daily weights. If any weight gain of more than 2-3 pounds in 1-2 days please call the ophthalmic medical technician or his typists supervisor. 2. Check CBC with Diff, BMP, and magnesium on 11/23/18 and then again on 11/25/18. Report results to ophthalmic medical technician as well as Dr. Calvin Branch at the [facility]. 3. Follow-up - * see Dr. Branch within 1 week * see Dr. La within 1 week * see Dr. Aureliano Schaefer within 2 weeks 4. Congestive heart failure instructions - Call 911 and go to the Emergency Room if: * You have tightness or pain in your chest that does not go away with rest or Nitroglycerin * You are very short of breath even with rest Call your doctor if any of the following symptoms or problems start or get worse: * Shortness of breath or difficulty breathing * Wake up at night short of breath * Chest pain * Cough * Swelling of your hands, fee, or legs * More fatigued or tired with your normal activity * Palpitations - sudden fast heart beats WEIGHT * Weigh yourself every morning after using the bathroom. * Use the same scale. * Wear the same amount of clothing. * Write your weight down on your chart. * Call your doctor if you gain more than 2-3 pounds in 1-2 days. MEDICATIONS * Use this discharge instruction sheet for instructions. * Take your medications at the time your doctor ordered. * Do not skip a dose of your medicines. * If you miss a dose of medicine, take as soon as possible, but DO NOT DOUBLE A DOSE. * Read your medicine information when you get home. * Know all of the side effects of your medicine. * Call your doctor's office if you have any side effects. * Be sure all of your doctors know what medicine and herbs you take (including cold, flu, and herbal medicine). * Pain Medicine: If you do not get relief from your pain, please call your doctor for help. Take the following with you to your follow-up doctor appointments: * Weight Chart * Medication List * List of questions Do not drink excessive alcohol, beer or wine. 5. Return to [facility] if - * you have fever over 100.5 degrees * you have worsening shortness of breath or chest pain * you have lethargy/sleepiness/confusion * any other concerns Prescriptions: New magnesium oxide 400 mg (241.3 mg magnesium) Tablet 400 mg PO DAILY Qty: 30 RF: 2 furosemide [Lasix] 20 mg tablet 20 mg PO DAILY Qty: 30 RF: 2 potassium chloride 20 mEq tablet extended release 20 meq PO DAILY Qty: 30 RF: 2 Continued acyclovir 400 mg tablet 400 mg PO BID RF: 0 carboxymethylcellulose sodium [TheraTears] 0.25 % Drops 1 drp OPHTHALMIC (EYE) BID RF: 0 alfuzosin 10 mg tablet extended release 24 hr 10 mg PO HS RF: 0 metoprolol succinate 100 mg tablet extended release 24 hr 100 mg PO DAILY RF: 0 pantoprazole 40 mg tablet,delayed release (DR/EC) 40 mg PO BID RF: 0 digoxin 125 mcg tablet 125 mcg PO DAILY RF: 0 finasteride 5 mg tablet 5 mg PO QAM RF: 0 cyanocobalamin (vitamin B-12) [Vitamin B-12] 5,000 mcg Tablet, Sublingual 5,000 mcg SUBLINGUAL DAILY RF: 0 dabigatran etexilate 150 mg capsule 150 mg PO BID RF: 0 Ivig PO MONTHLY RF: 0 Steriod PO UD RF: 0 dexamethasone 4 mg tablet 20 mg PO WK Qty: 0 RF: 0 Changed isosorbide mononitrate 60 mg tablet extended release 24 hr 30 mg PO DAILY Qty: 30 RF: 2 Discontinued cholecalciferol (vitamin D3) [Vitamin D3] 5,000 unit Tablet 5,000 unit PO DAILY RF: 0 Stand-Alone Forms: [facility] Discharge Orders: Discharge Order (Routine); Ordered 11/21/18 Ordered By: Jordin Guillaume Skilled Items Patient informed of condition?: Yes DNR: No (partial code - compressions/shocks OK but no intubation/mech ventilation) Discharge Level of Care: Skilled Communicable Disease: No Discharge Prognosis: Stable Admission Data Admit Date/Time: 10/30/18 13:38 Attending Provider: Jordin Guillaume Admit Provider: Maia Kaminski Primary Care Provider: Aldo Javed Other Providers: Home,Nursing Agency ; Maia Kaminski ; Abel Figueroa V ; Calvin Branch Service: Telemetry Other Interventions: Discharge Summary Assessment (RN) Last Done: 11/21/18 12:15 Pending Studies at Discharge: No DC Date/Time DO NOT enter until pt leaves facility: 11/21/18 14:12
== END 2018-11-21 14:12 | DRG 193 ==
LOC: ED 10:17 → 2N 13:38 → SUATTDRO 13:38 → 2N 14:48 → 4E 11-05 22:46

== ENCOUNTER 2018-12-10 09:58 | Inpatient (IN) ==
--- NOTE | 2018-12-10 11:06 | XRay Report ---
XR hand LT min 3V routine HISTORY: 83 years-old Male fall acute left hand pain status post fall COMPARISON: None available TECHNIQUE: 3 views of the left hand FINDINGS: Demineralized appearance of the bones. Mild dorsal wrist soft tissue swelling without acute fracture or dislocation identified. Peripheral arterial calcifications are noted. Subcortical cystic changes a bout the carpus. Extensive chondrocalcinosis about the carpus and TFCC. Mild to moderate radiocarpal with severe first carpometacarpal and third metacarpal phalangeal osteoa rthritis. Prominent subcortical cystic changes are also noted about the third metatarsal head. No opa que foreign body. IMPRESSION: 1. No acute fracture or dislocation. 2. Demineralized appearance of the bones with multifocal degenerative changes, including severe first carpometacarpal and second metacarpal phalangeal joint space narrowing. 3. Chondrocalcinosis. The above report was generated using voice recognition software. It may contain grammatical, syntax o r spelling errors. Electronically signed by: Catrachito Dhaliwal M.D. 12/10/2018 11:04 AM
--- NOTE | 2018-12-10 11:08 | XRay Report ---
XR chest 1V portable CLINICAL HISTORY: weakness COMPARISON STUDY: Chest radiograph November 11, 2018. FINDINGS: Right internal jugular [id number] is in place. A dual-lead left subclavian pacer is in p lace. There is moderate cardiomegaly. There is no evidence for pulmonary edema. No pneumothorax or pl eural effusion is noted. No consolidation is identified. Vertebral augmentation at the thoracolumbar junction is incidentally noted. IMPRESSION: No acute cardiopulmonary findings. Electronically signed by: Kody Ayala M.D. 12/10/2018 11:07 AM
[2018-12-10 11:20] LABS: Mean Corpuscular Hgb Conc 32.7 g/dL (32-36); Nucleated RBC # (auto) 0.03 K/uL (0-0); Nucleated RBC % (auto) 0.9 %
[2018-12-10 11:27] LABS: Hematocrit (blood only) 21.7 % (42-52); Hemoglobin 7.1 g/dL (14.0-18.0); Mean Corpuscular Volume 98.2 fL (80-100); RDW Coefficient of Variation 20.7 % (11.5-14.5); RDW Standard Deviation 75.4 fL (36.4-46.3); Red Blood Count 2.21 M/uL (4.7-6.1); White Blood Count 3.87 K/uL (4.8-10.8)
[2018-12-10 11:29] LABS: INR 1.3 (0.9-1.1); Prothrombin Time 13.3 Seconds (9.0-12.0)
[2018-12-10 11:33] LABS: Appearance Urine Clear (Clear); Bacteria Urine Automated Negative (Negative); Bilirubin Urine Negative (Negative); Blood Urine Trace (Negative); Color Urine Yellow; Glucose Urine UA Negative (Negative); Ketones Urine Negative (Negative); Leukocyte Esterase Urine Negative (Negative); Nitrite Urine Negative (Negative); Protein Urine Negative (Negative); RBC Urine Automated 0-4 /hpf (0-4); Specific Gravity Urine 1.014 (1.000-1.030); Urobilinogen Urine Negative (Negative)
[2018-12-10 11:40] LABS: Platelet Count 58 K/uL (130-400)
[2018-12-10 11:42] LABS: Alanine Aminotransferase 21 U/L (12-78); Albumin Level 3.2 gm/dl (3.4-5.0); Anisocytosis Present; Aspartate Aminotransferase 17 U/L (15-37); BUN Creatinine Ratio 16.3 (10-20); Basophils # (auto) 0.01 K/uL (0-0.2); Basophils % (auto) 0.3 %; Blood Urea Nitrogen 24 mg/dl (7-18); Calcium 13.2 mg/dl (8.5-10.1); Carbon Dioxide 28 mmol/L (21-32); Chloride 110 mmol/L (98-107); Eosinophils # (auto) 0.04 K/uL (0-0.5); Est GFR (African American) 51.6; Est GFR (Non-African American) 44.5; Glucose 106 mg/dl (70-99); Immature Granulocytes # (auto) 0.02 K/uL (0.00-0.02); Immature Granulocytes % (auto) 0.5 %; Lymphocytes # (auto) 1.12 K/uL (1.2-3.4); Lymphocytes % (auto) 28.9 %; Magnesium 1.8 mg/dl (1.8-2.4); Monocytes % (auto) 10.3 %; Neutrophils # (auto) 2.28 K/uL (1.4-6.5); Ovalocytes 1+; Platelet Estimate Decreased (Normal); Sodium 142 mmol/L (136-145); Tear Drop Cells 1+
[2018-12-10 11:54] LABS: Alkaline Phosphatase 84 U/L (45-117); Bilirubin,Total 0.4 mg/dl (0.2-1); Globulin 3.1 gm/dl (2.5-4.0); Phosphorus 2.8 mg/dl (2.5-4.9); Total Protein 6.3 gm/dl (6.4-8.2); Troponin I 0.072 ng/ml (0-0.045)
--- NOTE | 2018-12-10 11:58 | CT Scan Report ---
CT cervical spine wo con CT DOSE: 1772.31 mGy.cm CLINICAL HISTORY: 83 years-old Male with fall. Acute neck injury status post fall COMPARISON: CT head of same day, CT cervical spine 04/13/2015. TECHNIQUE: Multiple axial CT images of the cervical spine were obtained without contrast. A dose low ering technique was utilized adhering to the principles of ALARA. FINDINGS: Demineralized appearance of the bones. 3 mm anterolisthesis C3 on C4 and 3 mm anterolisthesis C5 on C 6, likely degenerative and unchanged. Chondrocalcinosis of the disc spaces. Multilevel intervertebral disc space narrowing with spondylitic spurring and advanced facet arthropathy. No acute fracture or subluxation is identified. Evaluation of the central canal and neuroforamina is better assessed by MR I. Trace left mastoid effusion. Right mastoid air cells are clear. Mucosal thickening about the left maxillary sinus noted. Right apical pleural parenchymal scarring. Calcification noted about the bilateral carotid bulbs. Sof t tissues are unremarkable. IMPRESSION: No acute cervical spine fracture or subluxation. The above report was generated using voice recognition software. It may contain grammatical, syntax o r spelling errors. Electronically signed by: Catrachito Dhaliwal M.D. 12/10/2018 11:57 AM
--- NOTE | 2018-12-10 11:59 | CT Scan Report ---
HEAD CT NONCONTRAST CT DOSE: HISTORY: fall TECHNIQUE: Multiaxial CT images of the head were performed without the use of intravenous contrast. A utomated exposure control was utilized for this study. A dose lowering technique was utilized adheri ng to the principles of ALARA. Comparison: None. Findings: Mild mucosal thickening within the left maxillary sinus. Small fluid level within the right sphenoid sinus. Mild left frontal scalp swelling. The calvarium and skull base are intact. There is no mass, hematoma, midline shift, acute infarct. White matter hypodensity is nonspecific but suggesti ve of microvascular ischemic change. The ventricles and sulci demonstrate mild age-related involution al changes. Impression: No acute intracranial abnormality. Mild left frontal scalp swelling. Mild sinus disease as described above. Electronically signed by: Hudson Avila M.D. 12/10/2018 11:57 AM
--- NOTE | 2018-12-10 12:05 | CT Scan Report ---
CT lumbar spine wo con HISTORY: 83 years-old Male fall acute low back pain status post fall COMPARISON: CT abdomen and pelvis and CT thoracic spine studies of same day, CT lumbar spine 08/15/20, CT abdomen and pelvis 11/05/2018 and 03/14/2018 TECHNIQUE: Multiple axial CT images of the lumbar spine were obtained without the use of IV contrast. A dose lowering technique was used consistent with the principals of ALARA. FINDINGS: Please see separately dictated CT abdomen and pelvis for discussion of the intra-abdominal findings. Demineralized appearance of the bones. Levoscoliosis of the lumbar spine. Degenerative changes with p artial bony fusion about the bilateral SI joints. Postoperative changes from prior laminectomy with p osterior interbody beka and screw fusion at L4-S1. The bilateral L4 fusion screws extend along the sup erior portion of the pedicles extending into the posterior aspect of the L3-L4 disc space. Remote com pression deformity with kyphoplasty changes at L1. Unchanged appearance of the remote L4 compression fracture. There is a 30% anterior and central superior endplate compression deformity at L2 which mary ears unchanged from comparison study dated 11/05/2018 however is new from 03/14/2018. No acute fracture or subluxation of the lumbar spine identified. IMPRESSION: 1. No acute fracture or subluxation. 2. Prior laminectomy with posterior interbody beka and screw fusion at L4-S1. Pedicle screws at L4 ext end into the L3-L4 disc space. 3. Unchanged appearance of the remote lumbar spine compression deformities as above. The above report was generated using voice recognition software. It may contain grammatical, syntax o r spelling errors. Electronically signed by: Catrachito Dhaliwal M.D. 12/10/2018 12:04 PM
--- NOTE | 2018-12-10 12:09 | CT Scan Report ---
CT OF THE CHEST WITHOUT IV CONTRAST CLINICAL HISTORY: Fall. COMPARISON STUDY: Chest CT November 05, 2018. TECHNIQUE: Axial images of the chest were obtained without IV contrast. Images were reviewed in the axial, sagittal, and coronal planes. IV contrast was not administered for this examination. Automat ed exposure control was utilized for the study. A dose lowering technique was utilized adhering to t he principles of ALARA. FINDINGS: Evaluation of the chest is suboptimal on this unenhanced exam. A dual-lead left subclavian pacemaker is in place. Moderate cardiomegaly is noted. There is no pericardial effusion. Thoracic ao rta is suboptimally assessed but there is no mediastinal hematoma. There are trace bilateral pleural effusions with associated atelectasis. Bilateral airspace opacity shown on CT of November 05, 2018 emerson ve nearly completely resolved. There are few scattered airspace opacities within the lungs. There is no pneumothorax. No acute thoracic spine or rib fracture is noted. There are old bilateral rib fractu res. 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 There is no mediastinal lymphadenopathy. The abdome n and pelvis CT will be reported separately. IMPRESSION: 1. No acute traumatic findings within the chest on unenhanced exam 2. Trace bilateral pleural effusions, significantly decreased in size since prior chest CT. Near comp lete resolution of bilateral airspace opacities shown on CT of November 05, 2018. Electronically signed by: Kody Ayala M.D. 12/10/2018 12:08 PM
--- NOTE | 2018-12-10 12:10 | CT Scan Report ---
CT thoracic spine wo con CLINICAL HISTORY: Fall. COMPARISON STUDY: Thoracic spine CT April 13, 2015. TECHNIQUE: Axial images of the thoracic spine were obtained. Sagittal and coronal reconstructions wer e viewed. Study was performed utilizing automated exposure control for dose reduction and according t o ALARA principles. FINDINGS: Alignment of the thoracic spine is anatomic. There is no acute thoracic spine fracture. Pre vious L2 vertebral augmentation is noted. There is extensive anterior osteophytosis. There is no para vertebral edema. Central canal and neural foramen are suboptimally assessed by CT. The chest CT will be reported separately. Note is made of mild dextroscoliosis of the thoracic spine. IMPRESSION: No acute thoracic spine fracture or subluxation. Electronically signed by: Kody Ayala M.D. 12/10/2018 12:09 PM
--- NOTE | 2018-12-10 12:14 | CT Scan Report ---
ABDOMEN AND PELVIS CT WITHOUT CONTRAST CT DOSE: HISTORY: fall TECHNIQUE: Multiaxial CT images of the abdomen and pelvis were performed without contrast. A dose lo wering technique was utilized adhering to the principles of ALARA. COMPARISON STUDY: Abdomen and pelvis CT 11/05/2018. FINDINGS: No change in the old compression deformities within the lumbar spine. Posterior decompressi on fusion from L4 through S1. The hardware appears intact. L4 pedicle screws extend into the L3-L4 di sc space. This remains unchanged. Mild interstitial thickening at the lung bases which is likely chronic condition nurse amy. Patchy bibasilar densities. Calcified granuloma the right lung base. Poststernotomy changes are noted. Prior L1 vertebroplasty. No acute fractures within the abdomen or pelvis. Evaluation for injur y to the solid abdominal viscera is suboptimal due to the lack of intravenous contrast. However, the unenhanced liver, adrenal glands, gallbladder, and pancreas are unremarkable. Punctate calcified gran ulomas within the spleen. The unenhanced kidneys are within normal limits. No retroperitoneal lymphad enopathy. Trace pelvic fluid. No definite bowel wall thickening or obstruction. Moderate stool within the colon. IMPRESSION: 1. No definite acute traumatic process within the abdomen or pelvis. 2. Old lumbar spine compression deformities remain unchanged. 3. Trace pelvic free fluid which is nonspecific. 4. Additional findings as described above. Electronically signed by: Hudson Avila M.D. 12/10/2018 12:12 PM
--- NOTE | 2018-12-10 13:12 | Emergency Department Note ---
Entered by Jean Poon acting as a scribe for Santiago Frank M.D. History of Present Illness General Chief complaint: Abnormal Labs/Diagnostic Testing Stated complaint: FALL LAST NIGHT,ABNORMAL LABS Source: patient and family History of Present Illness Onset (ago): day(s) (last night) Location: head and upper extremity (left thumb) Pain Consistency: + other (persistent in left thumb) Quality: + other (head injury after mechanical fall) Exacerbated By: + other (mechanical fall) Associated symptoms: + other (back and neck pain earlier); no syncope The patient is an 83 year old male who presents to the Emergency Room with an injury of the forehead from a mechanical fall occurring last night. The patient reports that he was walking down a flight of steps when he slipped with four steps remaining. He states that he fell headfirst and struck his forehead off of a doorframe. He states that he did not lose consciousness. He also reports that he injured his left thumb and notes persistent pain in that area. He states that he was having some back and neck pain earlier, although he has a history of back pain. He denies current significant back, neck, or head pain. Family states that he is on Pradaxa. The patient was evaluated in the ER yesterday prior to the fall for hyperglycemia, and today he was sent by Dr. Melton for hypercalcemia. Home Medications Home Medications Medication Instructions Recorded Confirmed Type TheraTears 1 drp OPHTHALMIC (EYE) BID 10/30/18 12/10/18 History Vitamin B-12 5,000 mcg SUBLINGUAL DAILY 10/30/18 12/10/18 History acyclovir 400 mg PO BID 10/30/18 12/10/18 History alfuzosin 10 mg PO HS 10/30/18 12/10/18 History finasteride 5 mg PO QAM 10/30/18 12/10/18 History metoprolol succinate 100 mg PO DAILY 10/30/18 12/10/18 History pantoprazole 40 mg PO BID 10/30/18 12/10/18 History furosemide [Lasix] 20 mg PO DAILY #30 tab 11/21/18 12/10/18 Rx magnesium oxide 400 mg PO DAILY #30 tab 11/21/18 12/10/18 Rx potassium chloride 20 meq PO DAILY #30 tab 11/21/18 12/10/18 Rx dabigatran etexilate [Pradaxa] 150 mg PO BID 12/09/18 12/10/18 History digoxin [Digitek] 125 mcg PO DAILY 12/09/18 12/10/18 History isosorbide mononitrate 60 mg PO DAILY 12/09/18 12/10/18 History ondansetron HCl 8 mg PO TID PRN 12/09/18 12/10/18 History Allergies Allergy/AdvReac Type Severity Reaction Status Date / Time immune globulin,gamma (IgG) Allergy Severe ANAPHYLAXIS Verified 12/09/18 15:36 human Penicillins Allergy Severe Unknown Verified 12/09/18 15:36 Obicdhk-Wgb-Uqq Reductase Allergy Unknown unknown Verified 12/09/18 15:36 Inhibitor Sulfa (Sulfonamide Allergy Unknown Unknown rxn Verified 12/09/18 15:36 Antibiotics) garlic AdvReac Intermediate Gastrointestinal Verified 12/09/18 15:36 Upset omeprazole AdvReac Intermediate dizziness Verified 12/09/18 15:36 Past Med/Surg History Medical History DVT prophylaxis CHF (congestive heart failure) BPH (benign prostatic hyperplasia) Atrial fibrillation (Chronic) Neck pain (Chronic) 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 No problems noted. Social History Preferred Language: Citizen Of [place] Communication Ability: Effective Beliefs That Will Affect Care: None marital status: Current Living Situation: Spouse Other Information That Helps Us Care for You: No Feels Safe at Home: Yes Safety Concerns: Feels Safe At This Time Smoking Status: Never smoker Hx Alcohol Use: No Hx Substance Use: No Review of Systems See HPI for pertinent positives & negatives. and A total of 10 systems reviewed and were otherwise negative Physical Exam Vital Signs Vital Signs - 24 hr 12/10/18 10:14 12/10/18 11:47 12/10/18 13:10 Temperature 36.6 C Temperature Source Oral Sepsis Recent Fever Within 48 Hours No Sepsis Action Taken by Nursing No Action Required Pulse Rate 68 65 Pulse Rate [Apical] 70 Pulse Rhythm Regular Pulse Rhythm [Apical] Regular Respiratory Rate 20 18 Respiratory Effort / Characteristics Non-Labored Non-Labored Spontaneous Respiratory Depth Normal Normal Respiratory Pattern Regular Regular Blood Pressure 123/71 Blood Pressure [Right Arm] 101/62 Blood Pressure Mean 88 Blood Pressure Mean [Right Arm] 75 Pulse Oximetry 98 97 Oxygen Delivery Method Room Air Room Air Room Air 12/10/18 14:20 Temperature Temperature Source Sepsis Recent Fever Within 48 Hours Sepsis Action Taken by Nursing Pulse Rate 61 Pulse Rate [Apical] Pulse Rhythm Pulse Rhythm [Apical] Respiratory Rate 18 Respiratory Effort / Characteristics Respiratory Depth Respiratory Pattern Blood Pressure 114/68 Blood Pressure [Right Arm] Blood Pressure Mean Blood Pressure Mean [Right Arm] Pulse Oximetry 98 Oxygen Delivery Method Room Air GENERAL: Awake, alert, in no distress HENT: There is a 2 cm abrasion to the left forehead. EYES: Normal conjunctiva. Sclera non-icteric. PERRL. NECK: Supple. No nuchal rigidity. RESPIRATORY: Clear to auscultation. No wheezes. Normal respiratory effort. CARDIAC: Normal rate. Normal rhythm. Extremities warm and well perfused. GI: Soft, non-distended. No tenderness to palpation. No rebound or guarding. No masses. RECTAL: Deferred. MUSCULOSKELETAL: There is ecchymosis and swelling of the left thumb. There is no left wrist tenderness. Left hand is NVI. There is a port in the right upper chest wall. Chest examination reveals no tenderness. There is no CVA tenderness to palpation. LOWER EXTREMITIES: Calves are equal size bilaterally and non-tender. No edema NEURO: Normal sensorium. No sensory or motor deficits noted. No facial droop. No slurred speech. SKIN: Warm and dry. No rash or jaundice noted. Course 1040: Past medical records reviewed. The patient was evaluated in room C4, and a complete history and physical examination were performed. 1255: I consulted Dr. Melton Oncology, who recommends hospitalization and hydration. 1310: I consulted Dr. Kaminski [facility] Hospitalist. She will reevaluate the patient for hospitalization. Consultations Consultation #1: I consulted Dr. Melton Oncology, who recommends hospitalization and hydration. Time: 12:55 Consultation #2: I consulted Dr. Kaminski [facility] Hospitalist. She will reevaluate the patient for hospitalization. Time: 13:10 Administered Medications Digoxin (Lanoxin) 0.125 mg PO DAILY@1600 NOE Stop: 01/09/19 15:59 Last Admin: 12/10/18 16:31 Dose: Not Given Documented by: [id number] Potassium Chloride/Sodium Chloride (1/2 Nss + 20meq Kcl 1000ml) 20 meq in 1,000 mls @ 80 mls/hr IV .[id number] NOE Stop: 01/09/19 15:04 Last Admin: 12/10/18 16:32 Dose: 80 mls/hr Documented by: [id number] Medical Decision Making Differential Diagnosis Differential diagnosis: Etiologies such as metabolic, infection, hypo/hyperglycemia, electrolyte abnormalities, cardiac sources, intracerebral event, toxicologic, neurologic, fracture, dislocation, intra-abdominal, pneumothorax, intrathoracic, intracranial, as well as other traumatic pathologies were entertained. Medical Records Attestation: I reviewed the patient's medical records. Home Medications Current Medication List: was personally reviewed by me Laboratory Data Attestation: I reviewed the patient's lab results. Result diagrams: 12/10/18 15:32 12/10/18 15:32 Lab Results 12/10/18 12/10/18 12/10/18 Range/Units 11:10 11:10 11:10 WBC 3.87 L (4.8-10.8) K/uL RBC 2.21 L (4.7-6.1) M/uL Hgb 7.1 L (14.0-18.0) g/dL Hct 21.7 L (42-52) % MCV 98.2 (80-100) fL MCH 32.1 (25-34) pg MCHC 32.7 (32-36) g/dL RDW Std Deviation 75.4 H (36.4-46.3) fL RDW Coeff of [place] 20.7 H (11.5-14.5) % Plt Count 58 L (130-400) K/uL Immature Gran % (Auto) 0.5 % Neut % (Auto) 59.0 % Lymph % (Auto) 28.9 % [place] % (Auto) 10.3 % Eos % (Auto) 1.0 % Baso % (Auto) 0.3 % Immature Gran # (Auto) 0.02 (0.00-0.02) K/uL Neut # (Auto) 2.28 (1.4-6.5) K/uL Lymph # (Auto) 1.12 L (1.2-3.4) K/uL [place] # (Auto) 0.40 (0.11-0.59) K/uL Eos # (Auto) 0.04 (0-0.5) K/uL Baso # (Auto) 0.01 (0-0.2) K/uL Absolute Nucleated RBC 0.03 H (0-0) K/uL Nucleated RBC % (auto) 0.9 % Platelet Estimate Decreased (Normal) Anisocytosis Present Tear Drop Cells 1+ Ovalocytes 1+ PT 13.3 H (9.0-12.0) Seconds INR 1.3 H (0.9-1.1) Sodium 142 (136-145) mmol/L Potassium 4.0 (3.5-5.1) mmol/L Chloride 110 H (98-107) mmol/L Carbon Dioxide 28 (21-32) mmol/L Anion Gap 4.0 (3-11) BUN 24 H (7-18) mg/dl Creatinine 1.45 H (0.6-1.4) mg/dl Est Cr Clr Drug Dosing Not Reportable Est GFR ( Amer) 51.6 Est GFR (Non-Af Amer) 44.5 BUN/Creatinine Ratio 16.3 (10-20) Glucose 106 H (70-99) mg/dl Calcium 13.2 H* (8.5-10.1) mg/dl Phosphorus 2.8 (2.5-4.9) mg/dl Magnesium 1.8 (1.8-2.4) mg/dl Total Bilirubin 0.4 (0.2-1) mg/dl AST 17 (15-37) U/L ALT 21 (12-78) U/L Alkaline Phosphatase 84 (45-117) U/L Troponin I 0.072 H* (0-0.045) ng/ml Total Protein 6.3 L (6.4-8.2) gm/dl Albumin 3.2 L (3.4-5.0) gm/dl Globulin 3.1 (2.5-4.0) gm/dl Albumin/Globulin Ratio 1.0 (0.9-2) TSH 1.320 (0.300-4.500) uIu/ml Urine Color Urine Appearance (Clear) Urine pH (4.5-7.5) Ur Specific [place] (1.000-1.030) Urine Protein (Negative) Urine Glucose (UA) (Negative) Urine Ketones (Negative) Urine Blood (Negative) Urine Nitrite (Negative) Urine Bilirubin (Negative) Urine Urobilinogen (Negative) Ur Leukocyte Esterase (Negative) Urine WBC (Auto) (0-5) /hpf Urine RBC (Auto) (0-4) /hpf U Hyaline Cast (Auto) (0-5) /lpf U Epithel Cells (Auto) (0-5) /lpf Urine Bacteria (Auto) (Negative) 12/10/18 12/10/18 12/10/18 Range/Units 11:15 15:32 15:32 WBC 3.41 L (4.8-10.8) K/uL RBC 2.12 L (4.7-6.1) M/uL Hgb 6.7 L* (14.0-18.0) g/dL Hct 20.5 L* (42-52) % MCV 96.7 (80-100) fL MCH 31.6 (25-34) pg MCHC 32.7 (32-36) g/dL RDW Std Deviation 72.7 H (36.4-46.3) fL RDW Coeff of Rigo 20.6 H (11.5-14.5) % Plt Count 60 L (130-400) K/uL Immature Gran % (Auto) % Neut % (Auto) % Lymph % (Auto) % [place] % (Auto) % Eos % (Auto) % Baso % (Auto) % Immature Gran # (Auto) (0.00-0.02) K/uL Neut # (Auto) (1.4-6.5) K/uL Lymph # (Auto) (1.2-3.4) K/uL [place] # (Auto) (0.11-0.59) K/uL Eos # (Auto) (0-0.5) K/uL Baso # (Auto) (0-0.2) K/uL Absolute Nucleated RBC 0.02 H (0-0) K/uL Nucleated RBC % (auto) 0.7 % Platelet Estimate Decreased (Normal) Anisocytosis Tear Drop Cells Ovalocytes PT (9.0-12.0) Seconds INR (0.9-1.1) Sodium (136-145) mmol/L Potassium (3.5-5.1) mmol/L Chloride (98-107) mmol/L Carbon Dioxide (21-32) mmol/L Anion Gap (3-11) BUN (7-18) mg/dl Creatinine 1.38 (0.6-1.4) mg/dl Est Cr Clr Drug Dosing 36.4 Est GFR ( Amer) 54.8 Est GFR (Non-Af Amer) 47.3 BUN/Creatinine Ratio (10-20) Glucose (70-99) mg/dl Calcium (8.5-10.1) mg/dl Phosphorus (2.5-4.9) mg/dl Magnesium (1.8-2.4) mg/dl Total Bilirubin (0.2-1) mg/dl AST (15-37) U/L ALT (12-78) U/L Alkaline Phosphatase (45-117) U/L Troponin I (0-0.045) ng/ml Total Protein (6.4-8.2) gm/dl Albumin (3.4-5.0) gm/dl Globulin (2.5-4.0) gm/dl Albumin/Globulin Ratio (0.9-2) TSH (0.300-4.500) uIu/ml Urine Color Yellow Urine Appearance Clear (Clear) Urine pH 6.0 (4.5-7.5) Ur Specific [place] 1.014 (1.000-1.030) Urine Protein Negative (Negative) Urine Glucose (UA) Negative (Negative) Urine Ketones Negative (Negative) Urine Blood Trace H (Negative) Urine Nitrite Negative (Negative) Urine Bilirubin Negative (Negative) Urine Urobilinogen Negative (Negative) Ur Leukocyte Esterase Negative (Negative) Urine WBC (Auto) 1-5 (0-5) /hpf Urine RBC (Auto) 0-4 (0-4) /hpf U Hyaline Cast (Auto) 1-5 (0-5) /lpf U Epithel Cells (Auto) 5-10 H (0-5) /lpf Urine Bacteria (Auto) Negative (Negative) Imaging Data Radiologist's Impression: Radiology results as stated below per my review and the radiologist's interpretation: ABDOMEN AND PELVIS CT WITHOUT CONTRAST CT DOSE: HISTORY: fall TECHNIQUE: Multiaxial CT images of the abdomen and pelvis were performed without contrast. A dose lowering technique was utilized adhering to the principles of ALARA. COMPARISON STUDY: Abdomen and pelvis CT 11/05/2018. FINDINGS: No change in the old compression deformities within the lumbar spine. Posterior decompression fusion from L4 through S1. The hardware appears intact. L4 pedicle screws extend into the L3-L4 disc space. This remains unchanged. Mild interstitial thickening at the lung bases which is likely chronic. Patchy bibasilar densities. Calcified granuloma the right lung base. Poststernotomy changes are noted. Prior L1 vertebroplasty. No acute fractures within the abdomen or pelvis. Evaluation for injury to the solid abdominal viscera is suboptimal due to the lack of intravenous contrast. However, the unenhanced liver, adrenal glands, gallbladder, and pancreas are unremarkable. Punctate deonte cified granulomas within the spleen. The unenhanced kidneys are within normal limits. No retroperitoneal lymphadenopathy. Trace pelvic fluid. No definite bowel wall thickening or obstruction. Moderate stool within the colon. IMPRESSION: 1. No definite acute traumatic process within the abdomen or pelvis. 2. Old lumbar spine compression deformities remain unchanged. 3. Trace pelvic free fluid which is nonspecific. 4. Additional findings as described above. Electronically signed by: Hudson Avila M.D. 12/10/2018 12:[address] cervical spine wo con CT DOSE: 1772.31 mGy.cm CLINICAL HISTORY: 83 years-old Male with fall. Acute neck injury status post fall COMPARISON: CT head of same day, CT cervical spine 04/13/2015. TECHNIQUE: Multiple axial CT images of the cervical spine were obtained without contrast. A dose lowering technique was utilized adhering to the principles of ALARA. FINDINGS: Demineralized appearance of the bones. 3 mm anterolisthesis C3 on C4 and 3 mm anterolisthesis C5 on C6, likely degenerative and unchanged. Chondrocalcinosis of the disc spaces. Multilevel intervertebral disc space narrowing with spondylitic spurring and advanced facet arthropathy. No acute fracture or subluxation is identified. Evaluation of the central canal and neuroforamina is better assessed by MRI. Trace left mastoid effusion. Right mastoid air cells are clear. Mucosal thickening about the left maxillary sinus noted. Right apical pleural parenchymal scarring. Calcification noted about the bilateral carotid bulbs. Soft tissues are unremarkable. IMPRESSION: No acute cervical spine fracture or subluxation. The above report was generated using voice recognition software. It may contain grammatical, syntax or spelling errors. Electronically signed by: Catrachito Dhaliwal M.D. 12/10/2018 11:[address] OF THE CHEST WITHOUT IV CONTRAST CLINICAL HISTORY: Fall. COMPARISON STUDY: Chest CT November 05, 2018. TECHNIQUE: Axial images of the chest were obtained without IV contrast. Images were reviewed in the axial, sagittal, and coronal planes. IV contrast was not administered for this examination. Automated exposure control was utilized for the study. A dose lowering technique was utilized adhering to the principles of ALARA. FINDINGS: Evaluation of the chest is suboptimal on this unenhanced exam. A dual-lead left subclavian pacemaker is in place. Moderate cardiomegaly is noted. There is no pericardial effusion. Thoracic aorta is suboptimally assessed but there is no mediastinal hematoma. There are trace bilateral pleural effusions with associated atelectasis. Bilateral airspace opacity shown on CT of November 05, 2018 have nearly completely resolved. There are few scattered airspace opacities within the lungs. There is no pneumothorax. No acute thoracic spine or rib fracture is noted. There are old bilateral rib fractures. 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 There is no mediastinal lymphadenopathy. The abdomen and pelvis CT will be reported separately. IMPRESSION: 1. No acute traumatic findings within the chest on unenhanced exam 2. Trace bilateral pleural effusions, significantly decreased in size since prior chest CT. Near complete resolution of bilateral airspace opacities shown on CT of November 05, 2018. Electronically signed by: Kody Ayala M.D. 12/10/2018 12:08 PM XR chest 1V portable CLINICAL HISTORY: weakness COMPARISON STUDY: Chest radiograph November 11, 2018. FINDINGS: Right internal jugular [id number] is in place. A dual-lead left subclavian pacer is in place. There is moderate cardiomegaly. There is no evidence for pulmonary edema. No pneumothorax or pleural effusion is noted. No consolidation is identified. Vertebral augmentation at the thoracolumbar junction is incidentally noted. IMPRESSION: No acute cardiopulmonary findings. Electronically signed by: Kody Ayala M.D. 12/10/2018 11:07 AM XR hand LT min 3V routine HISTORY: 83 years-old Male fall acute left hand pain status post fall COMPARISON: None available TECHNIQUE: 3 views of the left hand FINDINGS: Demineralized appearance of the bones. Mild dorsal wrist soft tissue swelling without acute fracture or dislocation identified. Peripheral arterial calcifications are noted. Subcortical cystic changes about the carpus. Extensive chondrocalcinosis about the carpus and TFCC. 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 Prominent subcortical cystic changes are also noted about the third metatarsal head. No opaque foreign body. IMPRESSION: 1. No acute fracture or dislocation. 2. Demineralized appearance of the bones with multifocal degenerative changes, including severe first carpometacarpal and second metacarpal phalangeal joint space narrowing. 3. Chondrocalcinosis. The above report was generated using voice recognition software. It may contain grammatical, syntax or spelling errors. Electronically signed by: Catrachito Dhaliwal M.D. 12/10/2018 11:[address]AST CT DOSE: HISTORY: fall TECHNIQUE: Multiaxial CT images of the head were performed without the use of intravenous contrast. Automated exposure control was utilized for this study. A dose lowering technique was utilized adhering to the principles of ALARA. Comparison: None. Findings: Mild mucosal thickening within the left maxillary sinus. Small fluid level within the right sphenoid sinus. Mild left frontal scalp swelling. The calvarium and skull base are intact. There is no mass, hematoma, midline shift, acute infarct. White matter hypodensity is nonspecific but suggestive of microvascular ischemic change. The ventricles and sulci demonstrate mild age- related involutional changes. Impression: No acute intracranial abnormality. Mild left frontal scalp swelling. Mild sinus disease as described above. Electronically signed by: Hudson Avila M.D. 12/10/2018 11:[address] lumbar spine wo con HISTORY: 83 years-old Male fall acute low back pain status post fall COMPARISON: CT abdomen and pelvis and CT thoracic spine studies of same day, CT lumbar spine 08/15/2011, CT abdomen and pelvis 11/05/2018 and 03/14/2018 TECHNIQUE: Multiple axial CT images of the lumbar spine were obtained without t he use of IV contrast. A dose lowering technique was used consistent with the principals of ALARA. FINDINGS: Please see separately dictated CT abdomen and pelvis for discussion of the intra-abdominal findings. Demineralized appearance of the bones. Levoscoliosis of the lumbar spine. Degenerative changes with partial bony fusion about the bilateral SI joints. Postoperative changes from prior laminectomy with posterior interbody beka and screw fusion at L4-S1. The bilateral L4 fusion screws extend along the superior portion of the pedicles extending into the posterior aspect of the L3-L4 disc space. Remote compression deformity with kyphoplasty changes at L1. Unchanged appearance of the remote L4 compression fracture. There is a 30% anterior and central superior endplate compression deformity at L2 which appears unchanged from comparison study dated 11/05/2018 however is new from 03/14/2018. No acute fracture or subluxation of the lumbar spine identified. IMPRESSION: 1. No acute fracture or subluxation. 2. Prior laminectomy with posterior interbody beka and screw fusion at L4-S1. Pedicle screws at L4 extend into the L3-L4 disc space. 3. Unchanged appearance of the remote lumbar spine compression deformities as above. The above report was generated using voice recognition software. It may contain grammatical, syntax or spelling errors. Electronically signed by: Catrachito Dhaliwal M.D. 12/10/2018 12:[address] thoracic spine wo con CLINICAL HISTORY: Fall. COMPARISON STUDY: Thoracic spine CT April 13, 2015. TECHNIQUE: Axial images of the thoracic spine were obtained. Sagittal and coronal reconstructions were viewed. Study was performed utilizing automated exposure control for dose reduction and according to ALARA principles. FINDINGS: Alignment of the thoracic spine is anatomic. There is no acute thoracic spine fracture. Previous L2 vertebral augmentation is noted. There is extensive anterior osteophytosis. There is no paravertebral edema. Central canal and neural foramen are suboptimally assessed by CT. The chest CT will be reported separately. Note is made of mild dextroscoliosis of the thoracic spine. IMPRESSION: No acute thoracic spine fracture or subluxation. Electronically signed by: Kody Ayala M.D. 12/10/2018 12:09 PM ECG Data Attestation: I personally reviewed and interpreted this ECG as follows: Indication: weakness Rate (beats per minute): 67 Rhythm: other (ventricular paced) Findings: + other (occasional natively conducted beats); no PVC Comparison ECG Date: from (11/11/18) Change: no significant change Blood Pressure Blood Pressure Findings: Normal blood pressure Blood Pressure Disposition: did not require urgent referral Head Trauma GCS Score: 15 MDM Narrative Patient is a 83-year-old gentleman history of multiple myeloma and atrial fibrillation with increasing weakness evaluated here yesterday for hypercalcemia treated with some Lasix and IV fluid and then wished to go home. Patient was Hemoccult negative yesterday and was noted to have some anemia yesterday. Patient evidently went home and states he had mechanical fall where he slipped and fell striking his head. Is on Pradaxa. Abrasion to left forehead. CT imaging was completed to exclude traumatic injury of the head neck spine or thorax. Does have some swelling and tenderness over his left thumb and x-rays completed here without evidence of fracture. Basic labs were repeated today as well. Patient states that his fall was more mechanical than syncopal. Hemoglobin is stable today. Hypercalcemia persists at 13.2 kidney function with a creatinine of 1.45 slightly above baseline. Slight troponin elevation appears chronic in comparison to previous. No evidence of acute UTI or thyroid dysfunction. Magnesium 1.8 and phosphorus 2.8. No acute evidence of intracranial or cervical spine pathology. No evidence of acute thoracic injury on imaging as well. Discussed with oncology given the patient's slightly worsened hypercalcemia today that may be contributing to his overall weakness. Oncology recommends admission and gentle fluid hydration and they will evaluate for possible additional hypercalcemia medication. Patient advised and was hesitantly in agreement for admission. Hospitalist contacted. Impression & Plan Hypercalcemia, Weakness, Fall, Abrasion of forehead Discharge Plan Visit Data *Final* Discharge Date/Time: 12/10/18 14:20 Chief Complaint: Abnormal Labs/Diagnostic Testing Stated Complaint: FALL LAST NIGHT,ABNORMAL LABS ED Provider: Santiago Frank Discharge Problem: Hypercalcemia, Weakness, Fall, Abrasion of forehead Patient Disposition: Admitted As Inpatient Discharge Instructions Interventions: ED Discharge Assessment Last Done: 12/10/18 14:20 Discharge Problem: Fall Qualifiers: Encounter type: initial encounter Qualified Code(s): W19.XXXA - Unspecified fall, initial encounter Abrasion of forehead Qualifiers: Encounter type: initial encounter Qualified Code(s): S00.81XA - Abrasion of other part of head, initial encounter The scribe's documentation has been prepared under my direction and personally reviewed by me in its entirety. I confirm that the note above accurately reflects all work, treatment, procedures, and medical decision making performed by me.
--- NOTE | 2018-12-10 13:47 | History & Physical Report ---
Date of Service December 10, 2018 History of Present Illness Primary Care Provider: Aldo Javed DO Allergies Allergy/AdvReac Type Severity Reaction Status Date / Time immune globulin,gamma (IgG) Allergy Severe ANAPHYLAXIS Verified 12/09/18 15:36 human Penicillins Allergy Severe Unknown Verified 12/09/18 15:36 [id number] Reductase Allergy Unknown unknown Verified 12/09/18 15:36 Inhibitor Sulfa (Sulfonamide Allergy Unknown Unknown rxn Verified 12/09/18 15:36 Antibiotics) garlic AdvReac Intermediate Gastrointestinal Verified 12/09/18 15:36 Upset omeprazole AdvReac Intermediate dizziness Verified 12/09/18 15:36 Home Medications Home Medications Medication Instructions Recorded Confirmed Type TheraTears 1 drp OPHTHALMIC (EYE) BID 10/30/18 12/10/18 History Vitamin B-12 5,000 mcg SUBLINGUAL DAILY 10/30/18 12/10/18 History acyclovir 400 mg PO BID 10/30/18 12/10/18 History alfuzosin 10 mg PO HS 10/30/18 12/10/18 History finasteride 5 mg PO QAM 10/30/18 12/10/18 History metoprolol succinate 100 mg PO DAILY 10/30/18 12/10/18 History pantoprazole 40 mg PO BID 10/30/18 12/10/18 History furosemide [Lasix] 20 mg PO DAILY #30 tab 11/21/18 12/10/18 Rx magnesium oxide 400 mg PO DAILY #30 tab 11/21/18 12/10/18 Rx potassium chloride 20 meq PO DAILY #30 tab 11/21/18 12/10/18 Rx dabigatran etexilate [Pradaxa] 150 mg PO BID 12/09/18 12/10/18 History digoxin [Digitek] 125 mcg PO DAILY 12/09/18 12/10/18 History isosorbide mononitrate 60 mg PO DAILY 12/09/18 12/10/18 History ondansetron HCl 8 mg PO TID PRN 12/09/18 12/10/18 History Past Med/Surg History Medical History DVT prophylaxis CHF (congestive heart failure) BPH (benign prostatic hyperplasia) Atrial fibrillation (Chronic) Neck pain (Chronic) 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 No problems noted. Social History Preferred Language: Korean Communication Ability: Effective Beliefs That Will Affect Care: None marital status: Current Living Situation: Spouse Other Information That Helps Us Care for You: No Feels Safe at Home: Yes Safety Concerns: Feels Safe At This Time Smoking Status: Never smoker Hx Alcohol Use: No Hx Substance Use: No Physical Exam Vital Signs (Past 24 Hours): Last Vital Signs Temp 36.6 C 12/10/18 10:14 Pulse 70 12/10/18 11:47 Resp 18 12/10/18 11:47 BP 101/62 12/10/18 11:47 Pulse Ox 97 12/10/18 11:47 Constitutional: WD/WN, vitals as above Eyes: normal visual davis by confrontation and + anicteric sclerae Neck: normal visual inspection and trachea midline Respiratory: normal respiratory effort, lungs clear to auscultation Cardiovascular: Rate/Rhythm: regular rate and regular rhythm Gastrointestinal (Abdomen): Inspection/Auscultation: abdomen not distended Percussion/Palpation: abdomen soft; abdomen nontender Musculoskeletal: Head/Neck/Chest: normocephalic; + evidence of head trauma (bandaged area on L frontal, clean and dry) negative for edema, peripheral pulses intact Skin: no rashes, warm and dry L thumb is bruised and swollen Neurologic: awake; not confused Speech / Cognition: normal speech Psychiatric: A+Ox3, euthymic affect
[2018-12-10] MEDS ORDERED: ONDANSETRON INJ 2 MG/ML 2 ML VIAL IV PRN (15:05)
[2018-12-10] MEDS ORDERED: MAGNESIUM HYDROXIDE SUSP 30 ML UDC PO PRN (15:05)
[2018-12-10] MEDS ORDERED: ACETAMINOPHEN 325 MG TAB PO PRN (15:05)
[2018-12-10] MEDS ORDERED: ONDANSETRON 4 MG OD TAB PO PRN (15:05)
[2018-12-10 16:07] LABS: Creatinine Clr Calc Pharmacy 36.4 ml/min; Est GFR (African American) 54.8; Est GFR (Non-African American) 47.3
[2018-12-10 16:22] LABS: Mean Corpuscular Hgb Conc 32.7 g/dL (32-36)
[2018-12-10 16:25] LABS: Platelet Count 60 K/uL (130-400)
[2018-12-10 16:26] LABS: Hematocrit (blood only) 20.5 % (42-52); Hemoglobin 6.7 g/dL (14.0-18.0); Mean Corpuscular Volume 96.7 fL (80-100); Nucleated RBC # (auto) 0.02 K/uL (0-0); Nucleated RBC % (auto) 0.7 %; Platelet Estimate Decreased (Normal); RDW Coefficient of Variation 20.6 % (11.5-14.5); RDW Standard Deviation 72.7 fL (36.4-46.3); Red Blood Count 2.12 M/uL (4.7-6.1); White Blood Count 3.41 K/uL (4.8-10.8)
[2018-12-10] MEDS: DIGOXIN 0.125 MG TAB PO SCH (16:31)
[2018-12-10] MEDS: SODIUM CHLOR 0.45% + 20MEQ KCL 20 MEQ/1,000 ML BAG IV SCH (16:32)
--- NOTE | 2018-12-10 16:58 | History & Physical Report ---
Date of Service December 10, 2018 Assessment & Plan (1) Hypercalcemia: Chronic issue, likely related to multiple myeloma Recent prolonged hospitalization due to same Dr. Branch requests admission with IVF and planning for tx with biologic per ED physician Ca on d/c was 10.3 (2) Weakness: Ongoing issue PT/OT Likely deconditioning from prolonged hospital stay in the setting of multiple myeloma and other chronic health issues (3) Fall: PT/OT Mechanical All imaging neg for acute issues (4) Elevated troponin: 0.072, which is a baseline elevation for pt Will not trend trops (5) ARF (acute renal failure): Baseline cr 1.1 Monitor with IVF (6) Multiple myeloma: As per Dr. Branch (7) Acute on chronic systolic heart failure: continue home lasix 20mg QD Monitor with IVF (8) Pancytopenia: In the setting of multiple myeloma Chronic issue, all numbers are somewhat lower than baseline today (9) Atrial fibrillation: continue home meds, pradaxa (10) Sick sinus syndrome: s/p pacer (11) BPH (benign prostatic hyperplasia): continue home meds (12) DVT prophylaxis: Pradaxa History of Present Illness Primary Care Provider: Aldo Javed, 83 y/o M who was referred to the ED for hyperCa. Pt has hx of multiple myeloma with hyperCa. He was recently admitted to [facility] for flu and hyperCa which required a prolonged course of inpt tx to resolve. He was d/c'd on 11/26 to a rehab facility. He has since been d/c'd from that facility to home but has ongoing PT/OT services. Pt was seen in the ED yesterday for hyperCa. Dr. Branch recommended for admission at that time, however pt stated he would like to avoid this for a trial of fluids at home after IVF here. This was not sucessful and pt is agreeable to admission. Pt states he feels fine other than he states he lost a lot of strength on his last admission. He does feel weak. He feels that PT is helping with this, but he is not back to where he had been prior to the prolonged admission. Pt denies fever, SOB, chest pain, abd pain, n/v/c/d, LE pain or swelling. Pt states he fell down the stairs last night. He was coming down the stairs using both handrails, however the stairs are wood. He started to lose his balance and could not regain it. No dizziness or lightheadedness. He landed at the bottom of the stairs. He did hit his head on something at the bottom. He initially landed on his L hand and has bruising as a result. He states he has no pain related to this fall. He denies other falls. Allergies Allergy/AdvReac Type Severity Reaction Status Date / Time immune globulin,gamma (IgG) Allergy Severe ANAPHYLAXIS Verified 12/09/18 15:36 human Penicillins Allergy Severe Unknown Verified 12/09/18 15:36 Iykovvg-Nud-Bst Reductase Allergy Unknown unknown Verified 12/09/18 15:36 Inhibitor Sulfa (Sulfonamide Allergy Unknown Unknown rxn Verified 12/09/18 15:36 Antibiotics) garlic AdvReac Intermediate Gastrointestinal Verified 12/09/18 15:36 Upset omeprazole AdvReac Intermediate dizziness Verified 12/09/18 15:36 Home Medications Home Medications Medication Instructions Recorded Confirmed Type TheraTears 1 drp OPHTHALMIC (EYE) BID 10/30/18 12/10/18 History Vitamin B-12 5,000 mcg SUBLINGUAL DAILY 10/30/18 12/10/18 History acyclovir 400 mg PO BID 10/30/18 12/10/18 History alfuzosin 10 mg PO HS 10/30/18 12/10/18 History finasteride 5 mg PO QAM 10/30/18 12/10/18 History metoprolol succinate 100 mg PO DAILY 10/30/18 12/10/18 History pantoprazole 40 mg PO BID 10/30/18 12/10/18 History furosemide [Lasix] 20 mg PO DAILY #30 tab 11/21/18 12/10/18 Rx magnesium oxide 400 mg PO DAILY #30 tab 11/21/18 12/10/18 Rx potassium chloride 20 meq PO DAILY #30 tab 11/21/18 12/10/18 Rx dabigatran etexilate [Pradaxa] 150 mg PO BID 12/09/18 12/10/18 History digoxin [Digitek] 125 mcg PO DAILY 12/09/18 12/10/18 History isosorbide mononitrate 60 mg PO DAILY 12/09/18 12/10/18 History ondansetron HCl 8 mg PO TID PRN 12/09/18 12/10/18 History Past Med/Surg History Medical History DVT prophylaxis CHF (congestive heart failure) BPH (benign prostatic hyperplasia) Atrial fibrillation (Chronic) Neck pain (Chronic) 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 No problems noted. Social History Preferred Language: Eritrean Communication Ability: Effective Beliefs That Will Affect Care: None marital status: Current Living Situation: Spouse Other Information That Helps Us Care for You: No Feels Safe at Home: Yes Safety Concerns: Feels Safe At This Time Smoking Status: Never smoker Hx Alcohol Use: No Hx Substance Use: No Review of Systems Pertinent positives and negatives reviewed in HPI--all others negative Physical Exam Vital Signs (Past 24 Hours): Last Vital Signs Temp 36.6 C 12/10/18 10:14 Pulse 61 12/10/18 14:20 Resp 18 12/10/18 14:20 BP 114/68 12/10/18 14:20 Pulse Ox 98 12/10/18 14:20 Constitutional: WD/WN, vitals as above Eyes: normal visual davis by confrontation and + anicteric sclerae Neck: normal visual inspection and trachea midline Respiratory: normal respiratory effort, lungs clear to auscultation Cardiovascular: Rate/Rhythm: regular rate and regular rhythm Gastrointestinal (Abdomen): Inspection/Auscultation: abdomen not distended Percussion/Palpation: abdomen soft; abdomen nontender Musculoskeletal: Head/Neck/Chest: normocephalic; + evidence of head trauma (bandaged area on L frontal, clean and dry) Skin: no rashes, warm and dry Neurologic: awake; not confused Speech / Cognition: normal speech Psychiatric: A+Ox3, euthymic affect Results & Data Diagnostic Findings CXR: neg for acute CT head: neg for acute CT c-spine, t-spine, L-spine: neg for acute, old lumbar compression fractures noted CTAP: neg for acute L hand XR: 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, 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, neg for acute CT chest: trace pleural effusions Code Status & VTE Plan Code Status Full code VTE Prophylaxis Plan VTE Prophylaxis will be ordered: Yes (1) BPH (benign prostatic hyperplasia) Lower urinary tract symptom presence: symptoms absent Qualified Code(s): N40.0 - Benign prostatic hyperplasia without lower urinary tract symptoms (2) Atrial fibrillation Atrial fibrillation type: chronic Qualified Code(s): I48.2 - Chronic atrial fibrillation (3) Fall Encounter type: initial encounter Qualified Code(s): W19.XXXA - Unspecified fall, initial encounter (4) Multiple myeloma Multiple myeloma remission status: unspecified Qualified Code(s): C90.00 - Multiple myeloma not having achieved remission
--- NOTE | 2018-12-10 17:10 | Oncology Consultation ---
Date of Consultation December 10, 2018 Assessment & Plan (1) Hypercalcemia: He has hypercalcemia in the context of multiple myeloma. That being said, his disease has been mostly stable and it is not clear that the hypercalcemia is definitely related. Regardless, I would treat him with IV hydration and diuresis as needed. Please also give him Xgeva 120 mg SC tomorrow. We will plan on 4 weekly doses, followed by monthly treatment thereafter. This regimen has been studied in patients with hypercalcemia of malignancy that is refractory to bisphosphonates, as his is. There is no further role for bisphosphonates and I would not give them. Present on Admission?: Yes (2) Anemia: He is pancytopenic. This could be related to treatment, though his last dose was 3 weeks ago and Darzalex does not usually drop patients counts this dramatically. It is also possible he is progressing. His most recent paraprotein levels were up, though they tend to fluctuate pretty widely. His anemia is normocytic, which argues against iron or vitamin deficiencies. He has no evidence of gross bleeding, but we could check his stool for occult blood. His marrow may also still be recovering from his recent lengthy infection. I would transfuse him for a hemoglobin <8 and for platelets <15K or for bleeding. Present on Admission?: Yes History of Present Illness Reason for Consultation: Multiple myeloma Hypercalcemia Anemia Attending Physician: Maia Kaminski DO History of Present Illness Mr. Blanchard is an 83 year old gentleman with a history of IgA multiple myeloma. He is currently being treated with Darzalex, which he has been receiving for about a year. He has had chronic issues with hypercalcemia, though it has been worse in recent months. He was recently admitted for several weeks for complications after an influenza infection. During that stay, his calcium was as high as the 13s without a clear explanation. He received both Zometa and Pamidronate and his calcium improved. Yesterday, he had a calcium of 13.9 and was feeling confused. I directed him to the ER and he was advised to be admitted, but refused. He went home with a plan to be seen in my office on Saturday to start Xgeva. However, ov ernight he fell and hit his head. He called in the morning and I again directed him to the ER. Trauma scans were negative and his blood work revealed a hemoglobin of 6.7 and a calcium over 13. He was started on IV fluids and admitted. He was looking better when I saw him. His energy was improved compared with his last hospital stay. He denies any new or worsening bone pain. The fall sounds mechanical in nature. He was walking in socks in the dark and slipped, hitting his forehead. He denies any palpitations or syncope. Allergies Allergy/AdvReac Type Severity Reaction Status Date / Time immune globulin,gamma (IgG) Allergy Severe ANAPHYLAXIS Verified 12/09/18 15:36 human Penicillins Allergy Severe Unknown Verified 12/09/18 15:36 [id number]-Qrg-Zkt Reductase Allergy Unknown unknown Verified 12/09/18 15:36 Inhibitor Sulfa (Sulfonamide Allergy Unknown Unknown rxn Verified 12/09/18 15:36 Antibiotics) garlic AdvReac Intermediate Gastrointestinal Verified 12/09/18 15:36 Upset omeprazole AdvReac Intermediate dizziness Verified 12/09/18 15:36 Home Medications Home Medications Medication Instructions Recorded Confirmed Type TheraTears 1 drp OPHTHALMIC (EYE) BID 10/30/18 12/10/18 History Vitamin B-12 5,000 mcg SUBLINGUAL DAILY 10/30/18 12/10/18 History acyclovir 400 mg PO BID 10/30/18 12/10/18 History alfuzosin 10 mg PO HS 10/30/18 12/10/18 History finasteride 5 mg PO QAM 10/30/18 12/10/18 History metoprolol succinate 100 mg PO DAILY 10/30/18 12/10/18 History pantoprazole 40 mg PO BID 10/30/18 12/10/18 History furosemide [Lasix] 20 mg PO DAILY #30 tab 11/21/18 12/10/18 Rx magnesium oxide 400 mg PO DAILY #30 tab 11/21/18 12/10/18 Rx potassium chloride 20 meq PO DAILY #30 tab 11/21/18 12/10/18 Rx dabigatran etexilate [Pradaxa] 150 mg PO BID 12/09/18 12/10/18 History digoxin [Digitek] 125 mcg PO DAILY 12/09/18 12/10/18 History isosorbide mononitrate 60 mg PO DAILY 12/09/18 12/10/18 History ondansetron HCl 8 mg PO TID PRN 12/09/18 12/10/18 History Patient History Medical History DVT prophylaxis CHF (congestive heart failure) BPH (benign prostatic hyperplasia) Atrial fibrillation (Chronic) Neck pain (Chronic) 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 No problems noted. Social History Preferred Language: Mosotho Communication Ability: Effective Beliefs That Will Affect Care: None marital status: Current Living Situation: Spouse Other Information That Helps Us Care for You: No Feels Safe at Home: Yes Safety Concerns: Feels Safe At This Time Smoking Status: Never smoker Hx Alcohol Use: No Hx Substance Use: No Review of Systems Constitutional: + fatigue (improved); no fever and no weight loss Eyes: no worsening vision Ear, Nose, Mouth, Throat: no epistaxis and no bleeding gums Respiratory: no cough, no dyspnea and no hemoptysis Cardiovascular: no chest pain, no palpitations, no syncope and no edema Gastrointestinal: no abdominal pain, no nausea, no diarrhea/loose stools and no blood in stools Genitourinary (Male): no dysuria and no hematuria Neurologic: + falls (see HPI); no localized weakness, no syncope and no headache(s) Hematologic / Lymphatic: no easy bleeding and no lymphadenopathy Physical Exam Vital Signs (Past 24 Hours): Last Vital Signs Temp 36.6 C 12/10/18 10:14 Pulse 61 12/10/18 14:20 Resp 18 12/10/18 14:20 BP 114/68 12/10/18 14:20 Pulse Ox 98 12/10/18 14:20 Constitutional: + frail appearing and comfortable; no acute distress Eyes: + anicteric sclerae and EOM intact bilaterally ENMT: external ear and nose normal, oropharynx normal Respiratory: normal respiratory effort, lungs clear to auscultation Cardiovascular: RRR, no murmur, no edema Gastrointestinal (Abdomen): normal bowel sounds, soft, nontender, no hepatosplenomegaly Musculoskeletal: no cyanosis or clubbing, extremities motor strength 5/5 Psychiatric: A+Ox3, euthymic affect Lymphatic: no cervical or axillary lymphadenopathy Results & Data Laboratory Results Abnormal lab results 12/10/18 12/10/18 12/10/18 Range/Units 11:10 11:10 11:10 WBC 3.87 L (4.8-10.8) K/uL RBC 2.21 L (4.7-6.1) M/uL Hgb 7.1 L (14.0-18.0) g/dL Hct 21.7 L (42-52) % RDW Std Deviation 75.4 H (36.4-46.3) fL RDW Coeff of Rigo 20.7 H (11.5-14.5) % Plt Count 58 L (130-400) K/uL Lymph # (Auto) 1.12 L (1.2-3.4) K/uL Absolute Nucleated RBC 0.03 H (0-0) K/uL PT 13.3 H (9.0-12.0) Seconds INR 1.3 H (0.9-1.1) Chloride 110 H (98-107) mmol/L BUN 24 H (7-18) mg/dl Creatinine 1.45 H (0.6-1.4) mg/dl Glucose 106 H (70-99) mg/dl Calcium 13.2 H* (8.5-10.1) mg/dl Troponin I 0.072 H* (0-0.045) ng/ml Total Protein 6.3 L (6.4-8.2) gm/dl Albumin 3.2 L (3.4-5.0) gm/dl Urine Blood (Negative) U Epithel Cells (Auto) (0-5) /lpf 12/10/18 12/10/18 Range/Units 11:15 15:32 WBC 3.41 L (4.8-10.8) K/uL RBC 2.12 L (4.7-6.1) M/uL Hgb 6.7 L* (14.0-18.0) g/dL Hct 20.5 L* (42-52) % RDW Std Deviation 72.7 H (36.4-46.3) fL RDW Coeff of Rigo 20.6 H (11.5-14.5) % Plt Count 60 L (130-400) K/uL Lymph # (Auto) (1.2-3.4) K/uL Absolute Nucleated RBC 0.02 H (0-0) K/uL PT (9.0-12.0) Seconds INR (0.9-1.1) Chloride (98-107) mmol/L BUN (7-18) mg/dl Creatinine (0.6-1.4) mg/dl Glucose (70-99) mg/dl Calcium (8.5-10.1) mg/dl Troponin I (0-0.045) ng/ml Total Protein (6.4-8.2) gm/dl Albumin (3.4-5.0) gm/dl Urine Blood Trace H (Negative) U Epithel Cells (Auto) 5-10 H (0-5) /lpf (1) Anemia Anemia type: unspecified type Qualified Code(s): D64.9 - Anemia, unspecified
[2018-12-10 18:12] LABS: BUN Creatinine Ratio 15.1 (10-20); Calcium 13.1 mg/dl (8.5-10.1); Creatinine Clr Calc Pharmacy 34.4 ml/min; Est GFR (African American) 51.2; Est GFR (Non-African American) 44.2; Potassium 3.6 mmol/L (3.5-5.1)
[2018-12-10] MEDS: ALFUZOSIN HCL 10 MG TAB PO SCH (22:06)
[2018-12-10] MEDS: DABIGATRAN ETEXILATE 75 MG CAP PO SCH (22:06)
[2018-12-10] MEDS: ACYCLOVIR 400 MG TAB PO SCH (22:06)
[2018-12-10] MEDS: PANTOprazole 40 MG TAB PO SCH (22:07)
[2018-12-10] MEDS: ARTIFICIAL TEARS OP SCH (22:10)
[2018-12-10] MEDS ORDERED: SODIUM CHLORIDE 0.9% 250 ML IV PRN (22:34)
[2018-12-11] MEDS: SODIUM CHLOR 0.45% + 20MEQ KCL 20 MEQ/1,000 ML BAG IV SCH ×2 (05:15→18:10)
[2018-12-11 08:14] LABS: Hemoglobin 6.6 g/dL (14.0-18.0); Mean Corpuscular Volume 97.6 fL (80-100); Nucleated RBC # (auto) 0.02 K/uL (0-0); Nucleated RBC % (auto) 0.8 %; Platelet Count 56 K/uL (130-400); RDW Coefficient of Variation 20.7 % (11.5-14.5); RDW Standard Deviation 74.1 fL (36.4-46.3); Red Blood Count 2.05 M/uL (4.7-6.1); White Blood Count 2.66 K/uL (4.8-10.8)
[2018-12-11 08:26] LABS: Magnesium 1.9 mg/dl (1.8-2.4); Phosphorus 2.5 mg/dl (2.5-4.9)
[2018-12-11] MEDS: ARTIFICIAL TEARS OP SCH ×2 (08:53→20:07)
[2018-12-11] MEDS: POTASSIUM CHLORIDE 20 MEQ TABCR PO SCH (08:54)
[2018-12-11] MEDS: MAGNESIUM OXIDE 400 MG TAB PO SCH (08:54)
[2018-12-11] MEDS: ISOSORBIDE MONO EXTENDED REL 60 MG TABCR PO SCH (08:54)
[2018-12-11] MEDS: DABIGATRAN ETEXILATE 75 MG CAP PO SCH ×2 (08:55→20:03)
[2018-12-11] MEDS: PANTOprazole 40 MG TAB PO SCH ×2 (08:55→20:03)
[2018-12-11] MEDS: FINASTERIDE 5 MG TAB PO SCH (08:55)
[2018-12-11] MEDS: ACYCLOVIR 400 MG TAB PO SCH ×2 (08:56→20:03)
[2018-12-11] MEDS: CYANOCOBALAMIN (VITAMIN B-12) 2,500 MCG TAB.SUBL SL SCH (08:56)
[2018-12-11] MEDS: METOPROLOL SUCC 50MG EXT REL TAB PO SCH (08:56)
[2018-12-11] MEDS ORDERED: FUROSEMIDE 20 MG TAB PO SCH (09:00)
[2018-12-11] MEDS ORDERED: XGEVA 120 MG SC SCH (09:00)
[2018-12-11 09:23] LABS: Anisocytosis Present; Eosinophils # (auto) 0.07 K/uL (0-0.5); Eosinophils % (auto) 2.6 %; Immature Granulocytes # (auto) 0.01 K/uL (0.00-0.02); Immature Granulocytes % (auto) 0.4 %; Lymphocytes # (auto) 0.97 K/uL (1.2-3.4); Lymphocytes % (auto) 36.5 %; Monocytes # (auto) 0.24 K/uL (0.11-0.59); Neutrophils # (auto) 1.37 K/uL (1.4-6.5); Neutrophils % (auto) 51.5 %; Poikilocytosis Present; Spherocytes 1+
[2018-12-11] MEDS ORDERED: SODIUM CHLORIDE 0.9% 250 ML IV PRN (09:40)
[2018-12-11] MEDS ORDERED: SODIUM CHLORIDE 0.9% IV ONE (12:00)
[2018-12-11] MEDS ORDERED: ZOLEDRONIC ACID IV ONE (12:00)
[2018-12-11 13:18] LABS: Hematocrit (blood only) 20.4 % (42-52); Hemoglobin 6.6 g/dL (14.0-18.0)
[2018-12-11 13:33] LABS: BUN Creatinine Ratio 13.5 (10-20); Calcium 12.1 mg/dl (8.5-10.1); Creatinine Clr Calc Pharmacy 36.7 ml/min; Est GFR (African American) 55.8; Est GFR (Non-African American) 48.1; Potassium 3.8 mmol/L (3.5-5.1)
--- NOTE | 2018-12-11 15:39 | Hospitalist Progress Note ---
Date of Service December 11, 2018 Assessment & Plan (1) Hypercalcemia: Chronic issue, likely related to multiple myeloma Recent prolonged hospitalization due to same do not have Xgeva on formulary, plan to use as outpatient did receive Zelodronic acid Ca down to 12 will continue fluids, give Lasix again tomorrow AM, increase dose to 40mg from 20mg (2) Weakness: Ongoing issue PT/OT Likely deconditioning from prolonged hospital stay in the setting of multiple myeloma and other chronic health issues more strength today, motivated to get better (3) Fall: PT/OT Mechanical All imaging neg for acute issues (4) Elevated troponin: 0.072, which is a baseline elevation for pt Will not trend trops transfer off tele tomorrow (5) ARF (acute renal failure): Baseline cr 1.1 Cr is 1.36 today, making adequate urine continue gentle fluids and Lasix (6) Multiple myeloma: As per Dr. Branch (7) Acute on chronic systolic heart failure: increase Lasix to 40mg PO to get rid of Calcium (8) Pancytopenia: In the setting of multiple myeloma Hb down to 6.6, will transfuse 2 units needs to come from [place] due to history of having multiple antibodies (9) Atrial fibrillation: continue home meds, pradaxa monitor that platelets do not drop too low (10) Sick sinus syndrome: s/p pacer (11) BPH (benign prostatic hyperplasia): continue home meds (12) DVT prophylaxis: Pradaxa Subjective patient says he is feeling stronger today, not as weak no dizziness when standing sat in chair for a while this afternoon, motivated to get stronger discussed that I wanted to hold on formal PT/OT until he gets transfused Hb low at 6.6, WBC and platelets also low but stable Ca down to 12 patient's and daughter were concerned about hyperparathyroidism explained that in patient' situation the high calcium due to MM checked PTH, normal range Review of Systems All systems reviewed & are unremarkable except as noted in HPI & below Physical Exam Vital Signs (Past 24 Hours): Last Vital Signs Temp 36.3 C L 12/11/18 15:19 Pulse 63 12/11/18 15:19 Resp 18 12/11/18 15:19 BP 97/56 L 12/11/18 15:19 Pulse Ox 98 12/11/18 15:19 Constitutional: well developed and + thin; no acute distress Eyes: PERRL, conjunctivae normal, anicteric sclerae ENMT: external ear and nose normal, oropharynx normal Neck: trachea midline, no thyromegaly Respiratory: normal respiratory effort, lungs clear to auscultation Cardiovascular: RRR, no murmur, no edema Gastrointestinal (Abdomen): normal bowel sounds, soft, nontender, no hepatosplenomegaly Musculoskeletal: no cyanosis or clubbing, extremities motor strength 5/5 Skin: no rashes, warm and dry Neurologic: patellar DTR's 2+ bilat, sensation intact and PERRL, EOMI, accommodation nl, no face palsy, no dysarthria Psychiatric: A+Ox3, euthymic affect Lymphatic: no cervical or axillary lymphadenopathy Results & Data Laboratory Results Laboratory Results - last 24 hr 12/10/18 12/10/18 12/10/18 15:32 15:32 17:25 WBC 3.41 L RBC 2.12 L Hgb 6.7 L* Hct 20.5 L* MCV 96.7 MCH 31.6 MCHC 32.7 RDW Std Deviation 72.7 H RDW Coeff of Rigo 20.6 H Plt Count 60 L Immature Gran % (Auto) Neut % (Auto) Lymph % (Auto) [place] % (Auto) Eos % (Auto) Baso % (Auto) Immature Gran # (Auto) Neut # (Auto) Lymph # (Auto) [place] # (Auto) Eos # (Auto) Baso # (Auto) Absolute Nucleated RBC 0.02 H Nucleated RBC % (auto) 0.7 Platelet Estimate Decreased Poikilocytosis Anisocytosis Spherocytes Sodium 141 Potassium 3.6 Chloride 108 H Carbon Dioxide 28 Anion Gap 5.0 BUN 22 H Creatinine 1.38 1.46 H Est Cr Clr Drug Dosing 36.4 34.4 Est GFR ( Amer) 54.8 51.2 Est GFR (Non-Af Amer) 47.3 44.2 BUN/Creatinine Ratio 15.1 Glucose 140 H Calcium 13.1 H* Phosphorus Magnesium PTH Intact Blood Type Antibody Screen Crossmatch 12/10/18 12/11/18 12/11/18 22:57 07:27 07:27 WBC 2.66 L RBC 2.05 L Hgb 6.6 L* Hct 20.0 L* MCV 97.6 MCH 32.2 MCHC 33.0 RDW Std Deviation 74.1 H RDW Coeff of Rigo 20.7 H Plt Count 56 L Immature Gran % (Auto) 0.4 Neut % (Auto) 51.5 Lymph % (Auto) 36.5 [place] % (Auto) 9.0 Eos % (Auto) 2.6 Baso % (Auto) 0.0 Immature Gran # (Auto) 0.01 Neut # (Auto) 1.37 L Lymph # (Auto) 0.97 L [place] # (Auto) 0.24 Eos # (Auto) 0.07 Baso # (Auto) 0.00 Absolute Nucleated RBC 0.02 H Nucleated RBC % (auto) 0.8 Platelet Estimate Poikilocytosis Present Anisocytosis Present Spherocytes 1+ Sodium Potassium Chloride Carbon Dioxide Anion Gap BUN Creatinine Est Cr Clr Drug Dosing Est GFR ( Amer) Est GFR (Non-Af Amer) BUN/Creatinine Ratio Glucose Calcium Phosphorus 2.5 Magnesium 1.9 PTH Intact Blood Type O Positive Antibody Screen POSITIVE A Crossmatch See Detail 12/11/18 12/11/18 12/11/18 12:53 12:53 12:53 WBC RBC Hgb 6.6 L* Hct 20.4 L* MCV MCH MCHC RDW Std Deviation RDW Coeff of Rigo Plt Count Immature Gran % (Auto) Neut % (Auto) Lymph % (Auto) [place] % (Auto) Eos % (Auto) Baso % (Auto) Immature Gran # (Auto) Neut # (Auto) Lymph # (Auto) [place] # (Auto) Eos # (Auto) Baso # (Auto) Absolute Nucleated RBC Nucleated RBC % (auto) Platelet Estimate Poikilocytosis Anisocytosis Spherocytes Sodium 139 Potassium 3.8 Chloride 108 H Carbon Dioxide 26 Anion Gap 5.0 BUN 18 Creatinine 1.36 Est Cr Clr Drug Dosing 36.7 Est GFR ( Amer) 55.8 Est GFR (Non-Af Amer) 48.1 BUN/Creatinine Ratio 13.5 Glucose 133 H Calcium 12.1 H* Phosphorus Magnesium PTH Intact 19.3 Blood Type Antibody Screen Crossmatch Medications Administered Current Inpatient Medications Acetaminophen (Tylenol) 650 mg PO Q4H PRN PRN Reason: Pain or Fever Stop: 01/09/19 15:04 Acyclovir (Zovirax) 400 mg PO BID NOE Stop: 01/09/19 20:59 Last Admin: 12/11/18 08:56 Dose: 400 mg Documented by: Alfuzosin HCl (Uroxatral) 10 mg PO HS NOE Stop: 01/09/19 20:59 Last Admin: 12/10/18 22:06 Dose: 10 mg Documented by: Artificial Tears (Artificial Tears) 1 drops OP BID NOE Stop: 01/09/19 20:59 Last Admin: 12/11/18 08:53 Dose: 1 drops Documented by: Cyanocobalamin (Vitamin B-12) 5,000 mcg SL DAILY NOE Stop: 01/10/19 08:59 Last Admin: 12/11/18 08:56 Dose: 5,000 mcg Documented by: Dabigatran (Pradaxa) 150 mg PO BID NOE Stop: 01/09/19 20:59 Last Admin: 12/11/18 08:55 Dose: 150 mg Documented by: Digoxin (Lanoxin) 0.125 mg PO DAILY@1600 NOE Stop: 01/09/19 15:59 Last Admin: 12/10/18 16:31 Dose: Not Given Documented by: Finasteride (Proscar) 5 mg PO QAM NOE Stop: 01/10/19 08:59 Last Admin: 12/11/18 08:55 Dose: 5 mg Documented by: Furosemide (Lasix) 20 mg PO DAILY NOE Stop: 01/10/19 08:59 Last Admin: 12/11/18 08:54 Dose: 20 mg Documented by: Potassium Chloride/Sodium Chloride (1/2 Nss + 20meq Kcl 1000ml) 20 meq in 1,000 mls @ 80 mls/hr IV .[id number] NOE Stop: 01/09/19 15:04 Last Admin: 12/11/18 05:15 Dose: 80 mls/hr Documented by: Sodium Chloride (Nss) 250 mls @ 15 mls/hr IV .[id number] PRN PRN Reason: For Transfusion Stop: 01/09/19 22:33 Sodium Chloride (Nss) 250 mls @ 15 mls/hr IV .[id number] PRN PRN Reason: For Transfusion Stop: 01/10/19 09:39 Isosorbide Mononitrate (Imdur Extended Rel) 60 mg PO DAILY NOE Stop: 01/10/19 08:59 Last Admin: 12/11/18 08:54 Dose: 60 mg Documented by: Magnesium Hydroxide (Milk Of Magnesia) 30 ml PO Q12H PRN PRN Reason: Constipation Stop: 01/09/19 15:04 Magnesium Oxide (Mag-Ox) 400 mg PO DAILY NOE Stop: 01/10/19 08:59 Last Admin: 12/11/18 08:54 Dose: 400 mg Documented by: Metoprolol Succinate (Toprol Xl) 100 mg PO DAILY NOE Stop: 01/10/19 08:59 Last Admin: 12/11/18 08:56 Dose: 100 mg Documented by: Ondansetron HCl (Zofran) 4 mg IV Q6H PRN PRN Reason: Nausea Stop: 01/09/19 15:04 Ondansetron HCl (Zofran Odt) 8 mg PO TID PRN PRN Reason: Nausea Stop: 01/09/19 15:04 Pantoprazole Sodium (Protonix) 40 mg PO BID [facility] Stop: 01/09/19 20:59 Last Admin: 12/11/18 08:55 Dose: 40 mg Documented by: Potassium Chloride (Klor-Con M20) 20 meq PO DAILY NOE Stop: 01/10/19 08:59 Last Admin: 12/11/18 08:54 Dose: 20 meq Documented by: (1) BPH (benign prostatic hyperplasia) Lower urinary tract symptom presence: symptoms absent Qualified Code(s): N40.0 - Benign prostatic hyperplasia without lower urinary tract symptoms (2) Atrial fibrillation Atrial fibrillation type: chronic Qualified Code(s): I48.2 - Chronic atrial fibrillation (3) Fall Encounter type: initial encounter Qualified Code(s): W19.XXXA - Unspecified fall, initial encounter (4) Multiple myeloma Multiple myeloma remission status: unspecified Qualified Code(s): C90.00 - Multiple myeloma not having achieved remission
[2018-12-11] MEDS: DIGOXIN 0.125 MG TAB PO SCH (16:24)
[2018-12-11] MEDS: ALFUZOSIN HCL 10 MG TAB PO SCH (20:03)
--- NOTE | 2018-12-11 22:23 | Progress Note ---
DATE: 12/11/2018 DIAGNOSES: 1. Hypercalcemia. 2. Pancytopenia. 3. Multiple myeloma. SUBJECTIVE: Mr. Blanchard was seen and examined at bedside. Again, he is a patient of Dr. Pretty and an IgA multiple myeloma patient to be precise. Currently being treated with Darzelex, which he had received for approximately 1 year. He has been battling and hospitalized recently with hypercalcemia. It has been refractory. The patient has received both Zometa and pamidronate and calcium improved but unfortunately has been refractory. He apparently suffered a fall striking his forehead necessitating admission to our hospital. I had spoken to Dr. Branch before he departed for a medical conference and wanted him to receive Xgeva for hypercalcemia. Mr. Blanchard offers no complaints today and nursing has reported no overnight issues. PHYSICAL EXAMINATION: GENERAL: He is a pleasant 83-year-old fellow in no acute distress. VITAL SIGNS: Temperature 36.3, pulse 63, respiratory rate 18, blood pressure 97/56. SKIN: Without rash or lesion. He does have a sterile dressing over his left forehead. HEENT: Oral mucosa without erythema or ulceration. NECK: Supple. HEART: Regular rate and rhythm. LUNGS: Clear to auscultation bilaterally. ABDOMEN: Soft, nontender, nondistended. EXTREMITIES: No clubbing, cyanosis or edema. NEUROLOGIC: He is awake, alert and oriented x3. Cranial nerves II-XII are intact. No gross motor or sensory deficits are noted. LABORATORY DATA: WBC count 2660, hemoglobin 6.6, platelet count 56,000. His absolute neutrophil count is 1370. Sodium 139, potassium 3.8, chloride 108, carbon dioxide 26, BUN 18, creatinine 1.36, calcium 12.1. IMPRESSION: 1. Status post fall. 2. Hypercalcemia. 3. Pancytopenia. 4. Severe anemia. 5. Multiple myeloma. PLAN: Mr. Blanchard is a pleasant 83-year-old heavily pretreated multiple myeloma patient of Dr. Calvin Pretty. He was admitted once again status post fall and found to be hypercalcemic. He also suffered a profound drop in hemoglobin presently measuring 6.6. Hypercalcemia has been refractory despite previous Zometa and pamidronate. Dr. Branch had requested that we administer Xgeva; however, this agent is not available through the inpatient pharmacy. Therefore, we will proceed with Zometa of 3.5 mg intravenously x1 dose. In addition, I would proceed with transfusion of 2 units packed RBCs, CMV safe and Leukopor. Beyond that, continue all supportive medical care otherwise, ordered. I will leave further therapeutics up to Dr. Branch when this gentleman stabilizes medically. Platelet count is currently adequate and does not need transfusional support presently. We will continue to follow Lester periodically during his hospital stay. Thank you very much for assisting us in the care of this very pleasant gentleman. CRISS
[2018-12-12 05:50] LABS: Mean Corpuscular Hgb Conc 32.8 g/dL (32-36)
[2018-12-12 06:24] LABS: Hematocrit (blood only) 25.6 % (42-52); Hemoglobin 8.4 g/dL (14.0-18.0); Mean Corpuscular Volume 97.3 fL (80-100); RDW Coefficient of Variation 19.3 % (11.5-14.5); Red Blood Count 2.63 M/uL (4.7-6.1); White Blood Count 3.58 K/uL (4.8-10.8)
[2018-12-12 06:25] LABS: Calcium 12.2 mg/dl (8.5-10.1); Creatinine Clr Calc Pharmacy 36.7 ml/min; Est GFR (African American) 55.8; Est GFR (Non-African American) 48.1; Potassium 4.1 mmol/L (3.5-5.1)
[2018-12-12 06:35] LABS: Platelet Count 54 K/uL (130-400); Platelet Estimate Decreased (Normal)
[2018-12-12] MEDS: SODIUM CHLOR 0.45% + 20MEQ KCL 20 MEQ/1,000 ML BAG IV SCH ×2 (07:13→20:43)
[2018-12-12] MEDS: ARTIFICIAL TEARS OP SCH ×2 (08:47→21:06)
[2018-12-12] MEDS: FUROSEMIDE 40 MG TAB PO SCH (08:48)
[2018-12-12] MEDS: ISOSORBIDE MONO EXTENDED REL 60 MG TABCR PO SCH (08:48)
[2018-12-12] MEDS: DABIGATRAN ETEXILATE 75 MG CAP PO SCH ×2 (08:48→21:03)
[2018-12-12] MEDS: MAGNESIUM OXIDE 400 MG TAB PO SCH (08:48)
[2018-12-12] MEDS: POTASSIUM CHLORIDE 20 MEQ TABCR PO SCH (08:48)
[2018-12-12] MEDS: CYANOCOBALAMIN (VITAMIN B-12) 2,500 MCG TAB.SUBL SL SCH (08:49)
[2018-12-12] MEDS: METOPROLOL SUCC 50MG EXT REL TAB PO SCH (08:49)
[2018-12-12] MEDS: FINASTERIDE 5 MG TAB PO SCH (08:49)
[2018-12-12] MEDS: PANTOprazole 40 MG TAB PO SCH ×2 (08:49→21:03)
[2018-12-12] MEDS: ACYCLOVIR 400 MG TAB PO SCH ×2 (08:49→21:03)
[2018-12-12] MEDS ORDERED: DENOSUMAB 120 MG/1.7 ML VIAL SQ SCH ×2 (13:30→15:30)
--- NOTE | 2018-12-12 14:17 | Hospitalist Progress Note ---
Date of Service December 12, 2018 Assessment & Plan (1) Hypercalcemia: Chronic issue, likely related to multiple myeloma Recent prolonged hospitalization due to same Xgeva 120mg SC given on 12/12 after pharmacy able to obtain did receive Zelodronic acid on 12/11 Ca down to 11.9 will continue fluids and Lasix at 40mg PO daily repeat BMP in the morning (2) Weakness: Ongoing issue PT/OT Likely deconditioning from prolonged hospital stay in the setting of multiple myeloma and other chronic health issues did well today, ambulating in the halls (3) Fall: PT/OT Mechanical All imaging neg for acute issues (4) Elevated troponin: 0.072, which is a baseline elevation for pt Will not trend trops transfer off tele tomorrow (5) ARF (acute renal failure): Baseline cr 1.1 Cr is 1.4 today, making adequate urine continue gentle fluids and Lasix repeat BMP in the AM (6) Multiple myeloma: As per Dr. Branch (7) Pancytopenia: In the setting of multiple myeloma Hb up to 8.4 after transfusion repeat CBC in the AM (8) Chronic systolic (congestive) heart failure: no evidence of acute component, breathing well, euvolemic continue on Lasix daily (9) Atrial fibrillation: continue home meds, pradaxa monitor that platelets do not drop too low (10) Sick sinus syndrome: s/p pacer (11) BPH (benign prostatic hyperplasia): continue home meds (12) DVT prophylaxis: Pradaxa check labs in AM, follow up recommendations of therapy likely home once calcium is going down Subjective patient sitting up in a chair today, more energy, no falls participated with therapy reviewed labs, hb up to 8.4 after two units transfused, plts and WBC stable Ca is 12, will repeat this afternoon discussed with pharmacy, able to get Xgeva with a non-formulary order patient had some confusion last night, discussed with he and that it was some delirium prone to this given his calcium high Review of Systems All systems reviewed & are unremarkable except as noted in HPI & below Constitutional: + fatigue and + weakness Physical Exam Vital Signs (Past 24 Hours): Last Vital Signs Temp 36.6 C 12/12/18 12:05 Pulse 77 12/12/18 12:05 Resp 18 12/12/18 12:05 BP 103/70 12/12/18 12:05 Pulse Ox 93 12/12/18 12:05 Constitutional: well developed and + thin; no acute distress Eyes: PERRL, conjunctivae normal, anicteric sclerae ENMT: external ear and nose normal, oropharynx normal Neck: trachea midline, no thyromegaly Respiratory: normal respiratory effort, lungs clear to auscultation Cardiovascular: RRR, no murmur, no edema Gastrointestinal (Abdomen): normal bowel sounds, soft, nontender, no hepatosplenomegaly Musculoskeletal: no cyanosis or clubbing, extremities motor strength 5/5 Skin: no rashes, warm and dry Neurologic: patellar DTR's 2+ bilat, sensation intact and PERRL, EOMI, accommodation nl, no face palsy, no dysarthria Psychiatric: A+Ox3, euthymic affect Lymphatic: no cervical or axillary lymphadenopathy Results & Data Laboratory Results Laboratory Results - last 24 hr Laboratory Results - last 24 hr 12/10/18 12/12/18 12/12/18 22:57 05:40 05:40 WBC 3.58 L RBC 2.63 L Hgb 8.4 L Hct 25.6 L MCV 97.3 MCH 31.9 MCHC 32.8 RDW Std Deviation 68.0 H RDW Coeff of Rigo 19.3 H Plt Count 54 L Platelet Estimate Decreased Sodium 141 Potassium 4.1 Chloride 110 H Carbon Dioxide 27 Anion Gap 4.0 BUN 19 H Creatinine 1.36 Est Cr Clr Drug Dosing 36.7 Est GFR ( Amer) 55.8 Est GFR (Non-Af Amer) 48.1 BUN/Creatinine Ratio 14.0 Glucose 90 Calcium 12.2 H* Antibody Identification Panagglutinin due to Darzalex Crossmatch See Detail 12/12/18 14:07 WBC RBC Hgb Hct MCV MCH MCHC RDW Std Deviation RDW Coeff of Rigo Plt Count Platelet Estimate Sodium 136 Potassium 3.9 Chloride 105 Carbon Dioxide 26 Anion Gap 5.0 BUN 22 H Creatinine 1.43 H Est Cr Clr Drug Dosing 35.5 Est GFR ( Amer) 52.5 Est GFR (Non-Af Amer) 45.3 BUN/Creatinine Ratio 15.5 Glucose 112 H Calcium 11.9 H Antibody Identification Crossmatch 12/10/18 12/12/18 12/12/18 22:57 05:40 05:40 WBC 3.58 L RBC 2.63 L Hgb 8.4 L Hct 25.6 L MCV 97.3 MCH 31.9 MCHC 32.8 RDW Std Deviation 68.0 H RDW Coeff of Rigo 19.3 H Plt Count 54 L Platelet Estimate Decreased Sodium 141 Potassium 4.1 Chloride 110 H Carbon Dioxide 27 Anion Gap 4.0 BUN 19 H Creatinine 1.36 Est Cr Clr Drug Dosing 36.7 Est GFR ( Amer) 55.8 Est GFR (Non-Af Amer) 48.1 BUN/Creatinine Ratio 14.0 Glucose 90 Calcium 12.2 H* Blood Type O Positive Antibody Screen POSITIVE A Antibody Identification Panagglutinin due to Darzalex Crossmatch See Detail Medications Administered Current Inpatient Medications Acetaminophen (Tylenol) 650 mg PO Q4H PRN PRN Reason: Pain or Fever Stop: 01/09/19 15:04 Acyclovir (Zovirax) 400 mg PO BID NOE Stop: 01/09/19 20:59 Last Admin: 12/12/18 08:49 Dose: 400 mg Documented by: Alfuzosin HCl (Uroxatral) 10 mg PO HS NOE Stop: 01/09/19 20:59 Last Admin: 12/11/18 20:03 Dose: 10 mg Documented by: Artificial Tears (Artificial Tears) 1 drops OP BID NOE Stop: 01/09/19 20:59 Last Admin: 12/12/18 08:47 Dose: 1 drops Documented by: Cyanocobalamin (Vitamin B-12) 5,000 mcg SL DAILY NOE Stop: 01/10/19 08:59 Last Admin: 12/12/18 08:49 Dose: 5,000 mcg Documented by: Dabigatran (Pradaxa) 150 mg PO BID NOE Stop: 01/09/19 20:59 Last Admin: 12/12/18 08:48 Dose: 150 mg Documented by: Digoxin (Lanoxin) 0.125 mg PO DAILY@1600 NOE Stop: 01/09/19 15:59 Last Admin: 12/11/18 16:24 Dose: 0.125 mg Documented by: Finasteride (Proscar) 5 mg PO QAM NOE Stop: 01/10/19 08:59 Last Admin: 12/12/18 08:49 Dose: 5 mg Documented by: Furosemide (Lasix) 40 mg PO DAILY NOE Stop: 01/11/19 08:59 Last Admin: 12/12/18 08:48 Dose: 40 mg Documented by: Potassium Chloride/Sodium Chloride (1/2 Nss + 20meq Kcl 1000ml) 20 meq in 1,000 mls @ 80 mls/hr IV .[id number] NOE Stop: 01/09/19 15:04 Last Admin: 12/12/18 07:13 Dose: 80 mls/hr Documented by: Sodium Chloride (Nss) 250 mls @ 15 mls/hr IV .[id number] PRN PRN Reason: For Transfusion Stop: 01/09/19 22:33 Sodium Chloride (Nss) 250 mls @ 15 mls/hr IV .[id number] PRN PRN Reason: For Transfusion Stop: 01/10/19 09:39 Isosorbide Mononitrate (Imdur Extended Rel) 60 mg PO DAILY [facility] Stop: 01/10/19 08:59 Last Admin: 12/12/18 08:48 Dose: 60 mg Documented by: Magnesium Hydroxide (Milk Of Magnesia) 30 ml PO Q12H PRN PRN Reason: Constipation Stop: 01/09/19 15:04 Magnesium Oxide (Mag-Ox) 400 mg PO DAILY NOE Stop: 01/10/19 08:59 Last Admin: 12/12/18 08:48 Dose: 400 mg Documented by: Metoprolol Succinate (Toprol Xl) 100 mg PO DAILY [facility] Stop: 01/10/19 08:59 Last Admin: 12/12/18 08:49 Dose: 100 mg Documented by: Miscellaneous (Non-Formulary Medication) 1 ea N/A UD [facility] Stop: 01/11/19 13:29 Ondansetron HCl (Zofran) 4 mg IV Q6H PRN PRN Reason: Nausea Stop: 01/09/19 15:04 Ondansetron HCl (Zofran Odt) 8 mg PO TID PRN PRN Reason: Nausea Stop: 01/09/19 15:04 Pantoprazole Sodium (Protonix) 40 mg PO BID [facility] Stop: 01/09/19 20:59 Last Admin: 12/12/18 08:49 Dose: 40 mg Documented by: Potassium Chloride (Klor-Con M20) 20 meq PO DAILY [facility] Stop: 01/10/19 08:59 Last Admin: 12/12/18 08:48 Dose: 20 meq Documented by: (1) BPH (benign prostatic hyperplasia) Lower urinary tract symptom presence: symptoms absent Qualified Code(s): N40.0 - Benign prostatic hyperplasia without lower urinary tract symptoms (2) Atrial fibrillation Atrial fibrillation type: chronic Qualified Code(s): I48.2 - Chronic atrial fibrillation (3) Fall Encounter type: initial encounter Qualified Code(s): W19.XXXA - Unspecified fall, initial encounter (4) Multiple myeloma Multiple myeloma remission status: unspecified Qualified Code(s): C90.00 - Multiple myeloma not having achieved remission
[2018-12-12 15:01] LABS: BUN Creatinine Ratio 15.5 (10-20); Calcium 11.9 mg/dl (8.5-10.1); Creatinine Clr Calc Pharmacy 35.5 ml/min; Est GFR (African American) 52.5; Est GFR (Non-African American) 45.3; Potassium 3.9 mmol/L (3.5-5.1)
[2018-12-12] MEDS: DIGOXIN 0.125 MG TAB PO SCH (15:55)
[2018-12-12] MEDS: ALFUZOSIN HCL 10 MG TAB PO SCH (21:03)
[2018-12-13] MEDS ORDERED: HEPARIN 100 UNIT/ML 5ML FLUSH FLUSH PRN (02:26)
[2018-12-13 06:48] LABS: Mean Corpuscular Hgb Conc 32.9 g/dL (32-36)
[2018-12-13 07:01] LABS: Hemoglobin 7.9 g/dL (14.0-18.0); RDW Coefficient of Variation 18.9 % (11.5-14.5); RDW Standard Deviation 65.5 fL (36.4-46.3); White Blood Count 2.98 K/uL (4.8-10.8)
[2018-12-13 07:23] LABS: Platelet Count 50 K/uL (130-400); Platelet Estimate Decreased (Normal)
[2018-12-13 07:24] LABS: BUN Creatinine Ratio 15.5 (10-20); Calcium 11.2 mg/dl (8.5-10.1); Creatinine Clr Calc Pharmacy 38.9 ml/min; Est GFR (African American) 58.9; Est GFR (Non-African American) 50.8; Potassium 3.8 mmol/L (3.5-5.1)
[2018-12-13 07:52] VITALS: TEMP 97.9
[2018-12-13] MEDS: ISOSORBIDE MONO EXTENDED REL 60 MG TABCR PO SCH (08:29)
[2018-12-13] MEDS: FUROSEMIDE 40 MG TAB PO SCH (08:29)
[2018-12-13] MEDS: PANTOprazole 40 MG TAB PO SCH (08:29)
[2018-12-13] MEDS: POTASSIUM CHLORIDE 20 MEQ TABCR PO SCH (08:29)
[2018-12-13] MEDS: METOPROLOL SUCC 50MG EXT REL TAB PO SCH (08:29)
[2018-12-13] MEDS: DABIGATRAN ETEXILATE 75 MG CAP PO SCH (08:29)
[2018-12-13] MEDS: MAGNESIUM OXIDE 400 MG TAB PO SCH (08:29)
[2018-12-13] MEDS: CYANOCOBALAMIN (VITAMIN B-12) 2,500 MCG TAB.SUBL SL SCH (08:29)
[2018-12-13] MEDS: FINASTERIDE 5 MG TAB PO SCH (08:29)
[2018-12-13] MEDS: ARTIFICIAL TEARS OP SCH (08:30)
[2018-12-13] MEDS: ACYCLOVIR 400 MG TAB PO SCH (08:30)
[2018-12-13] MEDS: SODIUM CHLOR 0.45% + 20MEQ KCL 20 MEQ/1,000 ML BAG IV SCH (09:19)
--- NOTE | 2018-12-13 11:51 | Progress Note ---
DATE: 12/13/2018 HEMATOLOGY PROGRESS NOTE DIAGNOSES: 1. Hypercalcemia, attributable to malignancy. 2. Pancytopenia. 3. Multiple myeloma. SUBJECTIVE: Mr. Blanchard was seen at bedside. His is in this morning to visit. Lester has expressed interest in going home soon. His calcium is retreating. He is tolerating his diet and ambulating with some assistance. Mr. Blanchard will need to reconvene with Dr. Branch upon discharge. Ultimately, I will leave discharge up to the hospitalist's discretion. Nursing reports no overnight difficulties otherwise. OBJECTIVE: GENERAL: A very pleasant 83-year-old gentleman in no acute distress, awake, alert and appropriate. VITAL SIGNS: Temperature 36.6, pulse 72, respiratory rate 15, blood pressure 122/74. SKIN: Without rash or lesion. HEENT: Oral mucosa without buccal lesions or ulcerations. NECK: Supple. Trachea is midline. HEART: Regular rate and rhythm. LUNGS: Clear to auscultation bilaterally. ABDOMEN: Soft, nontender, nondistended, without palpable hepatosplenomegaly. EXTREMITIES: No clubbing, cyanosis or edema. LABORATORY DATA: WBC count 2980, hemoglobin 7.9, platelet count 50,000. Sodium 137, potassium 3.8, chloride 106, carbon dioxide 26, creatinine 1.30, BUN 20, calcium 11.2. IMPRESSION: 1. Status post fall. 2. Hypercalcemia. 3. Pancytopenia. 4. Severe anemia. 5. Multiple myeloma. PLAN: Mr. Blanchard is a pleasant 83-year-old gentleman heavily pretreated multiple myeloma, patient of Dr. Calvin Branch's. He seems to be making strides heading towards discharge. Hemoglobin is still on low 7 grams per deciliter range, perhaps a unit of blood would be reasonable before he departs. His platelets and WBCs are satisfactory and intervention not necessary at this moment. Calcium seems to be heading in the right direction. If he is discharged within the next 24 hours or so, would appreciate a followup with Dr. Branch sometime next week to decide where Mr. Blanchard goes therapeutically. I will officially sign off today. I can be contacted by phone if there are any concerns. Thank you for assisting us in the care of this very pleasant, somewhat complex gentleman.
[2018-12-13 12:01] VITALS: O2SAT 96
--- NOTE | 2018-12-13 12:49 | Discharge Summary ---
Date of Service December 13, 2018 Admission HPI Per Admitting Provider 83 y/o M who was referred to the ED for hyperCa. Pt has hx of multiple myeloma with hyperCa. He was recently admitted to [facility] for flu and hyperCa which required a prolonged course of inpt tx to resolve. He was d/c'd on 11/26 to a rehab facility. He has since been d/c'd from that facility to home but has ongoing PT/OT services. Pt was seen in the ED yesterday for hyperCa. Dr. Branch recommended for admission at that time, however pt stated he would like to avoid this for a trial of fluids at home after IVF here. This was not sucessful and pt is agreeable to admission. Pt states he feels fine other than he states he lost a lot of strength on his last admission. He does feel weak. He feels that PT is helping with this, but he is not back to where he had been prior to the prolonged admission. Pt denies fever, SOB, chest pain, abd pain, n/v/c/d, LE pain or swelling. Pt states he fell down the stairs last night. He was coming down the stairs using both handrails, however the stairs are wood. He started to lose his balance and could not regain it. No dizziness or lightheadedness. He landed at the bottom of the stairs. He did hit his head on something at the bottom. He initially landed on his L hand and has bruising as a result. He states he has no pain related to this fall. He denies other falls. Admission Exam Per Admitting Provider Constitutional: WD/WN, vitals as above Eyes: normal visual davis by confrontation and + anicteric sclerae Neck: normal visual inspection and trachea midline Respiratory: normal respiratory effort, lungs clear to auscultation Cardiovascular: Rate/Rhythm: regular rate and regular rhythm Gastrointestinal (Abdomen): Inspection/Auscultation: abdomen not distended Percussion/Palpation: abdomen soft; abdomen nontender Musculoskeletal: Head/Neck/Chest: normocephalic; + evidence of head trauma (bandaged area on L frontal, clean and dry) Skin: no rashes, warm and dry Neurologic: awake; not confused Speech / Cognition: normal speech Psychiatric: A+Ox3, euthymic affect Principal Diagnosis Hypercalcemia Discharge Exam Constitutional well developed and + thin; no acute distress Eyes PERRL, conjunctivae normal, anicteric sclerae ENMT external ear and nose normal, oropharynx normal Neck trachea midline, no thyromegaly Respiratory normal respiratory effort, lungs clear to auscultation Cardiovascular RRR, no murmur, no edema Gastrointestinal (Abdomen) normal bowel sounds, soft, nontender, no hepatosplenomegaly Musculoskeletal no cyanosis or clubbing, extremities motor strength 5/5 Skin + wound (slight abrasion over right forehead, healing well) Neurologic patellar DTR's 2+ bilat, sensation intact and PERRL, EOMI, accommodation nl, no face palsy, no dysarthria Psychiatric A+Ox3, euthymic affect Lymphatic no cervical or axillary lymphadenopathy Discharge Data Allergies Allergy/AdvReac Type Severity Reaction Status Date / Time immune globulin,gamma (IgG) Allergy Severe ANAPHYLAXIS Verified 12/09/18 15:36 human Penicillins Allergy Severe Unknown Verified 12/09/18 15:36 Huzesem-Zkz-Eak Reductase Allergy Unknown unknown Verified 12/09/18 15:36 Inhibitor Sulfa (Sulfonamide Allergy Unknown Unknown rxn Verified 12/09/18 15:36 Antibiotics) garlic AdvReac Intermediate Gastrointestinal Verified 12/09/18 15:36 Upset omeprazole AdvReac Intermediate dizziness Verified 12/09/18 15:36 Consultations 12/10/18 13:11 ED Decision to Admit Stat 12/10/18 15:05 Consult Case Management - Discharge Planning Routine Consult Hematology Routine Ordered Studies 12/10/18 10:50 CT abd pelvis wo con Stat CT cervical spine wo con Stat CT chest wo con Stat CT head/brain wo con Stat CT lumbar spine wo con Stat CT thoracic spine wo con Stat Hospital Course (1) Hypercalcemia: Chronic issue, 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 Branch's office for Xgeva on 12/19 (2) Weakness: Ongoing issue PT/OT Likely deconditioning from prolonged hospital stay in the setting of multiple myeloma and other chronic health issues did well today, ambulating in the halls independently will d/c to home with home therapy visits instructed to use rolling walker at home d/w , plan to stay on first floor of home for now (3) Fall: PT/OT Mechanical All imaging neg for acute issues mild abrasion on left forehead, sent home with dressings (4) Elevated troponin: 0.072, which is a baseline elevation for pt Will not trend trops transfer off tele tomorrow (5) ARF (acute renal failure): Baseline cr 1.1 Cr is 1.3 today, making adequate urine DIOGO is resolved (6) Multiple myeloma: As per Dr. Branch (7) Pancytopenia: In the setting of multiple myeloma Hb stable at 7.9, platelets 50, WBC 2 check CBC with diff on Saturday/Saturday with home nursing results to Dr. Branch may require outpatient transfusion (8) Chronic systolic (congestive) heart failure: no evidence of acute component, breathing well, euvolemic continue on Lasix daily (9) Atrial fibrillation: continue home meds, pradaxa monitor that platelets do not drop too low (10) Sick sinus syndrome: s/p pacer (11) BPH (benign prostatic hyperplasia): continue home meds (12) DVT prophylaxis: Pradaxa Total Time Total Time Spent Total Time Spent (In Minutes): 35 minutes Total Time Includes: Examination of the Patient, Discharge Planning and Medication Reconciliation Discharge Plan Discharge Items Patient Disposition: Home - Home Health Services Reason For Visit: HYPERCALCEMIA Discharge Diagnosis: Hypercalcemia of malignancy Pancytopenia Condition: Good Discharge Goals: Diagnostic testing, Improve disease control and Improve function Specific Goals: check labs this week Activity: Resume your previous activity Non-emergency contact: Primary Care Provider and Oncologist Call non-emergency contact if: you have any medication questions, your symptoms worsen and you have a fever Follow-up/Referrals: Aldo Javed DO [Primary Care Provider] - Diet: Heart Healthy Other Ambulatory Orders: Basic Metabolic Panel (Routine) Timeframe: 3 Days Location: Determined by Patient Ordered By: Lalo Christiansen Complete Blood Count with Diff (Routine) Timeframe: 3 Days Location: Determined by Patient Ordered By: Lalo Rojas Provider Instructions: Medications: no changes for routine medications - XGEVA: will need next dose on Tuesday 12/19, call Dr. Branch's office to arrange Hypercalcemia due to multiple myeloma, improved with hydration and Lasix received Xgeva 120mg injection yesterday, next dose is for next Saturday plan for weekly injections x 4 weeks then once monthly will be coordinated by Dr. Branch Anemia: transfused two units of PRBC, Hb is at 7.9 will need monitored at least weekly home nursing can draw labs and send results to Dr. Branch scripts for blood work provided Home nursing visits will be arranged for both nursing checks, blood draws and home therapy Please utilize walker when moving around house and when leaving house Transition slowly and with family present to make sure you are safe and stable FOLLOW UP - call for appointment with Dr. Javed in one week - follow up with Dr. Branch's office next Saturday for Xgeva, call his office on Saturday Prescriptions: Continued ondansetron HCl 4 mg Tablet 8 mg PO TID PRN (Reason: Nausea) RF: 0 digoxin [Digitek] 125 mcg tablet 125 mcg PO DAILY RF: 0 Pradaxa 150 mg capsule 150 mg PO BID RF: 0 isosorbide mononitrate 60 mg tablet extended release 24 hr 60 mg PO DAILY RF: 0 acyclovir 400 mg tablet 400 mg PO BID RF: 0 TheraTears 0.25 % Drops 1 drp OPHTHALMIC (EYE) BID RF: 0 alfuzosin 10 mg tablet extended release 24 hr 10 mg PO HS RF: 0 metoprolol succinate 100 mg tablet extended release 24 hr 100 mg PO DAILY RF: 0 pantoprazole 40 mg tablet,delayed release (DR/EC) 40 mg PO BID RF: 0 finasteride 5 mg tablet 5 mg PO QAM RF: 0 Vitamin B-12 5,000 mcg Tablet, Sublingual 5,000 mcg SUBLINGUAL DAILY RF: 0 magnesium oxide 400 mg (241.3 mg magnesium) Tablet 400 mg PO DAILY Qty: 30 RF: 2 furosemide [Lasix] 20 mg tablet 20 mg PO DAILY Qty: 30 RF: 2 potassium chloride 20 mEq tablet extended release 20 meq PO DAILY Qty: 30 RF: 2 Stand-Alone Forms: [facility] Discharge Orders: Discharge Order (Routine); Ordered 12/13/18 Ordered By: Lalo Christiansen Admission Data Admit Date/Time: 12/10/18 13:45 Attending Provider: Maia Kaminski Admit Provider: Maia Kaminski Primary Care Provider: Aldo Javed Other Providers: Maia Kaminski ; Calvin Branch Service: Medical
[2018-12-13 13:18] VITALS: BP 90/58
[2018-12-13 13:53] VITALS: PULSE 77
[2018-12-13] MEDS: DIGOXIN 0.125 MG TAB PO SCH (13:53)
== END 2018-12-13 15:30 | disposition home health service (06) | DRG 841 ==
LOC: ED 09:58 → 2N 13:45 → 4E 12-12 15:16

== ENCOUNTER 2020-06-10 09:42 | Inpatient (IN) ==
--- NOTE | 2020-06-10 10:26 | Emergency Department Note ---
Impression & Plan Symptomatic anemia, Multiple myeloma, CHF (congestive heart failure), Elevated troponin, NSTEMI (non-ST elevated myocardial infarction) ED Provider Note INFORMANT: Patient ED PROVIDER(S): Jaylon Kendrick MD CHIEF COMPLAINT: Breath PLAN: Disposition: Admit Condition: Good MEDICAL DECISION MAKING: Patient presented with complaints of shortness of breath. He notes he is due for a blood transfusion due to anemia. Patient was pale on examination. He had a twelve-lead ECG revealed performed and revealed a paced rhythm. Blood work was obtained. Chest x-ray done. He had some mild CHF but possible infiltrates noted. He had blood cultures, lactate and was given supplemental oxygen. His CBC showed a slight leukopenia but no neutropenia. His hemoglobin was 7.8. Patient's troponin was markedly elevated at 2.7. Lactate revealed an elevated measurement at 3.5. He was mildly dehydrated on chemistry panel. He had lateral T waves noted on his [place] rhythm underneath the demand pacer. These were similar to prior ECG. The patient was treated with IV cefepime, IV Lasix and the supplemental oxygen. He was consented for packed red blood cell transfusion and it was begun in the emergency department. On reassessment the patient was feeling better. Consultation was made with internal medicine. The patient was evaluated in the ER and admitted for further management. Triage Nursing notes reviewed and agree them. Additional history obtained from patient's Vital Signs: reviewed and remarkable for no significant abnormalities Differential diagnosis: Symptomatic anemia, infection, dehydration, metabolic abnormality, hypo/hyp erglycemia, electrolyte disturbance, anemia, hypoxia, cardiac sources, intracerebral event, toxicologic, neurologic, as well as other pathologies. Diagnostics interpreted by me: ECG: Twelve-lead ECG reveals a demand paced rhythm at 98 bpm. The [place] rhythm reveals lateral T wave inversions. No ST elevation. No PVCs. Cardiac Monitoring:Cardiac monitoring ordered by me: The patient was placed on continuous cardiac monitoring and observed. It revealed a paced rhythm at 104 beats per minute without ectopy or evidence of dysrhythmia. Imaging studies: Chest x-ray shows CHF as well as increase interstitial markings/infiltrate. Consultation(s): [facility], Dr. Luther HPI: The patient is a 84 year old male who presents to the Emergency Room with complaints of shortness of breath. This started over the last few days and is worsening. The patient also notes the following associated symptoms, feeling weak, chills and sweating last night. The patient has taken no medication for relieving factors. Current pain is rated as 0/10. Patient was scheduled to have a blood transfusion today. Because of the symptoms he was directed to the ER. states the patient had antibodies in his blood and needs special type and cross. Pt denies LOC, headache, fevers, chills, diaphoresis, visual changes, neck pain, chest pain, nausea, vomiting, abdominal pain, back pain, melena, hematochezia, urinary symptoms, numbness, lymphadenopathy, rash, or other complaints. ROS: See above HPI for pertinent positives & negatives. A total of 10 systems reviewed and were otherwise negative. PAST MEDICAL HISTORY:See Below, multiple myeloma PAST SURGICAL HISTORY:See Below, Mediport FAMILY HISTORY:See Below SOCIAL HISTORY:See Below, HOME MEDICATIONS:See Below ALLERGIES:See Below VITALS:See Below PHYSICAL EXAMINATION: GENERAL: Awake, alert, mildly dyspneic-appearing, in no distress HENT: Normocephalic, atraumatic. Oropharynx unremarkable. EYES: Pale conjunctiva. Sclera non-icteric. NECK: Inspection normal. Non-tender. Supple. No nuchal rigidity. FROM. No masses. RESPIRATORY: Clear to auscultation. No wheezes. No rales. Normal respiratory effort. CARDIAC: Borderline tachycardic rate. Normal rhythm. No murmurs. No rubs. Extremities warm and well perfused. Pulses equal. No JVD. GI: Soft, non-distended. No tenderness to palpation. No rebound or guarding. No masses. RECTAL: Deferred. MUSCULOSKELETAL: Atraumatic. Chest examination reveals no tenderness. The back is symmetrical on inspection without obvious abnormality. There is no CVA tenderness to palpation. No joint edema. LOWER EXTREMITIES: Calves are equal size bilaterally and non-tender. No edema. No discoloration. NEURO: Normal sensorium. No sensory or motor deficits noted. SKIN: No rash or jaundice noted. I have personally spent greater than 35 minutes of critical care time in the direct management of this patient. This includes bedside care, interpretation of diagnostic studies, and testing, discussion with consultants, patient, and family members, and other required patient management activities. These minutes are in excess of all separately billable procedures. None Jaylon Kendrick MD Past Med/Surg History Medical History (Updated 06/10/20 @ 15:48 by Jaylon Kendrick MD) Arthritis Basal cell carcinoma BPH (benign prostatic hyperplasia) Bradycardia CAD (coronary artery disease) Cardiomyopathy Chronic systolic (congestive) heart failure Dysphagia Exertional angina History of melanoma in situ History of SCC (squamous cell carcinoma) of skin Hydrocele of testis Hypercalcemia of malignancy Hypomagnesemia Lumbar canal stenosis Mitral regurgitation Multiple myeloma SINCE 2011 Neck pain Osteoporosis Pancytopenia due to antineoplastic chemotherapy Personal history of malignant melanoma of skin Pneumonia Seborrheic keratosis Sick sinus syndrome (08/14/13) Sinus of skin after surgical procedure (04/11/13) Stroke syndrome Syncope Surgical History (Updated 06/10/20 @ 14:48 by Olvin Artis MD) H/O local excision of skin lesion History of back surgery History of cataract surgery LEFT. 04/15/2019. 2mg versed, no issues. History of ear surgery Hx of tonsillectomy S/P placement of cardiac pacemaker S/P tonsillectomy (04/11/13) Family History Father Bladder cancer Mother , "Fell over in the street" No formal dx given. No problems noted. Social History Smoking Status: Never smoker Second Hand Exposure: No; Do You Dip or Chew Tobacco: No; Tobacco Cessation Education Requested by Patient: No Hx Alcohol Use: No Hx Substance Use: No Preferred Language: Israeli Communication Ability: Effective Respiratory Manager Required: No Beliefs That Will Affect Care: None marital status: Current Living Situation: Spouse Other Information That Helps Us Care for You: No Feels Safe at Home: Yes Safety Concerns: Feels Safe At This Time Allergies Allergies Allergy/AdvReac Type Severity Reaction Status Date / Time immune globulin,gamma (IgG) Allergy Severe ANAPHYLAXIS Verified 06/10/20 11:31 human Penicillins Allergy Severe Dizziness Verified 06/10/20 11:31 [id number] Reductase Allergy Unknown Dizziness Verified 06/10/20 11:31 Inhibitor Sulfa (Sulfonamide Allergy Unknown Dizziness Verified 06/10/20 11:31 Antibiotics) garlic AdvReac Intermediate Gastrointestinal Verified 06/10/20 11:31 Upset omeprazole AdvReac Intermediate dizziness Verified 06/10/20 11:31 Home Meds Home Medications Medication Instructions Recorded Confirmed TheraTears 1 drp OPB BID 10/30/18 06/10/20 acyclovir 400 mg PO BID 10/30/18 06/10/20 pantoprazole 40 mg PO BID 10/30/18 06/10/20 ondansetron HCl 4 mg PO TID PRN 12/09/18 06/10/20 alfuzosin 10 mg PO QDD 06/10/20 06/10/20 cyanocobalamin (vitamin B-12) 2,000 mcg PO QAM 06/10/20 06/10/20 [Vitamin B-12] finasteride 5 mg PO QAM 06/10/20 06/10/20 fluticasone propionate 1 spray INTRANASAL BID 06/10/20 06/10/20 isosorbide mononitrate 30 mg PO QAM 06/10/20 06/10/20 Previous Rx's Medication Instructions Recorded dabigatran etexilate 150 mg capsule 150 mg PO BID #180 cap 05/19/19 metoprolol succinate 100 mg 100 mg PO QAM #90 tab 11/02/19 tablet,extended release 24 hr digoxin 125 mcg (0.125 mg) tablet 125 mcg PO QAM #90 tab 02/17/20 isosorbide mononitrate 60 mg 60 mg PO QAM #90 tab 04/29/20 tablet,extended release 24 hr Results & Data (ED) Vital Signs Vital Signs - 24 hr 06/10/20 09:45 06/10/20 10:19 06/10/20 10:24 Temperature 36.5 C Temperature Source Oral Pulse Rate 103 H 99 H Pulse Rate from SpO2 Sensor Pulse Rhythm Regular Regular Pulse Strength Normal Respiratory Rate 24 25 H Respiratory Effort / Characteristics Non-Labored Spontaneous Short of Breath Respiratory Depth Normal Respiratory Pattern Regular Regular Blood Pressure 149/86 H Blood Pressure Mean 107 Blood Pressure Position Sitting Pulse Oximetry 93 92 Oxygen Delivery Method Room Air Room Air Room Air Oxygen Flow Rate Sepsis Recent Fever Within 48 Hours No Sepsis New/Unexplained Change in Mental Status N/A Sepsis Action Taken by Nursing No Action Required 06/10/20 10:28 06/10/20 10:30 06/10/20 10:32 Temperature Temperature Source Pulse Rate 96 H 100 H Pulse Rate from SpO2 Sensor 96 H 100 H Pulse Rhythm Pulse Strength Respiratory Rate 20 24 Respiratory Effort / Characteristics Respiratory Depth Respiratory Pattern Blood Pressure 153/86 H 141/76 H Blood Pressure Mean 127 85 Blood Pressure Position Pulse Oximetry 94 95 94 Oxygen Delivery Method Nasal Cannula Oxygen Flow Rate 2 2 2 Sepsis Recent Fever Within 48 Hours Sepsis New/Unexplained Change in Mental Status Sepsis Action Taken by Nursing 06/10/20 11:00 06/10/20 11:30 06/10/20 11:58 Temperature 36.7 C Temperature Source Oral Pulse Rate 87 82 82 Pulse Rate from SpO2 Sensor 85 83 Pulse Rhythm Pulse Strength Respiratory Rate 24 23 22 Respiratory Effort / Characteristics Respiratory Depth Respiratory Pattern Blood Pressure 128/82 111/77 114/85 Blood Pressure Mean 93 93 94 Blood Pressure Position Pulse Oximetry 98 97 97 Oxygen Delivery Method Oxygen Flow Rate 2 2 Sepsis Recent Fever Within 48 Hours Sepsis New/Unexplained Change in Mental Status Sepsis Action Taken by Nursing 06/10/20 12:19 06/10/20 12:21 06/10/20 12:34 Temperature 36.6 C 36.8 C Temperature Source Oral Oral Pulse Rate 79 77 Pulse Rate from SpO2 Sensor Pulse Rhythm Pulse Strength Respiratory Rate 22 18 Respiratory Effort / Characteristics Respiratory Depth Respiratory Pattern Blood Pressure 104/73 96/66 L Blood Pressure Mean 83 76 Blood Pressure Position Pulse Oximetry 96 95 97 Oxygen Delivery Method Nasal Cannula Oxygen Flow Rate 2 2 2 Sepsis Recent Fever Within 48 Hours Sepsis New/Unexplained Change in Mental Status Sepsis Action Taken by Nursing Laboratory Data Result diagrams: 06/10/20 10:22 06/10/20 10:22 Lab Results 05/12/20 05/12/20 06/09/20 Range/Units 10:10 10:10 10:30 WBC (4.8-10.8) K/uL RBC (4.7-6.1) M/uL Hgb (14.0-18.0) g/dL Hct (42-52) % MCV (80-100) fL MCH (25-34) pg MCHC (32-36) g/dL RDW Std Deviation (36.4-46.3) fL RDW Coeff of Rigo (11.5-14.5) % Plt Count (130-400) K/uL Immature Gran % (Auto) % Neut % (Auto) % Lymph % (Auto) % Crawford % (Auto) % Eos % (Auto) % Baso % (Auto) % Neut # (Auto) (1.4-6.5) K/uL Lymph # (Auto) (1.2-3.4) K/uL Crawford # (Auto) (0.11-0.59) K/uL Eos # (Auto) (0-0.5) K/uL Baso # (Auto) (0-0.2) K/uL Immature Gran # (Auto) (0.00-0.02) K/uL Absolute Nucleated RBC (0-0) K/uL Nucleated RBC % (auto) % Platelet Estimate (Normal) Tear Drop Cells Ovalocytes PT (9.0-12.0) Seconds INR (0.9-1.1) APTT (21.0-31.0) Seconds PTT Ratio Sodium (136-145) mmol/L Potassium (3.5-5.1) mmol/L Chloride (98-107) mmol/L Carbon Dioxide (21-32) mmol/L Anion Gap (3-11) BUN (7-18) mg/dl Creatinine (0.6-1.4) mg/dl Est Cr Clr Drug Dosing Est GFR ( Amer) Est GFR (Non-Af Amer) BUN/Creatinine Ratio (10-20) Glucose (70-99) mg/dl Lactate (0.4-2.0) mmol/L Calcium (8.5-10.1) mg/dl Magnesium (1.8-2.4) mg/dl Total Bilirubin (0.2-1) mg/dl AST (15-37) U/L ALT (12-78) U/L Alkaline Phosphatase (45-117) U/L Troponin I (0-0.045) ng/ml NT-Pro-B Natriuret Pep (0-1800) pg/ml Total Protein (6.4-8.2) gm/dl Albumin (3.4-5.0) gm/dl Globulin (2.5-4.0) gm/dl Albumin/Globulin Ratio (0.9-2) Procalcitonin (0-0.5) ng/ml Urine Color Urine Appearance (Clear) Urine pH (4.5-7.5) Ur Specific [place] (1.000-1.030) Urine Protein (Negative) Urine Glucose (UA) (Negative) Urine Ketones (Negative) Urine Blood (Negative) Urine Nitrite (Negative) Urine Bilirubin (Negative) Urine Urobilinogen (Negative) Ur Leukocyte Esterase (Negative) Urine WBC (Auto) (0-5) /hpf Urine RBC (Auto) (0-4) /hpf U Hyaline Cast (Auto) (0-5) /lpf U Epithel Cells (Auto) (0-5) /lpf Urine Bacteria (Auto) (Negative) Digoxin (0.8-2.0) ng/ml Blood Type Cancelled O Positive Antibody Screen Cancelled POSITIVE A Antibody Identification Cancelled Panagglutinin due to drug Antibody ID Referred Cancelled Antibody ID Comment Cancelled Crossmatch See Detail See Detail 06/10/20 06/10/20 06/10/20 Range/Units 10:22 10:22 10:22 WBC 3.21 L (4.8-10.8) K/uL RBC 2.48 L (4.7-6.1) M/uL Hgb 7.8 L (14.0-18.0) g/dL Hct 23.5 L (42-52) % MCV 94.8 (80-100) fL MCH 31.5 (25-34) pg MCHC 33.2 (32-36) g/dL RDW Std Deviation 72.5 H (36.4-46.3) fL RDW Coeff of Rigo 21.3 H (11.5-14.5) % Plt Count 32 L (130-400) K/uL Immature Gran % (Auto) 0.3 % Neut % (Auto) 72.3 % Lymph % (Auto) 13.4 % Crawford % (Auto) 14.0 % Eos % (Auto) 0.0 % Baso % (Auto) 0.0 % Neut # (Auto) 2.32 (1.4-6.5) K/uL Lymph # (Auto) 0.43 L (1.2-3.4) K/uL Crawford # (Auto) 0.45 (0.11-0.59) K/uL Eos # (Auto) 0.00 (0-0.5) K/uL Baso # (Auto) 0.00 (0-0.2) K/uL Immature Gran # (Auto) 0.01 (0.00-0.02) K/uL Absolute Nucleated RBC 0.03 H (0-0) K/uL Nucleated RBC % (auto) 1.0 % Platelet Estimate SIGNIFIC DECREASED (Normal) Tear Drop Cells 1+ Ovalocytes 2+ PT 12.8 H (9.0-12.0) Seconds INR 1.2 H (0.9-1.1) APTT 34.7 H (21.0-31.0) Seconds PTT Ratio 1.2 Sodium (136-145) mmol/L Potassium (3.5-5.1) mmol/L Chloride (98-107) mmol/L Carbon Dioxide (21-32) mmol/L Anion Gap (3-11) BUN (7-18) mg/dl Creatinine (0.6-1.4) mg/dl Est Cr Clr Drug Dosing Est GFR ( Amer) Est GFR (Non-Af Amer) BUN/Creatinine Ratio (10-20) Glucose (70-99) mg/dl Lactate (0.4-2.0) mmol/L Calcium (8.5-10.1) mg/dl Magnesium (1.8-2.4) mg/dl Total Bilirubin (0.2-1) mg/dl AST (15-37) U/L ALT (12-78) U/L Alkaline Phosphatase (45-117) U/L Troponin I (0-0.045) ng/ml NT-Pro-B Natriuret Pep (0-1800) pg/ml Total Protein (6.4-8.2) gm/dl Albumin (3.4-5.0) gm/dl Globulin (2.5-4.0) gm/dl Albumin/Globulin Ratio (0.9-2) Procalcitonin (0-0.5) ng/ml Urine Color Urine Appearance (Clear) Urine pH (4.5-7.5) Ur Specific [place] (1.000-1.030) Urine Protein (Negative) Urine Glucose (UA) (Negative) Urine Ketones (Negative) Urine Blood (Negative) Urine Nitrite (Negative) Urine Bilirubin (Negative) Urine Urobilinogen (Negative) Ur Leukocyte Esterase (Negative) Urine WBC (Auto) (0-5) /hpf Urine RBC (Auto) (0-4) /hpf U Hyaline Cast (Auto) (0-5) /lpf U Epithel Cells (Auto) (0-5) /lpf Urine Bacteria (Auto) (Negative) Digoxin (0.8-2.0) ng/ml Blood Type Cancelled Antibody Screen Cancelled Antibody Identification Antibody ID Referred Antibody ID Comment Crossmatch 06/10/20 06/10/20 06/10/20 Range/Units 10:22 10:24 10:31 WBC (4.8-10.8) K/uL RBC (4.7-6.1) M/uL Hgb (14.0-18.0) g/dL Hct (42-52) % MCV (80-100) fL MCH (25-34) pg MCHC (32-36) g/dL RDW Std Deviation (36.4-46.3) fL RDW Coeff of Rigo (11.5-14.5) % Plt Count (130-400) K/uL Immature Gran % (Auto) % Neut % (Auto) % Lymph % (Auto) % Crawford % (Auto) % Eos % (Auto) % Baso % (Auto) % Neut # (Auto) (1.4-6.5) K/uL Lymph # (Auto) (1.2-3.4) K/uL [place] # (Auto) (0.11-0.59) K/uL Eos # (Auto) (0-0.5) K/uL Baso # (Auto) (0-0.2) K/uL Immature Gran # (Auto) (0.00-0.02) K/uL Absolute Nucleated RBC (0-0) K/uL Nucleated RBC % (auto) % Platelet Estimate (Normal) Tear Drop Cells Ovalocytes PT (9.0-12.0) Seconds INR (0.9-1.1) APTT (21.0-31.0) Seconds PTT Ratio Sodium 141 (136-145) mmol/L Potassium 3.9 (3.5-5.1) mmol/L Chloride 110 H (98-107) mmol/L Carbon Dioxide 21 (21-32) mmol/L Anion Gap 10.0 (3-11) BUN 29 H (7-18) mg/dl Creatinine 1.18 (0.6-1.4) mg/dl Est Cr Clr Drug Dosing Not Reportable Est GFR ( Amer) 65.7 Est GFR (Non-Af Amer) 56.7 BUN/Creatinine Ratio 24.4 H (10-20) Glucose 141 H (70-99) mg/dl Lactate 3.5 H* (0.4-2.0) mmol/L Calcium 9.4 (8.5-10.1) mg/dl Magnesium 2.1 (1.8-2.4) mg/dl Total Bilirubin 0.4 (0.2-1) mg/dl AST 34 (15-37) U/L ALT 50 (12-78) U/L Alkaline Phosphatase 64 (45-117) U/L Troponin I 2.720 H* (0-0.045) ng/ml NT-Pro-B Natriuret Pep 8471 H (0-1800) pg/ml Total Protein 6.8 (6.4-8.2) gm/dl Albumin 3.6 (3.4-5.0) gm/dl Globulin 3.2 (2.5-4.0) gm/dl Albumin/Globulin Ratio 1.1 (0.9-2) Procalcitonin (0-0.5) ng/ml Urine Color Urine Appearance (Clear) Urine pH (4.5-7.5) Ur Specific [place] (1.000-1.030) Urine Protein (Negative) Urine Glucose (UA) (Negative) Urine Ketones (Negative) Urine Blood (Negative) Urine Nitrite (Negative) Urine Bilirubin (Negative) Urine Urobilinogen (Negative) Ur Leukocyte Esterase (Negative) Urine WBC (Auto) (0-5) /hpf Urine RBC (Auto) (0-4) /hpf U Hyaline Cast (Auto) (0-5) /lpf U Epithel Cells (Auto) (0-5) /lpf Urine Bacteria (Auto) (Negative) Digoxin 1.2 (0.8-2.0) ng/ml Blood Type Antibody Screen Antibody Identification Antibody ID Referred Antibody ID Comment Crossmatch 06/10/20 06/10/20 06/10/20 Range/Units 12:12 12:42 12:50 WBC (4.8-10.8) K/uL RBC (4.7-6.1) M/uL Hgb (14.0-18.0) g/dL Hct (42-52) % MCV (80-100) fL MCH (25-34) pg MCHC (32-36) g/dL RDW Std Deviation (36.4-46.3) fL RDW Coeff of Rigo (11.5-14.5) % Plt Count (130-400) K/uL Immature Gran % (Auto) % Neut % (Auto) % Lymph % (Auto) % Crawford % (Auto) % Eos % (Auto) % Baso % (Auto) % Neut # (Auto) (1.4-6.5) K/uL Lymph # (Auto) (1.2-3.4) K/uL Crawford # (Auto) (0.11-0.59) K/uL Eos # (Auto) (0-0.5) K/uL Baso # (Auto) (0-0.2) K/uL Immature Gran # (Auto) (0.00-0.02) K/uL Absolute Nucleated RBC (0-0) K/uL Nucleated RBC % (auto) % Platelet Estimate (Normal) Tear Drop Cells Ovalocytes PT (9.0-12.0) Seconds INR (0.9-1.1) APTT (21.0-31.0) Seconds PTT Ratio Sodium (136-145) mmol/L Potassium (3.5-5.1) mmol/L Chloride (98-107) mmol/L Carbon Dioxide (21-32) mmol/L Anion Gap (3-11) BUN (7-18) mg/dl Creatinine (0.6-1.4) mg/dl Est Cr Clr Drug Dosing Est GFR ( Amer) Est GFR (Non-Af Amer) BUN/Creatinine Ratio (10-20) Glucose (70-99) mg/dl Lactate 2.8 H* (0.4-2.0) mmol/L Calcium (8.5-10.1) mg/dl Magnesium (1.8-2.4) mg/dl Total Bilirubin (0.2-1) mg/dl AST (15-37) U/L ALT (12-78) U/L Alkaline Phosphatase (45-117) U/L Troponin I (0-0.045) ng/ml NT-Pro-B Natriuret Pep (0-1800) pg/ml Total Protein (6.4-8.2) gm/dl Albumin (3.4-5.0) gm/dl Globulin (2.5-4.0) gm/dl Albumin/Globulin Ratio (0.9-2) Procalcitonin < 0.05 (0-0.5) ng/ml Urine Color Yellow Urine Appearance Clear (Clear) Urine pH 5.0 (4.5-7.5) Ur Specific [place] 1.025 (1.000-1.030) Urine Protein 1+ H (Negative) Urine Glucose (UA) Trace H (Negative) Urine Ketones Negative (Negative) Urine Blood 1+ H (Negative) Urine Nitrite Negative (Negative) Urine Bilirubin Negative (Negative) Urine Urobilinogen Negative (Negative) Ur Leukocyte Esterase Negative (Negative) Urine WBC (Auto) 0 (0-5) /hpf Urine RBC (Auto) 0-4 (0-4) /hpf U Hyaline Cast (Auto) 1-5 (0-5) /lpf U Epithel Cells (Auto) 0-5 (0-5) /lpf Urine Bacteria (Auto) Negative (Negative) Digoxin (0.8-2.0) ng/ml Blood Type Antibody Screen Antibody Identification Antibody ID Referred Antibody ID Comment Crossmatch Administered Medications Discontinued Medications Furosemide (Furosemide 40 Mg/4 Ml Vial) 40 mg IV NOW STA Stop: 06/10/20 11:19 Last Admin: 06/10/20 11:35 Dose: 40 mg Documented by: [id number] Cefepime HCl (Maxipime) 2,000 mg in 20 mls @ 5 mls/min IV NOW STA; Protocol Stop: 06/10/20 11:21 Last Admin: 06/10/20 11:34 Dose: 5 mls/min Documented by: [id number] Discharge Plan Visit Data Chief Complaint: Shortness of Breath/Dyspnea Stated Complaint: SOB,COLD S/P CANCER TREATMENT YESTERDAY ED Provider: Jaylon Kendrick Discharge Problem: Symptomatic anemia, Multiple myeloma, CHF (congestive heart failure), Elevated troponin, NSTEMI (non-ST elevated myocardial infarction) Patient Disposition: Admitted As Inpatient Discharge Instructions Interventions: ED Discharge Assessment Last Done: 06/10/20 13:25
--- NOTE | 2020-06-10 10:38 | XRay Report ---
XR chest 1V portable HISTORY: 84 years-old Male Dyspnea acute shortness of breath COMPARISON: PET CT 11/25/2019, chest radiograph 02/10/2019 TECHNIQUE: Portable AP view of the chest FINDINGS: Cardiac silhouette is enlarged. Pulmonary vascular congestion with bilateral interstitial opacities. No pneumothorax. Unchanged blunting of the costophrenic angles. No lobar airspace consolidation. Dege nerative changes of the shoulders and spine. Left subclavian pacer. Right IJ [id number] catheter. IMPRESSION: Cardiomegaly with pulmonary vascular congestion and interstitial opacities are suggestive of probable pulmonary edema. ACT 112: Negative or not required by law. The above report was generated using voice recognition software. It may contain grammatical, syntax o r spelling errors. Electronically signed by: Catrachito Dhaliwal M.D. 06/10/2020 10:37 AM
[2020-06-10 10:54] LABS: Hematocrit (blood only) 23.5 % (42-52); Hemoglobin 7.8 g/dL (14.0-18.0); Mean Corpuscular Hemoglobin 31.5 pg (25-34); Mean Corpuscular Hgb Conc 33.2 g/dL (32-36); Mean Corpuscular Volume 94.8 fL (80-100); RDW Coefficient of Variation 21.3 % (11.5-14.5); RDW Standard Deviation 72.5 fL (36.4-46.3); Red Blood Count 2.48 M/uL (4.7-6.1); White Blood Count 3.21 K/uL (4.8-10.8)
[2020-06-10 10:57] LABS: INR 1.2 (0.9-1.1); Partial Thromboplastin Ratio 1.2; Partial Thromboplastin Time 34.7 Seconds (21.0-31.0); Prothrombin Time 12.8 Seconds (9.0-12.0)
[2020-06-10 11:01] LABS: Alanine Aminotransferase 50 U/L (12-78); Albumin Level 3.6 gm/dl (3.4-5.0); Aspartate Aminotransferase 34 U/L (15-37); BUN Creatinine Ratio 24.4 (10-20); Blood Urea Nitrogen 29 mg/dl (7-18); Calcium 9.4 mg/dl (8.5-10.1); Carbon Dioxide 21 mmol/L (21-32); Chloride 110 mmol/L (98-107); Est GFR (African American) 65.7; Est GFR (Non-African American) 56.7; Glucose 141 mg/dl (70-99); Magnesium 2.1 mg/dl (1.8-2.4); Potassium 3.9 mmol/L (3.5-5.1); Sodium 141 mmol/L (136-145)
[2020-06-10 11:07] LABS: Albumin Globulin Ratio 1.1 (0.9-2); Alkaline Phosphatase 64 U/L (45-117); Bilirubin,Total 0.4 mg/dl (0.2-1); Globulin 3.2 gm/dl (2.5-4.0); NT Pro B Type Natriuretic Pept 8471 pg/ml (0-1800); Total Protein 6.8 gm/dl (6.4-8.2)
[2020-06-10 11:09] LABS: Immature Granulocytes # (auto) 0.01 K/uL (0.00-0.02); Immature Granulocytes % (auto) 0.3 %; Lymphocytes # (auto) 0.43 K/uL (1.2-3.4); Lymphocytes % (auto) 13.4 %; Monocytes # (auto) 0.45 K/uL (0.11-0.59); Neutrophils # (auto) 2.32 K/uL (1.4-6.5); Neutrophils % (auto) 72.3 %; Nucleated RBC # (auto) 0.03 K/uL (0-0); Ovalocytes 2+; Platelet Count 32 K/uL (130-400); Platelet Estimate SIGNIFIC DECREASED (Normal); Tear Drop Cells 1+
[2020-06-10] MEDS ORDERED: FUROSEMIDE 40 MG/4 ML VIAL IV STA (11:18)
[2020-06-10] MEDS ORDERED: SODIUM CHLORIDE 0.9% 250 ML IV PRN (11:18)
[2020-06-10] MEDS ORDERED: CEFEPIME 2,000 MG/20 ML VIAL IV STA (11:18)
--- NOTE | 2020-06-10 12:11 | Electrocardiogram Report ---
Test Reason : Blood Pressure : / mmHG Vent. Rate : 098 BPM Atrial Rate : 098 BPM P-R Int : 000 ms QRS Dur : 100 ms QT Int : 386 ms P-R-T Axes : 000 065 268 degrees QTc Int : 492 ms Poor data quality, interpretation may be adversely affected Sinus rhythm Intermittent atrial sensing, ventricular electronic pacing Abnormal ECG When compared with ECG of 12-DEC-2018 07:32, Electronic ventricular pacemaker has replaced Sinus rhythm Confirmed by Olvin Artis ([id number]) on 06/10/2020 12:11:24 PM Referred By: Confirmed By:Olvin Artis
[2020-06-10 12:38] LABS: Appearance Urine Clear (Clear); Bacteria Urine Automated Negative (Negative); Bilirubin Urine Negative (Negative); Blood Urine 1+ (Negative); Color Urine Yellow; Epithelial Cell Urine Auto 0-5 /lpf (0-5); Glucose Urine UA Trace (Negative); Ketones Urine Negative (Negative); Leukocyte Esterase Urine Negative (Negative); Nitrite Urine Negative (Negative); Protein Urine 1+ (Negative); RBC Urine Automated 0-4 /hpf (0-4); Specific Gravity Urine 1.025 (1.000-1.030); Urobilinogen Urine Negative (Negative); WBC Urine Automated 0 /hpf (0-5)
--- NOTE | 2020-06-10 13:00 | History & Physical Report ---
Date of Service June 10, 2020 Assessment & Plan (1) NSTEMI (non-ST elevated myocardial infarction): NSTEMI in setting of anemia and CHF. Unable to take ASA due to thrombocytopenia Took dabigatran this morning therefore will defer to cardiology whether to start heparin 12 hours after this. Continue ISMN, metoprolol succinate, Pradaxa. HbA1C and lipid panel with AM labs. Not on statin - deferred starting this to cardiology. Consult cardiology (2) Symptomatic anemia: NSTEMI vs. demand -ischemia in setting of chemotherapy and anemia. Transfuse 2 units packed RBCs and repeat H&H to make sure not trending down. Suspected secondary to chemotherapy and multiple myeloma. (3) CAD (coronary artery disease): As above for NSTEMI (4) Acute on chronic systolic (congestive) heart failure: Mild congestion on exam ?due to cardiac event. IV lasix 40mg given in ER. Appears euvolemic at the present time and will defer further dosing upon clinical picture tomorrow. Continue metoprolol succinate. (5) Generalized weakness: Likely secondary to chemotherapy. Re-evaluate need for rehabilitation tomorrow. (6) BPH (benign prostatic hyperplasia): Continue alfuzosin and finasteride. (7) Pancytopenia due to antineoplastic chemotherapy: Transfuse as above., Avoid ASA. (8) Multiple myeloma: Patient to follow up with his oncologist after discharge for advice on further chemotherapy. Admission and Anticipated Discharge Date Admission Date: 06/10/2020 History of Present Illness Chief Complaint: Chest pain Primary Care Provider: Aldo Javed DO Lester Blanchard is an 84 year old male with multiple myeloma currently undergoing chemotherapy who presents to the ER with chest pain and shortness of breath. This was after receiving his usual isatuximab yesterday. Overnight he had sudden onset chest pain that started around 2am. Substernal without radiation. Associated shortness of breath, generalized weakness, nausea, one episode of diarrhea. Unable to get much sleep last night due to shortness of breath. Unknown if worse on exertion. Non-pleuritic. Lasted until he came to the ER and was given oxygen and IV lasix. No current chest pain on admission. He denies having similar symptoms when he has had the same chemotherapy previously. Allergies Allergy/AdvReac Type Severity Reaction Status Date / Time immune globulin,gamma (IgG) Allergy Severe ANAPHYLAXIS Verified 06/10/20 11:31 human Penicillins Allergy Severe Dizziness Verified 06/10/20 11:31 Usjkuno-Gic-Rtl Reductase Allergy Unknown Dizziness Verified 06/10/20 11:31 Inhibitor Sulfa (Sulfonamide Allergy Unknown Dizziness Verified 06/10/20 11:31 Antibiotics) gluten Allergy Verified 06/11/20 17:04 garlic AdvReac Intermediate Gastrointestinal Verified 06/10/20 11:31 Upset omeprazole AdvReac Intermediate dizziness Verified 06/10/20 11:31 Home Medications Home Medications Medication Instructions Recorded Confirmed Type TheraTears 1 drp OPB BID 10/30/18 06/10/20 History acyclovir 400 mg PO BID 10/30/18 06/10/20 History pantoprazole 40 mg PO BID 10/30/18 06/10/20 History ondansetron HCl 4 mg PO TID PRN 12/09/18 06/10/20 History dabigatran etexilate 150 mg capsule 150 mg PO BID #180 cap 05/19/19 06/10/20 Rx metoprolol succinate 100 mg 100 mg PO QAM #90 tab 11/02/19 06/10/20 Rx tablet,extended release 24 hr digoxin 125 mcg (0.125 mg) tablet 125 mcg PO QAM #90 tab 02/17/20 06/10/20 Rx isosorbide mononitrate 60 mg 60 mg PO QAM #90 tab 04/29/20 06/10/20 Rx tablet,extended release 24 hr alfuzosin 10 mg PO QDD 06/10/20 06/10/20 History cyanocobalamin (vitamin B-12) 2,000 mcg PO QAM 06/10/20 06/10/20 History [Vitamin B-12] finasteride 5 mg PO QAM 06/10/20 06/10/20 History fluticasone propionate 1 spray INTRANASAL BID 06/10/20 06/10/20 History isosorbide mononitrate 30 mg PO QAM 06/10/20 06/10/20 History Past Med/Surg History Medical History Arthritis Basal cell carcinoma BPH (benign prostatic hyperplasia) Bradycardia CAD (coronary artery disease) Cardiomyopathy Chronic systolic (congestive) heart failure Dysphagia Exertional angina History of melanoma in situ History of SCC (squamous cell carcinoma) of skin Hydrocele of testis Hypercalcemia of malignancy Hypomagnesemia Lumbar canal stenosis Mitral regurgitation Multiple myeloma SINCE 2012 Neck pain Osteoporosis Pancytopenia due to antineoplastic chemotherapy Personal history of malignant melanoma of skin Pneumonia Seborrheic keratosis Sick sinus syndrome (08/14/13) Sinus of skin after surgical procedure (04/11/13) Stroke syndrome Syncope Surgical History H/O local excision of skin lesion History of back surgery History of cataract surgery LEFT. 04/15/2019. 2mg versed, no issues. History of ear surgery Hx of tonsillectomy S/P placement of cardiac pacemaker S/P tonsillectomy (04/11/13) Family History Mother, "Fell over in the street" No formal dx given. Bladder cancer Father Social History Smoking Status: Never smoker Second Hand Exposure: No; Hx Alcohol Use: No Hx Substance Use: No Preferred Language: Thai Communication Ability: Effective [employer] Required: No Beliefs That Will Affect Care: None marital status: Current Living Situation: Spouse Feels Safe at Home: Yes Assistive Devices: Cane, Glasses, Hearing Aid - Left, Hearing Aid - Right and Walker Review of Systems Review of Systems: All systems reviewed & are unremarkable except as noted in HPI & below Physical Exam Constitutional: well developed; + not well nourished (pale appearing) and no acute distress Eyes: + anicteric sclerae; normal pupil size ENMT: external ear and nose normal, oropharynx normal Neck: normal visual inspection and trachea midline Cardiovascular: Rate/Rhythm: regular rate and regular rhythm Heart Sounds: + murmur (sustolic RUSB) Vessels: no JVD Extremities: normal capillary refill; no calf tenderness and no pedal edema Gastrointestinal (Abdomen): normal bowel sounds, soft, nontender, no hepatosplenomegaly Musculoskeletal: no cyanosis or clubbing, extremities motor strength 5/5 Skin: no rashes, warm and dry Neurologic: moves all extremities and awake; not confused Psychiatric: A+Ox3, euthymic affect Genitourinary: no CVA tenderness Results & Data Results & Data ([facility]) Vital Signs (Past 12 Hours) Vital Signs Temp Pulse Resp BP Pulse Ox 06/10/20 12:34 36.8 C 77 18 96/66 L 97 06/10/20 12:21 95 06/10/20 12:19 36.6 C 79 22 104/73 96 06/10/20 11:58 36.7 C 82 22 114/85 97 06/10/20 11:30 82 23 111/77 97 06/10/20 11:00 87 24 128/82 98 06/10/20 10:32 94 06/10/20 10:30 100 H 24 141/76 H 95 06/10/20 10:28 96 H 20 153/86 H 94 06/10/20 10:24 99 H 25 H 92 06/10/20 09:45 36.5 C 103 H 24 149/86 H 93 Diagnostic Findings XR chest 1V portable IMPRESSION: Cardiomegaly with pulmonary vascular congestion and interstitial opacities are suggestive of probable pulmonary edema. ECG Indication: chest pain Rate (beats per minute): 98 Rhythm: normal sinus Findings: + paced rhythm (intermittent) Comparison ECG Date: from (December 12, 2018) Change: the following changes noted (pacemaker intermittently replaced sinus rhythm) Code Status & VTE Plan Code Status DNR/DNI VTE Prophylaxis Plan VTE Prophylaxis will be ordered: Yes PG Care Time/CCT Total # of Minutes Spent Total Time Spent with Patient: Total time spent is greater than 50% in coordination of care (as documented) at patient's floor/unit and/or counseling patient: Coding Level of Care Code 70262 Initial Inpt Care Lvl 3 Diagnoses NSTEMI (non-ST elevated myocardial infarction) I21.4 Symptomatic anemia D64.9 CAD (coronary artery disease) I25.10 Acute on chronic systolic (congestive) heart failure I50.23 Generalized weakness R53.1 BPH (benign prostatic hyperplasia) N40.0 Lower urinary tract symptom presence: symptoms absent Pancytopenia due to antineoplastic chemotherapy D61.810; T45.1X5A Multiple myeloma C90.00 (1) BPH (benign prostatic hyperplasia) Lower urinary tract symptom presence: symptoms absent Qualified Code(s): N40.0 - Benign prostatic hyperplasia without lower urinary tract symptoms
[2020-06-10 14:42] LABS: Adenovirus PCR Not Detected (NotDetected); Bordetella parapertussis PCR Not Detected (NotDetected); Bordetella pertussis PCR Not Detected (NotDetected); Chlamydia pneumoniae PCR Not Detected (NotDetected); Coronavirus 229E PCR Not Detected (NotDetected); Coronavirus CoV-2 (COVID19)PCR Not Detected (NotDetected); Coronavirus HKU1 PCR Not Detected (NotDetected); Coronavirus NL63 PCR Not Detected (NotDetected); Coronavirus OC43PCR Not Detected (NotDetected); Human Metapneumovirus PCR Not Detected (NotDetected); Influenza A PCR Not Detected (NotDetected); Influenza B PCR Not Detected (NotDetected); Mycoplasma pneumoniae PCR Not Detected (NotDetected); Parainfluenza Virus 1 PCR Not Detected (NotDetected); Parainfluenza Virus 2 PCR Not Detected (NotDetected); Parainfluenza Virus 3 PCR Not Detected (NotDetected); Parainfluenza Virus 4 PCR Not Detected (NotDetected); Respiratory Syncytial VirusPCR Not Detected (NotDetected); Rhinovirus/Enterovirus PCR Not Detected (NotDetected)
[2020-06-10] MEDS ORDERED: ONDANSETRON 4 MG OD TAB PO PRN (15:49)
--- NOTE | 2020-06-10 15:50 | Cardiology Consultation ---
Date of Consultation June 10, 2020 Assessment & Plan (1) Demand ischemia: Variable intensity but transient chest discomfort in the context of underlying anemia/apparent infusion reaction to isatuximab is most likely angina from demand ischemia. The character of his symptoms is very similar to his usual exertional angina, with the exception of now occurring at rest. Since he is currently symptom-free and there is not ECG evidence suggestive of an acute thrombotic event, as well as the fact that he has markedly anemic with thrombocytopenia and is already chronically anticoagulated with dabigatran, would favor not heparinizing at all (unless he were to have recurrent angina with characteristic ECG changes). Mainstay of treatment is to reduce his cardiac demand through transfusion (he is currently receiving 2 units of PRBCs) and to continue his usual supply/demand management medications (isosorbide/metoprolol/digoxin). Since his hemodynamics are favorable, no immediate need to titrate any of these medications. If he remains asymptomatic overnight, likely could be discharged home on his usual medications. (2) Symptomatic anemia: Receiving PRBCs. (3) CAD (coronary artery disease): Known significant coronary artery disease which is felt best medically managed. No plans for intervention at this time. (4) Cardiomyopathy: Known ischemic cardiomyopathy. Despite chest x-ray findings of mild CHF, the patient was lying flat, denied any heart failure symptoms, and appears euvolemic on exam. He did receive 40 mg IV Lasix in the emergency department, although he is not hypervolemic this is reasonable since he will be receiving a volume load through his currently transfusing packed red blood cells. Would not administer additional diuretics unless he were to demonstrate heart failure symptoms. (5) Multiple myeloma: Was completing the third of 6 cycles of his monoclonal antibody therapy. His next treatment is scheduled for 06/23/2020. Given his apparent infusion reaction, may need to modify therapy in the future. (6) Pacemaker: Functioning appropriately. History of Present Illness Reason for Consultation: "NSTEMI/CHF exacerbation"" Requesting Physician: Jordin Luther MD Attending Physician: Jordin Luther MD History of Present Illness 84-year-old man with multiple myeloma (midway through a cycle of isatuximab treatments), pancytopenia, ischemic cardiomyopathy (EF 35%), permanent atrial fibrillation (metoprolol/digoxin/dabigatran), and mild chronic systolic congestive heart failure (not currently requiring diuretics), who was admitted today after developing nausea/diarrhea last evening a few hours after treatment with isatuximab followed by variable intensity chest pressure overnight. ER evaluation showed nonspecific ECG findings and elevated troponin, the patient noted that his chest discomfort resolved completely just after oxygen was placed via nasal cannula in the ER. He has had no further discomfort and has no somatic complaints at rest presently. He slept poorly last night due to feeling generally fatigued and dysphoric, but he denies any orthopnea, PND, ankle edema, palpitations, presyncope, or syncope. His chest discomfort was mild to moderate in intensity and not associated with diaphoresis, dyspnea, or other symptoms. Location was mid to low sternal without radiation. His overnight symptoms were similar in character to the chest discomfort he has chronically noted during exertion (felt to be exertional angina). As noted, he was asymptomatic at the time of my evaluation. Allergies Allergy/AdvReac Type Severity Reaction Status Date / Time immune globulin,gamma (IgG) Allergy Severe ANAPHYLAXIS Verified 06/10/20 11:31 human Penicillins Allergy Severe Dizziness Verified 06/10/20 11:31 Vvrgvwm-Iip-Etb Reductase Allergy Unknown Dizziness Verified 06/10/20 11:31 Inhibitor Sulfa (Sulfonamide Allergy Unknown Dizziness Verified 06/10/20 11:31 Antibiotics) garlic AdvReac Intermediate Gastrointestinal Verified 06/10/20 11:31 Upset omeprazole AdvReac Intermediate dizziness Verified 06/10/20 11:31 Home Medications Home Medications Medication Instructions Recorded Confirmed Type TheraTears 1 drp OPB BID 10/30/18 06/10/20 History acyclovir 400 mg PO BID 10/30/18 06/10/20 History pantoprazole 40 mg PO BID 10/30/18 06/10/20 History ondansetron HCl 4 mg PO TID PRN 12/09/18 06/10/20 History dabigatran etexilate 150 mg capsule 150 mg PO BID #180 cap 05/19/19 06/10/20 Rx metoprolol succinate 100 mg 100 mg PO QAM #90 tab 11/02/19 06/10/20 Rx tablet,extended release 24 hr digoxin 125 mcg (0.125 mg) tablet 125 mcg PO QAM #90 tab 02/17/20 06/10/20 Rx isosorbide mononitrate 60 mg 60 mg PO QAM #90 tab 04/29/20 06/10/20 Rx tablet,extended release 24 hr alfuzosin 10 mg PO QDD 06/10/20 06/10/20 History cyanocobalamin (vitamin B-12) 2,000 mcg PO QAM 06/10/20 06/10/20 History [Vitamin B-12] finasteride 5 mg PO QAM 06/10/20 06/10/20 History fluticasone propionate 1 spray INTRANASAL BID 06/10/20 06/10/20 History isosorbide mononitrate 30 mg PO QAM 06/10/20 06/10/20 History Patient History Medical History Arthritis Basal cell carcinoma BPH (benign prostatic hyperplasia) Bradycardia CAD (coronary artery disease) Cardiomyopathy Chronic systolic (congestive) heart failure Dysphagia Exertional angina History of melanoma in situ History of SCC (squamous cell carcinoma) of skin Hydrocele of testis Hypercalcemia of malignancy Hypomagnesemia Lumbar canal stenosis Mitral regurgitation Multiple myeloma SINCE 2011 Neck pain Osteoporosis Pancytopenia due to antineoplastic chemotherapy Personal history of malignant melanoma of skin Pneumonia Seborrheic keratosis Sick sinus syndrome (08/14/13) Sinus of skin after surgical procedure (04/11/13) Stroke syndrome Syncope Surgical History H/O local excision of skin lesion History of back surgery History of cataract surgery LEFT. 04/15/2019. 2mg versed, no issues. History of ear surgery Hx of tonsillectomy S/P placement of cardiac pacemaker S/P tonsillectomy (04/11/13) Family History Mother, "Fell over in the street" No formal dx given. Bladder cancer Father Social History Smoking Status: Never smoker Second Hand Exposure: No; Do You Dip or Chew Tobacco: No; Tobacco Cessation Education Requested by Patient: No Hx Alcohol Use: No Hx Substance Use: No Preferred Language: Lao Communication Ability: Effective [employer] Required: No Beliefs That Will Affect Care: None marital status: Current Living Situation: Spouse Other Information That Helps Us Care for You: No Feels Safe at Home: Yes Safety Concerns: Feels Safe At This Time Review of Systems Constitutional: + fatigue; no fever, no chills, no weight loss and no weight gain Eyes: no problem reported Ear, Nose, Mouth, Throat: no problem reported Respiratory: no cough and no dyspnea Cardiovascular: as per Subjective / HPI Gastrointestinal: as per Subjective / HPI, + nausea and + diarrhea/loose stools; no abdominal pain and no vomiting Musculoskeletal: no myalgia Integumentary: no rash and no new lesions Neurologic: no falls and no syncope Psychiatric: no problem reported Hematologic / Lymphatic: + easy bruising; no easy bleeding Physical Exam Physical Exam: Thin, elderly white male who appears chronically ill but not acutely distressed. Afebrile. BP 115/61, pulse 77 and regular, respirations 18 but unlabored. Skin: No petechiae or generalized lesions. HEENT: Unremarkable. Neck: Jugular venous pulse with increased respiratory variation, meniscus roughly at the clavicle at 20 degrees, no carotid bruits. Lungs: Mildly decreased breath sounds with scattered fine bilateral crackles, no wheezing or rhonchi. Cardiac: PMI laterally displaced, regular rhythm with 2/6 right upper sternal border systolic ejection murmur which is nonradiating, 2/6 apical holosystolic murmur. No diastolic murmur or distant gallop. Abdomen: Soft nontender. Nondistended. Extremities: Brisk radial and dorsalis pedis pulses, no edema, warm, good capillary refill. Neurologic: Normal affect and conversation, grossly nonfocal. Results & Data ([facility]) Laboratory Results Labs show pancytopenia with white count 3.21, hemoglobin 7.8, platelet count 32,000. Normal electrolytes, BUN 29, creatinine 1.18. Troponin 2.72. NT proBNP 8471. Diagnostic Findings ECG today showed sinus rhythm with intermittent atrial sensing/ventricular electronic pacing, left ventricular hypertrophy with repolarization abnormalities. Compared with 12/12/2018 ECG, electronic ventricular pacing now present, otherwise no significant change. Echocardiogram 2018 showed EF of 35 to 40% with apical septal dyskinesis, apical inferior akinesis, and moderate inferior hypokinesis. Moderate mitral regurgitation with mild pulmonary hypertension. Chest x-ray shows hyperaeration, cardiomegaly, and mild vascular congestion. PG Care Time/CCT Total # of Minutes Spent Total Time Spent with Patient: Total time spent is greater than 50% in coordination of care (as documented) at patient's floor/unit and/or counseling patient: Coding Level of Care Code 09322 Initial Inpt Care Lvl 3 Diagnoses Demand ischemia I24.8 Symptomatic anemia D64.9 CAD (coronary artery disease) I25.10 Cardiomyopathy I42.9 Multiple myeloma C90.00 Pacemaker Z95.0
[2020-06-10] MEDS ORDERED: ALFUZOSIN HCL 10 MG TAB PO SCH (16:30)
[2020-06-10 19:54] LABS: Hematocrit (blood only) 27.3 % (42-52)
[2020-06-10] MEDS: FLUTICASONE PROPIONATE NA SPR 16 GM BTL NAE SCH (19:57)
[2020-06-10] MEDS: PANTOprazole 40 MG TAB PO SCH (19:58)
[2020-06-10] MEDS: DABIGATRAN ETEXILATE 75 MG CAP PO SCH (19:58)
[2020-06-10] MEDS: ACYCLOVIR 400 MG TAB PO SCH (19:58)
[2020-06-10] MEDS ORDERED: ARTIFICIAL TEARS OP SCH (21:00)
[2020-06-11] MEDS ORDERED: HEPARIN 100 UNIT/ML 5ML FLUSH FLUSH PRN (00:55)
[2020-06-11 07:34] LABS: Mean Corpuscular Hgb Conc 32.8 g/dL (32-36); Nucleated RBC # (auto) 0.03 K/uL (0-0); Nucleated RBC % (auto) 1.5 %
[2020-06-11 07:43] LABS: Estimated Average Glucose 140 mg/dl; Hemoglobin A1C 6.5 % (4.5-5.6)
[2020-06-11 07:46] LABS: Hematocrit (blood only) 26.5 % (42-52); Hemoglobin 8.7 g/dL (14.0-18.0); Mean Corpuscular Hemoglobin 28.5 pg (25-34); Mean Corpuscular Volume 86.9 fL (80-100); RDW Coefficient of Variation 28.3 % (11.5-14.5); RDW Standard Deviation 89.5 fL (36.4-46.3); Red Blood Count 3.05 M/uL (4.7-6.1); White Blood Count 2.22 K/uL (4.8-10.8)
[2020-06-11 08:01] LABS: Anisocytosis Present; Eosinophils # (auto) 0.01 K/uL (0-0.5); Eosinophils % (auto) 0.5 %; Immature Granulocytes # (auto) 0.01 K/uL (0.00-0.02); Immature Granulocytes % (auto) 0.5 %; Lymphocytes # (auto) 0.57 K/uL (1.2-3.4); Lymphocytes % (auto) 25.7 %; Monocytes # (auto) 0.31 K/uL (0.11-0.59); Neutrophils # (auto) 1.32 K/uL (1.4-6.5); Neutrophils % (auto) 59.3 %; Ovalocytes 2+; Platelet Estimate SIGNIFIC DECREASED (Normal); Poikilocytosis Present; Tear Drop Cells 1+
[2020-06-11 08:02] LABS: Platelet Count 34 K/uL (130-400)
[2020-06-11 08:05] LABS: BUN Creatinine Ratio 22.5 (10-20); Calcium 8.9 mg/dl (8.5-10.1); Creatinine Clr Calc Pharmacy 38.9 ml/min; Est GFR (African American) 58.5; Est GFR (Non-African American) 50.5; Potassium 3.7 mmol/L (3.5-5.1)
[2020-06-11 08:13] LABS: Troponin I 17.4 ng/ml (0-0.045)
[2020-06-11] MEDS ORDERED: CYANOCOBALAMIN 500 MCG TABLET (VITAMIN B-12) PO SCH (09:00)
[2020-06-11] MEDS ORDERED: DIGOXIN 0.125 MG TAB PO SCH (09:00)
[2020-06-11] MEDS ORDERED: FINASTERIDE 5 MG TAB PO SCH (09:00)
[2020-06-11] MEDS ORDERED: ISOSORBIDE MONO EXTENDED REL 30 MG TABCR PO SCH (09:00)
[2020-06-11] MEDS ORDERED: ISOSORBIDE MONO EXTENDED REL 60 MG TABCR PO SCH (09:00)
[2020-06-11] MEDS ORDERED: METOPROLOL SUCC 50MG EXT REL TAB PO SCH (09:00)
[2020-06-11] MEDS: FLUTICASONE PROPIONATE NA SPR 16 GM BTL NAE SCH (09:35)
[2020-06-11] MEDS: DABIGATRAN ETEXILATE 75 MG CAP PO SCH ×2 (09:35→09:40)
[2020-06-11] MEDS: PANTOprazole 40 MG TAB PO SCH (09:35)
[2020-06-11] MEDS: ACYCLOVIR 400 MG TAB PO SCH (09:39)
--- NOTE | 2020-06-11 09:40 | XRay Report ---
SINGLE VIEW CHEST CLINICAL HISTORY: Myocardial infarction. FINDINGS: An AP, portable, upright chest radiograph is compared to study dated 06/10/2020 and correlat ed with chest CT dated 12/10/2018. The examination is degraded by portable technique and patient rotat ion. A right subclavian central venous infusion port and a 2-lead cardiac pacemaker are unchanged in position. The heart is enlarged and there is atherosclerotic calcification of the thoracic aorta. Pul monary vascular congestion has almost completely resolved. Scarring/atelectasis is seen at the lung b ases. No airspace consolidation or large pleural effusion is identified. No pneumothorax is seen. The skeletal structures are osteopenic. A compression deformity with evidence of previous vertebroplasty is noted in the upper lumbar spine. Advanced degenerative changes noted in the shoulders and thoraci c spine. IMPRESSION: 1. Cardiomegaly and cardiac pacemaker. Pulmonary vascular congestion has almost completely resolved f rom yesterday. 2. No airspace consolidation or large pleural effusion is identified. Electronically signed by: Don Quiroga M.D. 06/11/2020 9:39 AM
--- NOTE | 2020-06-11 11:32 | XCELERA ---
[id number]
--- NOTE | 2020-06-11 13:37 | Hospitalist Progress Note ---
Date of Service June 11, 2020 Assessment & Plan Admission and Anticipated Discharge Date Admission Date: June 10, 2020 Results & Data Results & Data ([facility]) Vital Signs (Past 12 Hours) Vital Signs Temp Pulse Pulse Resp BP BP Pulse Ox 06/11/20 11:29 36.8 C 67 16 107/61 95 06/11/20 09:39 98 H 06/11/20 08:21 36.4 C L 71 20 107/62 95 06/11/20 03:49 36.5 C 63 16 120/66 96 PG Care Time/CCT Total # of Minutes Spent Total Time Spent with Patient: Total time spent is greater than 50% in coordination of care (as documented) at patient's floor/unit and/or counseling patient: Coding
--- NOTE | 2020-06-11 16:05 | Cardiology Progress Note ---
Date of Service June 11, 2020 Assessment & Plan (1) Demand ischemia: He had a significant elevation in his biomarkers suggesting a significant deal of injury. Whether the mechanism of his injury was an acute coronary syndrome or simply demand related is unknown. He is felt to have an element of underlying coronary disease and does have symptoms consistent with exertional angina at baseline. It is possible that in the setting of stress and low hemoglobin he had a more substantial event. He was ambulatory around the [place] today with a walker. He did not have symptoms of chest discomfort. His symptoms appear to have resolved at the time of admission with supplemental oxygen administration. I do not believe there is any utility in keeping him in the hospital he is not appear to be a good candidate for coronary angiography or any percutaneous intervention. Did discuss with the patient and his that there are certain things that are unpredictable including recurrent ischemic events. They would prefer to go home and any regard. I think it is reasonable to have him discharged. I think he should be maintained on his Pradaxa. He should be maintained on his metoprolol and isosorbide. I do not believe he requires a daily diuretic. (2) Symptomatic anemia: Resolved with transfusion. He would likely benefit from close monitoring of his hemoglobin level. Would seem reasonable to consider transfusion when his hemoglobin approaches 8 (3) CAD (coronary artery disease): Known significant coronary artery disease which is felt best medically managed. No plans for intervention at this time. (4) Cardiomyopathy: Known ischemic cardiomyopathy. Well compensated on examination today (5) Multiple myeloma: Was completing the third of 6 cycles of his monoclonal antibody therapy. His next treatment is scheduled for 06/23/2020. Given his apparent infusion reaction, may need to modify therapy in the future. Certainly keeping track of his hemoglobin more closely would be of value (6) Pacemaker: Functioning appropriately. Admission and Anticipated Discharge Date Admission Date: June 10, 2020 Subjective This afternoon the patient claimed feeling well. He ambulated around the [place] with a walker. He did not report any recurrent symptoms of chest discomfort or limiting dyspnea. Oxygen saturations remained normal. He was anxious for discharge. Review of Systems Review of Systems: Per HPI. Physical Exam Physical Exam: Thin, elderly white male who appears chronically ill but not acutely distressed. Skin: No petechiae or generalized lesions. HEENT: Unremarkable. Lungs: Clear lung davis. Normal respiratory effort. Cardiac: PMI laterally displaced, regular rhythm with 2/6 right upper sternal border systolic ejection murmur which is nonradiating, 2/6 apical holosystolic murmur. No diastolic murmur or distant gallop. Chest: Right upper chest port Abdomen: Soft nontender. Nondistended. Extremities: Brisk radial and dorsalis pedis pulses, no edema, warm, good capillary refill. Neurologic: Normal affect and conversation, grossly nonfocal. Results & Data ([facility]) Vital Signs (Past 12 Hours) Vital Signs Temp Pulse Pulse Resp BP BP Pulse Ox 06/11/20 14:59 36.8 C 67 16 107/61 120/66 95 06/11/20 11:29 36.8 C 67 16 107/61 95 06/11/20 09:39 98 H 06/11/20 08:21 36.4 C L 71 20 107/62 95 Laboratory Results Abnormal Lab Results 06/09/20 06/10/20 06/10/20 10:30 19:41 19:41 WBC RBC Hgb 9.0 L Hct 27.3 L MCV MCH MCHC RDW Std Deviation RDW Coeff of Rigo Plt Count Immature Gran % (Auto) Neut % (Auto) Lymph % (Auto) Catron % (Auto) Eos % (Auto) Baso % (Auto) Neut # (Auto) Lymph # (Auto) Catron # (Auto) Eos # (Auto) Baso # (Auto) Immature Gran # (Auto) Absolute Nucleated RBC Nucleated RBC % (auto) Platelet Estimate Poikilocytosis Anisocytosis Tear Drop Cells Ovalocytes Sodium Potassium Chloride Carbon Dioxide Anion Gap BUN Creatinine Est Cr Clr Drug Dosing Est GFR ( Amer) Est GFR (Non-Af Amer) BUN/Creatinine Ratio Glucose Estimat Average Glucose Hemoglobin A1c Calcium Troponin I 18.000 H* Blood Type O Positive Antibody Screen POSITIVE A Antibody Identification Panagglutinin due to drug Antibody ID Comment Crossmatch See Detail 06/11/20 06/11/20 06/11/20 07:23 07:23 07:23 WBC 2.22 L RBC 3.05 L Hgb 8.7 L Hct 26.5 L MCV 86.9 D MCH 28.5 MCHC 32.8 RDW Std Deviation 89.5 H RDW Coeff of Rigo 28.3 H Plt Count 34 L Immature Gran % (Auto) 0.5 Neut % (Auto) 59.3 Lymph % (Auto) 25.7 Catron % (Auto) 14.0 Eos % (Auto) 0.5 Baso % (Auto) 0.0 Neut # (Auto) 1.32 L Lymph # (Auto) 0.57 L Catron # (Auto) 0.31 Eos # (Auto) 0.01 Baso # (Auto) 0.00 Immature Gran # (Auto) 0.01 Absolute Nucleated RBC 0.03 H Nucleated RBC % (auto) 1.5 Platelet Estimate SIGNIFIC DECREASED Poikilocytosis Present Anisocytosis Present Tear Drop Cells 1+ Ovalocytes 2+ Sodium 145 Potassium 3.7 Chloride 111 H Carbon Dioxide 25 Anion Gap 9.0 BUN 29 H Creatinine 1.30 Est Cr Clr Drug Dosing 38.9 Est GFR ( Amer) 58.5 Est GFR (Non-Af Amer) 50.5 BUN/Creatinine Ratio 22.5 H Glucose 85 Estimat Average Glucose 140 Hemoglobin A1c 6.5 H Calcium 8.9 Troponin I 17.400 H* Blood Type Antibody Screen Antibody Identification Antibody ID Comment Crossmatch PG Care Time/CCT Total # of Minutes Spent Total Time Spent with Patient: Total time spent is greater than 50% in coordination of care (as documented) at patient's floor/unit and/or counseling patient: Coding Level of Care Code 99171 Subseq Hosp Care Lvl 3 Diagnoses Demand ischemia I24.8 Symptomatic anemia D64.9 CAD (coronary artery disease) I25.10 Cardiomyopathy I42.9 Multiple myeloma C90.00 Pacemaker Z95.0
--- NOTE | 2020-06-11 17:16 | Discharge Summary ---
Date of Service June 11, 2020 Admission HPI Per Admitting Provider Lester Blanchard is an 84 year old male with multiple myeloma currently undergoing chemotherapy who presents to the ER with chest pain and shortness of breath. This was after receiving his usual isatuximab yesterday. Overnight he had sudden onset chest pain that started around 2am. Substernal without radiation. Associated shortness of breath, generalized weakness, nausea, one episode of diarrhea. Unable to get much sleep last night due to shortness of breath. Unknown if worse on exertion. Non-pleuritic. Lasted until he came to the ER and was given oxygen and IV lasix. No current chest pain on admission. He denies having similar symptoms when he has had the same chemotherapy previously. Admission Exam Per Admitting Provider Constitutional: well developed; + not well nourished (pale appearing) and no acute distress Eyes: + anicteric sclerae; normal pupil size ENMT: external ear and nose normal, oropharynx normal Neck: normal visual inspection and trachea midline Cardiovascular: Rate/Rhythm: regular rate and regular rhythm Heart Sounds: + murmur (sustolic RUSB) Vessels: no JVD Extremities: normal capillary refill; no calf tenderness and no pedal edema Gastrointestinal (Abdomen): normal bowel sounds, soft, nontender, no hepatosplenomegaly Musculoskeletal: no cyanosis or clubbing, extremities motor strength 5/5 Skin: no rashes, warm and dry Neurologic: moves all extremities and awake; not confused Psychiatric: A+Ox3, euthymic affect Genitourinary: no CVA tenderness Principal Diagnosis Cardiac demand-ischemia (supple-demand mismatch) Symptomatic anemia secondary to chemotherapy Discharge Exam Constitutional well developed; + not well nourished (pale appearing) and no acute distress Respiratory normal respiratory effort, lungs clear to auscultation Cardiovascular Rate/Rhythm: regular rate and regular rhythm Heart Sounds: + murmur (sustolic RUSB) Vessels: no JVD Extremities: normal capillary refill; no calf tenderness and no pedal edema Gastrointestinal (Abdomen) normal bowel sounds, soft, nontender, no hepatosplenomegaly Musculoskeletal no cyanosis or clubbing, extremities motor strength 5/5 Psychiatric A+Ox3, euthymic affect Discharge Data Allergies Allergy/AdvReac Type Severity Reaction Status Date / Time immune globulin,gamma (IgG) Allergy Severe ANAPHYLAXIS Verified 06/10/20 11:31 human Penicillins Allergy Severe Dizziness Verified 06/10/20 11:31 Cvhkuuk-Shr-Cla Reductase Allergy Unknown Dizziness Verified 06/10/20 11:31 Inhibitor Sulfa (Sulfonamide Allergy Unknown Dizziness Verified 06/10/20 11:31 Antibiotics) gluten Allergy Verified 06/11/20 17:04 garlic AdvReac Intermediate Gastrointestinal Verified 06/10/20 11:31 Upset omeprazole AdvReac Intermediate dizziness Verified 06/10/20 11:31 Consultations 06/10/20 12:23 ED Decision to Admit Stat 06/10/20 12:57 Consult Cardiology Routine Hospital Course (1) Demand ischemia: Lester Blanchard is an 84 year old male with multiple myeloma who was admitted overnight at [facility] from June 10-2019 due to acute shortness of breath. This appears to be a combination of anemia, pulmonary edema and a cardiac supply-demand mismatch in setting of taking chemotherapy earlier in the day. He was treated IV lasix 40mg and transfused 2 units of packed red blood cells with resolution of his symptoms. Recommend following up with his oncologist on Saturday to discuss further treatment. Cardiology recommends further transfusions if your hemoglobin < 8. Please follow-up with your PCP within the next week with repeat CBC on Saturday as ordered. (2) NSTEMI (non-ST elevated myocardial infarction): ruled out by cardiology. Elevated troponin suspected to be secondary to supple-demand mismatch. (3) Symptomatic anemia: (4) CAD (coronary artery disease): (5) Acute on chronic systolic (congestive) heart failure: (6) Generalized weakness: (7) BPH (benign prostatic hyperplasia): (8) Pancytopenia due to antineoplastic chemotherapy: (9) Multiple myeloma: Total Time Total Time Spent Total Time Spent (In Minutes): 35 Total Time Includes: Examination of the Patient, Discharge Planning, Medication Reconciliation and Communication With Other Providers (Dr Head) Discharge Plan Discharge Items Patient Disposition: Home - Self-Care Reason For Visit: NSTEMI,SYMPTOMATIC ANEMIA Discharge Diagnosis: Demand-ischemia Symptomatic anemia Pulmonary edema Activity: Resume your previous activity Non-emergency contact: Primary Care Provider Call non-emergency contact if: you have any medication questions and your symptoms worsen Follow-up/Referrals: Brook Loera CRNP [Family Provider] - 06/15/20 1:30 pm Diet: Regular Addtl Attending Provider Instructions: You were admitted to [facility] from June 10-2019 due to acute shortness of breath. This appears to be a combination of anemia, pulmonary edema and a heart supply demand mismatch. You were treated with 1 dose of intravenous Lasix which appears to have resolved the pulmonary edema. He was transfused 2 units of packed red blood cells with resolution of the symptoms. Unclear if this was caused by your chemotherapy. Recommend calling your oncologist on Saturday to discuss further treatment. Cardiology recommends further transfusions if your hemoglobin < 8. Please follow-up with your PCP within the next week with repeat CBC on Saturday as ordered. Pending Studies at Discharge: No Stand-Alone Forms: My [facility], Smoking Cessation Medications and DC Order Prescriptions: Continued Pradaxa 150 mg capsule 150 mg PO BID Qty: 180 RF: 3 metoprolol succinate 100 mg tablet extended release 24 hr 100 mg PO QAM Qty: 90 RF: 3 digoxin [Digitek] 125 mcg (0.125 mg) tablet 125 mcg PO QAM Qty: 90 RF: 3 isosorbide mononitrate 60 mg tablet extended release 24 hr 60 mg PO QAM Qty: 90 RF: 3 ondansetron HCl 4 mg Tablet 4 mg PO TID PRN (Reason: Nausea) RF: 0 acyclovir 400 mg tablet 400 mg PO BID RF: 0 TheraTears 0.25 % Drops 1 drp OPB BID RF: 0 pantoprazole 40 mg tablet,delayed release (DR/EC) 40 mg PO BID RF: 0 cyanocobalamin (vitamin B-12) [Vitamin B-12] 2,000 mcg Tablet Extended Release 2,000 mcg PO QAM RF: 0 fluticasone propionate 50 mcg/actuation spray,suspension 1 spray INTRANASAL BID RF: 0 isosorbide mononitrate 30 mg tablet extended release 24 hr 30 mg PO QAM RF: 0 finasteride 5 mg tablet 5 mg PO QAM RF: 0 alfuzosin 10 mg tablet extended release 24 hr 10 mg PO QDD RF: 0 Discharge Orders: Discharge Order (Routine); Ordered 06/11/20 Ordered By: Jordin Barton/Other Patient Handouts: Cancer: Preventing Infections, Resources for People with Cancer, A1C Admission Data Admit Date/Time: 06/10/20 13:00 Attending Provider: Jordin Luther Admit Provider: Jordin Luther Primary Care Provider: Aldo Javed Other Providers: Jordin Luther ; Olvin Artis Other Interventions: Discharge Summary Assessment (RN) Last Done: 06/11/20 17:20 Coding Level of Care Code D/C Day Management >30 mins Diagnoses Demand ischemia I24.8 NSTEMI (non-ST elevated myocardial infarction) I21.4 Symptomatic anemia D64.9 CAD (coronary artery disease) I25.10 Acute on chronic systolic (congestive) heart failure I50.23 Generalized weakness R53.1 BPH (benign prostatic hyperplasia) N40.0 Lower urinary tract symptom presence: symptoms absent Pancytopenia due to antineoplastic chemotherapy D61.810; T45.1X5A Multiple myeloma C90.00
== END 2020-06-11 17:45 | disposition home or self-care (01) | DRG 311 ==
LOC: ED 09:42 → 2S 13:00